=== PATIENT | female | born 1965 ===

== ENCOUNTER 2021-01-24 18:50 | Inpatient (IN) | payer MEDICAID, OTHER, SELFPAY ==
--- NOTE | ~2021-01-24 | CT_ITS ---
EXAMINATION: CT ABDOMEN AND PELVIS WITH CONTRAST CLINICAL INFORMATION: Diffuse abdominal pain. COMPARISON: CT abdomen 08/25/2017. TECHNIQUE: Multidetector volumetric images were obtained from the superior aspect of the liver through the pubic symphysis following administration 65 mL of Omnipaque 350 intravenous contrast. Sagittal and coronal reformatted images were obtained on the technologist's workstation. Oral Contrast: No. This CT examination was performed using dose optimization techniques as appropriate, variously including the following: *Automated exposure control. *Adjustment of mA and/or kV according to patient size (this includes techniques or standardized protocols for targeted exams where dose is matched to indication/reason for exam; i.e. extremities or head). *Use of iterative reconstruction technique. DLP: 1108 mGy-cm FINDINGS: Respiratory motion artifact limiting evaluation. LUNG BASES: Mild bibasilar atelectasis. LIVER, GALLBLADDER, AND BILIARY TREE: Mild diffuse low-attenuation liver suggesting hepatic steatosis. No focal lesions. No biliary duct dilatation. The gallbladder is unremarkable with no evidence of radiopaque gallstones, gallbladder wall thickening, or obvious pericholecystic inflammatory changes. PANCREAS: Unremarkable. No acute inflammatory changes seen. SPLEEN: Unremarkable. ADRENAL GLANDS: Unremarkable. KIDNEYS AND URETERS: Respiratory motion artifact limiting evaluation. No suspicious lesions. Foci of increased echogenicity in the region of the renal pelvis, could represent medullary nephrocalcinosis. No ureteral calculi. No hydronephrosis. BLADDER: There is a 1 cm calculus within the bladder. No bladder wall thickening. GASTROINTESTINAL TRACT: Stomach is nondistended limiting evaluation. No dilated small bowel loops. Large colon is nondistended. No definite colonic wall thickening or pericolonic inflammatory changes. Appendix appears unremarkable. No free fluid. No free air. ABDOMINAL WALL: No significant hernia is appreciated. Infraumbilical anterior wall mesh hernia repair material is again seen. LYMPH NODES: No lymphadenopathy is seen in the abdomen or pelvis. VASCULAR: Normal caliber aorta. PELVIC VISCERA: Within normal limits. OSSEOUS STRUCTURES: Multilevel degenerative changes in the spine. No suspicious osseous abnormality seen. CT/CT abdomen pelvis w con IMPRESSION: 1. There is a 1 cm calculus/calcification within the urinary bladder. This is new as compared to the prior study. No evidence of hydronephrosis. 2. Calcific densities in bilateral kidneys, perhaps medullary nephrocalcinosis. 3. No acute process is otherwise identified in the abdomen or pelvis. 4. Mild bibasilar atelectasis. 5. Hepatic steatosis.
[2021-01-24 19:04] VITALS: BP 148/88; PULSE 95; RESP 18; TEMP 36.2; O2SAT 100; BMI 40.3
--- NOTE | 2021-01-24 19:13 | ECG_ITS ---
Test Reason : OVERDOSE Blood Pressure : / mmHG Vent. Rate : 080 BPM Atrial Rate : 080 BPM P-R Int : 220 ms QRS Dur : 100 ms QT Int : 404 ms P-R-T Axes : 054 000 073 degrees QTc Int : 465 ms Sinus rhythm with 1st degree A-V block Nonspecific T wave abnormality Abnormal ECG When compared with ECG of 08-JUL-2019 13:38, CT interval has increased Borderline criteria for Anterior infarct are no longer Present Referred By: Samia Luo Electronically Signed By:Da Faulkner
[2021-01-24] MEDS: Haloperidol Lactate 5 MG/ML VIAL IM (19:22)
[2021-01-24 20:07] VITALS: BP 125/76; PULSE 74; RESP 20; TEMP 36.7; O2SAT 91
[2021-01-24 20:14] LABS: Basophils Percent Auto 0.4 % (0-2); Eosinophils Absolute Auto 0.1 X10*3/uL (0.0-0.4); Eosinophils Percent Auto 0.4 % (0-4); Hematocrit 37.8 % (37-47); Hemoglobin 12.3 g/dl (12.0-16.0); Imm Gran Abs Auto 0.04 X10*3/uL (0.00-0.03); Imm Gran Pct Auto 0.4 % (0.0-0.4); Lymphocytes Absolute Auto 0.5 X10*3/uL (1.2-4.9); Lymphocytes Percent Auto 4.3 % (20-40); MANUAL DIFF FLAG SCAN; Mean Corpuscular HGB Conc 32.5 g/dl (31.0-35.0); Mean Corpuscular Hemoglobin 24.6 pg (27.0-33.0); Mean Corpuscular Volume 75.8 fL (80-98); Mean Platelet Volume 9.5 fL (9.4-12.3); Monocytes Absolute Auto 0.6 X10*3/uL (0.1-1.2); Neutrophils Absolute Auto 10.1 X10*3/uL (2.0-8.3); Neutrophils Percent Auto 89.5 % (45-73); Platelet Count 271 X10*3/uL (160-400); Red Blood Count 4.99 X10*6/uL (4.20-5.50); SCAN SMEAR FLAG 1; White Blood Count 11.2 X10*3/uL (4.8-10.8)
[2021-01-24 20:23] LABS: Glucose Urine UA NEG (NEG); Leukocyte Esterase Urine NEG (NEG); Nitrite Urine NEG (NEG); PH 5.5 (5.0-8.0); Specific Gravity - Urine >= 1.030 (1.005-1.025); Urine Blood 1+ (NEG); Urine Ketones NEG (NEG); Urine Protein TRACE MG/DL (NEG-TRACE)
[2021-01-24 20:24] LABS: COVID-19 Test Negative (Negative)
[2021-01-24 20:27] LABS: Color Urine YELLOW
[2021-01-24 20:28] LABS: Appearance Urine CLEAR
[2021-01-24 20:29] LABS: Amphetamine Screen Urine Not Detected (Not Detect); Barbiturates, Urine POSITIVE (Not Detect); Benzodiazepines Screen Urine Not Detected (Not Detect); Cannabinoid Screen Urine Not Detected (Not Detect); Cocaine Screen Urine Not Detected (Not Detect); Opiate Screen Urine Not Detected (Not Detect); Phencyclidine Screen Urine Not Detected (Not Detect)
[2021-01-24 20:41] LABS: Alanine Aminotransferase 19 U/L (0-31); Albumin Level 4.3 g/dL (3.5-5.0); Alkaline Phosphatase 87 U/L (39-117); Anion Gap 18 (12-20); Aspartate Amino Transferase 22 U/L (5-31); Bilirubin Direct 0.2 mg/dL (0.0-0.5); Bilirubin Total 0.5 mg/dL (0.0-1.0); Blood Urea Nitrogen 12 mg/dL (9-16); Calcium 9.5 mg/dL (8.4-10.2); Carbon Dioxide 22 mmol/L (22-29); Chloride 106 mmol/L (96-108); Creatinine Clr Calc Pharmacy 93.3; Estimated Glomerular Filt Rate > 60; Glucose Random 178 mg/dL (60-115); Lipase 24 U/L (8-78); Potassium 3.8 mmol/L (3.3-5.1); Sodium 142 mmol/L (135-145); Total Protein 7.2 g/dL (6.5-8.0)
[2021-01-24 20:47] LABS: SLIDE REVIEW VERIFIED
[2021-01-24 21:00] LABS: Bacteria Urine TRACE /LPF; Squamous Epithelial Cell Urine 1+ /LPF
[2021-01-24 21:01] LABS: Calcium Oxalate Crystals Urine 1+ /LPF; Mucus Urine 1+ /LPF
--- NOTE | 2021-01-24 21:11 | PC.NURSE ---
Daughter Jessica took Patient valuables with patients consent and witnessed byt this RN and Mary Beth Gamez Jessica (daughter) phone number [phone]
[2021-01-24 21:41] VITALS: BP 116/67; PULSE 62; RESP 16; TEMP 37.1; O2SAT 94
[2021-01-24] MEDS: iohexoL 350 MG/ML 100 ML INFUS..BTL IV (21:44)
[2021-01-24 22:24] VITALS: BP 124/70; PULSE 54; RESP 13; TEMP 36.6; O2SAT 92
--- NOTE | 2021-01-24 23:09 | ED_ITS ---
HPI - Overdose General Chief Complaint: Overdose Stated Complaint: OVERDOSE Time Seen by Provider: 01/24/21 19:04 Source: EMS Mode of arrival: EMS Limitations: altered mental status History of Present Illness HPI Narrative: Patient is brought to the emergency room after having an overdose. Patient was found by family with agonal breathing. EMS gave 4 mg intranasal Narcan. Patient woke up, complaining of nausea vomiting. Patient complaining of relapsing from using heroin and states she has been using alcohol today. Patient states that she has been continuously vomiting for the last 3 days, states that she can not eat and therefore she bought heroin with the intention of overdosing and ending her life. MD complaint: intentional overdose Related Data Allergies Allergy/AdvReac Type Severity Reaction Status Date / Time lisinopril [LISINOPRIL] Allergy Unknown UNKNOWN Unverified 05/08/20 14:54 RYNE INHIBITORS Allergy Unknown Uncoded 08/10/12 00:00 Review of Systems Review of Systems: Constitutional : No Weight loss, No Fever, No Chills, No Night Sweats, No Fatigue, No Malaise ENT/Mouth : No Hearing loss, No Ear Pain, No Nasal Congestion, No Sinus Pain, No Hoarseness, No sore throat, No Rhinorrhea, No Swallowing Difficulty Eyes: No Eye Pain, No Swelling, No Redness, No Foreign Body, No Discharge, No Vision Changes Cardiovascular : No Chest Pain, No SOB, No Dyspnea on Exertion, No Orthopnea, No Edema, No Palpitations Respiratory : No Cough, No Sputum, No Wheezing, No Smoke Exposure, No Dyspnea Gastrointestinal : Complaining of nausea , no vomiting, No Diarrhea, No Constipation, No abdominal Pain, No Hematochezia, No Melena Genitourinary : no irregular bleeding, No Dysuria, No Urinary Frequency, No Hematuria, No Urinary Incontinence, No Urgency, No Flank Pain, No Urinary Flow Changes, No Hesitancy Musculoskeletal : No joint pain, No Myalgias, No Joint Swelling Skin : No Skin Lesions, No rash Neuro : No Weakness, No Numbness, No Paresthesias, No Loss of Consciousness, No Dizziness, No Headache Psych : Complaining of anxiety, depression, drug abuse, complaining of suicidal ideation, homicidal ideation Heme/Lymph: No Bruising, No Bleeding,No Lymphadenopathy Endocrine : No Polyuria, No Polydipsia, No Temperature Intolerance PMFSH Past Medical History Medical History Drug overdoses Social History Social History Use of substances other than those prescribed or required for medical reasons: Yes Substance Use Type: Heroin Substance Use Frequency: Chronic Longstanding Advance Directives: No Advance Directives Information Provided: No Patient : No Physical Exam Vital Signs: Vital Signs: Last Vital Signs Temp 97.8 F 01/24/21 22:24 Pulse 54 01/24/21 22:24 Resp 13 01/24/21 22:24 BP 124/70 01/24/21 22:24 Pulse Ox 92 01/24/21 22:24 Body Mass Index 40.3 Appearance: Alert. Oriented X3. Screaming, actively withdrawing from opiates due to Narcan Eyes: Pupils equal, round and reactive to light. ENT: Pharynx normal. Neck: Normal inspection. Neck supple. No lymph nodes noted. No crepitus CVS: Normal heart rate and rhythm. Pulses normal. Normal S1 and S2 Respiratory: No respiratory distress. Breath sounds normal. No Wheezing. No rales Abdomen: Soft and nontender. No rigidity. No distention. Skin: Skin warm and dry. Normal skin color. Normal skin turgor. Extremities: No lower extremity edema. Neuro: . New nerves 2-12 grossly intact, No sensory deficit. Moving all extermities. No slurred speech. Course Course Course Narrative: [facility] for consult pending for suicidal ideation/suicide attempt. Patient has a section 12 in her chart. Per patient's previous medical records, it is known that she uses fentanyl Physician observation started at this time, 23:15 [facility] for consult pending. Sign out given to Dr. Buckley MDM - Overdose Lab Data Result diagrams: 01/24/21 20:04 01/24/21 20:04 Labs: Lab Results 01/24/21 01/24/21 01/24/21 Range/Units 19:54 19:54 19:55 WBC (4.8-10.8) X10*3/uL RBC (4.20-5.50) X10*6/uL Hgb (12.0-16.0) g/dl Hct (37-47) % MCV (80-98) fL MCH (27.0-33.0) pg MCHC (31.0-35.0) g/dl RDW (11.0-16.0) % Plt Count (160-400) X10*3/uL MPV (9.4-12.3) fL Immature Gran % (Auto) (0.0-0.4) % Neut % (Auto) (45-73) % Lymph % (Auto) (20-40) % [place] % (Auto) (2-11) % Eos % (Auto) (0-4) % Baso % (Auto) (0-2) % Lymph # (Auto) (1.2-4.9) X10*3/uL [place] # (Auto) (0.1-1.2) X10*3/uL Eos # (Auto) (0.0-0.4) X10*3/uL Baso # (Auto) (0.0-0.2) X10*3/uL Abs Immat Gran (auto) (0.00-0.03) X10*3/uL Absolute Neuts (auto) (2.0-8.3) X10*3/uL Absolute Nucleated RBC (0.0-0.012) X10*3/uL Nucleated RBC % (auto) (0.0-0.2) /100WBC Smear Tech's Comments Sodium (135-145) mmol/L Potassium (3.3-5.1) mmol/L Chloride (96-108) mmol/L Carbon Dioxide (22-29) mmol/L Anion Gap (12-20) BUN (9-16) mg/dL Creatinine (0.5-1.4) mg/dL Estim Creat Clear Calc Estimated GFR Random Glucose (60-115) mg/dL Calcium (8.4-10.2) mg/dL Total Bilirubin (0.0-1.0) mg/dL Direct Bilirubin (0.0-0.5) mg/dL AST (5-31) U/L ALT (0-31) U/L Alkaline Phosphatase (39-117) U/L Total Protein (6.5-8.0) g/dL Albumin (3.5-5.0) g/dL Lipase (8-78) U/L Urine Color YELLOW Urine Appearance CLEAR Urine pH 5.5 (5.0-8.0) Ur Specific [place] >= 1.030 H (1.005-1.025) Urine Protein TRACE (NEG-TRACE) MG/DL Urine Glucose (UA) NEG (NEG) MG/DL Urine Ketones NEG (NEG) MG/DL Urine Blood 1+ H (NEG) Urine Nitrite NEG (NEG) Ur Leukocyte Esterase NEG (NEG) Urine RBC 10-14 H (0) /HPF Urine WBC 1-4 (0-4) /HPF Ur Squamous Epith Cells 1+ /LPF Calcium Oxalate Crystal 1+ /LPF Urine Bacteria TRACE /LPF Urine Mucus 1+ /LPF Urine Opiates Screen Not Detected (Not Detect) Ur Barbiturates Screen POSITIVE H (Not Detect) Ur Phencyclidine Scrn Not Detected (Not Detect) Ur Amphetamines Screen Not Detected (Not Detect) U Benzodiazepines Scrn Not Detected (Not Detect) Urine Cocaine Screen Not Detected (Not Detect) U Marijuana (THC) Screen Not Detected (Not Detect) Ethyl Alcohol mg/dL COVID-19 (LUIGI) Negative (Negative) COVID-19 Clin Com See Note 01/24/21 01/24/21 01/24/21 Range/Units 20:04 20:04 20:04 WBC 11.2 H (4.8-10.8) X10*3/uL RBC 4.99 (4.20-5.50) X10*6/uL Hgb 12.3 (12.0-16.0) g/dl Hct 37.8 (37-47) % MCV 75.8 L (80-98) fL MCH 24.6 L (27.0-33.0) pg MCHC 32.5 (31.0-35.0) g/dl RDW 16.0 (11.0-16.0) % Plt Count 271 (160-400) X10*3/uL MPV 9.5 (9.4-12.3) fL Immature Gran % (Auto) 0.4 (0.0-0.4) % Neut % (Auto) 89.5 H (45-73) % Lymph % (Auto) 4.3 L (20-40) % [place] % (Auto) 5.0 (2-11) % Eos % (Auto) 0.4 (0-4) % Baso % (Auto) 0.4 (0-2) % Lymph # (Auto) 0.5 L (1.2-4.9) X10*3/uL [place] # (Auto) 0.6 (0.1-1.2) X10*3/uL Eos # (Auto) 0.1 (0.0-0.4) X10*3/uL Baso # (Auto) 0.0 (0.0-0.2) X10*3/uL Abs Immat Gran (auto) 0.04 H (0.00-0.03) X10*3/uL Absolute Neuts (auto) 10.1 H (2.0-8.3) X10*3/uL Absolute Nucleated RBC 0.000 (0.0-0.012) X10*3/uL Nucleated RBC % (auto) 0.0 (0.0-0.2) /100WBC Smear Tech's Comments VERIFIED Sodium 142 (135-145) mmol/L Potassium 3.8 (3.3-5.1) mmol/L Chloride 106 (96-108) mmol/L Carbon Dioxide 22 (22-29) mmol/L Anion Gap 18 (12-20) BUN 12 (9-16) mg/dL Creatinine 0.87 (0.5-1.4) mg/dL Estim Creat Clear Calc 93.3 Estimated GFR > 60 Random Glucose 178 H (60-115) mg/dL Calcium 9.5 (8.4-10.2) mg/dL Total Bilirubin 0.5 (0.0-1.0) mg/dL Direct Bilirubin 0.2 (0.0-0.5) mg/dL AST 22 (5-31) U/L ALT 19 (0-31) U/L Alkaline Phosphatase 87 (39-117) U/L Total Protein 7.2 (6.5-8.0) g/dL Albumin 4.3 (3.5-5.0) g/dL Lipase 24 (8-78) U/L Urine Color Urine Appearance Urine pH (5.0-8.0) Ur Specific [place] (1.005-1.025) Urine Protein (NEG-TRACE) MG/DL Urine Glucose (UA) (NEG) MG/DL Urine Ketones (NEG) MG/DL Urine Blood (NEG) Urine Nitrite (NEG) Ur Leukocyte Esterase (NEG) Urine RBC (0) /HPF Urine WBC (0-4) /HPF Ur Squamous Epith Cells /LPF Calcium Oxalate Crystal /LPF Urine Bacteria /LPF Urine Mucus /LPF Urine Opiates Screen (Not Detect) Ur Barbiturates Screen (Not Detect) Ur Phencyclidine Scrn (Not Detect) Ur Amphetamines Screen (Not Detect) U Benzodiazepines Scrn (Not Detect) Urine Cocaine Screen (Not Detect) U Marijuana (THC) Screen (Not Detect) Ethyl Alcohol < 10 mg/dL COVID-19 (LUIGI) (Negative) COVID-19 Clin Com Imaging Data CT scan - abdomen: Radiologist's impression: FINDINGS: Respiratory motion artifact limiting evaluation. LUNG BASES: Mild bibasilar atelectasis. LIVER, GALLBLADDER, AND BILIARY TREE: Mild diffuse low-attenuation liver suggesting hepatic steatosis. No focal lesions. No biliary duct dilatation. The gallbladder is unremarkable with no evidence of radiopaque gallstones, gallbladder wall thickening, or obvious pericholecystic inflammatory changes. PANCREAS: Unremarkable. No acute inflammatory changes seen. SPLEEN: Unremarkable. ADRENAL GLANDS: Unremarkable. KIDNEYS AND URETERS: Respiratory motion artifact limiting evaluation. No suspicious lesions. Foci of increased echogenicity in the region of the renal pelvis, could represent medullary nephrocalcinosis. No ureteral calculi. No hydronephrosis. BLADDER: There is a 1 cm calculus within the bladder. No bladder wall thickening. GASTROINTESTINAL TRACT: Stomach is nondistended limiting evaluation. No dilated small bowel loops. Large colon is nondistended. No definite colonic wall thickening or pericolonic inflammatory changes. Appendix appears unremarkable. No free fluid. No free air. ABDOMINAL WALL: No significant hernia is appreciated. Infraumbilical anterior wall mesh hernia repair material is again seen. LYMPH NODES: No lymphadenopathy is seen in the abdomen or pelvis. VASCULAR: Normal caliber aorta. PELVIC VISCERA: Within normal limits. OSSEOUS STRUCTURES: Multilevel degenerative changes in the spine. No suspicious osseous abnormality seen. CT/CT abdomen pelvis w con IMPRESSION: 1. There is a 1 cm calculus/calcification within the urinary bladder. This is new as compared to the prior study. No evidence of hydronephrosis. 2. Calcific densities in bilateral kidneys, perhaps medullary nephrocalcinosis. 3. No acute process is otherwise identified in the abdomen or pelvis. 4. Mild bibasilar atelectasis. 5. Hepatic steatosis. ECG Data Attestation: I personally reviewed and interpreted this ECG as follows: (Senna rhythm, heart rate 80, first-degree AV block, no ST segment depression or el evation, no T-wave inversion, QTC 465) Discharge Plan Discharge Clinical Impression: Drug overdose Qualifiers: Encounter type: initial encounter Injury intent: intentional self-harm Qualified Code(s): T50.902A - Poisoning by unspecified drugs, medicaments and biological substances, intentional self-harm, initial encounter Suicide attempt by multiple drug overdose Qualifiers: Encounter type: initial encounter Qualified Code(s): T50.912A - Poisoning by multiple unspecified drugs, medicaments and biological substances, intentional self-harm, initial encounter
[2021-01-25] VITALS (7 sets, daily range): BP systolic 102–131; BP diastolic 59–83; PULSE 56–67; RESP 14–18; TEMP 36.3–36.6; O2SAT 93–95
[2021-01-25] LABS: Ethanol < 10 mg/dL
--- NOTE | 2021-01-25 08:12 | PC.NURSE ---
Pt evaluated by N. Family here for visit. Pt is cooperative with care. Awaiting N disposition at this time.
--- NOTE | 2021-01-25 08:27 | PC.NURSE ---
Pt c/o nausea this morning. 4mg po zofran given. Pt is resting in bed quietly.
[2021-01-25] MEDS: Docusate Sodium 100 MG CAPSULE 200 MG PO ×2 (10:13→23:01)
[2021-01-25] MEDS: Omeprazole 20 MG CAPSULE.DR PO (10:13)
[2021-01-25] MEDS: Gabapentin 600 MG TABLET PO ×3 (10:13→23:01)
[2021-01-25] MEDS: Loratadine 10 MG TABLET PO (10:13)
[2021-01-25] MEDS: metFORMIN HCl 1,000 MG TABLET 1000 MG PO ×2 (10:14→23:02)
[2021-01-25] MEDS: Losartan Potassium 50 MG TABLET 100 MG PO (10:14)
[2021-01-25] MEDS: amLODIPine Besylate 10 MG TABLET PO (10:14)
--- NOTE | 2021-01-25 11:39 | PC.NURSE ---
Pt calmy drinking coffee and watching TV in the common area. Affect and mood pleasant but slightly withdrawn at this time.
--- NOTE | 2021-01-25 13:29 | PC.NURSE ---
Pt eating lunch at table in room. She states that she does not need anything at this time.
--- NOTE | 2021-01-25 16:41 | PC.NURSE ---
Pt is calm and cooperative reading magazines in common area and in room. She is interacting appropriately with staff and others in the pod.
[2021-01-25 18:40] LABS: Glucose, Whole Blood 113 mg/dL (60-115)
--- NOTE | 2021-01-25 19:07 | PC.NURSE ---
Patient ambulating within [facility] with steady gait. Denies complaints at this time. Will continue to monitor.
--- NOTE | 2021-01-25 22:42 | PC.NURSE ---
Spoke with Gonzalo from Pharmacy, awaiting medications that are not available in the Pyxis. Will medicate once medications arrive to the unit. Pt aware and agrees with plan.
[2021-01-25] MEDS: Atorvastatin Calcium 40 MG TABLET PO (23:01)
[2021-01-25] MEDS: traZODone HCL 100 MG TABLET PO (23:01)
[2021-01-25] MEDS: SITagliptin Phosphate 100 MG TABLET PO (23:01)
[2021-01-25] MEDS: Aspirin Enteric Coated 81 MG TABLET.DR PO (23:01)
[2021-01-25] MEDS: Cholecalciferol (Vitamin D3) 25 MCG TABLET 50 MCG PO (23:01)
[2021-01-25] MEDS: Primidone 50 MG TABLET PO (23:02)
[2021-01-26 02:00] VITALS: BP 119/68; PULSE 65; RESP 18; TEMP 36.2; O2SAT 92
--- NOTE | 2021-01-26 07:28 | PC.NURSE ---
report taken from arjun rn resting in bed, rr even/unlabored, breakfast tray at bedside. wctm.
[2021-01-26 08:41] VITALS: BP 119/68
[2021-01-26] MEDS: Docusate Sodium 100 MG CAPSULE 200 MG PO ×2 (08:41→21:22)
[2021-01-26] MEDS: Losartan Potassium 50 MG TABLET 100 MG PO (08:41)
[2021-01-26] MEDS: amLODIPine Besylate 10 MG TABLET PO (08:41)
[2021-01-26] MEDS: metFORMIN HCl 1,000 MG TABLET 1000 MG PO ×2 (08:41→21:22)
[2021-01-26] MEDS: Gabapentin 600 MG TABLET PO ×3 (08:41→21:22)
[2021-01-26] MEDS: Loratadine 10 MG TABLET PO (08:42)
[2021-01-26] MEDS: Omeprazole 20 MG CAPSULE.DR PO (08:42)
[2021-01-26] MEDS: Fluticasone Propionate Nasal 16 GM SPRAY 2 SPRAY NOSTRIL-B (10:04)
[2021-01-26 10:49] VITALS: BP 111/70; PULSE 62; RESP 18; TEMP 36.8; O2SAT 95
[2021-01-26] MEDS: hydrOXYzine HCL 25 MG TABLET PO (15:19)
[2021-01-26] MEDS: Aspirin Enteric Coated 81 MG TABLET.DR PO (21:22)
[2021-01-26] MEDS: Primidone 50 MG TABLET PO (21:22)
[2021-01-26] MEDS: Cholecalciferol (Vitamin D3) 25 MCG TABLET 50 MCG PO (21:22)
[2021-01-26] MEDS: SITagliptin Phosphate 100 MG TABLET PO (21:22)
[2021-01-26] MEDS: Atorvastatin Calcium 40 MG TABLET PO (21:22)
[2021-01-26 21:24] LABS: Glucose, Whole Blood 135 mg/dL (60-115)
--- NOTE | 2021-01-26 22:00 | PC.NURSE ---
report given to m5
[2021-01-26 22:29] VITALS: RESP 16
[2021-01-26 23:49] VITALS: BP 118/85; PULSE 73; RESP 18; TEMP 35.6; O2SAT 96
[2021-01-26 23:50] VITALS: BP 114/82; PULSE 81; RESP 18; TEMP 36.2; O2SAT 94
[2021-01-27] MEDS: traZODone HCL 100 MG TABLET PO ×2 (02:03→20:54)
[2021-01-27] MEDS: NaPROXEN 500 MG TABLET PO (02:03)
[2021-01-27] MEDS: hydrOXYzine HCL 25 MG TABLET PO (02:03)
[2021-01-27 03:47] VITALS: BMI 46.0
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
[2021-01-27 06:00] VITALS: BP 113/67; PULSE 95; RESP 18; TEMP 36.1; O2SAT 93
[2021-01-27 07:27] LABS: Glucose, Whole Blood 126 mg/dL (60-115)
[2021-01-27] MEDS: Docusate Sodium 100 MG CAPSULE 200 MG PO ×2 (09:10→20:54)
[2021-01-27] MEDS: Omeprazole 20 MG CAPSULE.DR PO (09:10)
[2021-01-27] MEDS: Cyclobenzaprine HCl 10 MG TABLET PO (09:54)
[2021-01-27] MEDS: Acetaminophen 325 MG TABLET 650 MG PO (09:55)
[2021-01-27] MEDS: Fluticasone Propionate Nasal 16 GM SPRAY 2 SPRAY NOSTRIL-B (10:44)
[2021-01-27] MEDS: Lidocaine 4 % Patch ADH..PATCH 1 PATCH TRANSDERMA (12:36)
[2021-01-27] MEDS: Nicotine Polacrilex 2 MG GUM 4 MG BUCCAL (15:42)
--- NOTE | 2021-01-27 17:03 | HO.PSYADMNOT ---
HPI Chief Complaint: Psychiatric Illness Sources of Information: patient interviewed, chart reviewed and crisis/core team assessment reviewed HPI Subjective Notes: [place] Warning and Conditional Voluntary Narrative: Pt seen with coffee sampler Patient is a 55-year-old female with a history of emotional reactivity, opiate abuse with past overdoses who presents after suicide attempt by intentional overdose in the face of chronic medical issues. On admission patient signed CV. 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 This happened several times until short story writer asked why she kept interrupting this way at which point she became willing to engage in the conversation. Patient says that she did try to take her life because she could not handle the pain. She says the pain is a nausea in her stomach that comes and goes and causes muscle spasms. At 1 point she said the pain has been there for the past 6 months since she returned from [place], but later on she said it has been problem since childhood (patient says she is not able to eat fatty foods). Patient said she meant to go to the hospital to take care of it, but due to COVID she could not get in; she also missed an appointment with a qualified craft worker electrician due to a bus schedule. Patient says that mostly she's able to deal with the pain but that recently it got worse and so she wanted to kill herself. She denies current suicidal ideation and says she is fine now and will be until the pain again becomes too much to bear. She volunteers that she has tried to kill herself 3 times using heroin: Crisis note indicates that she has needed Narcan 5 times per daughter. Patient reports she also uses heroin intermittently to deal with the pain since doctors will not give her medications for pain, but she is adamant that she is ?not an addict.? Patient says she takes all of her medications regularly as they are given to her in pillbox form so that they are clear. Crisis note mentioned that there was a recent court case involving custody of her son, however patient said that this is a non issue and that she is giving custody of her son to 1 of her daughters as he stays there most days anyway; she says she feels good about this. Patient reports depression most of the time but only because she is feeling pain; it is difficult to identify specific depressive symptoms however. She said sometimes she has auditory hallucinations of someone calling her name. Patient denies any manic symptoms. She is open to medication to help with her symptoms but expresses ambivalence. She says it is her business whether she wants to take her life and that her children will be fine without her. She is not intent on suicide and would welcome relief from abdominal pain, but keeps suicide as an option given chronic abdominal discomfort. also noted in crisis note, pmhx Diabetes Hypertension COPD Arthritis Diabetes SOFIYA In ED: CT/CT abdomen pelvis w con see impression below: Past Psychiatric History: History of SI with overdose attempts Inpatient hospitalization on and 2017 Medical Evaluation Reviewed: Yes [facility] Medical History (Updated 01/28/21 @ 13:06 by Filippo Meneses) Drug overdoses MDD (major depressive disorder) Opioid abuse Family History: Deferred Social History: Patient has 5 daughters and lives with 1 of them. DCF case opened and patient is giving guardianship of her 12-year-old son to her daughter Patient born and raised in [place] Raised by her aunt Last grade completed 4th grade Reportedly was living with a man by the time she was 13 years old Gets SSI Substance History: History of cocaine use; otherwise see above Diagnostics Vital Signs (24Hr): Vital Signs - 24 hr 01/26/21 22:29 01/26/21 23:49 01/26/21 23:50 Temperature 96.1 F L 97.2 F Pulse Rate 73 81 Respiratory Rate 16 18 18 Blood Pressure 118/85 114/82 Pulse Oximetry 96 94 01/27/21 06:00 Temperature 96.9 F Pulse Rate 95 Respiratory Rate 18 Blood Pressure 113/67 Pulse Oximetry 93 Body Mass Index 46.0 Labs Results: 01/24/21 20:04 01/24/21 20:04 Labs: Laboratory Results - last 48 hr 01/25/21 01/26/21 01/27/21 18:34 21:20 07:23 POC Glucose 113 135 H 126 H Imaging Radiology Impressions: ITS Impressions Abdomen/Pelvis CT 01/24/21 19:16 IMPRESSION: 1. There is a 1 cm calculus/calcification within the urinary bladder. This is new as compared to the prior study. No evidence of hydronephrosis. 2. Calcific densities in bilateral kidneys, perhaps medullary nephrocalcinosis. 3. No acute process is otherwise identified in the abdomen or pelvis. 4. Mild bibasilar atelectasis. 5. Hepatic steatosis. Meds/Allergies Meds Home Medications Acetaminophen (Acetaminophen 325 Mg Tablet) 650 mg PO Q6H PRN PRN Reason: Headache/Pain Mild Scale (1-3) Last Admin: 01/27/21 09:55 Dose: 650 mg Documented by: Al Hydroxide/Mg Hydroxide (Magnesium Hydrox/Alum Hydrox 30 Ml Oral.Susp) 30 ml PO Q6H PRN PRN Reason: Heartburn/Nausea Albuterol Sulfate (Albuterol Sulfate (0.083%) 2.5 Mg/3 Ml Vial.Neb) 2.5 mg INHALE QID PRN PRN Reason: wheezing Albuterol Sulfate (Albuterol Sulfate 90 Mcg 8 Gm Inhaler) 2 puff INHALE Q4H PRN PRN Reason: Shortness Of Breath Aspirin (Aspirin Enteric Coated 81 Mg Tablet.) 81 mg PO BEDTIME [facility] Last Admin: 01/27/21 20:54 Dose: 81 mg Documented by: Atorvastatin Calcium (Atorvastatin Calcium 40 Mg Tablet) 40 mg PO BEDTIME [facility] Last Admin: 01/27/21 20:54 Dose: 40 mg Documented by: Cyclobenzaprine HCl (Cyclobenzaprine Hcl 10 Mg Tablet) 10 mg PO TID PRN PRN Reason: pain Last Admin: 01/27/21 09:54 Dose: 10 mg Documented by: Docusate Sodium (Docusate Sodium 100 Mg Capsule) 200 mg PO BID [facility] Last Admin: 01/28/21 08:23 Dose: 200 mg Documented by: Fluticasone Propionate (Fluticasone Propionate Nasal 16 Gm [place]) 2 spray NOSTRIL-B DAILY [facility] Last Admin: 01/28/21 08:28 Dose: Not Given Documented by: Gabapentin (Gabapentin 600 Mg Tablet) 600 mg PO TID [facility] Last Admin: 01/28/21 08:23 Dose: 600 mg Documented by: Hydroxyzine HCl (Hydroxyzine Hcl 25 Mg Tablet) 25 mg PO BID PRN PRN Reason: anxiety Last Admin: 01/27/21 02:03 Dose: 25 mg Documented by: Lidocaine (Lidocaine 4 % Patch Adh..Patch) 1 patch TRANSDERMA DAILY PRN PRN Reason: Pain, Moderate (Pain Scale 4-6 Last Admin: 01/27/21 12:36 Dose: 1 patch Documented by: Losartan Potassium (Losartan Potassium 50 Mg Tablet) 100 mg PO DAILY [facility]; Protocol Last Admin: 01/28/21 08:26 Dose: Not Given Documented by: Magnesium Hydroxide (Milk Of Magnesia 30 Ml Oral.Susp) 30 ml PO DAILY PRN PRN Reason: Constipation Metformin HCl (Metformin Hcl 1,000 Mg Tablet) 1,000 mg PO BIDWM [facility] Last Admin: 01/28/21 08:23 Dose: 1,000 mg Documented by: Naproxen (Naproxen 500 Mg Tablet) 500 mg PO BID PRN PRN Reason: pain Last Admin: 01/27/21 02:03 Dose: 500 mg Documented by: Nicotine Polacrilex (Nicotine Polacrilex 2 Mg Gum) 4 mg BUCCAL Q2H PRN PRN Reason: Nicotine Cravings Last Admin: 01/27/21 15:42 Dose: 4 mg Documented by: Omeprazole (Omeprazole 20 Mg Capsule.Dr) 20 mg PO DAILY [facility] Last Admin: 01/28/21 08:23 Dose: 20 mg Documented by: Primidone (Primidone 50 Mg Tablet) 50 mg PO BEDTIME [facility] Last Admin: 01/27/21 20:54 Dose: 50 mg Documented by: Sitagliptin Phosphate (Sitagliptin Phosphate 100 Mg Tablet) 100 mg PO BEDTIME [facility] Last Admin: 01/27/21 20:54 Dose: 100 mg Documented by: Trazodone HCl (Trazodone Hcl 100 Mg Tablet) 100 mg PO BEDTIME [facility] Last Admin: 01/27/21 20:54 Dose: 100 mg Documented by: Vitamin D (Cholecalciferol (Vitamin D3) 25 Mcg Tablet) 50 mcg PO BEDTIME [facility] Last Admin: 01/27/21 20:54 Dose: 50 mcg Documented by: Allergies Allergies Allergy/AdvReac Type Severity Reaction Status Date / Time lisinopril [LISINOPRIL] Allergy Unknown UNKNOWN Verified 01/25/21 23:01 Mental Status Exam Mental Status Exam Narrative: Pt is alert and oriented; behavior is cooperative, friendly; patient is not in distress; dressed in hospital gown with adequate hygiene; mood is described as ok and affect constricted; eye contact appropriate; Speech is normal rate, volume and prosody and not pressured; no psychomotor agitation/retardation present; thought process is able to be organized, logical and goal directed however she can be quite circumstantial or tangential at which times she is verbose. Thought content is ambivalent on getting treatment; it is sometimes difficult to get patient to answer specific question as she seems to prefer talking about other topics which are mostly relevant; patient is able however to be redirected and answer questions. no delusional content, paranoid ideations or grandiosity; currently denies any SI/HI. There is no evidence of perceptual disturbance though she says at home, she sometimes hears someone calling her name; Patients insight and judgment appear impaired. Assessment & Plan Assessment & Plan (1) MDD (major depressive disorder): Status: Acute Qualifiers: Major depression recurrence: recurrent Major depression episode severity: moderate Code(s): F32.9 - Major depressive disorder, single episode, unspecified Assessment and Plan: IMPRESSION: Pt seen with coffee sampler Patient is a 55-year-old female with a history of emotional reactivity, opiate abuse with past overdoses who presents after suicide attempt by intentional overdose in the face of chronic medical issues. On admission patient signed CV. Patient is a difficult historian as it takes some effort to get her to answer direct questions; though she is capable and has an organized thought process, she seems to prefer talking about other things. Patient reports chronic depression due to chronic pain with much associated emotional reactivity. When the pain gets excessive she becomes suicidal. There appears to be a characterological component as well. We will diagnose patient with depressive disorder. Patient denies history of manic type symptoms. At this point it is not clear how to pursue treatment. Some considerations are antidepressant his, medication for nausea and/or perhaps Suboxone or naltrexone. Will seek collateral from patient's daughter to get a more clear picture Plan: Patient currently on CV Q 15 minutes checks as patient reports all SI is resolved We will continue patient's home medications Will continue primidone Patient is on primidone and was positive for barbiturates in her urine, however short story writer is not sure if this is for seizure disorder or tremor as patient is not sure why she takes which medications (2) Opioid abuse: Status: Acute Code(s): F11.10 - Opioid abuse, uncomplicated Patient educated on: medication risk/benefits, substance abuse and medical condition Informed Consent: understands Reason for continued inpatient stay Substantial Risk for: harm to self
[2021-01-27] MEDS: metFORMIN HCl 1,000 MG TABLET 1000 MG PO (18:11)
[2021-01-27 20:52] LABS: Glucose, Whole Blood 158 mg/dL (60-115)
[2021-01-27] MEDS: Cholecalciferol (Vitamin D3) 25 MCG TABLET 50 MCG PO (20:54)
[2021-01-27] MEDS: SITagliptin Phosphate 100 MG TABLET PO (20:54)
[2021-01-27] MEDS: Atorvastatin Calcium 40 MG TABLET PO (20:54)
[2021-01-27] MEDS: Aspirin Enteric Coated 81 MG TABLET.DR PO (20:54)
[2021-01-27] MEDS: Gabapentin 600 MG TABLET PO (20:54)
[2021-01-27] MEDS: Primidone 50 MG TABLET PO (20:54)
[2021-01-27 22:24] VITALS: BP 116/73; PULSE 95; TEMP 36.2
[2021-01-28 07:07] LABS: Glucose, Whole Blood 118 mg/dL (60-115)
[2021-01-28] MEDS: Omeprazole 20 MG CAPSULE.DR PO (08:23)
[2021-01-28] MEDS: Gabapentin 600 MG TABLET PO (08:23)
[2021-01-28] MEDS: Docusate Sodium 100 MG CAPSULE 200 MG PO (08:23)
[2021-01-28] MEDS: metFORMIN HCl 1,000 MG TABLET 1000 MG PO (08:23)
[2021-01-28 08:26] VITALS: BP 93/54; PULSE 73
[2021-01-28 10:10] VITALS: RESP 16; TEMP 36.7; O2SAT 97
--- NOTE | 2021-01-28 10:15 | HO.PSYCHPN ---
Subjective Subjective Date of Service: 01/28/21 Reason For Visit: Psychiatric Illness Interim History: Patient seen with program director/morning show host Patient refused to talk to technical publications writer saying she did not want to talk right now. It that she got up and walked away Health Physicist spoke with patient's daughter Jasmin [phone] Daughter says that as long as she has known her mother her mother has been talking about suicide. Jasmin says that when she was 8 years old she came in and found her mother passed out in the bathroom, having overdosed on her medications. She says that whenever her mother is mad or upset she will say ?I do not want to be in this world? and becomes suicidal. Daughter says her mother is depressed most of the time. Regarding recent event, patient came over to see Jasmin but was acting drowsy. Jasmin suspected her mother had been using heroin. Her mother started crying but would not talk about it. When her daughter went to get her a glass of water she found that her mom had fallen on the floor and a neighbor called 911. Daughter says she has been complaining about abdominal pain for at least the past 7 months and wonders if it is because she is on so many medications. Medication Compliance: Yes Mental Status Exam Mental Status Exam Narrative: Pt is alert and oriented; behavior is cooperative, friendly; patient is not in distress; dressed in hospital gown with adequate hygiene; mood is described as depressed and affect constricted; eye contact avoidant; Speech is normal rate, volume and prosody and not pressured; no psychomotor agitation/retardation present; thought process goal oriented. Diagnostics Vital Signs (24Hr): Vital Signs - 24 hr 01/27/21 22:24 01/28/21 08:26 01/28/21 10:10 Temperature 97.2 F 98.0 F Pulse Rate 95 73 Respiratory Rate 16 Blood Pressure 116/73 93/54 L Pulse Oximetry 97 Body Mass Index 46.0 Labs Results: 01/24/21 20:04 01/24/21 20:04 Labs: Laboratory Results - last 48 hr 01/26/21 01/27/21 01/27/21 21:20 07:23 20:38 POC Glucose 135 H 126 H 158 H 01/28/21 06:27 POC Glucose 118 H Imaging Radiology Impressions: ITS Impressions Abdomen/Pelvis CT 01/24/21 19:16 IMPRESSION: 1. There is a 1 cm calculus/calcification within the urinary bladder. This is new as compared to the prior study. No evidence of hydronephrosis. 2. Calcific densities in bilateral kidneys, perhaps medullary nephrocalcinosis. 3. No acute process is otherwise identified in the abdomen or pelvis. 4. Mild bibasilar atelectasis. 5. Hepatic steatosis. Medications Medications Current Medications Generic Name Dose Route Start Last Admin Trade Name Freq PRN Reason Stop Dose Admin Acetaminophen 650 mg 01/27/21 00:00 01/27/21 09:55 Acetaminophen 325 Mg Tablet PO 650 mg Q6H PRN Administration Headache/Pain Mild Scale (1-3) Al Hydroxide/Mg Hydroxide 30 ml 01/27/21 00:00 Magnesium Hydrox/Alum Hydrox 30 Ml Oral.Susp PO Q6H PRN Heartburn/Nausea Albuterol Sulfate 2.5 mg 01/25/21 09:23 Albuterol Sulfate (0.083%) 2.5 Mg/3 Ml Vial.Neb INHALE QID PRN wheezing Albuterol Sulfate 2 puff 01/25/21 09:23 Albuterol Sulfate 90 Mcg 8 Gm Inhaler INHALE Q4H PRN Shortness Of Breath Aspirin 81 mg 01/25/21 21:00 01/27/21 20:54 Aspirin Enteric Coated 81 Mg Tablet. PO 81 mg BEDTIME [facility] Administration Atorvastatin Calcium 40 mg 01/25/21 21:00 01/27/21 20:54 Atorvastatin Calcium 40 Mg Tablet PO 40 mg BEDTIME [facility] Administration Cyclobenzaprine HCl 10 mg 01/25/21 09:23 01/27/21 09:54 Cyclobenzaprine Hcl 10 Mg Tablet PO 10 mg TID PRN Administration pain Docusate Sodium 200 mg 01/25/21 09:30 01/28/21 08:23 Docusate Sodium 100 Mg Capsule PO 200 mg BID [facility] Administration Fluticasone Propionate 2 spray 01/25/21 09:30 01/28/21 08:28 Fluticasone Propionate Nasal 16 Gm [place] NOSTRIL-B Not Given DAILY [facility] Gabapentin 600 mg 01/27/21 21:00 01/28/21 08:23 Gabapentin 600 Mg Tablet PO 600 mg TID [facility] Administration Hydroxyzine HCl 25 mg 01/26/21 15:09 01/27/21 02:03 Hydroxyzine Hcl 25 Mg Tablet PO 25 mg BID PRN Administration anxiety Lidocaine 1 patch 01/25/21 09:51 01/27/21 12:36 Lidocaine 4 % Patch Adh..Patch TRANSDERMA 1 patch DAILY PRN Administration Pain, Moderate (Pain Scale 4-6 Losartan Potassium 100 mg 01/28/21 09:00 01/28/21 08:26 Losartan Potassium 50 Mg Tablet PO Not Given DAILY [facility] Protocol Magnesium Hydroxide 30 ml 01/27/21 00:00 Milk Of Magnesia 30 Ml Oral.Susp PO DAILY PRN Constipation Metformin HCl 1,000 mg 01/27/21 17:00 01/28/21 08:23 Metformin Hcl 1,000 Mg Tablet PO 1,000 mg BIDWM [facility] Administration Naproxen 500 mg 01/25/21 09:23 01/27/21 02:03 Naproxen 500 Mg Tablet PO 500 mg BID PRN Administration pain Nicotine Polacrilex 4 mg 01/27/21 00:00 01/27/21 15:42 Nicotine Polacrilex 2 Mg Gum BUCCAL 4 mg Q2H PRN Administration Nicotine Cravings Omeprazole 20 mg 01/25/21 09:30 01/28/21 08:23 Omeprazole 20 Mg Capsule.Dr PO 20 mg DAILY [facility] Administration Primidone 50 mg 01/25/21 21:00 01/27/21 20:54 Primidone 50 Mg Tablet PO 50 mg BEDTIME [facility] Administration Sitagliptin Phosphate 100 mg 01/25/21 21:00 01/27/21 20:54 Sitagliptin Phosphate 100 Mg Tablet PO 100 mg BEDTIME [facility] Administration Trazodone HCl 100 mg 01/25/21 21:00 01/27/21 20:54 Trazodone Hcl 100 Mg Tablet PO 100 mg BEDTIME [facility] Administration Vitamin D 50 mcg 01/25/21 21:00 01/27/21 20:54 Cholecalciferol (Vitamin D3) 25 Mcg Tablet PO 50 mcg BEDTIME [facility] Administration Allergies Allergies Allergy/AdvReac Type Severity Reaction Status Date / Time lisinopril [LISINOPRIL] Allergy Unknown UNKNOWN Verified 01/25/21 23:01 Assessment & Plan Assessment & Plan (1) MDD (major depressive disorder): Qualifiers: Major depression recurrence: recurrent Major depression episode severity: moderate Status: Acute Code(s): F32.9 - Major depressive disorder, single episode, unspecified (2) Opioid abuse: Status: Acute Code(s): F11.10 - Opioid abuse, uncomplicated (3) Cocaine abuse: Status: Inactive Code(s): F14.10 - Cocaine abuse, uncomplicated IMPRESSION: Pt seen with program director/morning show host Patient is a 55-year-old female with a history of emotional reactivity, opiate abuse with past overdoses who presents after suicide attempt by intentional overdose in the face of chronic medical issues. On admission patient signed CV. Patient is a difficult historian as it takes some effort to get her to answer direct questions; though she is capable and has an organized thought process, she seems to prefer talking about other things. Patient reports chronic depression due to chronic pain with much associated emotional reactivity. When the pain gets excessive she becomes suicidal. There appears to be a characterological component as well. We will diagnose patient with depressive disorder. Patient denies history of manic type symptoms. Will consider antidepressant, medication for nausea and/or perhaps Suboxone or naltrexone. Daughter reports chronic suicidal thinking for decades. Plan: Patient currently on CV Q 15 minutes checks as patient reports all SI is resolved We will continue patient's home medications Will continue primidone Patient is on primidone and was positive for barbiturates in her urine, however technical publications writer is not sure if this is for seizure disorder or tremor as patient is not sure why she takes which Greater than 50% of the session was spent on counseling and/or coordination of care Reason for contiued inpatient stay Substantial Risk for: harm to self
[2021-01-28 18:00] VITALS: RESP 18
[2021-01-29] MEDS: Cyclobenzaprine HCl 10 MG TABLET PO ×2 (00:05→08:26)
[2021-01-29] MEDS: traZODone HCL 100 MG TABLET PO ×2 (00:06→21:13)
[2021-01-29 06:36] LABS: Glucose, Whole Blood 123 mg/dL (60-115)
[2021-01-29] MEDS: Omeprazole 20 MG CAPSULE.DR PO (08:25)
[2021-01-29] MEDS: Gabapentin 600 MG TABLET PO ×3 (08:25→21:13)
[2021-01-29 08:26] VITALS: BP 126/87; PULSE 71
[2021-01-29] MEDS: Losartan Potassium 50 MG TABLET 100 MG PO (08:26)
[2021-01-29] MEDS: metFORMIN HCl 1,000 MG TABLET 1000 MG PO ×2 (08:26→17:13)
[2021-01-29] MEDS: Docusate Sodium 100 MG CAPSULE 200 MG PO ×2 (08:26→21:13)
[2021-01-29 10:12] VITALS: RESP 18; TEMP 36.3; O2SAT 98; BMI 42.0
--- NOTE | 2021-01-29 10:45 | HO.PSYCHPN ---
Subjective Subjective Date of Service: 01/29/21 Reason For Visit: Psychiatric Illness Interim History: Patient seen with prepared foods supervisor Patient said that her mood is ?regular... So-so? she says that she did not want to speak to commercial insurance underwriter yesterday because she someone made her in a bad mood. This is also why she put in a 3 day notice, however she says she will retracted. Patient reports she is doing better today and denies any suicidal ideation. She does endorse depression and says she is depressed much of the time and often spends hours alone in her room crying. She says it has been this way since she was a child. Patient reports that right now she is a little nauseous but will try to eat. She says no one has given me any pills for pain and and reports chronic back pain due to arthritis in addition to chronic abdominal pain. She again says she has trouble eating greasy foods. Patient is open to trying an SSRI or similar type of medication for depression and anxiety. She is also open to Suboxone. She denies a history of seizure disorder or tremors and does not know why she is on primidone. Vending Machine Coin Collector asked why she refused medications last night at bedtime and patient said she did not realize all the medications that were scheduled, and otherwise would not have. Patient says that the daughter she lives with is an alcoholic and not a good contact. However patient gave commercial insurance underwriter verbal permission to discuss her case with her other daughter Jasmin who she says is a good 1 to talk to. Medication Compliance: Intermittent Attending Groups: No Mental Status Exam Mental Status Exam Narrative: Pt is alert and oriented; behavior is cooperative, calm; patient is not in distress; dressed in hospital gown with adequate hygiene; mood is described as so-so and affect constricted; eye contact appropriate; Speech is normal rate, volume and prosody and not pressured; no psychomotor agitation/retardation present; thought process is able to be organized, logical and goal directed and at times circumstantial; Thought content remains ambivalent on getting treatment; no delusional content, paranoid ideations or grandiosity; currently denies any SI/HI. There is no evidence of perceptual disturbance though she says at home, she sometimes hears someone calling her name; Patients insight and judgment appear impaired. on admission, it was sometimes difficult to get patient to answer specific question as she seemed to prefer talking about other topics, that were related to discussion, but not fully relevant; however, this is no longer the case and it now much easier to have a discourse. Diagnostics Vital Signs (24Hr): Vital Signs - 24 hr 01/28/21 18:00 01/29/21 08:26 01/29/21 10:12 Temperature 97.4 F Pulse Rate 71 Respiratory Rate 18 18 Blood Pressure 126/87 Pulse Oximetry 98 Body Mass Index 42.0 Labs Results: 01/24/21 20:04 01/24/21 20:04 Labs: Laboratory Results - last 48 hr 01/27/21 01/28/21 01/29/21 20:38 06:27 06:22 POC Glucose 158 H 118 H 123 H Imaging Radiology Impressions: ITS Impressions Abdomen/Pelvis CT 01/24/21 19:16 IMPRESSION: 1. There is a 1 cm calculus/calcification within the urinary bladder. This is new as compared to the prior study. No evidence of hydronephrosis. 2. Calcific densities in bilateral kidneys, perhaps medullary nephrocalcinosis. 3. No acute process is otherwise identified in the abdomen or pelvis. 4. Mild bibasilar atelectasis. 5. Hepatic steatosis. No biliary duct dilatation. The gallbladder is unremarkable with no evidence of radiopaque gallstones, gallbladder wall thickening, or obvious pericholecystic inflammatory changes. Medications Medications Current Medications Generic Name Dose Route Start Last Admin Trade Name Freq PRN Reason Stop Dose Admin Acetaminophen 650 mg 01/27/21 00:00 01/27/21 09:55 Acetaminophen 325 Mg Tablet PO 650 mg Q6H PRN Administration Headache/Pain Mild Scale (1-3) Al Hydroxide/Mg Hydroxide 30 ml 01/27/21 00:00 Magnesium Hydrox/Alum Hydrox 30 Ml Oral.Susp PO Q6H PRN Heartburn/Nausea Albuterol Sulfate 2.5 mg 01/25/21 09:23 Albuterol Sulfate (0.083%) 2.5 Mg/3 Ml Vial.Neb INHALE QID PRN wheezing Albuterol Sulfate 2 puff 01/25/21 09:23 Albuterol Sulfate 90 Mcg 8 Gm Inhaler INHALE Q4H PRN Shortness Of Breath Aspirin 81 mg 01/25/21 21:00 01/28/21 21:41 Aspirin Enteric Coated 81 Mg Tablet.Dr PO Not Given BEDTIME BIRGIT Atorvastatin Calcium 40 mg 01/25/21 21:00 01/28/21 21:42 Atorvastatin Calcium 40 Mg Tablet PO Not Given BEDTIME BIRGIT Cyclobenzaprine HCl 10 mg 01/25/21 09:23 01/29/21 08:26 Cyclobenzaprine Hcl 10 Mg Tablet PO 10 mg TID PRN Administration pain Docusate Sodium 200 mg 01/25/21 09:30 01/29/21 08:26 Docusate Sodium 100 Mg Capsule PO 200 mg BID BIRGIT Administration Fluticasone Propionate 2 spray 01/25/21 09:30 01/29/21 10:17 Fluticasone Propionate Nasal 16 Gm [place] NOSTRIL-B Not Given DAILY BIRGIT Gabapentin 600 mg 01/27/21 21:00 01/29/21 08:25 Gabapentin 600 Mg Tablet PO 600 mg TID BIRGIT Administration Hydroxyzine HCl 25 mg 01/26/21 15:09 01/27/21 02:03 Hydroxyzine Hcl 25 Mg Tablet PO 25 mg BID PRN Administration anxiety Lidocaine 1 patch 01/25/21 09:51 01/27/21 12:36 Lidocaine 4 % Patch Adh..Patch TRANSDERMA 1 patch DAILY PRN Administration Pain, Moderate (Pain Scale 4-6 Losartan Potassium 100 mg 01/28/21 09:00 01/29/21 08:26 Losartan Potassium 50 Mg Tablet PO 100 mg DAILY BIRGIT Administration Protocol Magnesium Hydroxide 30 ml 01/27/21 00:00 Milk Of Magnesia 30 Ml Oral.Susp PO DAILY PRN Constipation Metformin HCl 1,000 mg 01/27/21 17:00 01/29/21 08:26 Metformin Hcl 1,000 Mg Tablet PO 1,000 mg BIDWM BIRGIT Administration Naproxen 500 mg 01/25/21 09:23 01/27/21 02:03 Naproxen 500 Mg Tablet PO 500 mg BID PRN Administration pain Nicotine Polacrilex 4 mg 01/27/21 00:00 01/27/21 15:42 Nicotine Polacrilex 2 Mg Gum BUCCAL 4 mg Q2H PRN Administration Nicotine Cravings Omeprazole 20 mg 01/25/21 09:30 01/29/21 08:25 Omeprazole 20 Mg Capsule. PO 20 mg DAILY BIRGIT Administration Primidone 50 mg 01/25/21 21:00 01/28/21 21:43 Primidone 50 Mg Tablet PO Not Given BEDTIME BIRGIT Sitagliptin Phosphate 100 mg 01/25/21 21:00 01/28/21 21:43 Sitagliptin Phosphate 100 Mg Tablet PO Not Given BEDTIME BIRGIT Trazodone HCl 100 mg 01/25/21 21:00 01/29/21 00:06 Trazodone Hcl 100 Mg Tablet PO 100 mg BEDTIME BIRGIT Administration Vitamin D 50 mcg 01/25/21 21:00 01/28/21 21:42 Cholecalciferol (Vitamin D3) 25 Mcg Tablet PO Not Given BEDTIME BIRGIT Allergies Allergies Allergy/AdvReac Type Severity Reaction Status Date / Time lisinopril [LISINOPRIL] Allergy Unknown UNKNOWN Verified 01/25/21 23:01 Assessment & Plan Assessment & Plan (1) MDD (major depressive disorder): Qualifiers: Major depression episode severity: moderate Major depression recurrence: recurrent Status: Acute Code(s): F32.9 - Major depressive disorder, single episode, unspecified Assessment and Plan: IMPRESSION: Pt seen with prepared foods supervisor Patient is a 55-year-old female with a history of emotional reactivity, opiate abuse with past overdoses who presents after suicide attempt by intentional overdose in the face of chronic medical issues. On admission patient signed CV. Patient is a difficult historian as it takes some effort to get her to answer direct questions; though she is capable and has an organized thought process, she seems to prefer talking about other things. Patient reports chronic depression due to chronic pain with much associated emotional reactivity. When the pain gets excessive she becomes suicidal. There appears to be a characterological component as well. We will diagnose patient with depressive disorder. Patient denies history of manic type symptoms. Vending Machine Coin Collector spoke to patient's daughter Jasmin; commercial insurance underwriter did not give out any information and just listen to what Jasmin had to say. Vending Machine Coin Collector spoke with patient's daughter Jasmin [phone] Daughter says that as long as she has known her mother her mother has been talking about suicide. Jasmin says that when she was 8 years old she came in and found her mother passed out in the bathroom, having overdosed on her medications. She says that whenever her mother is mad or upset she will say ?I do not want to be in this world? and becomes suicidal. Daughter says her mother is depressed most of the time. Regarding recent event, patient came over to see Jasmin but was acting drowsy. Jasmin suspected her mother had been using heroin. Her mother started crying but would not talk about it. When her daughter went to get her a glass of water she found that her mom had fallen on the floor and a neighbor called 911. Daughter says she has been complaining about abdominal pain for at least the past 7 months and wonders if it is because she is on so many medications. PLAN/TREATMENT CONSIDERATIONS: At this point it is not clear how to pursue treatment. Patient's medical illness seems to be a significant factor in driving her depressed mood and emotional reactivity and perhaps it might be possible to get medical consult to help sort out what patient's organic issues might be and how best to proceed; it might also be possible to pare down her medication list. Patient denies a history of seizures or tremors and is not sure why she is on primidone and if patient does not need this medication it would be best to taper it off and discontinue as she has a history of overdosing. Patient complains of abdominal discomfort/pain when eating fatty foods however, Patient had abdominal CT on admission which was unremarkable for gallbladder pathology: No biliary duct dilatation. The gallbladder is unremarkable with no evidence of radiopaque gallstones, gallbladder wall thickening, or obvious pericholecystic inflammatory changes. Currently considering an antidepressant Also considering Suboxone as patient has chronic pain and Suboxone would be able to both treat this and protect her from overdose Also might consider medication for nausea. Patient currently on CV Q 15 minutes checks as patient reports all SI is resolved We will continue patient's home medications Will continue primidone Patient is on primidone and was positive for barbiturates in her urine, however patient denies history of seizure disorder or tremor; will seek PCP for clarification (last prescribed by Dr. Andrews) (2) Opioid abuse: Status: Acute Code(s): F11.10 - Opioid abuse, uncomplicated (3) Cocaine abuse: Status: Inactive Code(s): F14.10 - Cocaine abuse, uncomplicated Greater than 50% of the session was spent on counseling and/or coordination of care Reason for contiued inpatient stay Substantial Risk for: med/psych decompensation
[2021-01-29 16:13] VITALS: BP 129/80; PULSE 75; TEMP 36.4
[2021-01-29] MEDS: Cholecalciferol (Vitamin D3) 25 MCG TABLET 50 MCG PO (21:12)
[2021-01-29] MEDS: SITagliptin Phosphate 100 MG TABLET PO (21:13)
[2021-01-29] MEDS: Atorvastatin Calcium 40 MG TABLET PO (21:13)
[2021-01-29] MEDS: Aspirin Enteric Coated 81 MG TABLET.DR PO (21:13)
[2021-01-29] MEDS: Primidone 50 MG TABLET PO (21:13)
[2021-01-30 06:00] VITALS: BP 126/72; PULSE 99; RESP 18; TEMP 35.7; O2SAT 96
[2021-01-30 06:17] LABS: Glucose, Whole Blood 114 mg/dL (60-115)
[2021-01-30 08:30] VITALS: BP 129/92; PULSE 72
[2021-01-30] MEDS: Gabapentin 600 MG TABLET PO ×3 (08:30→20:13)
[2021-01-30] MEDS: Losartan Potassium 50 MG TABLET 100 MG PO (08:30)
[2021-01-30] MEDS: Omeprazole 20 MG CAPSULE.DR PO (08:30)
[2021-01-30] MEDS: Docusate Sodium 100 MG CAPSULE 200 MG PO ×2 (08:31→20:13)
[2021-01-30] MEDS: metFORMIN HCl 1,000 MG TABLET 1000 MG PO ×2 (08:31→18:14)
--- NOTE | 2021-01-30 09:11 | HO.PSYCHPN ---
Subjective Subjective Date of Service: 01/30/21 Reason For Visit: Psychiatric Illness Interim History: Patient seen with manager strategic Patient reports her mood is much better. She denies any SI. She said she would still like to leave on Tuesday because her son's, birthday is coming up, his 13, and she does not want to miss it. Biscuitware Brusher discussed medication options and patient agrees to Prozac 10 mg to help with the anxiety and sadness. She also agrees to Suboxone to see if that can help with pain as it can also help protect from overdose. Patient asked for medication that would help with nausea however she agreed to go to a clearing hand appointment after discharge and will discuss that further at that appointment. Biscuitware Brusher discussed patient's primidone; she was not aware that it was started for tremor and denies having a tremor unless she is in the middle of a panic attack; principal technical writer observed both patients and and no tremor noted; she agreed to lower the dose of Primidone to 25 mg. Of notes staff reports that patient as a much brighter affect and is appropriately interacting with peers and staff. Biscuitware Brusher reviewed risks/side effects of Prozac and Suboxone and instructed on how to take Suboxone sublingually. Medication Compliance: Yes Side effects from medications: No Mental Status Exam Mental Status Exam Narrative: Pt is alert and oriented; behavior is cooperative, calm; patient is not in distress; dressed in hospital gown with adequate hygiene; mood is described as good and affect constricted; eye contact appropriate; Speech is normal rate, volume and prosody and not pressured; no psychomotor agitation/retardation present; thought process is organized, logical and goal directed; Thought content on getting treatment and on seeing family; no delusional content, paranoid ideations or grandiosity; denies any SI/HI. There is no evidence of perceptual disturbance (though she says at home, she sometimes hears someone calling her name); Patients insight and judgment appear intact. on admission, it was sometimes difficult to get patient to answer specific question as she seemed to prefer talking about other topics, that were related to discussion, but not fully relevant; however, this is no longer the case and it now much easier to have a discourse. Diagnostics Vital Signs (24Hr): Vital Signs - 24 hr 01/29/21 10:12 01/29/21 16:13 01/30/21 06:00 Temperature 97.4 F 97.6 F 96.3 F L Pulse Rate 75 99 Respiratory Rate 18 18 Blood Pressure 129/80 126/72 Pulse Oximetry 98 96 01/30/21 08:30 Temperature Pulse Rate 72 Respiratory Rate Blood Pressure 129/92 H Pulse Oximetry Body Mass Index 42.0 Labs Results: 01/24/21 20:04 01/24/21 20:04 Labs: Laboratory Results - last 48 hr 01/29/21 01/30/21 06:22 06:13 POC Glucose 123 H 114 Imaging Radiology Impressions: ITS Impressions Abdomen/Pelvis CT 01/24/21 19:16 IMPRESSION: 1. There is a 1 cm calculus/calcification within the urinary bladder. This is new as compared to the prior study. No evidence of hydronephrosis. 2. Calcific densities in bilateral kidneys, perhaps medullary nephrocalcinosis. 3. No acute process is otherwise identified in the abdomen or pelvis. 4. Mild bibasilar atelectasis. 5. Hepatic steatosis. Medications Medications Current Medications Generic Name Dose Route Start Last Admin Trade Name Freq PRN Reason Stop Dose Admin Acetaminophen 650 mg 01/27/21 00:00 01/27/21 09:55 Acetaminophen 325 Mg Tablet PO 650 mg Q6H PRN Administration Headache/Pain Mild Scale (1-3) Al Hydroxide/Mg Hydroxide 30 ml 01/27/21 00:00 Magnesium Hydrox/Alum Hydrox 30 Ml Oral.Susp PO Q6H PRN Heartburn/Nausea Albuterol Sulfate 2.5 mg 01/25/21 09:23 Albuterol Sulfate (0.083%) 2.5 Mg/3 Ml Vial.Neb INHALE QID PRN wheezing Albuterol Sulfate 2 puff 01/25/21 09:23 Albuterol Sulfate 90 Mcg 8 Gm Inhaler INHALE Q4H PRN Shortness Of Breath Aspirin 81 mg 01/25/21 21:00 01/29/21 21:13 Aspirin Enteric Coated 81 Mg Tablet. PO 81 mg BEDTIME BIRGIT Administration Atorvastatin Calcium 40 mg 01/25/21 21:00 01/29/21 21:13 Atorvastatin Calcium 40 Mg Tablet PO 40 mg BEDTIME BIRGIT Administration Cyclobenzaprine HCl 10 mg 01/25/21 09:23 01/29/21 08:26 Cyclobenzaprine Hcl 10 Mg Tablet PO 10 mg TID PRN Administration pain Docusate Sodium 200 mg 01/25/21 09:30 01/30/21 08:31 Docusate Sodium 100 Mg Capsule PO 200 mg BID BIRGIT Administration Fluticasone Propionate 2 spray 01/25/21 09:30 01/30/21 08:32 Fluticasone Propionate Nasal 16 Gm [place] NOSTRIL-B Not Given DAILY BIRGIT Gabapentin 600 mg 01/27/21 21:00 01/30/21 08:30 Gabapentin 600 Mg Tablet PO 600 mg TID BIRGIT Administration Hydroxyzine HCl 25 mg 01/26/21 15:09 01/27/21 02:03 Hydroxyzine Hcl 25 Mg Tablet PO 25 mg BID PRN Administration anxiety Lidocaine 1 patch 01/25/21 09:51 01/27/21 12:36 Lidocaine 4 % Patch Adh..Patch TRANSDERMA 1 patch DAILY PRN Administration Pain, Moderate (Pain Scale 4-6 Losartan Potassium 100 mg 01/28/21 09:00 01/30/21 08:30 Losartan Potassium 50 Mg Tablet PO 100 mg DAILY BIRGIT Administration Protocol Magnesium Hydroxide 30 ml 01/27/21 00:00 Milk Of Magnesia 30 Ml Oral.Susp PO DAILY PRN Constipation Metformin HCl 1,000 mg 01/27/21 17:00 01/30/21 08:31 Metformin Hcl 1,000 Mg Tablet PO 1,000 mg BIDWM BIRGIT Administration Naproxen 500 mg 01/25/21 09:23 01/27/21 02:03 Naproxen 500 Mg Tablet PO 500 mg BID PRN Administration pain Nicotine Polacrilex 4 mg 01/27/21 00:00 01/27/21 15:42 Nicotine Polacrilex 2 Mg Gum BUCCAL 4 mg Q2H PRN Administration Nicotine Cravings Omeprazole 20 mg 01/25/21 09:30 01/30/21 08:30 Omeprazole 20 Mg Capsule.Dr PO 20 mg DAILY BIRGIT Administration Primidone 50 mg 01/25/21 21:00 01/29/21 21:13 Primidone 50 Mg Tablet PO 50 mg BEDTIME BIRGIT Administration Sitagliptin Phosphate 100 mg 01/25/21 21:00 01/29/21 21:13 Sitagliptin Phosphate 100 Mg Tablet PO 100 mg BEDTIME BIRGIT Administration Trazodone HCl 100 mg 01/25/21 21:00 01/29/21 21:13 Trazodone Hcl 100 Mg Tablet PO 100 mg BEDTIME BIRGIT Administration Vitamin D 50 mcg 01/25/21 21:00 01/29/21 21:12 Cholecalciferol (Vitamin D3) 25 Mcg Tablet PO 50 mcg BEDTIME BIRGIT Administration Allergies Allergies Allergy/AdvReac Type Severity Reaction Status Date / Time lisinopril [LISINOPRIL] Allergy Unknown UNKNOWN Verified 01/25/21 23:01 Assessment & Plan Assessment & Plan (1) MDD (major depressive disorder): Qualifiers: Major depression episode severity: moderate Major depression recurrence: recurrent Status: Acute Code(s): F32.9 - Major depressive disorder, single episode, unspecified (2) Opioid abuse: Status: Acute Code(s): F11.10 - Opioid abuse, uncomplicated (3) Cocaine abuse: Status: Inactive Code(s): F14.10 - Cocaine abuse, uncomplicated IMPRESSION: Pt seen with manager strategic Patient is a 55-year-old female with a history of emotional reactivity, opiate abuse with past overdoses who presents after suicide attempt by intentional overdose in the face of chronic medical issues. On admission patient signed CV. Patient is a difficult historian as it takes some effort to get her to answer direct questions; though she is capable and has an organized thought process, she seems to prefer talking about other things. Patient reports chronic depression due to chronic pain with much associated emotional reactivity. When the pain gets excessive she becomes suicidal. There appears to be a characterological component as well. We will diagnose patient with depressive disorder. Patient denies history of manic type symptoms. On subsequent issues, patient endorses chronic depression with multiple neurovegetative symptoms -Patient's medical illness seems to be a significant factor in driving her depressed mood and emotional reactivity COLLATERAL [employer] Brusher spoke to patient's daughter Jasmin; principal technical writer did not give out any information and just listen to what Jasmin had to say. Bisc[employer]ware Brusher spoke with patient's daughter Jasmin [phone] Daughter says that as long as she has known her mother her mother has been talking about suicide. Jasmin says that when she was 8 years old she came in and found her mother passed out in the bathroom, having overdosed on her medications. She says that whenever her mother is mad or upset she will say ?I do not want to be in this world? and becomes suicidal. Daughter says her mother is depressed most of the time. Regarding recent event, patient came over to see Jasmin but was acting drowsy. Jasmin suspected her mother had been using heroin. Her mother started crying but would not talk about it. When her daughter went to get her a glass of water she found that her mom had fallen on the floor and a neighbor called 911. Daughter says she has been complaining about abdominal pain for at least the past 7 months and wonders if it is because she is on so many medications. PLAN/TREATMENT CONSIDERATIONS: -patient agrees to trial of Prozac 10mg for depression and anxiety -Patient agrees to trial of low dose of Suboxone 4/1mg SL for pain: Will leave a p.r.n. for now. Will discuss whether to schedule it (since patient already intermittently abuses and has overdosed on heroin multiple times, Suboxone is a viable option as it both treats pain and can help protect her from overdose as it binds to receptors more strongly than heroin; while initiating patient on Suboxone will likely result in her becoming dependent on it, she is quickly headed towards heroin dependence, thus again making Suboxone a reasonable medication) - discussed case with medical consult who recommends outpatient GI appointment post discharge; Patient agrees with this plan and will ask them about medication for nausea Patient has 3 day notice due 02/02 Q 15 minutes checks as patient reports all SI is resolved We will continue patient's home medications Will continue primidone Patient is on primidone and was positive for barbiturates in her urine; 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 Patient is not aware of tremor. Given patient's recent history of overdose, would like to lower this medication and if possible discontinue it. Patient is leaving on Tuesday and it is probably not likely that it could be discontinued but will lower to 25 mg for now to help reduce risk Greater than 50% of the session was spent on counseling and/or coordination of care Reason for contiued inpatient stay Substantial Risk for: med/psych decompensation
[2021-01-30] MEDS: FLUoxetine HCl 10 MG CAPSULE PO (16:09)
[2021-01-30 18:00] VITALS: RESP 16
[2021-01-30] MEDS: Aspirin Enteric Coated 81 MG TABLET.DR PO (20:13)
[2021-01-30] MEDS: SITagliptin Phosphate 100 MG TABLET PO (20:13)
[2021-01-30] MEDS: traZODone HCL 100 MG TABLET PO (20:13)
[2021-01-30] MEDS: Atorvastatin Calcium 40 MG TABLET PO (20:13)
[2021-01-30] MEDS: Cholecalciferol (Vitamin D3) 25 MCG TABLET 50 MCG PO (20:13)
[2021-01-30] MEDS: Primidone 50 MG TABLET 25 MG PO (20:14)
[2021-01-31 06:00] VITALS: BP 118/59; PULSE 71; RESP 18; TEMP 36.4; O2SAT 94
[2021-01-31 07:17] LABS: Glucose, Whole Blood 119 mg/dL (60-115)
--- NOTE | 2021-01-31 09:03 | HO.PSYCHPN ---
Subjective Subjective Date of Service: 01/31/21 Reason For Visit: Psychiatric Illness Interim History: pt says i'm fine and denies depression or SI. She took suboxone film today and says it helped pain, but that the taste was so bad it made her nauseuous; she would however like to try the pill form. Pt had trouble sleeping last night since her roomate was screaming, but otherwise no complaints and she feels ready for dc on tuesday. Pt denies any side-effects from prozac. Medication Compliance: Yes Side effects from medications: Yes (taste of suboxone film) Mental Status Exam Mental Status Exam Narrative: no change from yesterday:Pt is alert and oriented; behavior is cooperative, calm; patient is not in distress; dressed in hospital gown with adequate hygiene; mood is described as i'm fine and affect constricted; eye contact appropriate; Speech is normal rate, volume and prosody and not pressured; no psychomotor agitation/retardation present; thought process is organized, logical and goal directed; Thought content on getting treatment and on seeing family; no delusional content, paranoid ideations or grandiosity; denies any SI/HI. There is no evidence of perceptual disturbance (though she says at home, she sometimes hears someone calling her name); Patients insight and judgment appear intact. Diagnostics Vital Signs (24Hr): Vital Signs - 24 hr 01/30/21 18:00 01/31/21 06:00 Temperature 97.5 F Pulse Rate 71 Respiratory Rate 16 18 Blood Pressure 118/59 L Pulse Oximetry 94 Body Mass Index 42.0 Labs Results: 01/24/21 20:04 01/24/21 20:04 Labs: Laboratory Results - last 48 hr 01/30/21 01/31/21 06:13 06:59 POC Glucose 114 119 H Imaging Radiology Impressions: ITS Impressions Abdomen/Pelvis CT 01/24/21 19:16 IMPRESSION: 1. There is a 1 cm calculus/calcification within the urinary bladder. This is new as compared to the prior study. No evidence of hydronephrosis. 2. Calcific densities in bilateral kidneys, perhaps medullary nephrocalcinosis. 3. No acute process is otherwise identified in the abdomen or pelvis. 4. Mild bibasilar atelectasis. 5. Hepatic steatosis. Medications Medications Current Medications Generic Name Dose Route Start Last Admin Trade Name Freq PRN Reason Stop Dose Admin Acetaminophen 650 mg 01/27/21 00:00 01/27/21 09:55 Acetaminophen 325 Mg Tablet PO 650 mg Q6H PRN Administration Headache/Pain Mild Scale (1-3) Al Hydroxide/Mg Hydroxide 30 ml 01/27/21 00:00 Magnesium Hydrox/Alum Hydrox 30 Ml Oral.Susp PO Q6H PRN Heartburn/Nausea Albuterol Sulfate 2.5 mg 01/25/21 09:23 Albuterol Sulfate (0.083%) 2.5 Mg/3 Ml Vial.Neb INHALE QID PRN wheezing Albuterol Sulfate 2 puff 01/25/21 09:23 Albuterol Sulfate 90 Mcg 8 Gm Inhaler INHALE Q4H PRN Shortness Of Breath Aspirin 81 mg 01/25/21 21:00 01/30/21 20:13 Aspirin Enteric Coated 81 Mg Tablet.Dr PO 81 mg BEDTIME BIRGIT Administration Atorvastatin Calcium 40 mg 01/25/21 21:00 01/30/21 20:13 Atorvastatin Calcium 40 Mg Tablet PO 40 mg BEDTIME BIRGIT Administration Buprenorphine/Naloxone 1 film 01/30/21 15:32 Buprenorphine/Naloxone 4/1 Mg Film SUBLINGUAL TID PRN moderate to severe pain Cyclobenzaprine HCl 10 mg 01/25/21 09:23 01/29/21 08:26 Cyclobenzaprine Hcl 10 Mg Tablet PO 10 mg TID PRN Administration pain Docusate Sodium 200 mg 01/25/21 09:30 01/30/21 20:13 Docusate Sodium 100 Mg Capsule PO 200 mg BID BIRGIT Administration Fluoxetine HCl 10 mg 01/30/21 16:30 01/30/21 16:09 Fluoxetine Hcl 10 Mg Capsule PO 10 mg DAILY BIRGIT Administration Fluticasone Propionate 2 spray 01/25/21 09:30 01/30/21 08:32 Fluticasone Propionate Nasal 16 Gm [place] NOSTRIL-B Not Given DAILY BIRGIT Gabapentin 600 mg 01/27/21 21:00 01/30/21 20:13 Gabapentin 600 Mg Tablet PO 600 mg TID BIRGIT Administration Lidocaine 1 patch 01/25/21 09:51 01/27/21 12:36 Lidocaine 4 % Patch Adh..Patch TRANSDERMA 1 patch DAILY PRN Administration Pain, Moderate (Pain Scale 4-6 Losartan Potassium 100 mg 01/28/21 09:00 01/30/21 08:30 Losartan Potassium 50 Mg Tablet PO 100 mg DAILY BIRGIT Administration Protocol Magnesium Hydroxide 30 ml 01/27/21 00:00 Milk Of Magnesia 30 Ml Oral.Susp PO DAILY PRN Constipation Metformin HCl 1,000 mg 01/27/21 17:00 01/30/21 18:14 Metformin Hcl 1,000 Mg Tablet PO 1,000 mg BIDWM BIRGIT Administration Naproxen 500 mg 01/25/21 09:23 01/27/21 02:03 Naproxen 500 Mg Tablet PO 500 mg BID PRN Administration pain Nicotine Polacrilex 4 mg 01/27/21 00:00 01/27/21 15:42 Nicotine Polacrilex 2 Mg Gum BUCCAL 4 mg Q2H PRN Administration Nicotine Cravings Omeprazole 20 mg 01/25/21 09:30 01/30/21 08:30 Omeprazole 20 Mg Capsule.Dr PO 20 mg DAILY BIRGIT Administration Primidone 25 mg 01/30/21 21:00 01/30/21 20:14 Primidone 50 Mg Tablet PO 25 mg BEDTIME BIRGIT Administration Sitagliptin Phosphate 100 mg 01/25/21 21:00 01/30/21 20:13 Sitagliptin Phosphate 100 Mg Tablet PO 100 mg BEDTIME BIRGIT Administration Trazodone HCl 100 mg 01/25/21 21:00 01/30/21 20:13 Trazodone Hcl 100 Mg Tablet PO 100 mg BEDTIME BIRGIT Administration Vitamin D 50 mcg 01/25/21 21:00 01/30/21 20:13 Cholecalciferol (Vitamin D3) 25 Mcg Tablet PO 50 mcg BEDTIME BIRGIT Administration Allergies Allergies Allergy/AdvReac Type Severity Reaction Status Date / Time lisinopril [LISINOPRIL] Allergy Unknown UNKNOWN Verified 01/25/21 23:01 Assessment & Plan Assessment & Plan (1) MDD (major depressive disorder): Qualifiers: Major depression episode severity: moderate Major depression recurrence: recurrent Status: Acute Code(s): F32.9 - Major depressive disorder, single episode, unspecified Assessment and Plan: IMPRESSION: Pt seen with electromechanical assembler Patient is a 55-year-old female with a history of emotional reactivity, opiate abuse with past overdoses who presents after suicide attempt by intentional overdose in the face of chronic medical issues. On admission patient signed CV. Patient is a difficult historian as it takes some effort to get her to answer direct questions; though she is capable and has an organized thought process, she seems to prefer talking about other things. Patient reports chronic depression due to chronic pain with much associated emotional reactivity. When the pain gets excessive she becomes suicidal. There appears to be a characterological component as well. We will diagnose patient with depressive disorder. Patient denies history of manic type symptoms. Geodetic Computator spoke to patient's daughter Jasmin; short story writer did not give out any information and just listen to what Jasmin had to say. Geodetic Computator spoke with patient's daughter Jasmin [phone] Daughter says that as long as she has known her mother her mother has been talking about suicide. Jasmin says that when she was 8 years old she came in and found her mother passed out in the bathroom, having overdosed on her medications. She says that whenever her mother is mad or upset she will say ?I do not want to be in this world? and becomes suicidal. Daughter says her mother is depressed most of the time. Regarding recent event, patient came over to see Jasmin but was acting drowsy. Jasmin suspected her mother had been using heroin. Her mother started crying but would not talk about it. When her daughter went to get her a glass of water she found that her mom had fallen on the floor and a neighbor called 911. Daughter says she has been complaining about abdominal pain for at least the past 7 months and wonders if it is because she is on so many medications. PLAN/TREATMENT CONSIDERATIONS: -patient agrees to trial of Prozac for depression and anxiety -Patient agrees to trial of low dose of Suboxone pill (does not like film) for pain: Will leave a p.r.n. for now. Will discuss whether to schedule it (since patient already intermittently abuses and has overdosed on heroin multiple times, Suboxone is a viable option as it both treats pain and can help protect her from overdose as it binds to receptors more strongly than heroin; while initiating patient on Suboxone will likely result in her becoming dependent on it, she is quickly headed towards heroin dependence, thus again making Suboxone a reasonable medication) -Patient's medical illness seems to be a significant factor in driving her depressed mood and emotional reactivity - discussed case with medical consult who recommends outpatient GI appointment post discharge; Patient agrees with this plan and will ask them about medication for nausea -remains in good mood; no si Patient has 3 day notice due 02/02 Q 15 minutes checks as patient reports all SI is resolved We will continue patient's home medications Will continue primidone Patient is on primidone and was positive for barbiturates in her urine; 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 Patient is not aware of tremor. Given patient's recent history of overdose, would like to lower this medication and if possible discontinue it. Patient is leaving on Tuesday and it is probably not likely that it could be discontinued but will lower to 25 mg for now to help reduce risk (2) Opioid abuse: Status: Acute Code(s): F11.10 - Opioid abuse, uncomplicated (3) Cocaine abuse: Status: Inactive Code(s): F14.10 - Cocaine abuse, uncomplicated Greater than 50% of the session was spent on counseling and/or coordination of care Reason for contiued inpatient stay Substantial Risk for: med/psych decompensation
[2021-01-31 09:30] VITALS: BP 121/63; PULSE 71
[2021-01-31] MEDS: Omeprazole 20 MG CAPSULE.DR PO (09:30)
[2021-01-31] MEDS: Losartan Potassium 50 MG TABLET 100 MG PO (09:30)
[2021-01-31] MEDS: metFORMIN HCl 1,000 MG TABLET 1000 MG PO ×2 (09:34→18:04)
[2021-01-31] MEDS: Docusate Sodium 100 MG CAPSULE 200 MG PO ×2 (09:34→20:01)
[2021-01-31] MEDS: Gabapentin 600 MG TABLET PO ×3 (09:34→20:02)
[2021-01-31] MEDS: FLUoxetine HCl 10 MG CAPSULE PO (09:34)
[2021-01-31] MEDS: Buprenorphine/Naloxone 4/1 mg FILM 1 FILM SUBLINGUAL (10:06)
[2021-01-31] MEDS: Loratadine 10 MG TABLET PO (11:00)
[2021-01-31 13:33] VITALS: BP 128/66; PULSE 83; O2SAT 95
[2021-01-31] MEDS: Perphenazine 2 MG TABLET PO (14:22)
[2021-01-31 16:26] VITALS: RESP 14
[2021-01-31] MEDS: Primidone 50 MG TABLET 25 MG PO (20:01)
[2021-01-31] MEDS: traZODone HCL 100 MG TABLET PO (20:01)
[2021-01-31] MEDS: Cholecalciferol (Vitamin D3) 25 MCG TABLET 50 MCG PO (20:01)
[2021-01-31] MEDS: Aspirin Enteric Coated 81 MG TABLET.DR PO (20:01)
[2021-01-31] MEDS: Atorvastatin Calcium 40 MG TABLET PO (20:01)
[2021-01-31] MEDS: SITagliptin Phosphate 100 MG TABLET PO (20:02)
[2021-02-01] MEDS: Cyclobenzaprine HCl 10 MG TABLET PO (00:23)
[2021-02-01] MEDS: NaPROXEN 500 MG TABLET PO (00:23)
[2021-02-01 06:40] VITALS: BP 109/58; PULSE 63; RESP 18; TEMP 36.2; O2SAT 92
[2021-02-01] MEDS: Docusate Sodium 100 MG CAPSULE 200 MG PO ×2 (08:46→20:05)
[2021-02-01] MEDS: FLUoxetine HCl 10 MG CAPSULE PO (08:46)
[2021-02-01] MEDS: Loratadine 10 MG TABLET PO (08:46)
[2021-02-01] MEDS: Omeprazole 20 MG CAPSULE.DR PO (08:46)
[2021-02-01] MEDS: metFORMIN HCl 1,000 MG TABLET 1000 MG PO ×2 (08:46→17:35)
[2021-02-01] MEDS: Gabapentin 600 MG TABLET PO ×3 (08:46→20:05)
[2021-02-01 08:47] VITALS: BP 112/61; PULSE 75
[2021-02-01] MEDS: Losartan Potassium 50 MG TABLET 100 MG PO (08:47)
[2021-02-01] MEDS: Naltrexone HCl 50 MG TABLET 25 MG PO (13:02)
[2021-02-01 16:05] VITALS: BP 128/64; PULSE 77; TEMP 36.4
[2021-02-01] MEDS: Acetaminophen 325 MG TABLET 650 MG PO (18:25)
--- NOTE | 2021-02-01 18:32 | HO.PSYCHPN ---
Subjective Subjective Date of Service: 02/01/21 Reason For Visit: Psychiatric Illness Interim History: seen with director of education and training pt denies depression and says she's fine. She denies any SI or HI and does not feel nauseas. Director Of Archives discussed medications with patient and she says she prefers to have the perphenazine scheduled for help with stopping nausea rather than take it as a PRN. She does not want Suboxone since she does not like the taste of the film and does not want to try the tabs. Regarding her struggles with heroin abuse technical document writer discussed option of Naltrexone and reviewed risks/side-effects. Patient decided to start Naltrexone since it can protect her from overdose. Pt would like to dc tuesday, feeling stable and wanting to see family. tremor not visible; seems that yesterday tremor present since patient was feeling anxious due to nausea. Mental Status Exam Mental Status Exam Narrative: no change from yesterday:Pt is alert and oriented; behavior is cooperative, calm; patient is not in distress; dressed in hospital gown with adequate hygiene; mood is described as fine and affect constricted; eye contact appropriate; Speech is normal rate, volume and prosody and not pressured; no psychomotor agitation/retardation present; thought process is organized, logical and goal directed; Thought content on treatment and on seeing family; no delusional content, paranoid ideations or grandiosity; denies any SI/HI. There is no evidence of perceptual disturbance (though she says at home, she sometimes hears someone calling her name); Patients insight and judgment appear intact. Diagnostics Vital Signs (24Hr): Vital Signs - 24 hr 02/01/21 06:40 02/01/21 08:47 02/01/21 16:05 Temperature 97.1 F 97.6 F Pulse Rate 63 75 77 Respiratory Rate 18 Blood Pressure 109/58 L 112/61 128/64 Pulse Oximetry 92 Body Mass Index 42.0 Labs Results: 01/24/21 20:04 01/24/21 20:04 Labs: Laboratory Results - last 48 hr 01/31/21 06:59 POC Glucose 119 H Imaging Radiology Impressions: ITS Impressions Abdomen/Pelvis CT 01/24/21 19:16 IMPRESSION: 1. There is a 1 cm calculus/calcification within the urinary bladder. This is new as compared to the prior study. No evidence of hydronephrosis. 2. Calcific densities in bilateral kidneys, perhaps medullary nephrocalcinosis. 3. No acute process is otherwise identified in the abdomen or pelvis. 4. Mild bibasilar atelectasis. 5. Hepatic steatosis. Medications Medications Current Medications Generic Name Dose Route Start Last Admin Trade Name Freq PRN Reason Stop Dose Admin Acetaminophen 650 mg 01/27/21 00:00 02/01/21 18:25 Acetaminophen 325 Mg Tablet PO 650 mg Q6H PRN Administration Headache/Pain Mild Scale (1-3) Al Hydroxide/Mg Hydroxide 30 ml 01/27/21 00:00 Magnesium Hydrox/Alum Hydrox 30 Ml Oral.Susp PO Q6H PRN Heartburn/Nausea Albuterol Sulfate 2 puff 01/25/21 09:23 Albuterol Sulfate 90 Mcg 8 Gm Inhaler INHALE Q4H PRN Shortness Of Breath Aspirin 81 mg 01/25/21 21:00 01/31/21 20:01 Aspirin Enteric Coated 81 Mg Tablet.Dr PO 81 mg BEDTIME BIRGIT Administration Atorvastatin Calcium 40 mg 01/25/21 21:00 01/31/21 20:01 Atorvastatin Calcium 40 Mg Tablet PO 40 mg BEDTIME BIRGIT Administration Cyclobenzaprine HCl 10 mg 01/25/21 09:23 02/01/21 00:23 Cyclobenzaprine Hcl 10 Mg Tablet PO 10 mg TID PRN Administration pain Docusate Sodium 200 mg 01/25/21 09:30 02/01/21 08:46 Docusate Sodium 100 Mg Capsule PO 200 mg BID BIRGIT Administration Fluoxetine HCl 10 mg 01/30/21 16:30 02/01/21 08:46 Fluoxetine Hcl 10 Mg Capsule PO 10 mg DAILY BIRGIT Administration Fluticasone Propionate 2 spray 01/25/21 09:30 02/01/21 08:47 Fluticasone Propionate Nasal 16 Gm [place] NOSTRIL-B Not Given DAILY BIRGIT Gabapentin 600 mg 01/27/21 21:00 02/01/21 15:03 Gabapentin 600 Mg Tablet PO 600 mg TID BIRGIT Administration Lidocaine 1 patch 01/25/21 09:51 01/27/21 12:36 Lidocaine 4 % Patch Adh..Patch TRANSDERMA 1 patch DAILY PRN Administration Pain, Moderate (Pain Scale 4-6 Loratadine 10 mg 01/31/21 10:40 02/01/21 08:46 Loratadine 10 Mg Tablet PO 10 mg DAILY BIRGIT Administration Losartan Potassium 100 mg 01/28/21 09:00 02/01/21 08:47 Losartan Potassium 50 Mg Tablet PO 100 mg DAILY BIRGIT Administration Protocol Magnesium Hydroxide 30 ml 01/27/21 00:00 Milk Of Magnesia 30 Ml Oral.Susp PO DAILY PRN Constipation Metformin HCl 1,000 mg 01/27/21 17:00 02/01/21 17:35 Metformin Hcl 1,000 Mg Tablet PO 1,000 mg BIDWM BIRGIT Administration Naloxone HCl 4 mg 02/02/21 07:00 Naloxone Hcl Nasal Take Home 4 Mg [place] NOSTRILALT 02/02/21 07:01 ONCE ONE Naltrexone HCl 25 mg 02/01/21 12:25 02/01/21 13:02 Naltrexone Hcl 50 Mg Tablet PO 25 mg DAILY BIRGIT Administration Naproxen 500 mg 01/25/21 09:23 02/01/21 00:23 Naproxen 500 Mg Tablet PO 500 mg BID PRN Administration pain Nicotine Polacrilex 4 mg 01/27/21 00:00 01/27/21 15:42 Nicotine Polacrilex 2 Mg Gum BUCCAL 4 mg Q2H PRN Administration Nicotine Cravings Omeprazole 20 mg 01/25/21 09:30 02/01/21 08:46 Omeprazole 20 Mg Capsule.Dr PO 20 mg DAILY BIRGIT Administration Perphenazine 4 mg 02/02/21 09:00 Perphenazine 2 Mg Tablet PO DAILY BIRGIT Primidone 25 mg 01/30/21 21:00 01/31/21 20:01 Primidone 50 Mg Tablet PO 25 mg BEDTIME BIRGIT Administration Sitagliptin Phosphate 100 mg 01/25/21 21:00 01/31/21 20:02 Sitagliptin Phosphate 100 Mg Tablet PO 100 mg BEDTIME BIRGIT Administration Trazodone HCl 100 mg 01/25/21 21:00 01/31/21 20:01 Trazodone Hcl 100 Mg Tablet PO 100 mg BEDTIME BIRGIT Administration Vitamin D 50 mcg 01/25/21 21:00 01/31/21 20:01 Cholecalciferol (Vitamin D3) 25 Mcg Tablet PO 50 mcg BEDTIME BIRGIT Administration Allergies Allergies Allergy/AdvReac Type Severity Reaction Status Date / Time lisinopril [LISINOPRIL] Allergy Unknown UNKNOWN Verified 01/25/21 23:01 Assessment & Plan Assessment & Plan (1) MDD (major depressive disorder): Qualifiers: Major depression recurrence: recurrent Major depression episode severity: moderate Status: Acute Code(s): F32.9 - Major depressive disorder, single episode, unspecified Assessment and Plan: IMPRESSION: Pt seen with director of cloud services Patient is a 55-year-old female with a history of emotional reactivity, opiate abuse with past overdoses who presents after suicide attempt by intentional overdose in the face of chronic medical issues. On admission patient signed CV. Patient is a difficult historian as it takes some effort to get her to answer direct questions; though she is capable and has an organized thought process, she seems to prefer talking about other things. Patient reports chronic depression due to chronic pain with much associated emotional reactivity. When the pain gets excessive she becomes suicidal. There appears to be a characterological component as well. We will diagnose patient with depressive disorder. Patient denies history of manic type symptoms. Director Of Archives spoke to patient's daughter Jasmin; technical document writer did not give out any information and just listen to what Jasmin had to say. Director Of Archives spoke with patient's daughter Jasmin [phone] Daughter says that as long as she has known her mother her mother has been talking about suicide. Jasmin says that when she was 8 years old she came in and found her mother passed out in the bathroom, having overdosed on her medications. She says that whenever her mother is mad or upset she will say ?I do not want to be in this world? and becomes suicidal. Daughter says her mother is depressed most of the time. Regarding recent event, patient came over to see Jasmin but was acting drowsy. Jasmin suspected her mother had been using heroin. Her mother started crying but would not talk about it. When her daughter went to get her a glass of water she found that her mom had fallen on the floor and a neighbor called 911. Daughter says she has been complaining about abdominal pain for at least the past 7 months and wonders if it is because she is on so many medications. Hospital course/TREATMENT CONSIDERATIONS: -patient agrees to trial of Prozac for depression and anxiety -Patient agrees to trial of low dose of Suboxone pill (does not like film) for pain: Will leave a p.r.n. for now. Will discuss whether to schedule it (since patient already intermittently abuses and has overdosed on heroin multiple times, Suboxone is a viable option as it both treats pain and can help protect her from overdose as it binds to receptors more strongly than heroin; while initiating patient on Suboxone will likely result in her becoming dependent on it, she is quickly headed towards heroin dependence, thus again making Suboxone a reasonable medication) -Patient's medical illness seems to be a significant factor in driving her depressed mood and emotional reactivity - discussed case with medical consult who recommends outpatient GI appointment post discharge; Patient agrees with this plan and will ask them about medication for nausea -remains in good mood; no si Patient has 3 day notice due 02/02 Q 15 minutes checks as patient reports all SI is resolved Will continue primidone Patient is on primidone and was positive for barbiturates in her urine; 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 Patient is not aware of tremor. Given patient's recent history of overdose, would like to lower this medication and if possible discontinue it. Patient is leaving on Tuesday and it is probably not likely that it could be discontinued but will lower to 25 mg for now to help reduce risk Medications PLAN: -Started Prozac 10mg for anxiety/depression -Started Perphenazine 4mg for chronic nausea; given that patient has gotten suicidal over frustration with nausea, she agreed to schedule this med -Started naltrexone 25mg daily to protect against heroin overdose as she's required narcan about 5x thus far; while normally maintenance dose is 50mg will start at 25 mg to see if tolerated. -lowered primidone to 25mg; pt denies tremor outside of panic; pt has hx of overdose making lower dose of this med preferable; pt not on unit long enough to have trial off this med so will leave at 25mg (2) Opioid abuse: Status: Acute Code(s): F11.10 - Opioid abuse, uncomplicated (3) Cocaine abuse: Status: Inactive Code(s): F14.10 - Cocaine abuse, uncomplicated Greater than 50% of the session was spent on counseling and/or coordination of care Reason for contiued inpatient stay Substantial Risk for: stable for discharge
[2021-02-01] MEDS: Atorvastatin Calcium 40 MG TABLET PO (20:04)
[2021-02-01] MEDS: Aspirin Enteric Coated 81 MG TABLET.DR PO (20:05)
[2021-02-01] MEDS: SITagliptin Phosphate 100 MG TABLET PO (20:05)
[2021-02-01] MEDS: Cholecalciferol (Vitamin D3) 25 MCG TABLET 50 MCG PO (20:05)
[2021-02-01] MEDS: Primidone 50 MG TABLET 25 MG PO (20:05)
[2021-02-01] MEDS: traZODone HCL 100 MG TABLET PO (20:05)
[2021-02-02 06:00] VITALS: BP 122/74; PULSE 83; TEMP 36.1; O2SAT 93
[2021-02-02 08:16] VITALS: BP 114/74; PULSE 80
[2021-02-02 08:31] VITALS: BP 114/74; PULSE 80
[2021-02-02] MEDS: Docusate Sodium 100 MG CAPSULE 200 MG PO (08:31)
[2021-02-02] MEDS: Losartan Potassium 50 MG TABLET 100 MG PO (08:31)
[2021-02-02] MEDS: Omeprazole 20 MG CAPSULE.DR PO (08:32)
[2021-02-02] MEDS: Loratadine 10 MG TABLET PO (08:32)
[2021-02-02] MEDS: Gabapentin 600 MG TABLET PO (08:32)
[2021-02-02] MEDS: Perphenazine 2 MG TABLET 4 MG PO (08:32)
[2021-02-02] MEDS: FLUoxetine HCl 10 MG CAPSULE PO (08:32)
[2021-02-02] MEDS: metFORMIN HCl 1,000 MG TABLET 1000 MG PO (08:32)
[2021-02-02] MEDS: Naltrexone HCl 50 MG TABLET 25 MG PO (08:32)
[2021-02-02 08:34] LABS: Alanine Aminotransferase 26 U/L (0-31); Albumin Level 4.4 g/dL (3.5-5.0); Alkaline Phosphatase 87 U/L (39-117); Aspartate Amino Transferase 21 U/L (5-31); Bilirubin Direct 0.2 mg/dL (0.0-0.5); Bilirubin Total 0.6 mg/dL (0.0-1.0); Total Protein 7.4 g/dL (6.5-8.0)
--- NOTE | 2021-02-02 10:40 | PM.PSYDC ---
DS: Providers Provider Date of Service: 02/02/21 Date of admission: 01/26/21 23:16 Date of discharge: 02/02/21 Primary care physician: [facility] Attending physician on admission: Filippo Meneses Attending physician on discharge: Filippo Meneses DS: Diagnosis Discharge Diagnosis (1) MDD (major depressive disorder): Status: Chronic (2) Opioid abuse: Status: Resolved (3) Cocaine abuse: Status: Resolved DS: Medications Discharge Medications Home Medications: Home Medications Medication Instructions Recorded Confirmed acetaminophen 1 tab PO QID PRN 01/25/21 01/25/21 albuterol sulfate 1 amp INHALATION QID 01/25/21 01/25/21 albuterol sulfate [ProAir HFA] 2 puff PO Q4-6H PRN 01/25/21 01/25/21 amlodipine HELD SINCE BP WNL 1 tab PO QAM 01/25/21 01/25/21 aspirin 1 tab PO BEDTIME 01/25/21 01/25/21 atorvastatin 1 tab PO BEDTIME 01/25/21 01/25/21 cholecalciferol (vitamin D3) 1 cap PO QPM 01/25/21 01/25/21 cyclobenzaprine 1 tab PO TID PRN 01/25/21 01/25/21 docusate sodium 2 cap PO BID 01/25/21 01/25/21 fluticasone propionate 2 spray INTRANASAL QAM 01/25/21 01/25/21 gabapentin 1 tab PO TID 01/25/21 01/25/21 lidocaine 1 patch TOPICAL BID 01/25/21 01/25/21 loratadine 1 tab PO DAILY 01/25/21 01/25/21 losartan 1 tab PO QAM 01/25/21 01/25/21 metformin 1 tab PO BID 01/25/21 01/25/21 naproxen 1 tab PO BID 01/25/21 01/25/21 omeprazole 1 cap PO QAM 01/25/21 01/25/21 primidone DOSE LOWERED TO 25MG 1 tab PO BEDTIME 01/25/21 01/25/21 sitagliptin [Januvia] 1 tab PO QPM 01/25/21 01/25/21 trazodone 1 tab PO BEDTIME 01/25/21 01/25/21 zolpidem DISCONTINUED 1 tab PO BEDTIME PRN 01/25/21 01/25/21 Discharge Plan Discharge Patient Disposition: Home, Self-Care Discharge Diagnosis: major depressive disorder, recurrent, severe in remission Referrals: Therapist: Rosanne Ferrari ([facility]) [Other] - 1 Week Psych Prescriber: Alis Arias ([facility]) [Other] - 1 Week Psych Prescriber: Alis Arias ([facility]) [Other] - 1 Week [facility] [Primary Care Provider] - 03/11/21 (Discontinued Amlodipine for now since BP with in normal limits Primidone lowered to 25mg (down from 50mg) to see if tolerates lower dose Discontinued Zolpidem (pt no longer taking and not recommended) Started pt on Naltrexone 25mg for opioid abuse Started pt on Perphenazine 8mg daily for chronic nausea Consult placed for GI appointm PATIENT STATES SHE HAS AN APPOINTMENT IN FEBRUARY WITH PCP) Discharge Medications: New fluoxetine 10 mg Capsule 10 mg PO DAILY 30 Days Qty: 30 RF: 0 primidone 50 mg Tablet 25 mg PO BEDTIME 30 Days Qty: 15 RF: 0 perphenazine 8 mg tablet 8 mg PO DAILY 30 Days Qty: 30 RF: 0 naltrexone 50 mg tablet 25 mg PO DAILY 30 Days Qty: 15 RF: 0 Narcan 4 mg/actuation spray,non-aerosol 4 mg intranasal Q2M PRN (Reason: opioid overdose) 1 Days Qty: 2 RF: 0 Continued cyclobenzaprine 10 mg tablet 1 tab PO TID PRN (Reason: pain) RF: 0 atorvastatin 40 mg tablet 1 tab PO BEDTIME RF: 0 gabapentin 600 mg tablet 1 tab PO TID RF: 0 albuterol sulfate 2.5 mg /3 mL (0.083 %) solution for nebulization 1 amp inhalation QID RF: 0 aspirin 81 mg tablet,delayed release (DR/EC) 1 tab PO BEDTIME RF: 0 trazodone 100 mg tablet 1 tab PO BEDTIME RF: 0 metformin 1,000 mg tablet 1 tab PO BID RF: 0 lidocaine 5 % adhesive patch,medicated 1 patch topical BID RF: 0 docusate sodium 100 mg capsule 2 cap PO BID RF: 0 omeprazole 20 mg capsule,delayed release(DR/EC) 1 cap PO QAM RF: 0 losartan 100 mg tablet 1 tab PO QAM RF: 0 fluticasone propionate 50 mcg/actuation spray,suspension 2 spray intranasal QAM RF: 0 loratadine 10 mg tablet 1 tab PO DAILY RF: 0 naproxen 500 mg tablet 1 tab PO BID RF: 0 Januvia 100 mg tablet 1 tab PO QPM RF: 0 cholecalciferol (vitamin D3) 50 mcg (2,000 unit) capsule 1 cap PO QPM RF: 0 albuterol sulfate [ProAir HFA] 90 mcg/actuation HFA aerosol inhaler 2 puff PO Q4-6H PRN (Reason: Shortness Of Breath) 30 Days Qty: 1 RF: 1 Discontinued primidone 50 mg tablet 1 tab PO BEDTIME RF: 0 acetaminophen 500 mg tablet 1 tab PO QID PRN (Reason: pain) RF: 0 amlodipine 10 mg tablet 1 tab PO QAM RF: 0 zolpidem 10 mg tablet 1 tab PO BEDTIME PRN (Reason: Insomnia) RF: 0 Discharge Orders: Discharge Order (Routine); Ordered 02/02/21 Ordered By: Filippo Meneses Diet: diabetic diet Activity on Discharge: As tolerated Stand Alone Forms: Patient Portal Discharge page, Community Support Print Language: Syrian Care Plan Goals: Maintain mood and safe behaviors Take medications as prescribed Continue to pursue sobriety Practice coping skills Continue with outpatient providers and reach out to them as needed Health Concerns: Health concerns discussed during this admission: Chronic nausea depression and thoughts of suicide anxiety Plan of Treatment: Follow up with your PCP and psychiatric provider regarding above concerns Statistician Mathematical consult placed. Their office will make appointment with you Take medications as prescribed New medications started: Prozac is for sadness and anxiety; take it every day Perphenazine is for nausea; it scheduled to take every day Naltexone is to protect from opioid abuse; take it every day Assessment: Risk assessment at time of discharge: Patient has been observed closely by nursing and unit staff throughout admission; patient has not engaged in any behaviors that suggest dangerousness to self or others and has demonstrated appropriate behaviors and impulse control. Patient was interviewed prior to discharge and found to be fully oriented and without any SI or HI. Patient has insight and demonstrates good judgment in terms of wanting to pursue treatment. Patient is not in imminent risk of harm to self or others and has a safety plan that includes presenting to the closest ER or calling 911 if feeling unsafe. Discharge Date/Time: 02/02/21 14:55 Mental Status Exam Mental Status Exam Narrative: Pt is alert and oriented; behavior is cooperative, friendly and calm; patient is not in distress; dressed in hospital gown with adequate hygiene; mood is described as good and affect congruent; eye contact appropriate; Speech is normal rate, volume and prosody and not pressured; no psychomotor agitation/retardation present; thought process is organized, linear, logical and goal directed. Thought content is on discharge and otherwise pertinent to relevant topics and without any delusional content, paranoid ideations or grandiosity; denies any SI/HI. There is no evidence of perceptual disturbance. Patients insight and judgment appear intact. Data Data Completed and Pending Completed studies during hospitalization [Text1]: 01/26/21 01/27/21 01/27/21 21:20 07:23 20:38 POC Glucose 135 H 126 H 158 H Total Bilirubin Direct Bilirubin AST ALT Alkaline Phosphatase Total Protein Albumin 01/28/21 01/29/21 01/30/21 06:27 06:22 06:13 POC Glucose 118 H 123 H 114 Total Bilirubin Direct Bilirubin AST ALT Alkaline Phosphatase Total Protein Albumin 01/31/21 02/02/21 06:59 07:31 POC Glucose 119 H Total Bilirubin 0.6 Direct Bilirubin 0.2 AST 21 ALT 26 Alkaline Phosphatase 87 Total Protein 7.4 Albumin 4.4 Imaging Diagnostic Imaging Impressions Abdomen/Pelvis CT 01/24/21 19:16 IMPRESSION: 1. There is a 1 cm calculus/calcification within the urinary bladder. This is new as compared to the prior study. No evidence of hydronephrosis. 2. Calcific densities in bilateral kidneys, perhaps medullary nephrocalcinosis. 3. No acute process is otherwise identified in the abdomen or pelvis. 4. Mild bibasilar atelectasis. 5. Hepatic steatosis. DS: Summary Hospital Course Hospital Course: Pt seen with mayonnaise mixer Patient is a 55-year-old female with a history of emotional reactivity, depression, opiate abuse with past overdoses who presents after suicide attempt by intentional overdose in the face of chronic medical issues (chronic nasuea). On admission patient signed CV. She endorsed depression and anxiety but denied any SI or HI and said that all SI had fully resolved. She says she has chronic intermittent SI that is gets triggered when she is feeling emotional or in pain. Patients daughter Jasmin provided collateral and said that since she was a child, her mother has been talking about suicide. Patient was a little avoidant of talking about her mental health issues but after a few days on unit, she become forthcoming and reports she's struggled with such emotions and mood since childhood; she denied history of manic type symptoms. Patient denies any history of psychiatric med trials. Pt agreed to start on Prozac which was well tolerated. Patients depression resolved and she remained without any SI. She asked for medication to address nausea; designer writer discussed options and considered deferring to Gastoenterology appointment; pt agreed with this however she also expressed that nausea is a strong trigger for her SI and preferred to start a medication now if possible. Straw Hat Brim Raiser Operator reviewed risks/side-effects with patient who agreed to start Perphenazine for nausea which was chosen since it can also help with mood stabilization. Regarding opioid abuse, pt has needed rescue Narcan 4-5 times; she thus agreed to start Naltrexone which was well tolerated and lft's remained WNL (there is literature that indicates 25mg is sufficient for mu-receptor blocking so left it at this dose to lower risk of side-effects); Suboxone was tried however patient did not like the taste so it was discontinued. Patient continued to deny any suicidal or homicidal ideation during admission and demonstrated appropriate behaviors and impulse control on the unit. Towards the end of her admission, patient reported good mood and continued resolution of SI; her affect was noticeably brighter and she was future oriented, looking for to seeing her grandson and being there for his birthday. She felt safe to return home and placed a 3 day notice for discharge. She also agreed to follow up with outpatient providers and to call crisis or 911 if she should feel unsafe. 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 She has remained stable on the unit, in a good mood, without SI and is not in imminent risk for harm to self or others. She does not meet criteria for involuntary commitment and her request for discharge was honored. 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 Patient is not aware of tremor and said her hands only shake when she's upset. Given patient's recent history of overdose, patient agreed with designer writer to lower dose of this medication (pt not on unit long enough to fully taper down and dc). Also, patient's Amlodpine was held on admission since BP was within normal limits; it was not restarted as pt remained w/out HTN on Losartan only (to which patient agreed). Also Zolpidem was discontinued as she slept well without. Patients pharmacy and PCP altered to these changes. Straw Hat Brim Raiser Operator discussed risks/side effects of medication regimen, including prozac, perhenazine and naltrexone; patient communicated understanding of benefits, risks and side-effects of medications and wants to continue with regimen. Patient agrees that current doses seem appropriate and denies medication side-effects. Patient agrees to reach out to outpatient provider with any medications concerns. Status at Discharge Functional status at discharge: independent ambulation Overall status at discharge: patient is back to baseline Time Spent with Patient Time attestation: Total time spent providing and/or coordinating discharge services: Time spent: Greater than 30 minutes
[2021-02-02] MEDS: Perphenazine 2 MG TABLET PO ×2 (12:18)
[2021-02-02] MEDS: Magnesium Hydrox/Alum Hydrox 30 ML ORAL.SUSP PO (12:18)
--- NOTE | 2021-02-02 13:53 | PC.NURSE ---
PT IS AWARE AND READY FOR DISCHARGE. PT MAINTAINS GOOD EYE CONTACT. SHE SAYS SHE IS GOOD . HER AFFECT IS CONGRUENT. SHE IS MEDICATION COMPLIANT. SHE IS OPEN TO EDUCATION REGARDING MEDICATIONS. PT DENIES ANY DEPRESSION OR ANXIETY AT THE TIME. SHE DENIES ANY URGES TO USE SUBSTANCES AT THE MOMENT. PT DENIES ANY URGES TO HARM HERSELF OR OTHERS. SHE DENIES ANY AUDITORY OR VISUAL HALLUCINATIONS. PT HAS BEEN ATTENDING TO HER ADLS. SHE IS ADVOCATING FOR HER NEEDS. PT IS COMPLAINING OF CHRONIC NAUSEA, HOWEVER, THERE IS A FOLLOW UP GI APPOINTMENT FOR HER. PT HAS BEEN ATTENDING GROUPS AND VISIBOLE ON THE UNIT. SHE IS SOCIAL WITH PEERS. PT HAS BEEN COMPLIANT WITH TREATMENT. SHE IS GOAL ORIENTED AND STATES THAT SHE IS READY TO LEAVE. PT STATES THAT SHE FEELS SAFE TO GO HOME. HER APPOINTMENTS HAVE BEEN SCHEDULED. PTS PAPERWORK WILL BE FAXED TO HER PROVIDERS PER PROTOCOL.
== END 2021-02-02 14:55 | disposition home or self-care (01) | DRG 754 ==
LOC: HO.ED 01-25 05:43 → HO.PM5 01-26 23:22
PROVIDERS: Admitting Provider Psychiatry & Neurology Psychiatry; Emergency Provider Emergency Medicine; Visit Provider Psychiatry & Neurology Psychiatry
DX: F32.9 Major depressive disorder, single episode, unspecified (principal); R45.851 Suicidal ideations; E11.9 Type 2 diabetes mellitus without complications; Z91.5 Personal history of self-harm; F14.10 Cocaine abuse, uncomplicated; F11.10 Opioid abuse, uncomplicated; J44.9 Chronic obstructive pulmonary disease, unspecified; G25.0 Essential tremor; I10 Essential (primary) hypertension; G47.33 Obstructive sleep apnea (adult) (pediatric); Z20.822 Contact with and (suspected) exposure to COVID-19; Z79.51 Long term (current) use of inhaled steroids; Z79.84 Long term (current) use of oral hypoglycemic drugs; Z79.899 Other long term (current) drug therapy
CPT/HCPCS: 36415; 74177; 80048; 80076; 80307; 81001; 82077; 82947; 83690; 85025; 87635; 93005; 99285; Q9967

== ENCOUNTER → 2021-06-09 11:10 | Outpatient (BNVA) | payer MEDICAID, SELFPAY | PROVIDERS: PCP Nurse Practitioner Primary Care; Referring Provider Nurse Practitioner Primary Care; Visit Provider Psychiatry & Neurology Neurology | DX: G47.10 Hypersomnia, unspecified (principal); R06.83 Snoring; R06.81 Apnea, not elsewhere classified | CPT/HCPCS: 99202 ==

== ENCOUNTER 2021-10-06 13:14 | Outpatient (REF) | payer MEDICAID, SELFPAY ==
--- NOTE | ~2021-10-06 | MM_ITS ---
EXAMINATION: MM SCREENING DIGITAL BREAST TOMOSYNTHESIS, BILATERAL CLINICAL INFORMATION: Screening. Asymptomatic. The lifetime risk of breast cancer based on the Tyrer-Cuzick Model is 6%. COMPARISON: Mammography: 07/19/2016, 04/01/2014 TECHNIQUE: Digital breast tomosynthesis is performed in both the craniocaudal and mediolateral oblique views along with computer-aided detection (CAD). Synthesized 2D images are generated from the tomosynthesis. Additional left CC and left MLO views are provided. FINDINGS: There are scattered areas of fibroglandular density (ACR BI-RADS breast composition Category b). There are no significant masses, abnormal calcifications, or other abnormalities. There is fine fibronodular parenchymal pattern anterior breasts similar to prior studies. No developing density. Small right axillary node has chronic benign coarse calcifications versus tattoo artifact similar to prior studies. The skin contours are smooth. MM/MM tomosynthesis screening BI IMPRESSION: No mammographic evidence of malignancy. ASSESSMENT: BI-RADS 2: Benign RECOMMENDATION: Routine annual mammography screening. This patient's information was entered into a reminder system with a target due date for their next mammogram.
== END 2021-10-06 13:15 | disposition home or self-care (01) ==
LOC: HO.MAMMO 13:14
PROVIDERS: PCP Nurse Practitioner Primary Care; Visit Provider Nurse Practitioner Primary Care
DX: Z12.31 Encounter for screening mammogram for malignant neoplasm of breast (principal)
CPT/HCPCS: 77063; 77067

== ENCOUNTER → 2021-12-01 20:28 | Outpatient (REF) | payer MEDICAID, SELFPAY | LOC: HO.SL 20:28 | PROVIDERS: Visit Provider Psychiatry & Neurology Neurology | DX: G47.10 Hypersomnia, unspecified (principal); R06.83 Snoring; I10 Essential (primary) hypertension; E66.9 Obesity, unspecified | CPT/HCPCS: 95810 ==

== ENCOUNTER → 2022-01-21 15:20 | Outpatient (BNVA) | payer MEDICAID, SELFPAY | PROVIDERS: PCP Nurse Practitioner Primary Care; Visit Provider Internal Medicine | DX: J44.9 Chronic obstructive pulmonary disease, unspecified (principal); E66.9 Obesity, unspecified; Z68.42 Body mass index [BMI] 45.0-49.9, adult; R06.83 Snoring; G47.34 Idiopathic sleep related nonobstructive alveolar hypoventilation; Z87.891 Personal history of nicotine dependence | CPT/HCPCS: 99202 ==

== ENCOUNTER 2022-02-17 14:00 | Outpatient (RCR) | payer MEDICAID, SELFPAY | END 2022-06-16 09:44 | disposition home or self-care (01) | LOC: HO.OT 14:00 | PROVIDERS: PCP Nurse Practitioner Primary Care; Visit Provider Nurse Practitioner Primary Care | DX: M79.641 Pain in right hand (principal) | CPT/HCPCS: 97110; 97166 ==

== ENCOUNTER 2022-02-24 14:10 | Outpatient (REF) | payer MEDICAID, SELFPAY ==
--- NOTE | 2022-02-24 09:27 | PFT_ITS ---
FLOWS: FEV1 82% of predicted at 2.14 L. FVC 83% of predicted at 2.73 L. FEV1 to FVC ratio of 0.78. No bronchodilator response except in small to medium airways. LUNG VOLUMES: Total lung capacity 94% of predicted at 5.07 L. Residual volume 97% of predicted at 2.16 L. Slow vital capacity 93% of predicted at 2.91 L. Expiratory reserve volume 28% of predicted at 0.18 L. Diffusion capacity is moderately decreased. IMPRESSION: No obstructive or restrictive ventilatory defect. No bronchodilator response except in small to medium airways. Decreased expiratory reserve volume suggests extrathoracic restriction likely secondary to abdominal obesity. Decreased diffusion capacity suggests emphysema. Chepe Craig MD AP/MODL / [id number]
== END 2022-02-24 14:11 | disposition home or self-care (01) ==
LOC: HO.RESP 14:10
PROVIDERS: Visit Provider Internal Medicine
DX: J44.9 Chronic obstructive pulmonary disease, unspecified (principal); J30.9 Allergic rhinitis, unspecified; G47.34 Idiopathic sleep related nonobstructive alveolar hypoventilation; E66.01 Morbid (severe) obesity due to excess calories; F17.210 Nicotine dependence, cigarettes, uncomplicated; Z99.81 Dependence on supplemental oxygen; Z79.899 Other long term (current) drug therapy
CPT/HCPCS: 94060; 94727; 94729; 99212

== ENCOUNTER → 2022-06-24 09:44 | Outpatient (BNVA) | payer MEDICAID, SELFPAY | PROVIDERS: PCP Nurse Practitioner Primary Care; Referring Provider Nurse Practitioner Primary Care; Visit Provider Internal Medicine Cardiovascular Disease | DX: J44.9 Chronic obstructive pulmonary disease, unspecified (principal); E66.01 Morbid (severe) obesity due to excess calories; G47.34 Idiopathic sleep related nonobstructive alveolar hypoventilation; R07.89 Other chest pain; R42 Dizziness and giddiness | CPT/HCPCS: 93005; 99202; 99212 ==

== ENCOUNTER 2022-07-19 13:15 | Outpatient (REF) | payer MEDICAID, SELFPAY ==
[2022-07-19 13:33] LABS: MANUAL DIFF FLAG NO
[2022-07-19 15:01] LABS: Hemoglobin 11.5 g/dl (12.0-16.0); SCAN SMEAR FLAG 1
[2022-07-19 15:03] LABS: Basophils Absolute Auto 0.1 X10*3/uL (0.0-0.2); Basophils Percent Auto 0.9 % (0-2); Eosinophils Absolute Auto 0.1 X10*3/uL (0.0-0.4); Eosinophils Percent Auto 2.5 % (0-4); Imm Gran Abs Auto 0.04 X10*3/uL (0.00-0.03); Imm Gran Pct Auto 0.7 % (0.0-0.4); Lymphocytes Absolute Auto 1.2 X10*3/uL (1.2-4.9); Lymphocytes Percent Auto 22.2 % (20-40); Mean Corpuscular HGB Conc 31.1 g/dl (31.0-35.0); Mean Corpuscular Hemoglobin 21.3 pg (27.0-33.0); Mean Corpuscular Volume 68.5 fL (80.0-98.0); Mean Platelet Volume 10.3 fL (9.4-12.3); Monocytes Absolute Auto 0.5 X10*3/uL (0.1-1.2); Monocytes Percent Auto 9.2 % (2-11); Neutrophils Absolute Auto 3.6 x10*3/uL (2.0-8.3); Neutrophils Percent Auto 64.5 % (45-73); Platelet Count 265 X10*3/uL (160-400); Red Cell Distribution Width 19.3 % (11.0-16.0); White Blood Count 5.5 X10*3/uL (4.8-10.8)
[2022-07-19 15:09] LABS: PLT ABN DIST 1
[2022-07-19 16:13] LABS: Alanine Aminotransferase 55 U/L (0-31); Albumin Level 4.2 g/dL (3.5-5.0); Alkaline Phosphatase 108 U/L (39-117); Anion Gap 14 (12-20); Aspartate Amino Transferase 46 U/L (5-31); Bilirubin Total 0.5 mg/dL (0.0-1.0); Blood Urea Nitrogen 8 mg/dL (9-16); Calcium 9.4 mg/dL (8.4-10.2); Carbon Dioxide 24 mmol/L (22-29); Chloride 99 mmol/L (96-108); Estimated Glomerular Filt Rate > 60; Glucose Random 320 mg/dL (60-115); Potassium 4.7 mmol/L (3.3-5.1); Sodium 132 mmol/L (135-145); Thyroid Stimulating Hormone 0.76 uIU/mL (0.32-4.0); Total Protein 7.5 g/dL (6.5-8.0)
== END 2022-07-19 13:16 | disposition home or self-care (01) ==
LOC: HO.LAB 13:15
PROVIDERS: Visit Provider Physician Assistant
DX: K58.1 Irritable bowel syndrome with constipation (principal); K59.09 Other constipation; K52.9 Noninfective gastroenteritis and colitis, unspecified; R10.9 Unspecified abdominal pain; Z78.9 Other specified health status; Z79.899 Other long term (current) drug therapy; Z98.890 Other specified postprocedural states
CPT/HCPCS: 36415; 80053; 84443; 85025; 99202

== ENCOUNTER → 2022-09-01 11:35 | Outpatient (BNVA) | payer MEDICAID, SELFPAY | PROVIDERS: PCP Nurse Practitioner Primary Care; Visit Provider Internal Medicine | DX: J44.9 Chronic obstructive pulmonary disease, unspecified (principal); G47.34 Idiopathic sleep related nonobstructive alveolar hypoventilation; E66.01 Morbid (severe) obesity due to excess calories; Z68.42 Body mass index [BMI] 45.0-49.9, adult | CPT/HCPCS: 99212 ==

== ENCOUNTER → 2022-09-08 12:54 | Outpatient (BNVA) | payer MEDICAID, SELFPAY | PROVIDERS: PCP Nurse Practitioner Primary Care; Visit Provider Student in an Organized Health Care Education/Training Program | DX: M06.9 Rheumatoid arthritis, unspecified (principal); M32.9 Systemic lupus erythematosus, unspecified; M25.542 Pain in joints of left hand; E66.01 Morbid (severe) obesity due to excess calories; Z68.42 Body mass index [BMI] 45.0-49.9, adult | CPT/HCPCS: 99202 ==

== ENCOUNTER → 2022-09-23 08:19 | Outpatient (REF) | payer MEDICAID, SELFPAY ==
--- NOTE | 2022-09-23 08:22 | HM_ITS ---
* Total monitoring time approximately 2 days. * Underlying rhythm is sinus. Average ventricular rate 78/Min. Range 61 to 126/Min. * Rare supraventricular and ventricular ectopy. Low burden. * No significant pauses or AV blocks. * Chest pain in diary associated with sinus rhythm. MTDD
== END ==
LOC: HO.CARD 08:19
PROVIDERS: Visit Provider Internal Medicine Cardiovascular Disease
DX: R07.89 Other chest pain (principal); R42 Dizziness and giddiness
CPT/HCPCS: 93225

== ENCOUNTER → 2022-10-05 08:32 | Outpatient (REF) | payer MEDICAID, SELFPAY ==
--- NOTE | ~2022-10-05 | NM_ITS ---
Myocardial perfusion study Indication: Chest pain to evaluate for myocardial ischemia Technique: The patient was brought in for a Lexiscan perfusion study on 10/05/2022. Patient performed low-level exercise and was injected 0.4 mg of Lexiscan intravenously. Within a minute of injection, 45 mCi of sestamibi was given intravenously. Images were obtained using the SPECT gamma camera interlaced with the gating device. Images were obtained in supine position. Resting perfusion study was performed on 10/06/2022. Patient was administered 45 mCi of sestamibi intravenously at rest. Images were then obtained in supine position. Images obtained with and without CT attenuation. Total DLP 161 mGy-cm. Images were processed with the software and compared side to side in short axis, horizontal long axis and vertical long axis views. Findings: The stress perfusion study showed non attenuated images show mildly to moderately reduced uptake in the inferoapical wall of the LV myocardium. Remainder of the LV myocardium normally perfused. Attenuation corrected images show mildly reduced uptake in the apex of the LV myocardium. The gated study shows normal LV systolic function with calculated LVEF of greater than 60%. LV cavity is normal in size. The gated study shows normal systolic wall thickening and contraction of segments. Resting study shows no change in perfusion pattern compared to stress perfusion study. Gating at rest reveals normal systolic wall motion with ejection fraction at 65%. The findings are consistent with likely normal myocardial perfusion. NM/NM melina perf SPECT rest & str Impression: 1. Myocardial perfusion imaging study shows likely normal myocardial perfusion 2. Gated LVEF is 65% 3. Transient ischemic dilatation not present EKG is nondiagnostic for ischemia
--- NOTE | 2022-10-05 08:36 | CA_ITS ---
Acquisition Time: 2022-10-05 09:07:03 Total Exercise Time: 00:02:00 Test Indications: CHEST PAIN, LIGHTHEADED Medications: Protocol: LEXISCAN Max HR: 096 BPM 58% of Pred: 163 BPM Max BP: 154/086 mmHG Max Work Load: 1.0 METS Pharmacological stress test with Lexiscan injection, while sitting and kicking her legs, with shortness of breath post injection, without chest discomfort, with isolated PVC, with normotensive response to injection, with nondiagnostic EKG for ischemia. In recovery she was treated with Aminophylline 75mg IVP to reverse Lexiscan. Nuclear images pending. Test reviewed with Dr Faulkner. Referred By: Pj Rodriguez Overread By: BENJAMIN PROCTOR
== END ==
LOC: HO.CARD 08:32
PROVIDERS: Visit Provider Internal Medicine Cardiovascular Disease
DX: R07.89 Other chest pain (principal)
CPT/HCPCS: 78452; 93017; A9500; J2785

== ENCOUNTER 2022-12-03 10:11 | Outpatient (REF) | payer MEDICAID, SELFPAY ==
--- NOTE | ~2022-12-03 | XR_ITS ---
EXAMINATION: XR BOTH KNEES AP STANDING XR KNEE, RIGHT XR KNEE, LEFT CLINICAL INFORMATION: Rheumatoid arthritis. COMPARISON: Right and left knee radiographs dated 01/26/2011. TECHNIQUE: Standing AP view of both knees and lateral and sunrise views of the right and left knees. FINDINGS: RIGHT KNEE: Mild medial compartment joint space narrowing. Small tricompartmental marginal osteophytes. No osseous erosion. No fracture or dislocation. No concerning lytic or blastic osseous lesion. No abnormal soft tissue calcification. LEFT KNEE: Moderate medial compartment joint space narrowing. Tricompartmental marginal osteophytes. No osseous erosion. No fracture or dislocation. No concerning lytic or blastic osseous lesion. No abnormal soft tissue calcification. XR/XR knee RT 3V IMPRESSION: RIGHT KNEE: [id number] medial as well as more mild patellofemoral and lateral compartment osteoarthritis, progressed when compared to the prior examination. LEFT KNEE: [id number] medial as well as more mild patellofemoral and lateral compartment osteoarthritis, progressed when compared to the prior examination.
--- NOTE | ~2022-12-03 | XR_ITS ---
EXAMINATION: XR SHOULDER, RIGHT XR SHOULDER, LEFT XR ELBOW, RIGHT XR ELBOW, LEFT CLINICAL INFORMATION: Rheumatoid arthritis. COMPARISON: Most recent right shoulder radiograph dated 07/23/2019. TECHNIQUE: AP, Grashey, scapular Y, and axillary views of the right and left shoulder. AP, oblique, and lateral views of the right and left elbow. FINDINGS: Right shoulder: No acute fracture or dislocation. Mild acromioclavicular and glenohumeral joint space narrowing with small marginal osteophytes, progressed when compared to the prior examination. Prominent subacromial spurring. No concerning lytic or blastic osseous lesion. Left shoulder: No acute fracture or dislocation. Small acromial clavicular and glenohumeral marginal osteophytes. Prominent subacromial spurring. No osseous erosion. Right elbow: No acute fracture or dislocation. No significant joint space narrowing or marginal osteophytes. No osseous erosion. No abnormal soft tissue calcification. No joint effusion. Left elbow: No acute fracture or dislocation. Mild to moderate ulnotrochlear joint space narrowing with marginal osteophytes. No osseous erosion. No abnormal soft tissue calcification. No significant joint effusion. XR/XR elbow LT min 3V IMPRESSION: Right shoulder: Moderate acromioclavicular and glenohumeral osteoarthritis, progressed when compared to the prior examination. Prominent subacromial spurring. Left shoulder: Mild acromioclavicular and glenohumeral osteoarthritis. Prominent subacromial spurring. Right elbow: Unremarkable examination. 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
--- NOTE | ~2022-12-03 | XR_ITS ---
EXAMINATION: XR HAND AND WRIST, RIGHT XR HAND AND WRIST, LEFT CLINICAL INFORMATION: Rheumatoid arthritis. COMPARISON: Bilateral hand and wrist radiographs dated 03/09/2021. TECHNIQUE: PA, oblique, and lateral views of the right and left hand and wrist. FINDINGS: RIGHT HAND AND WRIST: No acute fracture or dislocation. Normal carpal alignment. Mild joint space narrowing with tiny marginal osteophytes at the triscaphe and 1st carpometacarpal joints. Tiny marginal osteophyte scattered throughout the interphalangeal joints. No periarticular erosion. No periarticular osteopenia. No abnormal soft tissue calcification. LEFT HAND AND WRIST: No acute fracture or dislocation. Normal carpal alignment. Mild joint space narrowing with tiny marginal osteophytes at the triscaphe and 1st carpometacarpal joints. Tiny marginal osteophyte scattered throughout the interphalangeal joints. No periarticular erosion. No periarticular osteopenia. No abnormal soft tissue calcification. XR/XR hand wrist LT IMPRESSION: RIGHT HAND AND WRIST: Mild osteoarthritis at the triscaphe and 1st carpometacarpal joints as well as scattered throughout the interphalangeal joints. No osseous erosion. LEFT HAND AND WRIST: Mild osteoarthritis at the triscaphe and 1st carpometacarpal joints as well as scattered throughout the interphalangeal joints. No osseous erosion.
--- NOTE | ~2022-12-03 | XR_ITS ---
EXAMINATION: XR BOTH KNEES AP STANDING XR KNEE, RIGHT XR KNEE, LEFT CLINICAL INFORMATION: Rheumatoid arthritis. COMPARISON: Right and left knee radiographs dated 01/26/2011. TECHNIQUE: Standing AP view of both knees and lateral and sunrise views of the right and left knees. FINDINGS: RIGHT KNEE: Mild medial compartment joint space narrowing. Small tricompartmental marginal osteophytes. No osseous erosion. No fracture or dislocation. No concerning lytic or blastic osseous lesion. No abnormal soft tissue calcification. LEFT KNEE: Moderate medial compartment joint space narrowing. Tricompartmental marginal osteophytes. No osseous erosion. No fracture or dislocation. No concerning lytic or blastic osseous lesion. No abnormal soft tissue calcification. XR/XR knee LT 3V IMPRESSION: RIGHT KNEE: [id number] medial as well as more mild patellofemoral and lateral compartment osteoarthritis, progressed when compared to the prior examination. LEFT KNEE: [id number] medial as well as more mild patellofemoral and lateral compartment osteoarthritis, progressed when compared to the prior examination.
--- NOTE | ~2022-12-03 | XR_ITS ---
EXAMINATION: XR BOTH KNEES AP STANDING XR KNEE, RIGHT XR KNEE, LEFT CLINICAL INFORMATION: Rheumatoid arthritis. COMPARISON: Right and left knee radiographs dated 01/26/2011. TECHNIQUE: Standing AP view of both knees and lateral and sunrise views of the right and left knees. FINDINGS: RIGHT KNEE: Mild medial compartment joint space narrowing. Small tricompartmental marginal osteophytes. No osseous erosion. No fracture or dislocation. No concerning lytic or blastic osseous lesion. No abnormal soft tissue calcification. LEFT KNEE: Moderate medial compartment joint space narrowing. Tricompartmental marginal osteophytes. No osseous erosion. No fracture or dislocation. No concerning lytic or blastic osseous lesion. No abnormal soft tissue calcification. XR/XR knee standing BI IMPRESSION: RIGHT KNEE: [id number] medial as well as more mild patellofemoral and lateral compartment osteoarthritis, progressed when compared to the prior examination. LEFT KNEE: [id number] medial as well as more mild patellofemoral and lateral compartment osteoarthritis, progressed when compared to the prior examination.
--- NOTE | ~2022-12-03 | XR_ITS ---
EXAMINATION: XR SHOULDER, RIGHT XR SHOULDER, LEFT XR ELBOW, RIGHT XR ELBOW, LEFT CLINICAL INFORMATION: Rheumatoid arthritis. COMPARISON: Most recent right shoulder radiograph dated 07/23/2019. TECHNIQUE: AP, Grashey, scapular Y, and axillary views of the right and left shoulder. AP, oblique, and lateral views of the right and left elbow. FINDINGS: Right shoulder: No acute fracture or dislocation. Mild acromioclavicular and glenohumeral joint space narrowing with small marginal osteophytes, progressed when compared to the prior examination. Prominent subacromial spurring. No concerning lytic or blastic osseous lesion. Left shoulder: No acute fracture or dislocation. Small acromial clavicular and glenohumeral marginal osteophytes. Prominent subacromial spurring. No osseous erosion. Right elbow: No acute fracture or dislocation. No significant joint space narrowing or marginal osteophytes. No osseous erosion. No abnormal soft tissue calcification. No joint effusion. Left elbow: No acute fracture or dislocation. Mild to moderate ulnotrochlear joint space narrowing with marginal osteophytes. No osseous erosion. No abnormal soft tissue calcification. No significant joint effusion. XR/XR shoulder RT min 2V IMPRESSION: Right shoulder: Moderate acromioclavicular and glenohumeral osteoarthritis, progressed when compared to the prior examination. Prominent subacromial spurring. Left shoulder: Mild acromioclavicular and glenohumeral osteoarthritis. Prominent subacromial spurring. Right elbow: Unremarkable examination. 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
--- NOTE | ~2022-12-03 | XR_ITS ---
EXAMINATION: XR BILATERAL HIPS WITH AP PELVIS CLINICAL INFORMATION: Rheumatoid arthritis. COMPARISON: Most recent CT abdomen/pelvis dated 01/24/2021. TECHNIQUE: AP view of the pelvis as well as AP and frog-leg lateral views of the right and left hip. FINDINGS: No acute fracture or dislocation. Mild bilateral hip joint space narrowing with small marginal osteophytes, similar when compared to the prior CT. No concerning lytic or blastic osseous lesion. No evidence of avascular necrosis. Phleboliths within the pelvis. XR/XR hip BI w PEL1V IMPRESSION: Mild bilateral hip osteoarthritis, similar when compared to the prior CT.
--- NOTE | ~2022-12-03 | XR_ITS ---
EXAMINATION: XR SHOULDER, RIGHT XR SHOULDER, LEFT XR ELBOW, RIGHT XR ELBOW, LEFT CLINICAL INFORMATION: Rheumatoid arthritis. COMPARISON: Most recent right shoulder radiograph dated 07/23/2019. TECHNIQUE: AP, Grashey, scapular Y, and axillary views of the right and left shoulder. AP, oblique, and lateral views of the right and left elbow. FINDINGS: Right shoulder: No acute fracture or dislocation. Mild acromioclavicular and glenohumeral joint space narrowing with small marginal osteophytes, progressed when compared to the prior examination. Prominent subacromial spurring. No concerning lytic or blastic osseous lesion. Left shoulder: No acute fracture or dislocation. Small acromial clavicular and glenohumeral marginal osteophytes. Prominent subacromial spurring. No osseous erosion. Right elbow: No acute fracture or dislocation. No significant joint space narrowing or marginal osteophytes. No osseous erosion. No abnormal soft tissue calcification. No joint effusion. Left elbow: No acute fracture or dislocation. Mild to moderate ulnotrochlear joint space narrowing with marginal osteophytes. No osseous erosion. No abnormal soft tissue calcification. No significant joint effusion. XR/XR shoulder LT min 2V IMPRESSION: Right shoulder: Moderate acromioclavicular and glenohumeral osteoarthritis, progressed when compared to the prior examination. Prominent subacromial spurring. Left shoulder: Mild acromioclavicular and glenohumeral osteoarthritis. Prominent subacromial spurring. Right elbow: Unremarkable examination. 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
--- NOTE | ~2022-12-03 | XR_ITS ---
EXAMINATION: XR SHOULDER, RIGHT XR SHOULDER, LEFT XR ELBOW, RIGHT XR ELBOW, LEFT CLINICAL INFORMATION: Rheumatoid arthritis. COMPARISON: Most recent right shoulder radiograph dated 07/23/2019. TECHNIQUE: AP, Grashey, scapular Y, and axillary views of the right and left shoulder. AP, oblique, and lateral views of the right and left elbow. FINDINGS: Right shoulder: No acute fracture or dislocation. Mild acromioclavicular and glenohumeral joint space narrowing with small marginal osteophytes, progressed when compared to the prior examination. Prominent subacromial spurring. No concerning lytic or blastic osseous lesion. Left shoulder: No acute fracture or dislocation. Small acromial clavicular and glenohumeral marginal osteophytes. Prominent subacromial spurring. No osseous erosion. Right elbow: No acute fracture or dislocation. No significant joint space narrowing or marginal osteophytes. No osseous erosion. No abnormal soft tissue calcification. No joint effusion. Left elbow: No acute fracture or dislocation. Mild to moderate ulnotrochlear joint space narrowing with marginal osteophytes. No osseous erosion. No abnormal soft tissue calcification. No significant joint effusion. XR/XR elbow RT min 3V IMPRESSION: Right shoulder: Moderate acromioclavicular and glenohumeral osteoarthritis, progressed when compared to the prior examination. Prominent subacromial spurring. Left shoulder: Mild acromioclavicular and glenohumeral osteoarthritis. Prominent subacromial spurring. Right elbow: Unremarkable examination. 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
--- NOTE | ~2022-12-03 | XR_ITS ---
EXAMINATION: XR HAND AND WRIST, RIGHT XR HAND AND WRIST, LEFT CLINICAL INFORMATION: Rheumatoid arthritis. COMPARISON: Bilateral hand and wrist radiographs dated 03/09/2021. TECHNIQUE: PA, oblique, and lateral views of the right and left hand and wrist. FINDINGS: RIGHT HAND AND WRIST: No acute fracture or dislocation. Normal carpal alignment. Mild joint space narrowing with tiny marginal osteophytes at the triscaphe and 1st carpometacarpal joints. Tiny marginal osteophyte scattered throughout the interphalangeal joints. No periarticular erosion. No periarticular osteopenia. No abnormal soft tissue calcification. LEFT HAND AND WRIST: No acute fracture or dislocation. Normal carpal alignment. Mild joint space narrowing with tiny marginal osteophytes at the triscaphe and 1st carpometacarpal joints. Tiny marginal osteophyte scattered throughout the interphalangeal joints. No periarticular erosion. No periarticular osteopenia. No abnormal soft tissue calcification. XR/XR hand wrist RT IMPRESSION: RIGHT HAND AND WRIST: Mild osteoarthritis at the triscaphe and 1st carpometacarpal joints as well as scattered throughout the interphalangeal joints. No osseous erosion. LEFT HAND AND WRIST: Mild osteoarthritis at the triscaphe and 1st carpometacarpal joints as well as scattered throughout the interphalangeal joints. No osseous erosion.
[2022-12-03 11:58] LABS: Appearance Urine Clear; Color Urine Yellow; Glucose Urine UA Negative (Negative); Leukocyte Esterase Urine Negative (Negative); Nitrite Urine Negative (Negative); PH 5.5 (5.0-9.0); Urine Blood Negative (Negative); Urine Ketones Negative (Negative); Urine Protein Negative (Neg-Trace)
[2022-12-03 12:10] LABS: Bacteria Urine None Seen (None Seen); Hyaline Casts Urine 0-2 /LPF (0-2); RBC Urine 0-2 /HPF (0-2); Squamous Epithelial Cell Urine 0-2 /HPF (0-2); WBC Urine 0-5 /HPF (0-5)
[2022-12-03 12:39] LABS: Erythrocyte Sedimentation Rate 18 MM/HR (0-20)
[2022-12-03 12:39] LABS: Creatinine Urine 161.85 mg/dL; Protein/Creatinine Ratio, Ur 0.06 (<0.2); Total Protein Urine Random 10 mg/dL (<12)
[2022-12-03 13:53] LABS: Alanine Aminotransferase 26 U/L (0-31); Albumin Level 4.2 g/dL (3.5-5.0); Alkaline Phosphatase 86 U/L (39-117); Anion Gap 17 (12-20); Aspartate Amino Transferase 38 U/L (5-31); Bilirubin Total 0.4 mg/dL (0.0-1.0); Blood Urea Nitrogen 8 mg/dL (9-16); C Reactive Protein 0.16 mg/dL (< or = 0.50); Carbon Dioxide 25 mmol/L (22-29); Chloride 103 mmol/L (96-108); Estimated Glomerular Filt Rate > 60; Glucose Random 174 mg/dL (60-115); Potassium 4.5 mmol/L (3.3-5.1); Rheumatoid Factor 174.1 IU/mL (<15.0); Sodium 140 mmol/L (135-145); Total Protein 7.2 g/dL (6.5-8.0); Uric Acid 4.6 mg/dL (2.4-5.7)
[2022-12-04 02:54] LABS: MANUAL DIFF FLAG NO
[2022-12-04 02:56] LABS: Basophils Absolute Auto 0.1 X10*3/uL (0.0-0.2); Basophils Percent Auto 1.2 % (0-2); Eosinophils Absolute Auto 0.1 X10*3/uL (0.0-0.4); Eosinophils Percent Auto 1.8 % (0-4); Hematocrit 35.4 % (37.0-47.0); Hemoglobin 10.9 g/dl (12.0-16.0); Imm Gran Abs Auto 0.02 X10*3/uL (0.00-0.03); Imm Gran Pct Auto 0.4 % (0.0-0.4); Lymphocytes Absolute Auto 1.1 X10*3/uL (1.2-4.9); Mean Corpuscular HGB Conc 30.8 g/dl (31.0-35.0); Mean Corpuscular Volume 65.1 fL (80.0-98.0); Mean Platelet Volume 9.7 fL (9.4-12.3); Monocytes Absolute Auto 0.4 X10*3/uL (0.1-1.2); Monocytes Percent Auto 8.4 % (2-11); Neutrophils Absolute Auto 3.4 x10*3/uL (2.0-8.3); Neutrophils Percent Auto 66.2 % (45-73); Platelet Count 335 X10*3/uL (160-400); Red Blood Count 5.44 X10*6/uL (4.20-5.50); Red Cell Distribution Width 20.1 % (11.0-16.0); White Blood Count 5.1 X10*3/uL (4.8-10.8)
[2022-12-05 21:48] LABS: TS Negative Control Passed; TS Panel A 0; TS Panel B 2; TS Positive Control Passed; TSpotTB Negative (Negative)
[2022-12-06 08:33] LABS: HBc Num1 0.08 S/CO (0.00-0.79); HBsAGNum1 0.31 S/CO (0.00-0.99); Hepatitis A Antibody IgM 0.18 Index (0-0.79); Hepatitis B Core Antibody Nonreactive (Nonreactive); Hepatitis B Surface Antigen Negative (Negative); ~HepC Num1 0.13 S/CO (0.00-0.79); ~Hepatitis A Antibody IgM Nonreactive (Nonreactive); ~Hepatitis B Surface Antibody NONREACTIVE (Nonreactive); ~Hepatitis C Antibody Nonreactive (Nonreactive)
[2022-12-06 12:43] LABS: Complement C3 161 mg/dL (83-193)
[2022-12-06 19:39] LABS: Anti DNA DS Antibody <1 IU/mL; Antibody to SS-A Antigen <1.0 NEG AI (<1.0 NEG); Antibody to SS-B Antigen <1.0 NEG AI (<1.0 NEG); SM/Ribonucleoprotein Ab <1.0 NEG AI (<1.0 NEG); Smith Protein <1.0 NEG AI (<1.0 NEG)
[2022-12-07 11:44] LABS: Cyclic Citrullinated Peptide >250 UNITS
[2022-12-07 23:43] LABS: Prot Elec - Albumin 4.1 g/dL (3.8-4.8); Prot Elec - Alpha1 0.3 g/dL (0.2-0.3); Prot Elec - Beta 1 0.6 g/dL (0.4-0.6); Prot Elec - Beta 2 0.5 g/dL (0.2-0.5); Prot Elec - Gamma 1.1 g/dL (0.8-1.7); Prot Elec - Total Protein 7.5 g/dL (6.1-8.1)
[2022-12-08 08:38] LABS: IgA 349 mg/dL (47-310); IgG 1303 mg/dL (600-1640); IgM 99 mg/dL (50-300)
[2022-12-08 13:39] LABS: Anti Nuclear Antibody Screen NEGATIVE (NEGATIVE); DNAds, Crithidia Antibody Negative (Negative)
== END 2022-12-03 10:12 | disposition home or self-care (01) ==
LOC: HO.XRAY 10:11
PROVIDERS: PCP Nurse Practitioner Primary Care; Visit Provider Student in an Organized Health Care Education/Training Program
DX: Z11.7 Encounter for testing for latent tuberculosis infection (principal); Z11.59 Encounter for screening for other viral diseases; M25.542 Pain in joints of left hand; M32.9 Systemic lupus erythematosus, unspecified; M06.9 Rheumatoid arthritis, unspecified
CPT/HCPCS: 36415; 73030; 73080; 73110; 73130; 73521; 73562; 73564; 73565; 80053; 81001; 82784; 84156; 84165; 84550; 85025; 85652; 86038; 86039; 86140; 86160; 86200; 86225; 86235; 86255; 86334; 86431; 86481; 86704; 86706; 86709; 86803; 87340

== ENCOUNTER → 2023-01-04 11:03 | Outpatient (BNVA) | payer MEDICAID, SELFPAY | PROVIDERS: PCP Nurse Practitioner Primary Care; Visit Provider Internal Medicine | DX: J44.9 Chronic obstructive pulmonary disease, unspecified (principal); G47.34 Idiopathic sleep related nonobstructive alveolar hypoventilation; E66.01 Morbid (severe) obesity due to excess calories; Z68.42 Body mass index [BMI] 45.0-49.9, adult | CPT/HCPCS: 99212 ==

== ENCOUNTER → 2023-01-05 13:23 | Outpatient (BNVA) | payer MEDICAID, SELFPAY | PROVIDERS: PCP Nurse Practitioner Primary Care; Visit Provider Dietitian, Registered | DX: E66.01 Morbid (severe) obesity due to excess calories (principal); Z68.42 Body mass index [BMI] 45.0-49.9, adult; G47.34 Idiopathic sleep related nonobstructive alveolar hypoventilation; J44.9 Chronic obstructive pulmonary disease, unspecified; Z71.3 Dietary counseling and surveillance | CPT/HCPCS: 97802 ==

== ENCOUNTER 2023-03-07 13:10 | Outpatient (AMB) | payer MEDICAID, SELFPAY ==
[2023-03-07 13:51] VITALS: BMI 48.6
--- NOTE | 2023-03-07 13:51 | A.OFFVIS_ITS ---
Intake VS Expanded 03/07/23 13:51 Height 5 ft 6 in Weight 301 lb 5.95 oz BMI 48.6 Intake Visit Reasons: Obesity Allergies lisinopril [LISINOPRIL] Allergy (Unknown, Verified 01/04/23 11:39) UNKNOWN HPI Nutrition Presentation Details Pt presents for MNT for obesity Pt reports not making diet modifications and keeping sedentary Most Recent Diabetes Results: Creatinine 0.92 mg/dL (0.5-1.4) 12/03/22 Blood Urea Nitrogen 8 mg/dL (9-16) L 12/03/22 Sodium 140 mmol/L (135-145) 12/03/22 Potassium 4.5 mmol/L (3.3-5.1) 12/03/22 Chloride 103 mmol/L (96-108) 12/03/22 Carbon Dioxide 25 mmol/L (22-29) 12/03/22 Calcium 9.0 mg/dL (8.4-10.2) 12/03/22 AST 38 U/L (5-31) H 12/03/22 ALT 26 U/L (0-31) 12/03/22 Total Protein 7.2 g/dL (6.5-8.0) 12/03/22 Albumin 4.2 g/dL (3.5-5.0) 12/03/22 [facility] Medical History Allergic rhinitis Cocaine abuse COPD (chronic obstructive pulmonary disease) Drug overdoses MDD (major depressive disorder) Morbid obesity Morbid obesity Nocturnal hypoxemia Nocturnal hypoxemia Opioid abuse Surgical History History of hernia surgery Hx of tubal ligation Family History Father Dementia Mother Diabetes HTN (hypertension) Social History Household Members: Family Household Members Other:: daughter and two grandsons Housing: Apartment Do you presently have visiting nurse or other home services: No Patient Tobacco Use Status: Current everyday Tobacco user Tobacco use type: Cigarette Cigarettes Per Day: 5 Second Hand Smoke Exposure: Yes Substance Use Type: Heroin and Marijuana service: No Sexual orientation: Straight/Heterosexual Assessment & Plan Assessment & Plan (1) Morbid obesity: Code(s): E66.01 - Morbid (severe) obesity due to excess calories Plan: Est kcal needs as per MSJ: 1789 (40% carb, 30% protein/fat) Est fluid needs as per 25-30 ml/d: 3375- 4050 Est prot per day as per 1 g/kg bw: 135 Recommend fiber intake : 8-10 g per day and gradually increase to 25-28 g per day for women or as tolerated Recommend sodium intake per day : less than 2000 mg Educated patient on: ( R = reviewed V = verbalizes understanding N/R = needs review N/A = not applicable * Food sources of carbohydrate, adequate serving sizes and its role in various health conditions: R * Lean protein sources of foods and its relationship to muscle health: R * Differences between complex carbohydrates a simple carbohydrates, role of fiber in diet: R * Differences between types of fats and role in diet (mono on saturated fat fatty acids, saturated fatty acids, trans fats): R basic information * Food sources of sodium in salt and healthy modifications for heart health in kidney health: NR * Vitamins and minerals: R * Healthy plate method concept: R V * Physical activity: Benefits a precaution: NR (2) Nocturnal hypoxemia: Code(s): G47.34 - Idiopathic sleep related nonobstructive alveolar hypoventilation (3) COPD (chronic obstructive pulmonary disease): Code(s): J44.9 - Chronic obstructive pulmonary disease, unspecified Patient Instructions: Replace 1 cup of rice with 1 cup of green beans at dinner 3 times a week Have a fruit in place of pastry 7 days a week Coding Level of Care Code Nutr Indiv Subseq (15801) Diagnoses Morbid obesity E66.01 Nocturnal hypoxemia G47.34 COPD (chronic obstructive pulmonary disease) J44.9 Time Spent (min) 25
== END 2023-03-07 14:38 | disposition home or self-care (01) ==
PROVIDERS: PCP Nurse Practitioner Primary Care; Referring Provider Internal Medicine; Visit Provider Dietitian, Registered
DX: E66.01 Morbid (severe) obesity due to excess calories (principal); G47.34 Idiopathic sleep related nonobstructive alveolar hypoventilation; J44.9 Chronic obstructive pulmonary disease, unspecified

== ENCOUNTER → 2023-03-07 13:10 | Outpatient (BNVA) | payer MEDICAID, SELFPAY | PROVIDERS: Visit Provider Dietitian, Registered | DX: E66.01 Morbid (severe) obesity due to excess calories (principal); Z68.42 Body mass index [BMI] 45.0-49.9, adult; G47.34 Idiopathic sleep related nonobstructive alveolar hypoventilation; J44.9 Chronic obstructive pulmonary disease, unspecified; Z71.3 Dietary counseling and surveillance | CPT/HCPCS: 97803 ==

== ENCOUNTER 2023-04-21 13:23 | Outpatient (AMB) | payer MEDICAID, SELFPAY ==
--- NOTE | 2023-04-21 13:39 | A.OFFVIS_ITS ---
Intake VS Expanded 04/21/23 13:40 Height 5 ft 6 in Weight 283 lb 15.286 oz BMI 45.8 Intake Visit Reasons: T2DM Allergies lisinopril [LISINOPRIL] Allergy (Unknown, Verified 04/22/23 14:08) UNKNOWN HPI Nutrition Presentation Details Pt presents for MNT for morbid Obesity. Pt presents by self during this appointment. Pt reports working on reducing portions and reducing snacks. Reports having one large meal per day , if eating prior to 3pm she become nauseous. . She reports having coffee 2-3 times a day prior to 3 pm meal, coffee has milk or cream and 2 sugars Her 3 pm meals consist of soups (rice/potato and pork feet) Pt reports following up with PCP at [facility] and reports MD increased DM med and her appetite has decreased. Pt does not know the names of her dm meds. Noted 17 lbs weight loss since last visit a month ago. Pt denies vomiting, denies diarrhea . Pt reports feeling well, denies having concerns. Pt having rapid weight loss , may recommend prescribing nutritional supplements Most Recent Diabetes Results: Creatinine 0.92 mg/dL (0.5-1.4) 12/03/22 Blood Urea Nitrogen 8 mg/dL (9-16) L 12/03/22 Sodium 140 mmol/L (135-145) 12/03/22 Potassium 4.5 mmol/L (3.3-5.1) 12/03/22 Chloride 103 mmol/L (96-108) 12/03/22 Carbon Dioxide 25 mmol/L (22-29) 12/03/22 Calcium 9.0 mg/dL (8.4-10.2) 12/03/22 AST 38 U/L (5-31) H 12/03/22 ALT 26 U/L (0-31) 12/03/22 Total Protein 7.2 g/dL (6.5-8.0) 12/03/22 Albumin 4.2 g/dL (3.5-5.0) 12/03/22 [facility] Medical History Allergic rhinitis Cocaine abuse COPD (chronic obstructive pulmonary disease) Drug overdoses MDD (major depressive disorder) Morbid obesity Morbid obesity Nocturnal hypoxemia Nocturnal hypoxemia Opioid abuse Surgical History History of hernia surgery Hx of tubal ligation Family History Father Dementia Mother Diabetes HTN (hypertension) Social History Household Members: Family Household Members Other:: daughter and two grandsons Housing: Apartment Do you presently have visiting nurse or other home services: No Patient Tobacco Use Status: Current everyday Tobacco user Tobacco use type: Cigarette Cigarettes Per Day: 5 Second Hand Smoke Exposure: Yes Substance Use Type: Heroin and Marijuana service: No Sexual orientation: Straight/Heterosexual Assessment & Plan Assessment & Plan (1) Morbid obesity: Code(s): E66.01 - Morbid (severe) obesity due to excess calories Plan: Will monitor protein intake related to rapid weight loss of 17lbs since last visit 5 weeks ago. Pt denies vomiting, denies diarrhea. Pt contributes weight loss to addition of an injectable diabetic medications by her PCP which Pt reports has decreased her appetite. Pt is unable to tell the name of the medication. Pt was advised to bring list of medications to next appointment. wt 135 (02/2023) , wt (129 kg (03/2023) Est kcal needs as per MSJ: 1789 (40% carb, 30% protein/fat) Est fluid needs as per 25-30 ml/d: 3375- 4050 Est prot per day as per 1 g/kg bw: 135 Recommend fiber intake : 8-10 g per day and gradually increase to 25-28 g per day for women or as tolerated Recommend sodium intake per day : less than 2000 mg Educated patient on: ( R = reviewed V = verbalizes understanding N/R = needs review N/A = not applicable * Food sources of carbohydrate, adequate serving sizes and its role in various health conditions: R * Lean protein sources of foods and its relationship to muscle health: R * Differences between complex carbohydrates a simple carbohydrates, role of fiber in diet: R * Differences between types of fats and role in diet (mono on saturated fat fatty acids, saturated fatty acids, trans fats): R basic information * Food sources of sodium in salt and healthy modifications for heart health in kidney health: NR * Vitamins and minerals: R * Healthy plate method concept: R V * Physical activity: Benefits a precaution: NR Patient Instructions: * Include protein 5-6 oz in your 3 pm meal * Have a high protein supplement at noon time along with your coffee prior to 3 pm meal , coupons for protein supplements were provided * Have fruit and 2 oz of protein as snack twice a day * keep a food record and bring to next follow up * Drink water with meals, keep hydrated by having water * call for questions prior to next follow up * bring list of your medications to next follow up Coding Level of Care Code Nutr Indiv Subseq (53147) Diagnoses Morbid obesity E66.01 Time Spent (min) 30
[2023-04-21 13:40] VITALS: BMI 45.8
== END 2023-04-21 14:14 | disposition home or self-care (01) ==
PROVIDERS: PCP Nurse Practitioner Primary Care; Visit Provider Dietitian, Registered
DX: E66.01 Morbid (severe) obesity due to excess calories (principal)

== ENCOUNTER → 2023-04-21 13:23 | Outpatient (BNVA) | payer MEDICAID, SELFPAY | PROVIDERS: PCP Nurse Practitioner Primary Care; Visit Provider Dietitian, Registered | DX: E66.01 Morbid (severe) obesity due to excess calories (principal); Z68.42 Body mass index [BMI] 45.0-49.9, adult; Z71.3 Dietary counseling and surveillance | CPT/HCPCS: 97803 ==

== ENCOUNTER 2023-04-22 13:51 | Outpatient (AMB) | payer MEDICAID, SELFPAY ==
--- NOTE | 2023-04-22 13:54 | MHC.OFFVIS ---
Intake Vital Signs 04/22/23 13:55 Height 5 ft 6 in Weight 282 lb 13.649 oz BMI 45.6 BP 124/68 Blood Pressure Location Rt radial Position Sitting Pulse 85 Pulse Source Pulse Oximeter Temp 96.8 F Temp Source Skin Pulse Oximetry (%) 88 L Intake Visit Reasons: Arthritis Intake Note: Pt seen today for arthritis follow up. Professor/Nurse Anesthetist Required: Yes Professor/Nurse Anesthetist Name: [id number] Accompanied by: Self / Same As Patient Allergies lisinopril [LISINOPRIL] Allergy (Unknown, Verified 04/22/23 14:08) UNKNOWN Medication List - Last Reconciled 04/22/23 by Per Mancilla MD acetaminophen 500 mg PO QID PRN albuterol sulfate 1 amp inhalation QID albuterol sulfate 90 mcg/actuation (ProAir HFA) 2 puffs inhalation Q4-6H PRN amlodipine 10 mg PO QPM aspirin 81 mg PO BEDTIME atorvastatin 40 mg PO BEDTIME cholecalciferol (vitamin D3) 50 mcg PO QPM cyclobenzaprine 10 mg PO TID PRN docusate sodium (Colace) 200 mg (2 x 100 mg) PO BEDTIME dulaglutide (Trulicity) mg subcut QWEEK fluoxetine 40 mg PO QAM fluticasone propion-salmeterol 250-50 mcg/dose (Advair Diskus) 1 ea inhalation BID fluticasone propionate 50 mcg/actuation 2 sprays intranasal QAM gabapentin 600 mg PO TID insulin degludec (Tresiba FlexTouch U-100 insulin) 20 units subcut DAILY lidocaine 5% 1 patch topical BID loratadine 10 mg PO DAILY losartan 100 mg PO QAM metformin 1,000 mg PO BID naloxone 4 mg/actuation (Narcan) 4 mg intranasal Q2M PRN naltrexone 25 mg PO DAILY naproxen 500 mg PO BID omeprazole 20 mg PO QAM perphenazine 8 mg PO DAILY polyethylene glycol 3350 (Miralax) 17 grams PO DAILY primidone 25 mg (1/2 x 50 mg) PO BEDTIME 30 days sitagliptin phosphate (Januvia) 100 mg PO QPM trazodone 100 mg PO BEDTIME umeclidinium 62.5 mcg/actuation (Incruse Ellipta) 1 inh inhalation DAILY zolpidem 10 mg PO BEDTIME PRN HPI HPI Comments History of Present Illness Details Patient returns for follow-up after completion of her blood work and x-rays. Continues to have diffuse pain. She had a COPD exacerbation earlier this year. She was re-evaluated by her resource center teacher and was prescribed daily nocturnal oxygen. Initial history: This is a 56-year-old female with extensive past medical history who presents for evaluation of diffuse pain. Patient states she has had diffuse pain almost all her life. She states that she feels that her knees get out of with her socket sometimes. Has diffuse pain especially of her back. She also has pain in both hands, difficulty gripping stuff. Pain lasts almost all day. She takes multiple medicines for pain and does not know which medications help. She is unaware of any family history of autoimmune disease. [facility] Medical History Allergic rhinitis Cocaine abuse COPD (chronic obstructive pulmonary disease) Drug overdoses MDD (major depressive disorder) Morbid obesity Morbid obesity Nocturnal hypoxemia Nocturnal hypoxemia Opioid abuse Surgical History History of hernia surgery Hx of tubal ligation Family History Father Dementia Mother Diabetes HTN (hypertension) Social History Household Members: Family Household Members Other:: daughter and two grandsons Housing: Apartment Do you presently have visiting nurse or other home services: No Patient Tobacco Use Status: Current everyday Tobacco user Tobacco use type: Cigarette Cigarettes Per Day: 5 Second Hand Smoke Exposure: Yes Substance Use Type: Heroin and Marijuana service: No Sexual orientation: Straight/Heterosexual Review of Systems Const Reports fatigue and Reports weakness Card Reports dyspnea Resp Reports dyspnea and Reports wheezing GI Reports dyspepsia, Reports heartburn and Reports diarrhea Musc Reports back pain, Reports arthralgias, Reports joint swelling and Reports stiffness Skin/Breast Reports photosensitivity Neuro Reports weakness Psych Reports abnormal sleep pattern and Reports depression Endo Reports fatigue Aller/Immun Reports wheezing Physical Exam Vital Signs: Last Vital Signs Temp 96.8 F 04/22/23 13:55 Pulse 85 04/22/23 13:55 BP 124/68 04/22/23 13:55 Pulse Ox 88 L 04/22/23 13:55 BMI result Body Mass Index 45.6 Const General: cooperative and healthy appearing Nutritional Appearance: obese morbidly obese Orientation/consciousness: patient oriented x3 Limitations: no limitations HEENT Head: Yes normocephalic and Yes atraumatic Resp Effort & Inspection: normal respiratory effort and able to speak in complete sentences Cardio Other: Unable to auscultate due to patient's body habitus Neuro General: patient oriented x3 Extrem Other: Tenderness to palpation to both wrists, PIPs, MCPs, the majority of the pain is in the MCPs and wrists. Bilateral elbow pain with full extension Limited range of motion of right shoulder Bilateral ankle tenderness at the medial malleolus Diffuse fibromyalgia tender points Assessment & Plan Assessment & Plan (1) Rheumatoid arthritis: Comment: ++RF+++CCP dx 04/2023 Code(s): M06.9 - Rheumatoid arthritis, unspecified Plan: This is a 57-year-old female with complex past medical history presents for evaluation of diffuse joint pain. Upon evaluation patient has tender wrists, MCPs, PIP is, ankles. Labs showed high titer positive rheumatoid factor and anti CCP. Clinical picture consistent with new onset seropositive rheumatoid arthritis. Will need to start DMARDs. Methotrexate and leflunomide would be contraindicated due to transaminitis as well as risk of pneumonitis in a patient with COPD on home oxygen. Hydroxychloroquine would be contraindicated due to risk of QTC prolongation as patient takes trazodone daily, there is some risk of arrhythmias. Discussed risks and benefits of TNF inhibitors. Patient agreed to proceed. She had not had any infections over the last year. Did not require any antibiotics. Will start prior authorization for Enbrel. Labs before next visit in 3 months Can consider steroid injections for shoulder or knee. Advised patient to maintain her blood sugar under control Plan I spent 46 minutes reviewing patient's chart, evaluating patient, ordering diagnostic workup, counseling patient and documenting in the chart Orders: Orders Complete Blood Count Auto Diff 3 Months M06.9 - Rheumatoid arthritis, unspecified Comprehensive Met. Panel 3 Months M06.9 - Rheumatoid arthritis, unspecified C Reactive Protein 3 Months M06.9 - Rheumatoid arthritis, unspecified Erythrocyte Sedimentation Rate 3 Months M06.9 - Rheumatoid arthritis, unspecified Hemoglobin A1c 3 Months E11.9 - Type 2 diabetes mellitus without complications Immunofixation Pnl, Serum 3 Months M06.9 - Rheumatoid arthritis, unspecified Protein Electrophoresis, Serum 3 Months M06.9 - Rheumatoid arthritis, unspecified Coding Level of Care Code Est Pt Level 5 (20408) Diagnoses Rheumatoid arthritis M06.9
[2023-04-22 13:55] VITALS: BP 124/68; PULSE 85; TEMP 36; O2SAT 88; BMI 45.6
== END 2023-04-22 14:32 | disposition home or self-care (01) ==
PROVIDERS: PCP Nurse Practitioner Primary Care; Visit Provider Student in an Organized Health Care Education/Training Program
DX: M06.9 Rheumatoid arthritis, unspecified (principal)
CPT/HCPCS: 99215

== ENCOUNTER → 2023-04-22 13:51 | Outpatient (BNVA) | payer MEDICAID, SELFPAY | PROVIDERS: PCP Nurse Practitioner Primary Care; Visit Provider Student in an Organized Health Care Education/Training Program | DX: M06.9 Rheumatoid arthritis, unspecified (principal) | CPT/HCPCS: 99212 ==

== ENCOUNTER 2023-07-06 11:15 | Outpatient (AMB) | payer MEDICAID, SELFPAY ==
[2023-07-06 11:18] VITALS: BP 130/68; PULSE 78; O2SAT 95; BMI 44.7
--- NOTE | 2023-07-06 11:18 | MHC.OFFVIS ---
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 Required: Yes Band Reamer Machine Operator Name: genoveva Allergies lisinopril [LISINOPRIL] Allergy (Unknown, Verified 07/06/23 11:38) UNKNOWN Medication List - Last Reconciled 07/06/23 by Arpit Tripp MD acetaminophen 500 mg PO QID PRN albuterol sulfate 1 amp inhalation QID albuterol sulfate 90 mcg/actuation (ProAir HFA) 2 puffs inhalation Q4-6H PRN amlodipine 10 mg PO QPM aspirin 81 mg PO BEDTIME atorvastatin 40 mg PO BEDTIME cholecalciferol (vitamin D3) 50 mcg PO QPM cyclobenzaprine 10 mg PO TID PRN docusate sodium (Colace) 200 mg (2 x 100 mg) PO BEDTIME dulaglutide (Trulicity) mg subcut QWEEK etanercept (Enbrel SureClick) 50 mg subcut QWEEK fluoxetine 40 mg PO QAM fluticasone propion-salmeterol 250-50 mcg/dose (Advair Diskus) 1 ea inhalation BID fluticasone propionate 50 mcg/actuation 2 sprays intranasal QAM gabapentin 600 mg PO TID insulin degludec (Tresiba FlexTouch U-100 insulin) 20 units subcut DAILY lidocaine 5% 1 patch topical BID loratadine 10 mg PO DAILY losartan 100 mg PO QAM metformin 1,000 mg PO BID naloxone 4 mg/actuation (Narcan) 4 mg intranasal Q2M PRN naltrexone 25 mg PO DAILY naproxen 500 mg PO BID omeprazole 20 mg PO QAM perphenazine 8 mg PO DAILY polyethylene glycol 3350 (Miralax) 17 grams PO DAILY primidone 25 mg (1/2 x 50 mg) PO BEDTIME 30 days sitagliptin phosphate (Januvia) 100 mg PO QPM trazodone 100 mg PO BEDTIME umeclidinium 62.5 mcg/actuation (Incruse Ellipta) 1 inh inhalation DAILY zolpidem 10 mg PO BEDTIME PRN Do you need a note to return to daycare/school/sports/work: No HPI copd HPI Details 57 YEARS OLD FEMALE WITH MORBID OBESITY, OBSTRUCTIVE SLEEP APNEA, NOCTURNAL HYPOXEMIA , AND COPD. IS HERE AFTER 6 MONTHS FOR FOLLOW-UP. BREATHING HAS BEEN FAIRLY STABLE AND SHE USES HER INHALERS REGULARLY, SHE USES HER RESCUE INHALER ONLY ONCE IN A WHILE. SHE HAS SLEEP APNEA BUT COULD NOT USE THE CPAP. OVERNIGHT OXIMETRY RECORDING DID SHOW THAT SHE HAD DESATURATES BELOW 88% FOR 90 MINUTES. SO SHE IS SUPPOSED TO USE OXYGEN 2 L/MINUTE AT NIGHT. SHE DOES HAVE STATIONARY CONCENTRATOR AT HOME UNFORTUNATELY SHE HAS A VERY POOR UNDERSTANDING. AND THINKING THAT NASAL CANNULA IRRITATES HER KNOW SHE STOPPED USING. SHE ALSO HAS BEEN SMOKING, 10 CIGARETTES A DAY. WEIGHT REMAINS UNCHANGED. [facility] Medical History (Updated 07/06/23 @ 11:50 by Arpit Tripp MD) SOFIYA (obstructive sleep apnea) Nocturnal hypoxemia Hypertension Hyperlipidemia Diabetes Rheumatoid arthritis Nocturnal hypoxemia COPD (chronic obstructive pulmonary disease) Morbid obesity Nicotine dependence, cigarettes, uncomplicated Allergic rhinitis Depression Cocaine abuse Opioid abuse Drug overdoses Surgical History History of tubal ligation History of colonoscopy History of hernia surgery Family History Father Dementia Mother Diabetes HTN (hypertension) Social History Household Members: Family Household Members Other:: daughter and two grandsons Housing: Apartment Do you presently have visiting nurse or other home services: No Patient Tobacco Use Status: Current everyday Tobacco user Tobacco use type: Cigarette Cigarettes Per Day: 10 Second Hand Smoke Exposure: Yes Substance Use Type: Heroin and Marijuana service: No Sexual orientation: Straight/Heterosexual Review of Systems Const All systems reviewed & are unremarkable except as noted in HPI and below Eyes Reports no additional complaints ENT Reports nasal congestion (Mild at night) Card Denies chest pain, Denies leg edema, Denies lightheadedness and Denies orthopnea Resp Reports as per HPI GI Denies hematochezia, Denies change in stool character and Denies heartburn Reports no additional complaints Skin/Breast Reports system reviewed and no additional complaints, except as documented Neuro Reports no additional complaints Psych Reports no additional complaints Endo Reports no additional complaints Nawaf/Lymph Reports easy bruising and Reports other (anemia, mild ) Physical Exam Vital Signs: Last Vital Signs Pulse 78 07/06/23 11:18 BP 130/68 07/06/23 11:18 Pulse Ox 95 07/06/23 11:18 Oxygen Delivery Method Room Air 07/06/23 11:18 BMI result Body Mass Index 44.7 Const General: comfortable, no acute distress, alert and awake Orientation/consciousness: patient oriented x3 HEENT Head: Yes normal to inspection General nose exam: No nasal polyps present and No nasal discharge present Face and sinus: Yes sinuses nontender Mouth: oropharynx normal Throat: Yes posterior oropharynx normal Eyes General: appearance normal, both eyes and all related structures Neck Neck: Yes normal visual inspection, Yes no lymphadenopathy, Yes trachea midline and Yes no JVD Thyroid: Thyroid normal Chest Chest palpation & inspection: normal inspection of the chest, normal palpation of entire chest wall and no tenderness Resp Other: Percussion note resonant, breath sounds are slightly distant, She has a no wheezes or rhonchi . Cardio Palpation: normal PMI Rate: regular rate Rhythm: regular rhythm Heart sounds: no gallops and no murmurs GI Palpation (GI): Soft to palpation, nontender, No hepatosplenomegaly present, no masses and Other GI palpation findings present (Abdomen is obese and slightly protuberant ) Auscultation: normal bowel sounds Back/Spine/Pelvis Thoracic/Lumbar Spine: thoracic and lumbar spine normal to inspection and thoraco-lumbar ROM limited Skin General skin exam: no rashes or lesions noted Neuro Other: Resting tremors of the right upper extremity General: patient oriented x3 and no focal motor deficits Cranial nerves: Yes CN's II-XII intact bilaterally Extrem General: Yes normal to inspection, Yes no clubbing, cyanosis or edema and Yes no calf tenderness Psych Appearance: grossly normal and well kempt Speech and movement: Normal speech and movement present Assessment & Plan Assessment & Plan (1) Morbid obesity: Comment: THIS PATIENT IS MORBIDLY OBESE AND IS NOT ABLE TO LOSE ANY WEIGHT. Code(s): E66.01 - Morbid (severe) obesity due to excess calories (2) Allergic rhinitis: Comment: ALLERGIC RHINITIS, WELL CONTROLLED WITH THE USE OF FLONASE 2 SPRAY EACH NOSTRIL DAILY AND LORATADINE 10 MG ONCE A DAY P.R.N.. SHE COMPLAINS THAT OXYGEN MAKES HER NOSE CONGESTED, SO HAS STOPPED USING THE OXYGEN AT NIGHT. SHE WAS THOROUGHLY EDUCATED ABOUT THE USE OF NASAL CANNULA, AND ALSO EDUCATED THAT SHE SHOULD USE O2 2 L/MINUTE FOR THE WHOLE NIGHT. Code(s): J30.9 - Allergic rhinitis, unspecified (3) Nicotine dependence, cigarettes, uncomplicated: Comment: CONTINUES TO SMOKE HALF PACK OF CIGARETTES A DAY. EDUCATED HER MUCH POSSIBLE TO QUIT SMOKING OR AT LEAST CUT DOWN THE NUMBER OF CIGARETTES. Code(s): F17.210 - Nicotine dependence, cigarettes, uncomplicated (4) COPD (chronic obstructive pulmonary disease): Comment: PATIENT DOES HAVE RESTRICTIVE PULMONARY DISORDER WELL CHRONIC OBSTRUCTIVE PULMONARY DISORDER. THAT REMAINS WELL CONTROLLED WITH HER CURRENT MEDS. TX : ADVAIR 250-50 1 INHALATION B.I.D. INCRUSE ELLIPTA 1 INHALATION DAILY. PROAIR 2 PUFFS Q 4-6 HOURS P.R.N. Code(s): J44.9 - Chronic obstructive pulmonary disease, unspecified (5) Nocturnal hypoxemia: Comment: PATIENT IS DOCUMENTED CASE OF NOCTURNAL HYPOXEMIA. SHE SHOULD USE O2 2 L/MINUTE. SHE DOES HAVE STATIONARY CONCENTRATOR. BUT DUE TO NON USAGE SHE IS NOT GETTING PERIODIC SERVICE FOR THE CONCENTRATOR. TO REACTIVATE HER ACCOUNT FOR O2 SUPPLY, WE MAY NEED TO DO ANOTHER OVERNIGHT OXIMETRY RECORDING . Code(s): G47.34 - Idiopathic sleep related nonobstructive alveolar hypoventilation (6) SOFIYA (obstructive sleep apnea): Code(s): G47.33 - Obstructive sleep apnea (adult) (pediatric) Coding Level of Care Code Est Pt Level 4 (85942) Diagnoses Morbid obesity E66.01 Allergic rhinitis J30.9 Nicotine dependence, cigarettes, uncomplicated F17.210 COPD (chronic obstructive pulmonary disease) J44.9 Nocturnal hypoxemia G47.34 SOFIYA (obstructive sleep apnea) G47.33
== END 2023-07-06 11:39 | disposition home or self-care (01) ==
PROVIDERS: PCP Nurse Practitioner Primary Care; Visit Provider Internal Medicine
DX: E66.01 Morbid (severe) obesity due to excess calories (principal); J30.9 Allergic rhinitis, unspecified; F17.210 Nicotine dependence, cigarettes, uncomplicated; J44.9 Chronic obstructive pulmonary disease, unspecified; G47.34 Idiopathic sleep related nonobstructive alveolar hypoventilation; G47.33 Obstructive sleep apnea (adult) (pediatric)
CPT/HCPCS: 99214

== ENCOUNTER → 2023-07-06 11:15 | Outpatient (BNVA) | payer MEDICAID, SELFPAY | PROVIDERS: PCP Nurse Practitioner Primary Care; Visit Provider Internal Medicine | DX: J44.9 Chronic obstructive pulmonary disease, unspecified (principal); G47.33 Obstructive sleep apnea (adult) (pediatric); G47.34 Idiopathic sleep related nonobstructive alveolar hypoventilation; E66.01 Morbid (severe) obesity due to excess calories; Z68.41 Body mass index [BMI] 40.0-44.9, adult; F17.210 Nicotine dependence, cigarettes, uncomplicated; Z91.199 Patient's noncompliance with other medical treatment and regimen due to unspecified reason | CPT/HCPCS: 99212 ==

== ENCOUNTER 2023-08-01 12:46 | Outpatient (REF) | payer MEDICAID, SELFPAY ==
[2023-08-01 13:07] LABS: MANUAL DIFF FLAG NO
[2023-08-01 14:29] LABS: Basophils Absolute Auto 0.1 X10*3/uL (0.0-0.2); Basophils Percent Auto 0.8 % (0-2); Eosinophils Absolute Auto 0.1 X10*3/uL (0.0-0.4); Eosinophils Percent Auto 1.8 % (0-4); Hematocrit 32.7 % (37.0-47.0); Imm Gran Abs Auto 0.04 X10*3/uL (0.00-0.03); Imm Gran Pct Auto 0.5 % (0.0-0.4); Lymphocytes Absolute Auto 1.4 X10*3/uL (1.2-4.9); Lymphocytes Percent Auto 18.9 % (20-40); Mean Corpuscular HGB Conc 30.6 g/dl (31.0-35.0); Mean Corpuscular Hemoglobin 19.6 pg (27.0-33.0); Monocytes Absolute Auto 0.7 X10*3/uL (0.1-1.2); Monocytes Percent Auto 9.5 % (2-11); Neutrophils Percent Auto 68.5 % (45-73); Platelet Count 320 X10*3/uL (160-400); Red Blood Count 5.11 X10*6/uL (4.20-5.50); Red Cell Distribution Width 19.9 % (11.0-16.0); White Blood Count 7.3 X10*3/uL (4.8-10.8)
[2023-08-01 15:11] LABS: Erythrocyte Sedimentation Rate 25 MM/HR (0-20)
[2023-08-01 15:12] LABS: Alanine Aminotransferase 16 U/L (0-31); Albumin Level 4.2 g/dL (3.5-5.0); Alkaline Phosphatase 75 U/L (39-117); Anion Gap 13 (12-20); Aspartate Amino Transferase 30 U/L (5-31); Bilirubin Total 0.4 mg/dL (0.0-1.0); Blood Urea Nitrogen 7 mg/dL (9-16); C Reactive Protein 0.13 mg/dL (< or = 0.50); Calcium 9.3 mg/dL (8.4-10.2); Carbon Dioxide 25 mmol/L (22-29); Chloride 100 mmol/L (96-108); Estimated Glomerular Filt Rate > 60; Glucose Random 178 mg/dL (60-115); Sodium 134 mmol/L (135-145); Total Protein 7.8 g/dL (6.5-8.0)
[2023-08-01 15:18] LABS: Estimated Average Glucose 131 mg/dL; Hemoglobin A1c % 6.2 % (<6.0)
[2023-08-03 22:33] LABS: Prot Elec - Alpha1 0.3 g/dL (0.2-0.3); Prot Elec - Beta 1 0.6 g/dL (0.4-0.6); Prot Elec - Beta 2 0.5 g/dL (0.2-0.5); Prot Elec - Gamma 1.1 g/dL (0.8-1.7); Prot Elec - Total Protein 7.5 g/dL (6.1-8.1)
[2023-08-04 09:49] LABS: IgA 363 mg/dL (47-310); IgG 1304 mg/dL (600-1640); IgM 97 mg/dL (50-300)
== END 2023-08-01 12:47 | disposition home or self-care (01) ==
LOC: HO.LAB 12:46
PROVIDERS: Visit Provider Student in an Organized Health Care Education/Training Program
DX: M06.9 Rheumatoid arthritis, unspecified (principal); E11.9 Type 2 diabetes mellitus without complications
CPT/HCPCS: 36415; 80053; 82784; 83036; 84165; 85025; 85652; 86140; 86334

== ENCOUNTER 2023-08-04 14:34 | Outpatient (AMB) | payer MEDICAID, SELFPAY ==
--- NOTE | 2023-08-04 14:35 | MHC.OFFVIS ---
Intake Vital Signs 08/04/23 14:36 Height 5 ft 6 in Weight 281 lb 1.43 oz BMI 45.4 BP 110/82 Blood Pressure Location Rt brachial Position Sitting Pulse 83 Pulse Source Pulse Oximeter Temp 97 F Temp Source Skin Pulse Oximetry (%) 93 Oxygen Delivery Method Room Air Intake Visit Reasons: RA Intake Note: Grace [id number] Retail Event Assistant Required: Yes Retail Event Assistant Language: Ukrainian Information Interpreted: clinical only Accompanied by: Self / Same As Patient Allergies lisinopril [LISINOPRIL] Allergy (Unknown, Verified 08/04/23 14:42) UNKNOWN Medication List - Last Reconciled 08/04/23 by Per Mancilla MD acetaminophen 500 mg PO QID PRN albuterol sulfate 1 amp inhalation QID albuterol sulfate 90 mcg/actuation (ProAir HFA) 2 puffs inhalation Q4-6H PRN amlodipine 10 mg PO QPM aspirin 81 mg PO BEDTIME atorvastatin 40 mg PO BEDTIME cholecalciferol (vitamin D3) 50 mcg PO QPM cyclobenzaprine 10 mg PO TID PRN docusate sodium (Colace) 200 mg (2 x 100 mg) PO BEDTIME dulaglutide (Trulicity) mg subcut QWEEK Enbrel SureClick (etanercept) 50 mg subcut QWEEK NS fluoxetine 40 mg PO QAM fluticasone propion-salmeterol 250-50 mcg/dose (Advair Diskus) 1 ea inhalation BID fluticasone propionate 50 mcg/actuation 2 sprays intranasal QAM gabapentin 600 mg PO TID insulin degludec (Tresiba FlexTouch U-100 insulin) 20 units subcut DAILY lidocaine 5% 1 patch topical BID loratadine 10 mg PO DAILY losartan 100 mg PO QAM metformin 1,000 mg PO BID naloxone 4 mg/actuation (Narcan) 4 mg intranasal Q2M PRN naltrexone 25 mg PO DAILY naproxen 500 mg PO BID omeprazole 20 mg PO QAM perphenazine 8 mg PO DAILY polyethylene glycol 3350 (Miralax) 17 grams PO DAILY primidone 25 mg (1/2 x 50 mg) PO BEDTIME 30 days sitagliptin phosphate (Januvia) 100 mg PO QPM trazodone 100 mg PO BEDTIME umeclidinium 62.5 mcg/actuation (Incruse Ellipta) 1 inh inhalation DAILY zolpidem 10 mg PO BEDTIME PRN HPI HPI Comments History of Present Illness Details 57-year-old female with seropositive RA returns for follow-up. Has been on Enbrel for the last 3 months. She is doing much better overall in terms of her joint pain and stiffness. Denies any side effects related to Enbrel. There are no recent infections. Initial history: This is a 56-year-old female with extensive past medical history who presents for evaluation of diffuse pain. Patient states she has had diffuse pain almost all her life. She states that she feels that her knees get out of with her socket sometimes. Has diffuse pain especially of her back. She also has pain in both hands, difficulty gripping stuff. Pain lasts almost all day. She takes multiple medicines for pain and does not know which medications help. She is unaware of any family history of autoimmune disease. [facility] Medical History SOFIYA (obstructive sleep apnea) Nocturnal hypoxemia Hypertension Hyperlipidemia Diabetes Rheumatoid arthritis Nocturnal hypoxemia COPD (chronic obstructive pulmonary disease) Morbid obesity Nicotine dependence, cigarettes, uncomplicated Allergic rhinitis Depression Cocaine abuse Opioid abuse Drug overdoses Surgical History History of tubal ligation History of colonoscopy History of hernia surgery Family History Father Dementia Mother Diabetes HTN (hypertension) Social History Household Members: Family Household Members Other:: daughter and two grandsons Housing: Apartment Do you presently have visiting nurse or other home services: No Patient Tobacco Use Status: Current everyday Tobacco user Tobacco use type: Cigarette Cigarettes Per Day: 10 Second Hand Smoke Exposure: Yes Substance Use Type: Heroin and Marijuana service: No Sexual orientation: Straight/Heterosexual Review of Systems Musc Reports arthralgias and Denies joint swelling Physical Exam Vital Signs: Last Vital Signs Temp 97 F 08/04/23 14:36 Pulse 83 08/04/23 14:36 BP 110/82 08/04/23 14:36 Pulse Ox 93 08/04/23 14:36 Oxygen Delivery Method Room Air 08/04/23 14:36 BMI result Body Mass Index 45.4 Const General: cooperative and healthy appearing Nutritional Appearance: obese morbidly obese Orientation/consciousness: patient oriented x3 Limitations: no limitations HEENT Head: Yes normocephalic and Yes atraumatic Resp Effort & Inspection: normal respiratory effort and able to speak in complete sentences Cardio Other: Unable to auscultate due to patient's body habitus Neuro General: patient oriented x3 Extrem Other: No swollen or tender joints today. Bilateral limited shoulder abduction due to pain. Assessment & Plan Assessment & Plan (1) Rheumatoid arthritis: Comment: ++RF+++CCP dx 04/2023 Enbrel 04/2023 effective Code(s): M06.9 - Rheumatoid arthritis, unspecified Qualifiers: Rheumatoid arthritis location: multiple sites Rheumatoid factor presence: with rheumatoid factor Qualified Code(s): M05.79 - Rheumatoid arthritis with rheumatoid factor of multiple sites without organ or systems involvement Plan: This is a 57-year-old female with seropositive RA who presents for follow-up. Doing much better on Enbrel 50 mg weekly. Continue Enbrel 50 mg weekly Informed patient that steroid injections for shoulders or knees osteoarthritis can be done if needed, she can call the clinic p.r.n. but her blood sugar should be well controlled Labs before next visit in 3 months (2) High risk medication use: Code(s): Z79.899 - Other medical terminologist (current) drug therapy Plan: Advised patient to hold Enbrel for any signs of infection (3) Immunization counseling: Code(s): Z71.85 - Encounter for immunization safety counseling Plan: Patient received flu vaccine for this season. She received 2 COVID vaccine doses and does not want to get the new booster Plan I spent 26 minutes reviewing patient's chart, evaluating patient, ordering diagnostic workup, counseling patient and documenting in the chart Coding Level of Care Code Est Pt Level 4 (06649) Diagnoses Rheumatoid arthritis involving multiple sites with positive rheumatoid factor M05.79 Rheumatoid arthritis location: multiple sites Rheumatoid factor presence: with rheumatoid factor High risk medication use Z79.899 Immunization counseling Z71.85
[2023-08-04 14:36] VITALS: BP 110/82; PULSE 83; TEMP 36.1; O2SAT 93; BMI 45.4
== END 2023-08-04 15:02 | disposition home or self-care (01) ==
PROVIDERS: PCP Nurse Practitioner Primary Care; Visit Provider Student in an Organized Health Care Education/Training Program
DX: M05.79 Rheumatoid arthritis with rheumatoid factor of multiple sites without organ or systems involvement (principal); Z79.899 Other long term (current) drug therapy; Z71.85 Encounter for immunization safety counseling
CPT/HCPCS: 99214

== ENCOUNTER → 2023-08-04 14:34 | Outpatient (BNVA) | payer MEDICAID, SELFPAY | PROVIDERS: PCP Nurse Practitioner Primary Care; Visit Provider Student in an Organized Health Care Education/Training Program | DX: M05.79 Rheumatoid arthritis with rheumatoid factor of multiple sites without organ or systems involvement (principal); Z79.899 Other long term (current) drug therapy; Z71.85 Encounter for immunization safety counseling | CPT/HCPCS: 99212 ==

== ENCOUNTER 2023-08-25 11:36 | Inpatient (IN) | payer MEDICAID, SELFPAY ==
[2023-08-25 12:36] VITALS: BP 126/59; PULSE 72; RESP 24; TEMP 37.1; O2SAT 90; BMI 44.4
--- NOTE | 2023-08-25 12:41 | ED.GENADULT ---
HPI - General Adult General Chief complaint: Upper Respiratory Symptoms Stated complaint: Difficulty breathing, fever Time Seen by Provider: 08/25/23 15:57 Source: patient, old records reviewed and premium cancellation clerk Mode of arrival: ambulatory Limitations: no limitations History of Present Illness HPI narrative: 57 yo female with PMH of HTN, HLD, DM, SOFIYA, COPD only on O2 at night, anxiety, low back pain, depression, notes she has had fevers, chills, increased shortness of breath, sputum production since 08/16. Denies sick contacts or travel. She has not been on antibiotics or travel during the holidays. MD complaint: asthma, URI symptoms Onset (ago): day(s) (since 08/16) Location: chest Radiation: non-radiation Severity: mild Quality: aching Relieving factors: none Exacerbating factors: other (coughing, exertion) Associated symptoms: cough, fever/chills, loss of appetite and malaise Treatments prior to arrival: none Related Data Home Medications Medication Instructions Recorded Confirmed albuterol sulfate 2.5 mg/3 mL 1 amp inhalation Q4H PRN Shortness 01/25/21 08/25/23 (0.083 %) solution for nebulization Of Breath Or Wheezing fluticasone propionate 50 2 spray intranasal QAM PRN Allergy 01/25/21 08/25/23 mcg/actuation nasal Symptoms spray,suspension lidocaine 5 % topical patch 1 patch topical DAILY PRN Pain 01/25/21 08/25/23 albuterol sulfate 90 mcg/actuation 2 puff inhalation Q4-6H PRN 06/24/22 08/25/23 aerosol inhaler (ProAir HFA) Wheezing amlodipine 10 mg tablet 10 mg PO QPM 06/24/22 08/25/23 aspirin 81 mg tablet,delayed 81 mg PO BEDTIME 06/24/22 08/25/23 release atorvastatin 40 mg tablet 40 mg PO BEDTIME 06/24/22 08/25/23 cholecalciferol (vitamin D3) 50 50 mcg PO QPM 06/24/22 08/25/23 mcg (2,000 unit) capsule cyclobenzaprine 10 mg tablet 10 mg PO TID PRN pain 06/24/22 08/25/23 gabapentin 600 mg tablet 600 mg PO TID 06/24/22 08/25/23 insulin degludec 100 unit/mL (3 24 unit subcut BEDTIME 06/24/22 08/25/23 mL) subcutaneous pen (Tresiba FlexTouch U-100 insulin) loratadine 10 mg tablet 10 mg PO DAILY 06/24/22 08/25/23 losartan 100 mg tablet 100 mg PO QAM 06/24/22 08/25/23 metformin 1,000 mg tablet 1,000 mg PO BID 06/24/22 08/25/23 naltrexone 50 mg tablet 25 mg PO DAILY 06/24/22 08/25/23 naproxen 500 mg tablet 500 mg PO BID 06/24/22 08/25/23 omeprazole 20 mg capsule,delayed 20 mg PO QAM 06/24/22 08/25/23 release perphenazine 8 mg tablet 8 mg PO DAILY 06/24/22 08/25/23 trazodone 100 mg tablet 100 mg PO BEDTIME 06/24/22 08/25/23 umeclidinium 62.5 mcg/actuation 1 inh inhalation DAILY 06/24/22 08/25/23 blister powder for inhalation (Incruse Ellipta) zolpidem 10 mg tablet 10 mg PO BEDTIME PRN Insomnia 06/24/22 08/25/23 acetaminophen 500 mg tablet 500 mg PO QID PRN pain 09/08/22 08/25/23 fluoxetine 40 mg capsule 40 mg PO QAM 01/04/23 08/25/23 fluticasone 250 mcg-salmeterol 50 1 ea inhalation BID 01/04/23 08/25/23 mcg/dose blistr powdr for inhalation (Advair Diskus) dulaglutide 1.5 mg/0.5 mL 1.5 mg subcut SA 08/25/23 08/25/23 subcutaneous pen injector (Trulicity) etanercept 50 mg/mL (1 mL) 50 mg subcut SA 08/25/23 08/25/23 subcutaneous pen injector (Enbrel SureClick) Previous Rx's Medication Instructions Recorded primidone 50 mg tablet 25 mg (1/2 x 50 mg) PO BEDTIME 30 02/02/21 days #15 tabs polyethylene glycol 3350 17 17 g PO DAILY #510 grams 07/19/22 gram/dose oral powder (Miralax) docusate sodium 100 mg capsule 200 mg (2 x 100 mg) PO BEDTIME #60 11/15/22 (Colace) caps Allergies Allergy/AdvReac Type Severity Reaction Status Date / Time lisinopril [LISINOPRIL] Allergy Unknown UNKNOWN Verified 08/04/23 14:42 Review of Systems Review of Systems: Constitutional : pos Fever, pos Chills ENT/Mouth : No Hoarseness, No sore throat, No Rhinorrhea Eyes: No Redness, No Discharge, No Vision Changes Cardiovascular : No Chest Pain, positive SOB, positive Dyspnea on Exertion, No Edema Respiratory : positive Cough, pos Sputum, positive Wheezing, Gastrointestinal : No Nausea, No Vomiting, No Diarrhea, No abdominal Pain Genitourinary : No Dysuria, No Hematuria Musculoskeletal : No joint pain, No Myalgias Skin : No rash Neuro : No Weakness, No Numbness, No Headache Psych : No anxiety, depression All other systems reviewed and are negative PMFSH Past Medical History Attestation statement: The following information was validated with the patient. Source: old records reviewed Onset Date is defined in the Problem List Problems that require an onset date and time if occurred within 24 hrs of arrival to the ED Aortic Dissection and Rupture; Neurologic impairment; Cardiopulmonary Arrest; Endotracheal Intubation; Insertion or Replacement of Mechanical Circulatory Assist Device Medical History SOFIYA (obstructive sleep apnea) Nocturnal hypoxemia Hypertension Hyperlipidemia Diabetes Rheumatoid arthritis Nocturnal hypoxemia COPD (chronic obstructive pulmonary disease) Morbid obesity Nicotine dependence, cigarettes, uncomplicated Allergic rhinitis Depression Cocaine abuse Opioid abuse Drug overdoses Surgical History History of tubal ligation History of colonoscopy History of hernia surgery Family History Family History Father Dementia Mother Diabetes HTN (hypertension) Social History Social History Household Members: Family Household Members Other:: daughter and two grandsons Housing: Apartment Do you presently have visiting nurse or other home services: No Patient Tobacco Use Status: Current everyday Tobacco user Tobacco use type: Cigarette Cigarettes Per Day: 10 Smoked in Last 30 Days: Yes Second Hand Smoke Exposure: Yes Substance Use Type: Heroin and Marijuana Advance Directives: No Advance Directives Information Provided: No Nutrition Risks: No Nutritional Risk service: No Sexual orientation: Straight/Heterosexual Physical Exam ED Vital Signs: Vital Signs - 24 hr 08/25/23 12:36 08/25/23 15:09 08/25/23 17:59 Temperature 98.8 F Pulse Rate 72 65 Respiratory Rate 24 H 20 Blood Pressure 126/59 L Pulse Oximetry 90 L 86 L Oxygen Delivery Method Room Air Oxygen Flow Rate 08/25/23 19:17 08/25/23 19:19 Temperature 98.3 F Pulse Rate 71 Respiratory Rate 15 Blood Pressure 128/62 Pulse Oximetry 95 95 Oxygen Delivery Method Nasal Cannula Nasal Cannula Oxygen Flow Rate 2 BMI result Body Mass Index 44.4 Appearance: Alert. Oriented X3. No acute distress. Eyes: Pupils equal, round and reactive to light. ENT: Pharynx normal. Neck: Normal inspection. Neck supple. CVS: Normal heart rate and rhythm. Pulses normal. Respiratory: No respiratory distress. Breath sounds very mild exp wheezes noted - diminished R base Abdomen: Soft and nontender. Skin: Skin warm and dry. Normal skin color. Normal skin turgor. Extremities: No lower extremity edema. Neuro: Oriented X 3. No motor deficit. No sensory deficit. Course Course Course Narrative: RmE: 57-year-old female history of COPD and cocaine abuse in the past presents to ED for coughing with shortness of breath and chest pressure for couple of days. Patient is supposed to use oxygen only at night time. O2 saturation 89 90% on room air. Patient placed on 2 L oxygen. Labs ordered. Nurse Arpita informed of patient to be brought back to the ED. 2:30pm: Respiratory therapist informed that patient's O2 sat on room air 79% went up to 86%. Patient was given ED bronchodilator. Charge nurse Betsy made aware and patient brought to the ED immediately. Magnesium Solu-Medrol ordered. Medications Administered Generic Name Dose Route Start Last Admin Trade Name Freq PRN Reason Stop Dose Admin Albuterol/Ipratropium 3 ml 08/26/23 08:00 08/26/23 07:53 Albuterol/Iprat 2.5/0.5mg 3 Ml Ampul.Neb INHALE 3 ml RQ4H WHILE AWAKE BIRGIT Administration Dexamethasone 6 mg 08/26/23 09:00 08/26/23 09:36 Dexamethasone 6 Mg Tablet PO 6 mg DAILY BIRGIT Administration Enoxaparin Sodium 40 mg 08/25/23 20:00 08/25/23 20:38 Enoxaparin Sodium 40 Mg/0.4 Ml Syringe SUBCUT 40 mg Q24H BIRGIT Administration Fluoxetine HCl 40 mg 08/26/23 09:00 08/26/23 09:36 Fluoxetine Hcl 20 Mg Capsule PO 40 mg DAILY BIRGIT Administration Gabapentin 600 mg 08/26/23 09:00 08/26/23 09:36 Gabapentin 600 Mg Tablet PO 600 mg TID BIRGIT Administration Insulin Human Lispro 0 unit 08/25/23 21:00 08/26/23 09:45 Insulin Lispro 100 Unit/Ml 3 Ml Vial SUBCUT Not Given QIDACHS [facility] Protocol Loratadine 10 mg 08/26/23 09:00 08/26/23 09:36 Loratadine 10 Mg Tablet PO 10 mg DAILY BIRGIT Administration Losartan Potassium 100 mg 08/26/23 09:00 08/26/23 09:36 Losartan Potassium 50 Mg Tablet PO 100 mg DAILY BIRGIT Administration Protocol Nicotine 14 mg 08/25/23 20:10 08/26/23 09:39 Nicotine 14 Mg Patch.Td24 TRANSDERMA 14 mg DAILY BIRGIT Administration Omeprazole 20 mg 08/26/23 08:30 08/26/23 09:36 Omeprazole 20 Mg Capsule. PO 20 mg DAILY@0630 BIRGIT Administration Polyethylene Glycol 17 gm 08/26/23 09:00 08/26/23 09:40 Polyethylene Glycol 3350 17 Gm Powd.Pack PO 17 gm DAILY BIRGIT Administration Sodium Chloride 3 ml 08/26/23 00:00 08/26/23 09:45 0.9 % Sodium Chloride Flush 3 Ml Syringe IVFLUSH 3 ml QSHIFT BIRGIT Administration Discontinued Medications Generic Name Dose Route Start Last Admin Trade Name Freq PRN Reason Stop Dose Admin Albuterol Sulfate 12 puff 08/25/23 15:05 08/25/23 15:07 Albuterol Sulfate 90 Mcg 8 Gm Inhaler INHALE 08/25/23 15:06 12 puff ONCE ONE Administration Magnesium Sulfate 2 gm in 50 mls @ 25 mls/hr 08/25/23 15:11 08/25/23 18:06 Magnesium Sulfate/H2o IV 08/25/23 17:10 Infused ONCE ONE Infusion Ceftriaxone Sodium 1 gm/ 50 mls @ 100 mls/hr 08/25/23 15:58 08/25/23 19:24 Sodium Chloride IV 08/25/23 16:27 Infused ONCE ONE Infusion Azithromycin 500 mg/ Sodium 250 mls @ 125 mls/hr 08/25/23 15:58 08/25/23 21:48 Chloride IV 08/25/23 17:57 Infused ONCE ONE Infusion Sodium Chloride 1,000 mls @ 999 mls/hr 08/25/23 16:45 08/25/23 19:24 Ns IV 08/25/23 17:45 Infused .Q1H1M BIRGIT Infusion Methylprednisolone Sodium Succinate 125 mg 08/25/23 15:11 08/25/23 17:22 Methylprednisolone Sod Succ 125 Mg/2 Ml Vial IVPUSH 08/25/23 15:12 125 mg ONCE ONE Administration Medical Decision Making Medical Decision Making [facility] Narrative: 57 yo female with PMH of HTN, HLD, DM, SOFIYA, COPD only on O2 at night, anxiety, low back pain, depression here with c/o cough, sputum production, fevers at this presents hypoxic 90% on RA not normally wears home O2 - will give steroids, nebs, magnesium, obtain viral panel, CXR treat for COPD/pneumonia Differential Diagnosis Differential Diagnoses: The differential diagnosis associated with the presentation includes COPD, pneumonia, viral illness Admission/Observation Consideration of admission/observation: Escalation of care including admission/observation considered out of window for guy admit 86% on RA while walking does not use O2 during the day Consult Healthcare Provider Management of the patient was discussed with: Hospitalist (will admit) Lab Data [facility] Lab Attestation statement: I reviewed the patient's lab results. 08/26/23 06:57 08/26/23 06:57 Labs: Lab Results 08/25/23 08/25/23 08/25/23 Range/Units 16:02 16:03 16:09 WBC 8.8 (4.8-10.8) X10*3/uL RBC 4.70 (4.20-5.50) X10*6/uL Hgb 8.9 L (12.0-16.0) g/dl Hct 29.7 L (37.0-47.0) % MCV 63.2 L (80.0-98.0) fL MCH 18.9 L (27.0-33.0) pg MCHC 30.0 L (31.0-35.0) g/dl RDW 20.6 H (11.0-16.0) % Plt Count 303 (160-400) X10*3/uL MPV 9.5 (9.4-12.3) fL Immature Gran % (Auto) Cancelled Neut % (Auto) Cancelled Lymph % (Auto) Cancelled Bath % (Auto) Cancelled Eos % (Auto) Cancelled Baso % (Auto) Cancelled Lymph # (Auto) Cancelled Bath # (Auto) Cancelled Eos # (Auto) Cancelled Baso # (Auto) Cancelled Abs Immat Gran (auto) Cancelled Absolute Neuts (auto) Cancelled Absolute Nucleated RBC 0.000 (0.0-0.012) X10*3/uL Nucleated RBC % (auto) 0.0 (0.0-0.2) /100WBC Neutrophils % (Manual) 72 (45-73) % Band Neutrophils % 0 L (3-5) % Lymphocytes % (Manual) 19 L (20-40) % Monocytes % (Manual) 2 (2-11) % Eosinophils % (Manual) 5 H (0-4) % Basophils % (Manual) 2 (0-2) % Abs Neuts (Manual) 6.3 (2.0-8.3) X10*3/uL Lymphocytes # (Manual) 1.7 (1.2-4.9) X10*3/uL Monocytes # (Manual) 0.2 (0.1-1.2) X10*3/uL Eosinophils # (Manual) 0.4 (0.0-0.4) X10*3/uL Basophils # (Manual) 0.2 (0.0-0.2) X10*3/uL Platelet Estimate NORMAL (NORMAL) Giant Platelets PRESENT Plt Morphology Comment NOTED RBC Morphology NOTED Polychromasia 1+ (0-2) /OIF Microcytosis 2+ (15-30) /OIF Target Cells 1+ (5-14) /OIF Ovalocytes 1+ (5-14) /OIF Acanthocytes (Spur) 2+ (3-5) /OIF Schistocytes 1+ (0-2) /OIF PT 13.1 (11.1-13.3) SEC INR 1.1 (0.9-1.1) APTT 30.2 (26.0-36.4) SEC VBG pH 7.44 H (7.32-7.43) VBG pCO2 36 mmHg VBG pO2 84 mmHg VBG HCO3 24 (22-26) mmol/L VBG O2 Saturation 95.0 % VBG Base Excess 0.8 mmol/L Sodium 143 (135-145) mmol/L Potassium 3.7 (3.3-5.1) mmol/L Chloride 106 (96-108) mmol/L Carbon Dioxide 24 (22-29) mmol/L Anion Gap 17 (12-20) BUN 11 (9-16) mg/dL Creatinine 0.75 (0.5-1.4) mg/dL Estim Creat Clear Calc 111.6 Estimated GFR > 60 Random Glucose 101 (60-115) mg/dL Lactic Acid 2.5 H* (0.5-2.0) mmol/L Lactic Acid F/U @ 2Hr (0.5-2.0) mmol/L Calcium 9.5 (8.4-10.2) mg/dL Total Bilirubin 0.5 (0.0-1.0) mg/dL AST 40 H (5-31) U/L ALT 34 H (0-31) U/L Alkaline Phosphatase 89 (39-117) U/L Troponin I High Sens < 2.7 (<3.5-17.0) ng/L B-Natriuretic Peptide 50 (<100) pg/mL Total Protein 7.9 (6.5-8.0) g/dL Albumin 3.9 (3.5-5.0) g/dL Influenza Type A (PCR) NEGATIVE (Negative) Influenza Type B (PCR) NEGATIVE (Negative) RSV RNA Qual (PCR) NEGATIVE (Negative) SARS-CoV-2 RNA (RT-PCR) POSITIVE A (Negative) 08/25/23 Range/Units 18:23 WBC (4.8-10.8) X10*3/uL RBC (4.20-5.50) X10*6/uL Hgb (12.0-16.0) g/dl Hct (37.0-47.0) % MCV (80.0-98.0) fL MCH (27.0-33.0) pg MCHC (31.0-35.0) g/dl RDW (11.0-16.0) % Plt Count (160-400) X10*3/uL MPV (9.4-12.3) fL Immature Gran % (Auto) Neut % (Auto) Lymph % (Auto) Bath % (Auto) Eos % (Auto) Baso % (Auto) Lymph # (Auto) Bath # (Auto) Eos # (Auto) Baso # (Auto) Abs Immat Gran (auto) Absolute Neuts (auto) Absolute Nucleated RBC (0.0-0.012) X10*3/uL Nucleated RBC % (auto) (0.0-0.2) /100WBC Neutrophils % (Manual) (45-73) % Band Neutrophils % (3-5) % Lymphocytes % (Manual) (20-40) % Monocytes % (Manual) (2-11) % Eosinophils % (Manual) (0-4) % Basophils % (Manual) (0-2) % Abs Neuts (Manual) (2.0-8.3) X10*3/uL Lymphocytes # (Manual) (1.2-4.9) X10*3/uL Monocytes # (Manual) (0.1-1.2) X10*3/uL Eosinophils # (Manual) (0.0-0.4) X10*3/uL Basophils # (Manual) (0.0-0.2) X10*3/uL Platelet Estimate (NORMAL) Giant Platelets Plt Morphology Comment RBC Morphology Polychromasia /OIF Microcytosis /OIF Target Cells /OIF Ovalocytes /OIF Acanthocytes (Spur) /OIF Schistocytes /OIF PT (11.1-13.3) SEC INR (0.9-1.1) APTT (26.0-36.4) SEC VBG pH (7.32-7.43) VBG pCO2 mmHg VBG pO2 mmHg VBG HCO3 (22-26) mmol/L VBG O2 Saturation % VBG Base Excess mmol/L Sodium (135-145) mmol/L Potassium (3.3-5.1) mmol/L Chloride (96-108) mmol/L Carbon Dioxide (22-29) mmol/L Anion Gap (12-20) BUN (9-16) mg/dL Creatinine (0.5-1.4) mg/dL Estim Creat Clear Calc Estimated GFR Random Glucose (60-115) mg/dL Lactic Acid (0.5-2.0) mmol/L Lactic Acid F/U @ 2Hr 1.8 (0.5-2.0) mmol/L Calcium (8.4-10.2) mg/dL Total Bilirubin (0.0-1.0) mg/dL AST (5-31) U/L ALT (0-31) U/L Alkaline Phosphatase (39-117) U/L Troponin I High Sens (<3.5-17.0) ng/L B-Natriuretic Peptide (<100) pg/mL Total Protein (6.5-8.0) g/dL Albumin (3.5-5.0) g/dL Influenza Type A (PCR) (Negative) Influenza Type B (PCR) (Negative) RSV RNA Qual (PCR) (Negative) SARS-CoV-2 RNA (RT-PCR) (Negative) Independent Interpretation I performed an independent interpretation of an: EKG and Plain X-Ray (R sided patchy opacity) Interpretation: Rate: 73 Rhythm: NSR Ebony: normal Normal P waves. Normal ELIDIA. Normal QRS complex. ST T wave : no MARGARETTE, diffuse flat t waves qTC: 389 prior studies: no sig change from priors The study has been interpreted contemporaneously by me. . Radiology Impression Discussion of test interpretation with radiology: I have reviewed the radiologist's reading. External Record Review External record reviewed: Inpatient record Critical Care Time Critical Care Time Critical Care Time: Yes Total Critical Care Time: 40 Attestation: hypoxia correction, nebs hour long, IV magnesium, admission I attest to this time spent taking care of the patient Discharge Plan Discharge Clinical Impression: COVID-19, Hypoxia COPD (chronic obstructive pulmonary disease) Qualifiers: COPD type: COPD with acute exacerbation Qualified Code(s): J44.1 - Chronic obstructive pulmonary disease with (acute) exacerbation Patient Disposition: Admitted As Inpatient
[2023-08-25 15:09] VITALS: PULSE 65; RESP 20; O2SAT 79
[2023-08-25 17:59] VITALS: O2SAT 86
--- NOTE | 2023-08-25 19:06 | PC.NURSE ---
assumed care of pt
[2023-08-25 19:17] VITALS: BP 128/62; PULSE 71; RESP 15; TEMP 36.8; O2SAT 95
[2023-08-25 19:19] VITALS: O2SAT 95
--- NOTE | 2023-08-25 19:35 | PM.IMHP ---
History of Present Illness Date of Service: 08/25/23 Chief Complaint: Dyspnea This is a 57-year-old female with pertinent history of chronic hypoxemic respiratory failure due to COPD on baseline oxygen at night, insulin-dependent diabetes mellitus, essential hypertension, tobacco use disorder, mixed hyperlipidemia, mood disorder, gastroesophageal reflux disease, SOFIYA on CPAP who presents to the emergency department for evaluation of dyspnea. Patient states her symptoms started about 10 days prior to presentation. She has been having dyspnea which is worse with exertion. Also has associated generalized body ache, wheezing and dry cough. No improvement with home inhaler. No recent travels. Denies fever, chest discomfort, palpitations, abdominal pain, changes in urinary or bowel habits. In the emergency department, patient was found to be hypoxemic and tested positive for COVID-19. Review of Systems Constitutional: Constitutional: Reports chills, Reports fatigue, Reports lethargy, Reports malaise and Reports poor appetite Cardiovascular: Cardiovascular: Reports dyspnea on exertion Respiratory: Respiratory: Reports cough, Reports dyspnea on exertion and Reports wheezing Gastrointestinal: Gastrointestinal: Reports no additional gastrointestinal complaints Genitourinary: Genitourinary: Reports no additional female genitourinary complaints Endocrine: Endocrine: Reports fatigue Allergic/Immunologic: Allergic/Immunologic: Reports wheezing PMFSH Medical History SOFIYA (obstructive sleep apnea) Nocturnal hypoxemia Hypertension Hyperlipidemia Diabetes Rheumatoid arthritis Nocturnal hypoxemia COPD (chronic obstructive pulmonary disease) Morbid obesity Nicotine dependence, cigarettes, uncomplicated Allergic rhinitis Depression Cocaine abuse Opioid abuse Drug overdoses Family History Father Dementia Mother Diabetes HTN (hypertension) Surgical History History of tubal ligation History of colonoscopy History of hernia surgery Social History Household Members: Family Household Members Other:: daughter and two grandsons Housing: Apartment Do you presently have visiting nurse or other home services: No Patient Tobacco Use Status: Current everyday Tobacco user Tobacco use type: Cigarette Cigarettes Per Day: 10 Second Hand Smoke Exposure: Yes Substance Use Type: Heroin and Marijuana service: No Sexual orientation: Straight/Heterosexual Meds Allergies Allergy/AdvReac Type Severity Reaction Status Date / Time lisinopril [LISINOPRIL] Allergy Unknown UNKNOWN Verified 08/04/23 14:42 Home Medications Medication Instructions Recorded Confirmed Last Taken Type albuterol sulfate 2.5 mg/3 mL 1 amp inhalation QID 01/25/21 06/24/22 Unknown History (0.083 %) solution for nebulization fluticasone propionate 50 2 spray intranasal QAM 01/25/21 06/24/22 Unknown History mcg/actuation nasal spray,suspension lidocaine 5 % topical patch 1 patch topical BID 01/25/21 06/24/22 Unknown History albuterol sulfate 90 mcg/actuation 2 puff inhalation Q4-6H PRN 06/24/22 06/24/22 Unknown History aerosol inhaler (ProAir HFA) Wheezing amlodipine 10 mg tablet 10 mg PO QPM 06/24/22 06/24/22 Unknown History aspirin 81 mg tablet,delayed 81 mg PO BEDTIME 06/24/22 06/24/22 Unknown History release atorvastatin 40 mg tablet 40 mg PO BEDTIME 06/24/22 06/24/22 Unknown History cholecalciferol (vitamin D3) 50 50 mcg PO QPM 06/24/22 06/24/22 Unknown History mcg (2,000 unit) capsule cyclobenzaprine 10 mg tablet 10 mg PO TID PRN pain 06/24/22 06/24/22 Unknown History gabapentin 600 mg tablet 600 mg PO TID 06/24/22 06/24/22 Unknown History insulin degludec 100 unit/mL (3 20 unit subcut DAILY 06/24/22 06/24/22 Unknown History mL) subcutaneous pen (Tresiba FlexTouch U-100 insulin) loratadine 10 mg tablet 10 mg PO DAILY 06/24/22 06/24/22 Unknown History losartan 100 mg tablet 100 mg PO QAM 06/24/22 06/24/22 Unknown History metformin 1,000 mg tablet 1,000 mg PO BID 06/24/22 06/24/22 Unknown History naloxone 4 mg/actuation nasal 4 mg intranasal Q2M PRN opioid 06/24/22 06/24/22 Unknown History spray (Narcan) overdose naltrexone 50 mg tablet 25 mg PO DAILY 06/24/22 06/24/22 Unknown History naproxen 500 mg tablet 500 mg PO BID 06/24/22 06/24/22 Unknown History omeprazole 20 mg capsule,delayed 20 mg PO QAM 06/24/22 06/24/22 Unknown History release perphenazine 8 mg tablet 8 mg PO DAILY 06/24/22 06/24/22 Unknown History sitagliptin phosphate 100 mg 100 mg PO QPM 06/24/22 06/24/22 Unknown History tablet (Januvia) trazodone 100 mg tablet 100 mg PO BEDTIME 06/24/22 06/24/22 Unknown History umeclidinium 62.5 mcg/actuation 1 inh inhalation DAILY 06/24/22 06/24/22 Unknown History blister powder for inhalation (Incruse Ellipta) zolpidem 10 mg tablet 10 mg PO BEDTIME PRN Insomnia 06/24/22 06/24/22 Unknown History acetaminophen 500 mg tablet 500 mg PO QID PRN pain 09/08/22 Unknown History fluoxetine 40 mg capsule 40 mg PO QAM 01/04/23 Unknown History fluticasone 250 mcg-salmeterol 50 1 ea inhalation BID 01/04/23 Unknown History mcg/dose blistr powdr for inhalation (Advair Diskus) dulaglutide 1.5 mg/0.5 mL 1.5 mg subcut QWEEK 08/25/23 Unknown History [facility] Physical Exam Vital Signs and Narrative: Vital Signs: Last Vital Signs Temp 98.3 F 08/25/23 19:17 Pulse 71 08/25/23 19:17 Resp 15 08/25/23 19:17 BP 128/62 08/25/23 19:17 Pulse Ox 95 08/25/23 19:19 O2 Del Method Nasal Cannula 08/25/23 19:19 O2 Flow Rate 2 08/25/23 19:17 Oxygen Flow Rate 2 08/25/23 19:19 BMI result Body Mass Index 44.4 Middle-aged female lying in bed in mild distress on supplemental oxygen Neck supple, no JVD Regular rate and rhythm, S1-S2 heard Bilateral wheezing present Abdomen soft nontender, no guarding, no rigidity Patient is awake, alert and oriented to self, place, time and person ; no focal motor deficit Psych: Normal mood No pedal edema Results Labs 08/25/23 16:03 08/25/23 16:03 Labs: Laboratory Results - last 24 hr 08/25/23 08/25/2324 16:02 16:03 16:09 MCV 63.2 L MCH 18.9 L MCHC 30.0 L RDW 20.6 H Plt Count 303 MPV 9.5 Immature Gran % (Auto) Cancelled Neut % (Auto) Cancelled Lymph % (Auto) Cancelled [place] % (Auto) Cancelled Eos % (Auto) Cancelled Baso % (Auto) Cancelled Lymph # (Auto) Cancelled [place] # (Auto) Cancelled Eos # (Auto) Cancelled Baso # (Auto) Cancelled Abs Immat Gran (auto) Cancelled Absolute Neuts (auto) Cancelled Absolute Nucleated RBC 0.000 Nucleated RBC % (auto) 0.0 Neutrophils % (Manual) 72 Band Neutrophils % 0 L Lymphocytes % (Manual) 19 L Monocytes % (Manual) 2 Eosinophils % (Manual) 5 H Basophils % (Manual) 2 Abs Neuts (Manual) 6.3 Lymphocytes # (Manual) 1.7 Monocytes # (Manual) 0.2 Eosinophils # (Manual) 0.4 Basophils # (Manual) 0.2 Platelet Estimate NORMAL Giant Platelets PRESENT Plt Morphology Comment NOTED RBC Morphology NOTED Polychromasia 1+ (0-2) Microcytosis 2+ (15-30) Target Cells 1+ (5-14) Ovalocytes 1+ (5-14) Acanthocytes (Spur) 2+ (3-5) Schistocytes 1+ (0-2) PT 13.1 INR 1.1 APTT 30.2 VBG pH 7.44 H VBG pCO2 36 VBG pO2 84 VBG HCO3 24 VBG O2 Saturation 95.0 VBG Base Excess 0.8 Anion Gap 17 Estim Creat Clear Calc 111.6 Estimated GFR > 60 Random Glucose 101 Lactic Acid 2.5 H* Lactic Acid F/U @ 2Hr Calcium 9.5 Total Bilirubin 0.5 AST 40 H ALT 34 H Alkaline Phosphatase 89 B-Natriuretic Peptide 50 Total Protein 7.9 Albumin 3.9 Influenza Type A (PCR) NEGATIVE Influenza Type B (PCR) NEGATIVE RSV RNA Qual (PCR) NEGATIVE SARS-CoV-2 RNA (RT-PCR) POSITIVE A 08/25/23 18:23 MCV MCH MCHC RDW Plt Count MPV Immature Gran % (Auto) Neut % (Auto) Lymph % (Auto) [place] % (Auto) Eos % (Auto) Baso % (Auto) Lymph # (Auto) [place] # (Auto) Eos # (Auto) Baso # (Auto) Abs Immat Gran (auto) Absolute Neuts (auto) Absolute Nucleated RBC Nucleated RBC % (auto) Neutrophils % (Manual) Band Neutrophils % Lymphocytes % (Manual) Monocytes % (Manual) Eosinophils % (Manual) Basophils % (Manual) Abs Neuts (Manual) Lymphocytes # (Manual) Monocytes # (Manual) Eosinophils # (Manual) Basophils # (Manual) Platelet Estimate Giant Platelets Plt Morphology Comment RBC Morphology Polychromasia Microcytosis Target Cells Ovalocytes Acanthocytes (Spur) Schistocytes PT INR APTT VBG pH VBG pCO2 VBG pO2 VBG HCO3 VBG O2 Saturation VBG Base Excess Anion Gap Estim Creat Clear Calc Estimated GFR Random Glucose Lactic Acid Lactic Acid F/U @ 2Hr 1.8 Calcium Total Bilirubin AST ALT Alkaline Phosphatase B-Natriuretic Peptide Total Protein Albumin Influenza Type A (PCR) Influenza Type B (PCR) RSV RNA Qual (PCR) SARS-CoV-2 RNA (RT-PCR) Imaging Radiologist's Impressions: Impressions Chest X-Ray 08/25/23 13:15 IMPRESSION: Peribronchial thickening with right perihilar streaky densities. Findings could be secondary to bronchitis or possibly an atypical pneumonia. Assessment and Plan (1) COVID-19: Status: Acute (2) Hypoxia: Status: Acute Plan This is a 57-year-old female with pertinent history of chronic hypoxemic respiratory failure due to COPD on baseline oxygen at night, insulin-dependent diabetes mellitus, essential hypertension, tobacco use disorder, mixed hyperlipidemia, mood disorder, gastroesophageal reflux disease, SOFIYA on CPAP who presents to the emergency department for evaluation of dyspnea. #. Acute on chronic hypoxemic respiratory failure due to acute exacerbation of COPD in the setting of COVID-19 pneumonia: Will admit patient with supplemental oxygen. Initiating systemic steroids. Schedule and p.r.n. DuoNebs. Monitor oxygen saturation and wean as tolerated. #. SOFIYA: Continue CPAP at bedtime #. Microcytic anemia: Obtaining iron panel #. Insulin-dependent diabetes mellitus: Initiating basal plus insulin regimen #. Lactic acidosis due to hypoxia. Resolved. No sepsis #. Essential hypertension: Continue home antihypertensives #. Tobacco use disorder: Counseled regarding cessation. Nicotine patch while in the hospital #. Gastroesophageal reflux disease: PPI #. Mood disorder: Continue home mood stabilizers #. Mixed hyperlipidemia: On statin Med rec pending DVT prophylaxis: Lovenox Full code Admit as inpatient and will require two night minimum hospital stay for supplemental oxygen (as above), which is not possible in a lesser acute setting. Quality Stroke Does the patient have a stroke diagnosis?: No VTE Prior VTE?: No VTE Risk Level:: Medical - moderate - high VTE Device Contraindication: Treatment Not Indicated VTE Drug Contraindication: N/A - Med Ordered
--- NOTE | 2023-08-25 19:58 | MHC.EDTECH ---
PT stood up and out of bed to use commode. PT's O2 dropped to 86 and was extremely out of breathe. Nurse is aware. Plan to put mock in.
--- NOTE | 2023-08-25 20:34 | PHA.MEDREC ---
Pharmacy Consult ? Medication Reconciliation Pharmacy has completed the medication reconciliation. Patient report she has med box. Patient confirmed all medication outside of the box. Patient reprot she is still taking primidone and naltrexone. Miroslava Soto, PharmD
[2023-08-25 23:22] VITALS: BP 123/56; PULSE 70; RESP 17; TEMP 37.5; O2SAT 96
[2023-08-26] VITALS (12 sets, daily range): BP systolic 112–176; BP diastolic 58–92; PULSE 63–75; RESP 14–22; TEMP 36.6–37.2; O2SAT 93–97
--- NOTE | 2023-08-26 00:43 | PC.NURSE ---
Nurse to Nurse report given to SERAFIN Holt
--- NOTE | 2023-08-26 01:56 | MHC.EDTECH ---
Late Entry @ 2300 this tech took over care of patient,hourly rounds and vitals completed,patient has a pure-wick in place done by previous tech, patient is clean and dry. call garcia in reach
--- NOTE | 2023-08-26 01:58 | MHC.EDTECH ---
Hourly rounds completed,patient is sleeping and resp.rate WNl call garcia is within reach
--- NOTE | 2023-08-26 04:23 | MHC.EDTECH ---
Hourly rounds,completed patient placed on c-pap at this time resp.rate within normal limits. call garcia within reach
--- NOTE | 2023-08-26 06:13 | MHC.EDTECH ---
Hourly rounds completed,patient took tubing off of pure-wick,was incont of a large amount of urine, New pure-wick placed and educated patient not to remove tubing,patient cleaned and juon-care giving. 300MLS of urine emptied from canister. Call garcia wihtin reach
--- NOTE | 2023-08-26 09:37 | HO.PM.IMPN ---
Subjective Subjective Date of Service: 08/26/23 Interval History: This history was taken in Nepali from the patient. C/o cough + mild dyspnea since 08/15/23. No fever, no sputum. Review of Systems Review of Systems: Yes all other systems are reviewed and are negative Physical Exam Vital Signs: Vital Signs: Last Vital Signs Temp 98.7 F 08/26/23 05:13 Pulse 63 08/26/23 07:55 Resp 20 08/26/23 07:55 BP 176/92 H 08/26/23 05:13 Pulse Ox 94 08/26/23 05:13 O2 Del Method CPAP 08/26/23 05:13 O2 Flow Rate 2 08/25/23 23:22 Oxygen Flow Rate 2 08/25/23 19:19 BMI result Body Mass Index 44.4 Gen: in no acute distress, on 1L O2 HEENT: sclera anicteric, moist mucus membranes Neck: supple Lungs: diminished Heart: regular rate and rhythm, no murmurs Abd: soft, non-tender, non-distended, obese Ext: no edema Skin: warm/well-perfused Neuro: alert and oriented x3, no focal findings Psych: appropriate affect Objective Data Active Medications Acetaminophen (Acetaminophen 325 Mg Tablet) 650 mg PO Q6H PRN PRN Reason: Pain, Mild (Pain Scale 1-3) Albuterol Sulfate (Albuterol Sulfate 90 Mcg 8 Gm Inhaler) 2 puff INHALE Q4H PRN PRN Reason: Wheezing Albuterol/Ipratropium (Albuterol/Iprat 2.5/0.5mg 3 Ml Ampul.Neb) 3 ml INHALE RQ4H WHILE AWAKE [facility] Last Admin: 08/26/23 07:53 Dose: 3 ml Documented By: CORINA Albuterol/Ipratropium (Albuterol/Iprat 2.5/0.5mg 3 Ml Ampul.Neb) 3 ml INHALE Q4H PRN PRN Reason: Wheezing Amlodipine Besylate (Amlodipine Besylate 10 Mg Tablet) 10 mg PO BEDTIME [facility]; Protocol Aspirin (Aspirin Enteric Coated 81 Mg Tablet.) 81 mg PO BEDTIME [facility] Atorvastatin Calcium (Atorvastatin Calcium 40 Mg Tablet) 40 mg PO BEDTIME [facility] Dexamethasone (Dexamethasone 6 Mg Tablet) 6 mg PO DAILY [facility] Last Admin: 08/26/23 09:36 Dose: 6 mg Documented By: HO.BONAVI Dextrose (Dextrose 50 % 25 Gm/50 Ml Syringe) 25 gm IVPUSH Q15M PRN; Protocol PRN Reason: per Hypoglycemia Standing Ord. Docusate Sodium (Docusate Sodium 100 Mg Capsule) 200 mg PO BEDTIME [facility] Enoxaparin Sodium (Enoxaparin Sodium 40 Mg/0.4 Ml Syringe) 40 mg SUBCUT Q24H [facility] Last Admin: 08/25/23 20:38 Dose: 40 mg Documented By: AMAN Fluoxetine HCl (Fluoxetine Hcl 20 Mg Capsule) 40 mg PO DAILY [facility] Last Admin: 08/26/23 09:36 Dose: 40 mg Documented By: MAMADOU Fluticasone Propionate (Fluticasone Propionate Nasal 16 Gm Brickeys) 2 spray NOSTRIL-B DAILY PRN PRN Reason: Allergy Symptoms Fluticasone/Vilanterol (Fluticasone/Vilanterol 100/25 Blst.W.Dev) 1 puff INHALE RDAILY [facility] Gabapentin (Gabapentin 600 Mg Tablet) 600 mg PO TID [facility] Last Admin: 08/26/23 09:36 Dose: 600 mg Documented By: MAMADOU Glucose (Glucose Gel 15 Gm Gel..Gram.) 15 gm PO Q15M PRN; Protocol PRN Reason: per Hypoglycemia Standing Ord. Insulin Human Lispro (Insulin Lispro 100 Unit/Ml 3 Ml Vial) 0 unit SUBCUT QIDACHS [facility]; Protocol Last Admin: 08/25/23 20:38 Dose: 2 unit Documented By: AMAN Lidocaine (Lidocaine 4 % Patch Adh..Patch) 1 patch TRANSDERMA DAILY PRN PRN Reason: Pain Loratadine (Loratadine 10 Mg Tablet) 10 mg PO DAILY [facility] Last Admin: 08/26/23 09:36 Dose: 10 mg Documented By: MAMADOU Losartan Potassium (Losartan Potassium 50 Mg Tablet) 100 mg PO DAILY [facility]; Protocol Last Admin: 08/26/23 09:36 Dose: 100 mg Documented By: MAMADOU Melatonin (Melatonin 3 Mg Tablet) 6 mg PO BEDTIME PRN PRN Reason: Insomnia Naltrexone HCl (Naltrexone Hcl 50 Mg Tablet) 25 mg PO DAILY [facility] Nicotine (Nicotine 14 Mg Patch.Td24) 14 mg TRANSDERMA DAILY [facility] Last Admin: 08/25/23 20:38 Dose: 14 mg Documented By: AMAN Non-Formulary Medication (Insulin Degludec [Tresiba Flextouch U-100]) 17 unit SUBCUT BEDTIME [facility] Omeprazole (Omeprazole 20 Mg Capsule.Dr) 20 mg PO DAILY@0630 [facility] Last Admin: 08/26/23 09:36 Dose: 20 mg Documented By: MAMADOU Ondansetron HCl (Ondansetron Hcl 4 Mg/2 Ml Vial) 4 mg IVPUSH Q8H PRN PRN Reason: Nausea and Vomiting Perphenazine (Perphenazine 8 Mg Tablet) 8 mg PO DAILY [facility] Polyethylene Glycol (Polyethylene Glycol 3350 17 Gm Powd.Pack) 17 gm PO DAILY [facility] Primidone (Primidone 50 Mg Tablet) 25 mg PO BEDTIME [facility] Sodium Chloride (0.9 % Sodium Chloride Flush 3 Ml Syringe) 3 ml IVFLUSH QSHIFT [facility] Last Admin: 08/26/23 00:16 Dose: Not Given Documented By: AMAN Non-Admin Reason: Patient Asleep Tiotropium [place] (Tiotropium [place] 2.5 Mcg 1 Puff/2.5 Mcg Mist.Inhal) 2 puff INHALE RDAILY [facility] Trazodone HCl (Trazodone Hcl 100 Mg Tablet) 100 mg PO BEDTIME [facility] Vitamin D (Cholecalciferol (Vitamin D3) 25 Mcg Tablet) 50 mcg PO BEDTIME [facility] Zolpidem Tartrate (Zolpidem Tartrate 5 Mg Tablet) 10 mg PO BEDTIME PRN PRN Reason: Insomnia Labs 08/26/23 06:57 08/26/23 06:57 Labs: Laboratory Results - last 24 hr 08/25/23 08/25/23 08/25/23 16:02 16:03 16:09 MCV 63.2 L MCH 18.9 L MCHC 30.0 L RDW 20.6 H Plt Count 303 MPV 9.5 Immature Gran % (Auto) Cancelled Neut % (Auto) Cancelled Lymph % (Auto) Cancelled [place] % (Auto) Cancelled Eos % (Auto) Cancelled Baso % (Auto) Cancelled Lymph # (Auto) Cancelled [place] # (Auto) Cancelled Eos # (Auto) Cancelled Baso # (Auto) Cancelled Abs Immat Gran (auto) Cancelled Absolute Neuts (auto) Cancelled Absolute Nucleated RBC 0.000 Nucleated RBC % (auto) 0.0 Neutrophils % (Manual) 72 Band Neutrophils % 0 L Lymphocytes % (Manual) 19 L Monocytes % (Manual) 2 Eosinophils % (Manual) 5 H Basophils % (Manual) 2 Abs Neuts (Manual) 6.3 Lymphocytes # (Manual) 1.7 Monocytes # (Manual) 0.2 Eosinophils # (Manual) 0.4 Basophils # (Manual) 0.2 Platelet Estimate NORMAL Giant Platelets PRESENT Plt Morphology Comment NOTED RBC Morphology NOTED Polychromasia 1+ (0-2) Microcytosis 2+ (15-30) Target Cells 1+ (5-14) Ovalocytes 1+ (5-14) Acanthocytes (Spur) 2+ (3-5) Schistocytes 1+ (0-2) PT 13.1 INR 1.1 APTT 30.2 VBG pH 7.44 H VBG pCO2 36 VBG pO2 84 VBG HCO3 24 VBG O2 Saturation 95.0 VBG Base Excess 0.8 Anion Gap 17 Estim Creat Clear Calc 111.6 Estimated GFR > 60 POC Glucose Random Glucose 101 Lactic Acid 2.5 H* Lactic Acid F/U @ 2Hr Calcium 9.5 Iron TIBC % Saturation Unsat Iron Binding Ferritin Total Bilirubin 0.5 AST 40 H ALT 34 H Alkaline Phosphatase 89 C-Reactive Protein B-Natriuretic Peptide 50 Total Protein 7.9 Albumin 3.9 Procalcitonin Influenza Type A (PCR) NEGATIVE Influenza Type B (PCR) NEGATIVE RSV RNA Qual (PCR) NEGATIVE SARS-CoV-2 RNA (RT-PCR) POSITIVE A 08/25/23 08/25/23 08/26/23 18:23 20:27 06:57 MCV 62.6 L MCH 18.9 L MCHC 30.2 L RDW 20.4 H Plt Count 299 MPV 9.7 Immature Gran % (Auto) 0.7 H Neut % (Auto) 89.0 H Lymph % (Auto) 7.0 L [place] % (Auto) 3.1 Eos % (Auto) 0.0 Baso % (Auto) 0.2 Lymph # (Auto) 0.8 L [place] # (Auto) 0.4 Eos # (Auto) 0.0 Baso # (Auto) 0.0 Abs Immat Gran (auto) 0.08 H Absolute Neuts (auto) 10.2 H Absolute Nucleated RBC 0.000 Nucleated RBC % (auto) 0.0 Neutrophils % (Manual) Band Neutrophils % Lymphocytes % (Manual) Monocytes % (Manual) Eosinophils % (Manual) Basophils % (Manual) Abs Neuts (Manual) Lymphocytes # (Manual) Monocytes # (Manual) Eosinophils # (Manual) Basophils # (Manual) Platelet Estimate Giant Platelets Plt Morphology Comment RBC Morphology Polychromasia Microcytosis Target Cells Ovalocytes Acanthocytes (Spur) Schistocytes PT INR APTT VBG pH VBG pCO2 VBG pO2 VBG HCO3 VBG O2 Saturation VBG Base Excess Anion Gap 15 Estim Creat Clear Calc 123.2 Estimated GFR > 60 POC Glucose 181 H Random Glucose 147 H Lactic Acid Lactic Acid F/U @ 2Hr 1.8 Calcium 8.9 D Iron 22 L TIBC 329 % Saturation 7 L Unsat Iron Binding 307 Ferritin 66 Total Bilirubin AST ALT Alkaline Phosphatase C-Reactive Protein 2.44 H B-Natriuretic Peptide Total Protein Albumin Procalcitonin 0.02 Influenza Type A (PCR) Influenza Type B (PCR) RSV RNA Qual (PCR) SARS-CoV-2 RNA (RT-PCR) Assessment and Plan (1) Hypoxia: Status: Acute (2) COVID-19: Status: Acute Plan d2 57yo F with morbid obesity, chronic hypoxic resp failure from COPD on 2L O2 at night, DM2, HTN, RA on etanercept, HLD, SOFIYA on CPAP presenting with 11d of dyspnea/cough, found to have hypoxia [SaO2 86] due to Covid-19 acute/chronic hypoxic resp failure due to Covid-19/COPD exac - dexamethasone 08/26-09/04/22, out of window for remdesivir; no evidence of bacterial infection, PCT low - continue triple controller inhaler therapy; prn nebs - wean daytime O2 as tolerated lactic acidosis - resolved, not septic, probably from bronchodilators KAI - replete, check FOBT SOFIYA - CPAP at night HTN - amlodipine, losartan HLD - statin neuropathy - gabapentin mood disorder - fluoxetine, perphenazine, trazodone substance abuse disorder - naltrexone tob abuse - NRT GERD - PPI VTE ppx - LMWH dispo - PT consult requested In my clinical judgment, the patient requires continued inpatient hospitalization for the following reasons: hypoxia Total time managing care of this patient today: 35 minutes. Quality Stroke Does the patient have a stroke diagnosis?: No VTE Prior VTE?: No VTE Risk Level:: Medical - moderate - high VTE Device Contraindication: Treatment Not Indicated VTE Drug Contraindication: N/A - Med Ordered
--- NOTE | 2023-08-26 11:25 | PC.NURSE ---
rt called as their meds are due to be given. no distress.
--- NOTE | 2023-08-26 12:05 | PC.NURSE ---
pharmacy bringing missing meds.
--- NOTE | 2023-08-26 15:56 | MHC.CM.PN ---
PT ON [place] PRECAUTIONS ALEJANDRA ATTEMPTED TO REACH PTS PRIMARY CONTACT/DAUGHTER, AFTAB [phone] HOWEVER A MALE ANSWERED AND INDICATED THE CONTACT NOR THE PT WERE KNOWN TO HIM ALEJANDRA WILL CONTINUE TO TRY TO REACH PT AT THE NUMBER LISTED [phone] WITH CATERING STAFF MEMBER
--- NOTE | 2023-08-27 00:03 | PC.RT ---
Pt refusing CPAP at this time
--- NOTE | 2023-08-27 03:39 | PC.NURSE ---
Pt sleeping at the bedside. No apparent distress noted. Breaths are even regular and unlabored with equal chest rises. Monitoring is ongoing.
[2023-08-27 05:54] VITALS: BP 121/68; PULSE 62; RESP 16; TEMP 36.5; O2SAT 96
--- NOTE | 2023-08-27 08:21 | PC.NURSE ---
this RN resumed care of pt at this time. pt resting comfortably in bed eating breakfast in no apparent distress. no sob/wob noted at this time. pt able to speak in full/clear sentences w/o difficulty. respirations even and unlabored at this time. call garcia placed within reach.
--- NOTE | 2023-08-27 09:44 | PC.NURSE ---
medication administered per provider order.
--- NOTE | 2023-08-27 10:03 | PC.NURSE ---
pt receiving breathing treatment via inhaler by RT at this time.
[2023-08-27 10:08] VITALS: PULSE 64; RESP 18; O2SAT 93
--- NOTE | 2023-08-27 10:42 | PC.NURSE ---
labs obained/sent.
--- NOTE | 2023-08-27 12:20 | PC.NURSE ---
pt ate 100% of lunch. medication administered per provider order. denies pain at this time. respirations even and unlabored. resting comfortably in no apparent distress. call garcia placed within reach.
--- NOTE | 2023-08-27 12:54 | PM.DS ---
DS: Providers Provider Date of Service: 08/27/23 Date of admission: 08/25/23 19:34 Primary care physician: Shalonda Phillips NP DS: Diagnosis Discharge Diagnosis (1) Hypoxia: Status: Acute (2) COVID-19: Status: Acute DS: Summary Hospital Course Hospital Course: Chief Complaint: Dyspnea This is a 57-year-old female with pertinent history of chronic hypoxemic respiratory failure due to COPD on baseline oxygen at night, insulin-dependent diabetes mellitus, essential hypertension, tobacco use disorder, mixed hyperlipidemia, mood disorder, gastroesophageal reflux disease, SOFIYA on CPAP who presents to the emergency department for evaluation of dyspnea. Patient states her symptoms started about 10 days prior to presentation. She has been having dyspnea which is worse with exertion. Also has associated generalized body ache, wheezing and dry cough. No improvement with home inhaler. No recent travels. Denies fever, chest discomfort, palpitations, abdominal pain, changes in urinary or bowel habits. In the emergency department, patient was found to be hypoxemic and tested positive for COVID-19. Hospital course: Patient was admitted for acute/chronic hypoxic resp failure due to Covid-19 related COPD exacerbation with hypoxia, she has underlying chronic respiratory failure and SOFIYA and uses oxygen at home. She has covid and is being treated with dexamethasone and inhalers and overall is feeling better. Oxygen saturation is 96 on 2 liters and 89 to 91 on room and is breathing comfortably and desires to go home. She will complete 7 days of dexamethasone, she did not qualify for home O2 when check by respiratory Time Attestation Discharge coordination time: Greater than 30 minutes Quality: Safe Use of Opioids Does Pt have an Active Cancer Diagnosis on the Problem List?: No Quality: Stroke Does the patient have a stroke diagnosis?: No Physical Exam Vital Signs: Vital Signs: Last Vital Signs Temp 97.7 F 08/27/23 05:54 Pulse 64 08/27/23 10:08 Resp 18 08/27/23 10:08 BP 121/68 08/27/23 05:54 Pulse Ox 96 08/27/23 05:54 O2 Del Method Nasal Cannula 08/27/23 05:54 O2 Flow Rate 2 08/27/23 05:54 Oxygen Flow Rate 2 08/25/23 19:19 BMI result Body Mass Index 44.4 Const: Other: General: AO X 3, no acute distress Resp: CTA bilateral, normal breathing effort CVS: S1,S2,RRR GI: +BS, NT, no distention Skin: No rash Neuro: motor grossly intact Psych: appropriate affect Discharge Plan Discharge Anticipated Discharge Date/Time: 08/27/23 12:51 Patient Disposition: Home, Self-Care Discharge Diagnosis: Acute on chronic hypoxic respiratory failure due to copd, covid 19 Referrals: Shalonda Phillips, STRAPPER [Primary Care Provider] - 1 Week Discharge Medications: New dexamethasone 6 mg tablet 6 mg PO DAILY Qty: 5 0RF Continued docusate sodium [Colace] 100 mg capsule 200 mg PO BEDTIME Qty: 60 5RF albuterol sulfate 2.5 mg /3 mL (0.083 %) solution for nebulization 1 amp inhalation Q4H PRN (Reason: Shortness Of Breath Or Wheezing) lidocaine 5 % adhesive patch,medicated 1 patch topical DAILY PRN (Reason: Pain) fluticasone propionate 50 mcg/actuation spray,suspension 2 spray intranasal QAM PRN (Reason: Allergy Symptoms) primidone 50 mg Tablet 25 mg PO BEDTIME 30 Days Qty: 15 0RF atorvastatin 40 mg tablet 40 mg PO BEDTIME aspirin 81 mg tablet,delayed release (DR/EC) 81 mg PO BEDTIME cholecalciferol (vitamin D3) 50 mcg (2,000 unit) capsule 50 mcg PO QPM cyclobenzaprine 10 mg tablet 10 mg PO TID PRN (Reason: pain) gabapentin 600 mg tablet 600 mg PO TID loratadine 10 mg tablet 10 mg PO DAILY losartan 100 mg tablet 100 mg PO QAM metformin 1,000 mg tablet 1,000 mg PO BID naproxen 500 mg tablet 500 mg PO BID omeprazole 20 mg capsule,delayed release(DR/EC) 20 mg PO QAM trazodone 100 mg tablet 100 mg PO BEDTIME Trulicity 1.5 mg/0.5 mL pen injector 1.5 mg subcut SA Enbrel SureClick 50 mg/mL (1 mL) pen injector 50 mg subcut SA naltrexone 50 mg tablet 25 mg PO DAILY Rx Instructions: discontinuing 50mg dose and instead giving 25mg dose daily perphenazine 8 mg tablet 8 mg PO DAILY zolpidem 10 mg tablet 10 mg PO BEDTIME PRN (Reason: Insomnia) Incruse Ellipta 62.5 mcg/actuation blister with device 1 inh inhalation DAILY insulin degludec [Tresiba FlexTouch U-100] 100 unit/mL (3 mL) insulin pen 24 unit subcut BEDTIME amlodipine 10 mg tablet 10 mg PO QPM albuterol sulfate [ProAir HFA] 90 mcg/actuation HFA aerosol inhaler 2 puff inhalation Q4-6H PRN (Reason: Wheezing) acetaminophen 500 mg tablet 500 mg PO QID PRN (Reason: pain) polyethylene glycol 3350 [Miralax] 17 gram/dose powder 17 g PO DAILY Qty: 510 2RF fluticasone propion-salmeterol [Advair Diskus] 250-50 mcg/dose blister with device 1 ea inhalation BID fluoxetine 40 mg capsule 40 mg PO QAM Discharge Orders: Discharge Order (Routine); Ordered 08/27/23 Ordered By: Anshul Ovalle Diet: Diabetic diet Activity on Discharge: As tolerated Stand Alone Forms: Patient Portal Discharge page Care Plan Goals: full recovery from copd exacerbation and covid 19 Health Concerns: covid 19 copd exacerbation Plan of Treatment: continue using yor inhalers as usual continue using oxygen as before take dexamethasone as directed follow up with your Doctor in a week Assessment: see above
[2023-08-27 14:04] VITALS: BP 151/79; PULSE 66; RESP 18; TEMP 36.8; O2SAT 96
[2023-08-27 14:19] VITALS: O2SAT 91
--- NOTE | 2023-08-27 14:20 | PC.NURSE ---
pt performing ambulatory O2 test at this time w/ RT - range between 89%-91% on RA via pulse oximeter. pt ambulates w/slow and steady gait. no use of assistance/assistive devices needed. denies feeling sob. no wob shown. respirations even and unlabored.
[2023-08-27 14:23] VITALS: O2SAT 89
[2023-08-27 14:33] VITALS: PULSE 93; O2SAT 89; O2SAT 91
--- NOTE | 2023-08-27 15:13 | PC.NURSE ---
pt provided w/ discharge education/instructions. pt being discharged by tech via wheelchair at this time.
== END 2023-08-27 15:35 | disposition home or self-care (01) | DRG 137 ==
LOC: HO.ED 18:19 → HO.EDOVER 19:40
PROVIDERS: Admitting Provider Student in an Organized Health Care Education/Training Program; Emergency Provider Emergency Medicine; PCP Nurse Practitioner Primary Care; Visit Provider Internal Medicine
DX: U07.1 COVID-19 (principal); J96.21 Acute and chronic respiratory failure with hypoxia; E87.20 Acidosis, unspecified; J44.1 Chronic obstructive pulmonary disease with (acute) exacerbation; D50.9 Iron deficiency anemia, unspecified; F11.10 Opioid abuse, uncomplicated; F14.10 Cocaine abuse, uncomplicated; F17.210 Nicotine dependence, cigarettes, uncomplicated; E78.2 Mixed hyperlipidemia; G47.33 Obstructive sleep apnea (adult) (pediatric); M05.9 Rheumatoid arthritis with rheumatoid factor, unspecified; K21.9 Gastro-esophageal reflux disease without esophagitis; F39 Unspecified mood [affective] disorder; E66.9 Obesity, unspecified; Z68.41 Body mass index [BMI] 40.0-44.9, adult; I10 Essential (primary) hypertension; Z71.3 Dietary counseling and surveillance; Z71.6 Tobacco abuse counseling; Z79.82 Long term (current) use of aspirin; Z79.84 Long term (current) use of oral hypoglycemic drugs; Z79.51 Long term (current) use of inhaled steroids; Z79.4 Long term (current) use of insulin; Z79.85 Long-term (current) use of injectable non-insulin antidiabetic drugs; Z79.620 Long term (current) use of immunosuppressive biologic; Z79.899 Other long term (current) drug therapy
CPT/HCPCS: 0241U; 36415; 71046; 80048; 80053; 82728; 82803; 82947; 83540; 83605; 83880; 84145; 84484; 85007; 85025; 85027; 85610; 85730; 86140; 87040; 93005; 94640; 97161; 99285; J0456; J0696; J1650; J2930; J3475; J8540

== ENCOUNTER → 2023-08-25 19:30 | Outpatient (BNV) | payer MEDICAID, SELFPAY | PROVIDERS: Admitting Provider Student in an Organized Health Care Education/Training Program; Emergency Provider Emergency Medicine; PCP Nurse Practitioner Primary Care; Visit Provider Internal Medicine Cardiovascular Disease | DX: R94.31 Abnormal electrocardiogram [ECG] [EKG] (principal) | CPT/HCPCS: 93010 ==

== ENCOUNTER → 2023-08-25 19:34 | Outpatient (BNV) | payer MEDICAID, SELFPAY | PROVIDERS: Admitting Provider Student in an Organized Health Care Education/Training Program; Emergency Provider Emergency Medicine; Visit Provider Student in an Organized Health Care Education/Training Program | DX: J96.21 Acute and chronic respiratory failure with hypoxia (principal); U07.1 COVID-19 | CPT/HCPCS: 99222; 99232; 99239 ==

== ENCOUNTER 2023-11-02 12:32 | Outpatient (REF) | payer MEDICAID, SELFPAY ==
[2023-11-02 12:46] LABS: MANUAL DIFF FLAG NO
[2023-11-02 14:05] LABS: Basophils Absolute Auto 0.1 X10*3/uL (0.0-0.2); Basophils Percent Auto 0.8 % (0-2); Eosinophils Absolute Auto 0.1 X10*3/uL (0.0-0.4); Eosinophils Percent Auto 1.9 % (0-4); Hematocrit 32.4 % (37.0-47.0); Hemoglobin 9.7 g/dl (12.0-16.0); Imm Gran Abs Auto 0.01 X10*3/uL (0.00-0.03); Imm Gran Pct Auto 0.1 % (0.0-0.4); Lymphocytes Absolute Auto 2.1 X10*3/uL (1.2-4.9); Lymphocytes Percent Auto 28.4 % (20-40); Mean Corpuscular HGB Conc 29.9 g/dl (31.0-35.0); Mean Corpuscular Hemoglobin 18.8 pg (27.0-33.0); Mean Platelet Volume 9.4 fL (9.4-12.3); Monocytes Absolute Auto 0.7 X10*3/uL (0.1-1.2); Monocytes Percent Auto 9.8 % (2-11); Neutrophils Absolute Auto 4.4 x10*3/uL (2.0-8.3); Platelet Count 314 X10*3/uL (160-400); Red Blood Count 5.16 X10*6/uL (4.20-5.50); Red Cell Distribution Width 21.6 % (11.0-16.0); White Blood Count 7.4 X10*3/uL (4.8-10.8)
[2023-11-02 14:06] LABS: Mean Corpuscular Volume 62.8 fL (80.0-98.0)
[2023-11-02 14:38] LABS: Alanine Aminotransferase 19 U/L (0-31); Albumin Level 4.3 g/dL (3.5-5.0); Alkaline Phosphatase 101 U/L (39-117); Anion Gap 13 (12-20); Aspartate Amino Transferase 24 U/L (5-31); Bilirubin Total 0.3 mg/dL (0.0-1.0); Blood Urea Nitrogen 9 mg/dL (9-16); C Reactive Protein 0.16 mg/dL (< or = 0.50); Calcium 9.6 mg/dL (8.4-10.2); Carbon Dioxide 27 mmol/L (22-29); Chloride 103 mmol/L (96-108); Estimated Glomerular Filt Rate > 60; Glucose Random 131 mg/dL (60-115); Iron 24 mcg/dL (30-160); Percent Iron Saturation 6 % (15-50); Potassium 3.8 mmol/L (3.3-5.1); Sodium 139 mmol/L (135-145); Total Iron Binding Capacity 421 mcg/dL (228-428); Total Protein 7.9 g/dL (6.5-8.0); Unsaturated Iron Binding 397 ug/dL
[2023-11-02 14:51] LABS: Erythrocyte Sedimentation Rate 17 MM/HR (0-20)
[2023-11-02 14:52] LABS: Ferritin 16 ng/mL (10-250)
[2023-11-02 15:17] LABS: Folate 7.6 ng/mL (> or = 4.0); Vitamin B12 428 pg/mL (200-900)
[2023-11-03 17:39] LABS: Transferrin 392 mg/dL (188-341)
[2023-11-04 12:04] LABS: Hematocrit 33.6 % (35.0-45.0); Hemoglobin 9.8 g/dL (11.7-15.5); MCH 18.8 pg (27.0-33.0); MCV 64.4 fL (80.0-100.0); RBC 5.22 Million/uL (3.80-5.10); RDW 19.1 % (11.0-15.0)
== END 2023-11-02 12:33 | disposition home or self-care (01) ==
LOC: HO.LAB 12:32
PROVIDERS: PCP Nurse Practitioner Primary Care; Visit Provider Student in an Organized Health Care Education/Training Program
DX: D50.9 Iron deficiency anemia, unspecified (principal); M06.9 Rheumatoid arthritis, unspecified
CPT/HCPCS: 36415; 80053; 82607; 82728; 82746; 83020; 83540; 84466; 85014; 85018; 85025; 85041; 85652; 86140

== ENCOUNTER 2023-11-03 14:53 | Outpatient (AMB) | payer MEDICAID, SELFPAY ==
--- NOTE | 2023-11-03 14:56 | MHC.OFFVIS ---
Intake Vital Signs 11/03/23 14:57 Height 5 ft 6.14 in Weight 277 lb 1.937 oz BMI 44.5 BP 118/72 Blood Pressure Location Rt brachial Position Sitting Pulse 90 Pulse Source Pulse Oximeter Pulse Oximetry (%) 91 L Oxygen Delivery Method Room Air Intake Visit Reasons: RA Intake Note: Patient last seen 08/04/23 presents today for follow up and test results. Shipping Supervisor Required: Yes Shipping Supervisor Language: Hardware Developer Name: Marion #[id number] Accompanied by: Self / Same As Patient Allergies lisinopril [LISINOPRIL] Allergy (Unknown, Verified 11/03/23 14:59) UNKNOWN Medication List - Last Reconciled 11/03/23 by Per Mancilla MD acetaminophen 500 mg PO QID PRN albuterol sulfate 1 amp inhalation Q4H PRN albuterol sulfate 90 mcg/actuation (ProAir HFA) 2 puffs inhalation Q4-6H PRN amlodipine 10 mg PO QPM aspirin 81 mg PO BEDTIME atorvastatin 40 mg PO BEDTIME cholecalciferol (vitamin D3) 50 mcg PO QPM cyclobenzaprine 10 mg PO TID PRN dexamethasone 6 mg PO DAILY docusate sodium (Colace) 200 mg (2 x 100 mg) PO BEDTIME dulaglutide (Trulicity) 1.5 mg subcut SA etanercept (Enbrel SureClick) 50 mg subcut QWEEK fluoxetine 40 mg PO QAM fluticasone propion-salmeterol 250-50 mcg/dose (Advair Diskus) 1 ea inhalation BID fluticasone propionate 50 mcg/actuation 2 sprays intranasal QAM PRN gabapentin 800 mg PO TID insulin degludec (Tresiba FlexTouch U-100 insulin) 24 units subcut BEDTIME lidocaine 5% 1 patch topical DAILY PRN loratadine 10 mg PO DAILY losartan 100 mg PO QAM metformin 1,000 mg PO BID naltrexone 25 mg PO DAILY naproxen 500 mg PO BID omeprazole 20 mg PO QAM perphenazine 8 mg PO DAILY polyethylene glycol 3350 (Miralax) 17 grams PO DAILY primidone 25 mg (1/2 x 50 mg) PO BEDTIME 30 days trazodone 100 mg PO BEDTIME umeclidinium 62.5 mcg/actuation (Incruse Ellipta) 1 inh inhalation DAILY zolpidem 10 mg PO BEDTIME PRN HPI HPI Comments History of Present Illness Details 58-year-old female with seropositive RA returns for follow-up. On Enbrel 50 mg weekly. Denies any side effects related to Enbrel. There are no recent infections. Has no complaints today Initial history: This is a 56-year-old female with extensive past medical history who presents for evaluation of diffuse pain. Patient states she has had diffuse pain almost all her life. She states that she feels that her knees get out of with her socket sometimes. Has diffuse pain especially of her back. She also has pain in both hands, difficulty gripping stuff. Pain lasts almost all day. She takes multiple medicines for pain and does not know which medications help. She is unaware of any family history of autoimmune disease. [facility] Medical History SOFIYA (obstructive sleep apnea) Nocturnal hypoxemia Hypertension Hyperlipidemia Diabetes Rheumatoid arthritis Nocturnal hypoxemia COPD (chronic obstructive pulmonary disease) Morbid obesity Nicotine dependence, cigarettes, uncomplicated Allergic rhinitis Depression Cocaine abuse Opioid abuse Drug overdoses Surgical History History of tubal ligation History of colonoscopy History of hernia surgery Family History Father Dementia Mother Diabetes HTN (hypertension) Social History Household Members: Family Household Members Other:: daughter and two grandsons Housing: Apartment Do you presently have visiting nurse or other home services: No Patient Tobacco Use Status: Current everyday Tobacco user Tobacco use type: Cigarette Cigarettes Per Day: 10 Second Hand Smoke Exposure: Yes Substance Use Type: Heroin and Marijuana service: No Sexual orientation: Straight/Heterosexual Review of Systems Musc Denies arthralgias and Denies joint swelling Physical Exam Vital Signs: Last Vital Signs Pulse 90 11/03/23 14:57 BP 118/72 11/03/23 14:57 Pulse Ox 91 L 11/03/23 14:57 Oxygen Delivery Method Room Air 11/03/23 14:57 BMI result Body Mass Index 44.5 Const General: cooperative and healthy appearing Nutritional Appearance: obese morbidly obese Orientation/consciousness: patient oriented x3 Limitations: no limitations HEENT Head: Yes normocephalic and Yes atraumatic Resp Effort & Inspection: normal respiratory effort and able to speak in complete sentences Cardio Other: Unable to auscultate due to patient's body habitus Neuro General: patient oriented x3 Extrem Other: No swollen or tender joints today. Bilateral limited shoulder abduction due to pain. Assessment & Plan Assessment & Plan (1) Rheumatoid arthritis: Comment: ++RF+++CCP dx 04/2023 Enbrel 04/2023 effective Code(s): M06.9 - Rheumatoid arthritis, unspecified Qualifiers: Rheumatoid arthritis location: multiple sites Rheumatoid factor presence: with rheumatoid factor Qualified Code(s): M05.79 - Rheumatoid arthritis with rheumatoid factor of multiple sites without organ or systems involvement Plan: This is a 58-year-old female with seropositive RA who presents for follow-up. Doing much better on Enbrel 50 mg weekly. Continue Enbrel 50 mg weekly Labs before next visit in 4 months (2) High risk medication use: Code(s): Z79.899 - Other terminal operations supervisor (current) drug therapy Plan: Advised patient to hold Enbrel for any signs of infection Plan I spent 26 minutes reviewing patient's chart, evaluating patient, ordering diagnostic workup, counseling patient and documenting in the chart Orders: Orders Comprehensive Met. Panel 4 Months M06.9 - Rheumatoid arthritis, unspecified C Reactive Protein 4 Months M06.9 - Rheumatoid arthritis, unspecified Complete Blood Count Auto Diff 4 Months M06.9 - Rheumatoid arthritis, unspecified Erythrocyte Sedimentation Rate 4 Months M06.9 - Rheumatoid arthritis, unspecified Coding Level of Care Code Est Pt Level 4 (68300) Diagnoses Rheumatoid arthritis involving multiple sites with positive rheumatoid factor M05.79 Rheumatoid arthritis location: multiple sites Rheumatoid factor presence: with rheumatoid factor High risk medication use Z79.899
[2023-11-03 14:57] VITALS: BP 118/72; PULSE 90; O2SAT 91; BMI 44.5
== END 2023-11-03 15:26 | disposition home or self-care (01) ==
PROVIDERS: PCP Nurse Practitioner Primary Care; Visit Provider Student in an Organized Health Care Education/Training Program
DX: M05.79 Rheumatoid arthritis with rheumatoid factor of multiple sites without organ or systems involvement (principal); Z79.899 Other long term (current) drug therapy
CPT/HCPCS: 99214

== ENCOUNTER → 2023-11-03 14:53 | Outpatient (BNVA) | payer MEDICAID, SELFPAY | PROVIDERS: PCP Nurse Practitioner Primary Care; Visit Provider Student in an Organized Health Care Education/Training Program | DX: M05.79 Rheumatoid arthritis with rheumatoid factor of multiple sites without organ or systems involvement (principal); Z79.899 Other long term (current) drug therapy | CPT/HCPCS: 99212 ==

== ENCOUNTER 2023-11-14 18:39 | Outpatient (REF) | payer MEDICAID, SELFPAY ==
[2023-11-18 11:13] LABS: HPV 16 RNA NOT DETECTED (NOT DETECTED); HPV mRNA E6/E7 rflx Detected (Not Detected)
== END 2023-11-14 18:40 | disposition home or self-care (01) ==
LOC: HO.HHCLNP 18:39
PROVIDERS: Visit Provider Advanced Practice Midwife
DX: Z12.4 Encounter for screening for malignant neoplasm of cervix (principal); Z11.51 Encounter for screening for human papillomavirus (HPV)
CPT/HCPCS: 87624; 87625; 88142

== ENCOUNTER 2023-12-21 12:57 | Outpatient (REF) | payer MEDICAID, SELFPAY ==
--- NOTE | ~2023-12-21 | MM_ITS ---
EXAMINATION: MM SCREENING DIGITAL BREAST TOMOSYNTHESIS, BILATERAL CLINICAL INFORMATION: Screening. Asymptomatic. COMPARISON: Mammography: This study is compared with prior exams dating back to 2016. TECHNIQUE: Digital breast tomosynthesis is performed in both the craniocaudal and mediolateral oblique views along with computer-aided detection (CAD). Synthesized 2D images are generated from the tomosynthesis. FINDINGS: The breasts are almost entirely fatty (ACR BI-RADS breast composition Category a). There are no significant masses, abnormal calcifications, or other abnormalities. MM/MM tomosynthesis screening BI IMPRESSION: No mammographic evidence of malignancy. ASSESSMENT: BI-RADS BI-RADS 1 - Negative RECOMMENDATION: Routine annual mammography screening. 1 year F/U This examination should not preclude the clinical evaluation of a suspicious palpable abnormality. This patient's information was entered into a reminder system with a target due date for their next mammogram.
== END 2023-12-21 12:58 | disposition home or self-care (01) ==
LOC: HO.MAMMO 12:57
PROVIDERS: PCP Advanced Practice Midwife; Visit Provider Advanced Practice Midwife
DX: Z12.31 Encounter for screening mammogram for malignant neoplasm of breast (principal)
CPT/HCPCS: 77063; 77067

== ENCOUNTER → 2023-12-21 14:15 | Outpatient (BNV) | payer MEDICAID, SELFPAY | PROVIDERS: PCP Advanced Practice Midwife; Visit Provider Radiology Diagnostic Radiology | DX: Z12.31 Encounter for screening mammogram for malignant neoplasm of breast (principal) | CPT/HCPCS: 77063; 77067 ==

== ENCOUNTER 2024-01-04 13:23 | Outpatient (AMB) | payer MEDICAID, SELFPAY ==
[2024-01-04 14:09] VITALS: BP 92/50; PULSE 84; O2SAT 95; BMI 42.7
--- NOTE | 2024-01-04 14:09 | A.OFFVIS_ITS ---
Vital Signs 01/04/24 14:09 Height 5 ft 6 in Weight 264 lb 8.875 oz BMI 42.7 BP 92/50 L Blood Pressure Location Lt brachial Position Sitting Pulse 84 Pulse Source Pulse Oximeter Pulse Oximetry (%) 95 Oxygen Delivery Method Room Air Intake Visit Reasons: copd Intake Note: pt is her for follow up of copd Inspector And Tester Required: Yes Allergies lisinopril [LISINOPRIL] Allergy (Unknown, Verified 01/04/24 14:25) UNKNOWN Medication List - Last Reconciled 01/04/24 by Arpit Tripp MD acetaminophen 500 mg PO QID PRN albuterol sulfate 1 amp inhalation Q4H PRN albuterol sulfate 90 mcg/actuation (ProAir HFA) 2 puffs inhalation Q4-6H PRN amlodipine 10 mg PO QPM aspirin 81 mg PO BEDTIME atorvastatin 40 mg PO BEDTIME cholecalciferol (vitamin D3) 50 mcg PO QPM cyclobenzaprine 10 mg PO TID PRN dexamethasone 6 mg PO DAILY docusate sodium (Colace) 200 mg (2 x 100 mg) PO BEDTIME dulaglutide (Trulicity) 1.5 mg subcut SA Enbrel SureClick (etanercept) 50 mg subcut QWEEK NS fluoxetine 40 mg PO QAM fluticasone propion-salmeterol 250-50 mcg/dose (Advair Diskus) 1 ea inhalation BID fluticasone propionate 50 mcg/actuation 2 sprays intranasal QAM PRN gabapentin 800 mg PO TID insulin degludec (Tresiba FlexTouch U-100 insulin) 24 units subcut BEDTIME lidocaine 5% 1 patch topical DAILY PRN loratadine 10 mg PO DAILY losartan 100 mg PO QAM metformin 1,000 mg PO BID naltrexone 25 mg PO DAILY naproxen 500 mg PO BID omeprazole 20 mg PO QAM perphenazine 8 mg PO DAILY polyethylene glycol 3350 (Miralax) 17 grams PO DAILY primidone 25 mg (1/2 x 50 mg) PO BEDTIME 30 days trazodone 100 mg PO BEDTIME umeclidinium 62.5 mcg/actuation (Incruse Ellipta) 1 inh inhalation DAILY zolpidem 10 mg PO BEDTIME PRN Do you need a note to return to daycare/school/sports/work: No HPI HPI copd: Details: THIS 58 YEARS OLD FEMALE WITH MORBID OBESITY AND DIAGNOSIS OF OBSTRUCTIVE SLEEP APNEA/NOCTURNAL HYPOXEMIA. COULD NOT USE THE CPAP BUT SHE DOES USE O2 2 L/MINUTE AT NIGHT. LATELY SHE HAS NOT BEEN USING OXYGEN REGULARLY, SHE CLAIMS THAT SHE IS STILL SLEEPING OKAY. SHE IS A CASE OF CHRONIC OBSTRUCTIVE PULMONARY DISEASE WHICH IS BEING CONTROLLED WITH COMBINATION OF ADVAIR DISKUS AND INCRUSE ELLIPTA. SHE ALSO USES ALBUTEROL INHALER OR ALBUTEROL IN THE NEBULIZER 2 OR 3 TIMES A DAY. UNFORTUNATELY CONTINUES TO SMOKE HALF PACK OF CIGARETTES A DAY. SHE CLAIMS THAT OVERALL SHE IS DOING WELL. EXCEPT FOR INTERMITTENT COUGH. [facility] Medical History (Updated 01/04/24 @ 14:37 by Arpit Tripp MD) COPD (chronic obstructive pulmonary disease) SOFIYA (obstructive sleep apnea) Nocturnal hypoxemia Hypertension Hyperlipidemia Diabetes Rheumatoid arthritis Nocturnal hypoxemia Morbid obesity Nicotine dependence, cigarettes, uncomplicated Allergic rhinitis Depression Cocaine abuse Opioid abuse Drug overdoses Surgical History History of tubal ligation History of colonoscopy History of hernia surgery Family History Father Dementia Mother Diabetes HTN (hypertension) Social History Household Members: Family Household Members Other:: daughter and two grandsons Housing: Apartment Do you presently have visiting nurse or other home services: No Patient Tobacco Use Status: Current everyday Tobacco user Tobacco use type: Cigarette Cigarettes Per Day: 10 Second Hand Smoke Exposure: Yes Substance Use Type: Heroin and Marijuana service: No Sexual orientation: Straight/Heterosexual Review of Systems Const All systems reviewed & are unremarkable except as noted in HPI and below Eyes Reports no additional complaints ENT Reports nasal congestion (Mild at night) Card Denies chest pain, Denies leg edema, Denies lightheadedness and Denies orthopnea Resp Reports as per HPI GI Denies hematochezia, Denies change in stool character and Denies heartburn Reports no additional complaints Skin/Breast Reports system reviewed and no additional complaints, except as documented Neuro Reports no additional complaints Psych Reports no additional complaints Endo Reports no additional complaints Nawaf/Lymph Reports easy bruising and Reports other (anemia, mild ) Physical Exam Vital Signs: Last Vital Signs Pulse 84 01/04/24 14:09 BP 92/50 L 01/04/24 14:09 Pulse Ox 95 01/04/24 14:09 Oxygen Delivery Method Room Air 01/04/24 14:09 BMI result Body Mass Index 42.7 Const General: comfortable, no acute distress, alert and awake Orientation/consciousness: patient oriented x3 HEENT Head: Yes normal to inspection General nose exam: No nasal polyps present and No nasal discharge present Face and sinus: Yes sinuses nontender Mouth: oropharynx normal Throat: Yes posterior oropharynx normal Eyes General: appearance normal, both eyes and all related structures Neck Neck: Yes normal visual inspection, Yes no lymphadenopathy, Yes trachea midline and Yes no JVD Thyroid: Thyroid normal Chest Chest palpation & inspection: normal inspection of the chest, normal palpation of entire chest wall and no tenderness Resp Other: Percussion note resonant, breath sounds are slightly distant, She has a few scattered wheezes on both sides. Cardio Palpation: normal PMI Rate: regular rate Rhythm: regular rhythm Heart sounds: no gallops and no murmurs GI Palpation (GI): Soft to palpation, nontender, No hepatosplenomegaly present, no masses and Other GI palpation findings present (Abdomen is obese and slightly protuberant ) Auscultation: normal bowel sounds Back/Spine/Pelvis Thoracic/Lumbar Spine: thoracic and lumbar spine normal to inspection and thoraco-lumbar ROM limited Skin General skin exam: no rashes or lesions noted Neuro Other: Resting tremors of the right upper extremity General: patient oriented x3 and no focal motor deficits Cranial nerves: Yes CN's II-XII intact bilaterally Extrem General: Yes normal to inspection, Yes no clubbing, cyanosis or edema and Yes no calf tenderness Psych Appearance: grossly normal and well kempt Speech and movement: Normal speech and movement present Assessment & Plan Assessment & Plan (1) SOFIYA (obstructive sleep apnea): Comment: Known case of obstructive sleep apnea on due to morbid obesity. .Also has nocturnal hypoxemia She was not able to use CPAP. She has been on O2 2 L/minute during the nighttime Code(s): G47.33 - Obstructive sleep apnea (adult) (pediatric) Category: Medical Plan: Advised to continue using O2 2 L/minute every night at least for 6 hours per night (2) Nocturnal hypoxemia: Comment: PATIENT IS DOCUMENTED CASE OF NOCTURNAL HYPOXEMIA. SHE SHOULD USE O2 2 L/MINUTE. SHE DOES HAVE STATIONARY CONCENTRATOR. BUT DUE TO NON USAGE SHE IS NOT GETTING PERIODIC SERVICE FOR THE CONCENTRATOR. Code(s): G47.34 - Idiopathic sleep related nonobstructive alveolar hypoventilation Category: Medical Plan: I stressed and advised her to use O2 2 L/minute every night (3) Allergic rhinitis: Comment: ALLERGIC RHINITIS, WELL CONTROLLED WITH THE USE OF FLONASE 2 SPRAY EACH NOSTRIL DAILY AND LORATADINE 10 MG ONCE A DAY P.R.N.. Code(s): J30.9 - Allergic rhinitis, unspecified Category: Medical Plan: Advise that she she can use Flonase 2 spray each nostril once a day. Also use loratadine 10 mg once a day p.r.n.. (4) COPD (chronic obstructive pulmonary disease): Comment: PATIENT DOES HAVE RESTRICTIVE PULMONARY DISORDER WELL CHRONIC OBSTRUCTIVE PULMONARY DISORDER. THAT REMAINS WELL CONTROLLED WITH HER CURRENT MEDS. Code(s): J44.9 - Chronic obstructive pulmonary disease, unspecified Category: Medical Qualifiers: COPD type: COPD with acute exacerbation Qualified Code(s): J44.1 - Chronic obstructive pulmonary disease with (acute) exacerbation Plan: [place] : ADVAIR 250-50 1 INHALATION B.I.D. INCRUSE ELLIPTA 1 INHALATION DAILY. PROAIR 2 PUFFS Q 4-6 HOURS P.R.N. Coding Level of Care Code Est Pt Level 4 (02613) Diagnoses SOFIYA (obstructive sleep apnea) G47.33 Nocturnal hypoxemia G47.34 Allergic rhinitis J30.9 COPD (chronic obstructive pulmonary disease) J44.1 COPD type: COPD with acute exacerbation
== END 2024-01-04 14:25 | disposition home or self-care (01) ==
PROVIDERS: PCP Nurse Practitioner Primary Care; Visit Provider Internal Medicine
DX: G47.33 Obstructive sleep apnea (adult) (pediatric) (principal); G47.34 Idiopathic sleep related nonobstructive alveolar hypoventilation; J30.9 Allergic rhinitis, unspecified; J44.1 Chronic obstructive pulmonary disease with (acute) exacerbation
CPT/HCPCS: 99214

== ENCOUNTER → 2024-01-04 13:23 | Outpatient (BNVA) | payer MEDICAID, SELFPAY | PROVIDERS: PCP Nurse Practitioner Primary Care; Visit Provider Internal Medicine | DX: J44.1 Chronic obstructive pulmonary disease with (acute) exacerbation (principal); J30.9 Allergic rhinitis, unspecified; G47.33 Obstructive sleep apnea (adult) (pediatric); G47.34 Idiopathic sleep related nonobstructive alveolar hypoventilation | CPT/HCPCS: 99212 ==

== ENCOUNTER 2024-03-06 13:50 | Outpatient (AMB) | payer MEDICAID, SELFPAY ==
--- NOTE | 2024-03-06 13:53 | A.OFFVIS_ITS ---
Vital Signs 03/06/24 14:00 Height 5 ft 6 in Weight 269 lb 6.478 oz BMI 43.5 BP 100/62 Blood Pressure Location Lt brachial Position Sitting Pulse 73 Pulse Source Pulse Oximeter Pulse Oximetry (%) 96 Oxygen Delivery Method Room Air Intake Visit Reasons: RA/lm Intake Note: Patient presents for RA. Ground Source Heat Pump Technician Required: Yes Ground Source Heat Pump Technician Services: Ground Source Heat Pump Technician Present Ground Source Heat Pump Technician Name: Augie [id number] Allergies lisinopril [LISINOPRIL] Allergy (Unknown, Verified 03/06/24 13:58) UNKNOWN Medication List - Last Reconciled 03/06/24 by Per Mancilla MD acetaminophen 500 mg PO QID PRN albuterol sulfate 1 amp inhalation Q4H PRN albuterol sulfate 90 mcg/actuation (ProAir HFA) 2 puffs inhalation Q4-6H PRN amlodipine 10 mg PO QPM aspirin 81 mg PO BEDTIME atorvastatin 40 mg PO BEDTIME cholecalciferol (vitamin D3) 50 mcg PO QPM cyclobenzaprine 10 mg PO TID PRN dexamethasone 6 mg PO DAILY docusate sodium (Colace) 200 mg (2 x 100 mg) PO BEDTIME dulaglutide (Trulicity) 1.5 mg subcut SA Enbrel SureClick (etanercept) 50 mg subcut QWEEK NS ferrous sulfate 325 mg PO Q OTHER DAY fluoxetine 40 mg PO QAM fluticasone propion-salmeterol 250-50 mcg/dose (Advair Diskus) 1 ea inhalation BID fluticasone propionate 50 mcg/actuation 2 sprays intranasal QAM PRN gabapentin 800 mg PO TID insulin degludec (Tresiba FlexTouch U-100 insulin) 24 units subcut BEDTIME lidocaine 5% 1 patch topical DAILY PRN loratadine 10 mg PO DAILY losartan 100 mg PO QAM metformin 1,000 mg PO BID naltrexone 25 mg PO DAILY naproxen 500 mg PO BID omeprazole 20 mg PO QAM perphenazine 8 mg PO DAILY polyethylene glycol 3350 (Miralax) 17 grams PO DAILY primidone 25 mg (1/2 x 50 mg) PO BEDTIME 30 days trazodone 100 mg PO BEDTIME umeclidinium 62.5 mcg/actuation (Incruse Ellipta) 1 inh inhalation DAILY zolpidem 10 mg PO BEDTIME PRN HPI Comments Details: 58-year-old female with seropositive RA returns for follow-up. On Enbrel 50 mg weekly. Denies any side effects related to Enbrel. There are no recent infections. Has no complaints today Initial history: This is a 56-year-old female with extensive past medical history who presents for evaluation of diffuse pain. Patient states she has had diffuse pain almost all her life. She states that she feels that her knees get out of with her socket sometimes. Has diffuse pain especially of her back. She also has pain in both hands, difficulty gripping stuff. Pain lasts almost all day. She takes multiple medicines for pain and does not know which medications help. She is unaware of any family history of autoimmune disease. [facility] Medical History COPD (chronic obstructive pulmonary disease) SOFIYA (obstructive sleep apnea) Nocturnal hypoxemia Hypertension Hyperlipidemia Diabetes Rheumatoid arthritis Nocturnal hypoxemia Morbid obesity Nicotine dependence, cigarettes, uncomplicated Allergic rhinitis Depression Cocaine abuse Opioid abuse Drug overdoses Surgical History History of tubal ligation History of colonoscopy History of hernia surgery Family History Father Dementia Mother Diabetes HTN (hypertension) Social History Household Members: Family Household Members Other:: daughter and two grandsons Housing: Apartment Do you presently have visiting nurse or other home services: No Patient Tobacco Use Status: Current everyday Tobacco user Tobacco use type: Cigarette Cigarettes Per Day: 10 Second Hand Smoke Exposure: Yes Substance Use Type: Heroin and Marijuana service: No Sexual orientation: Straight/Heterosexual Review of Systems Resp Denies cough Musc Denies arthralgias and Denies joint swelling Physical Exam Vital Signs: Last Vital Signs Pulse 73 03/06/24 14:00 BP 100/62 03/06/24 14:00 Pulse Ox 96 03/06/24 14:00 Oxygen Delivery Method Room Air 03/06/24 14:00 BMI result Body Mass Index 43.5 Const General: cooperative and healthy appearing Nutritional Appearance: obese morbidly obese Orientation/consciousness: patient oriented x3 Limitations: no limitations HEENT Head: Yes normocephalic and Yes atraumatic Resp Effort & Inspection: normal respiratory effort and able to speak in complete sentences Auscultation: wheezes Neuro General: patient oriented x3 Extrem Other: No swollen or tender joints today. Mildly limited bilateral shoulder abduction due to pain Assessment & Plan Assessment & Plan (1) Rheumatoid arthritis: Comment: ++RF+++CCP dx 04/2023 Enbrel 04/2023 effective Code(s): M06.9 - Rheumatoid arthritis, unspecified Category: Medical Qualifiers: Rheumatoid arthritis location: multiple sites Rheumatoid factor presence: with rheumatoid factor Qualified Code(s): M05.79 - Rheumatoid arthritis with rheumatoid factor of multiple sites without organ or systems involvement Plan: This is a 58-year-old female with seropositive RA who presents for follow-up. Doing very well on Enbrel 50 mg weekly. There is no active synovitis on exam Continue Enbrel 50 mg weekly Labs before next visit in 4 months (2) High risk medication use: Code(s): Z79.899 - Other mcfp (current) drug therapy Category: Medical Plan: Advised patient to hold Enbrel for any signs of infection Plan I spent 26 minutes reviewing patient's chart, evaluating patient, ordering diagnostic workup, counseling patient and documenting in the chart Orders: Orders Comprehensive Met. Panel 4 Months M05.79 - Rheumatoid arthritis with rheumatoid factor of multiple sites without organ or systems involvement C Reactive Protein 4 Months M05.79 - Rheumatoid arthritis with rheumatoid factor of multiple sites without organ or systems involvement Complete Blood Count Auto Diff 4 Months M05.79 - Rheumatoid arthritis with rheumatoid factor of multiple sites without organ or systems involvement Erythrocyte Sedimentation Rate 4 Months M05.79 - Rheumatoid arthritis with rheumatoid factor of multiple sites without organ or systems involvement Coding Level of Care Code Est Pt Level 4 (87685) Diagnoses Rheumatoid arthritis involving multiple sites with positive rheumatoid factor M0. Rheumatoid arthritis location: multiple sites Rheumatoid factor presence: with rheumatoid factor High risk medication use Z79.899
[2024-03-06 14:00] VITALS: BP 100/62; PULSE 73; O2SAT 96; BMI 43.5
== END 2024-03-06 14:34 | disposition home or self-care (01) ==
LOC: HO.RHE 13:50
PROVIDERS: PCP Nurse Practitioner Primary Care; Visit Provider Student in an Organized Health Care Education/Training Program
DX: M05.79 Rheumatoid arthritis with rheumatoid factor of multiple sites without organ or systems involvement (principal); Z79.899 Other long term (current) drug therapy
CPT/HCPCS: 99214

== ENCOUNTER → 2024-03-06 13:50 | Outpatient (BNVA) | payer MEDICAID, SELFPAY | PROVIDERS: PCP Nurse Practitioner Primary Care; Visit Provider Student in an Organized Health Care Education/Training Program | DX: M05.79 Rheumatoid arthritis with rheumatoid factor of multiple sites without organ or systems involvement (principal); Z79.899 Other long term (current) drug therapy | CPT/HCPCS: 99212 ==

== ENCOUNTER 2024-04-02 15:20 | Outpatient (AMB) | payer MEDICAID, SELFPAY ==
--- OUTSIDE RECORDS SUMMARY | 2024-04-02 15:22 | XMS_ITS | Patient Health Record ---
Author Organization [facility] Address [address] [place], [place] [id number] Care Team Providers Care Fullerette Name Role Phone Gus Jasso Unavailable [phone] REASON FOR REFERRAL No Information SOCIAL HISTORY Sex Assigned At : Social History Observation Description Sex Assigned At Unknown PLAN OF TREATMENT No Information Insurance Providers Payer Name Payer Address Payer Phone Subscriber Number Group Number Insured Name Patient Relationship to Insured Coverage Start Date Coverage End Date [place] [address] [place] [address] [phone] Efrem Linder Self - patient is the insured
[2024-04-02 15:45] VITALS: BP 122/74; BMI 43.4
--- NOTE | 2024-04-02 15:45 | A.OFFVIS_ITS ---
Vital Signs 04/02/24 15:45 Height 5 ft 6 in Weight 268 lb 15.423 oz BMI 43.4 BP 122/74 Intake Visit Reasons: + HPV/Referral/DO NOT RS Amphibian Crewmember Required: Yes Amphibian Crewmember Language: Transit Coach Operator Services: Amphibian Crewmember Present (in person) Amphibian Crewmember Name: Jany DEL TORO Information Interpreted: non-clinical & clinical Assembler Corncob Pipes: Assembler Corncob Pipes Present (Jany DEL TORO) Accompanied by: Self / Same As Patient Allergies lisinopril [LISINOPRIL] Allergy (Unknown, Verified 04/02/24 15:51) UNKNOWN Post menopausal: Yes HPI Comments Details: Referred for abnormal Pap smear showing ASC-U/HPV E6 E7 positive, HPV 16/18/45 negative [facility] Medical History COPD (chronic obstructive pulmonary disease) SOFIYA (obstructive sleep apnea) Nocturnal hypoxemia Hypertension Hyperlipidemia Diabetes Rheumatoid arthritis Nocturnal hypoxemia Morbid obesity Nicotine dependence, cigarettes, uncomplicated Allergic rhinitis Depression Cocaine abuse Opioid abuse Drug overdoses Surgical History History of tubal ligation History of colonoscopy History of hernia surgery Family History Father Dementia Mother Diabetes HTN (hypertension) Social History Household Members: Family Household Members Other:: daughter and two grandsons Housing: Apartment Do you presently have visiting nurse or other home services: No Patient Tobacco Use Status: Current everyday Tobacco user Tobacco use type: Cigarette Cigarettes Per Day: 10 Second Hand Smoke Exposure: Yes Substance Use Type: Heroin and Marijuana service: No Sexual orientation: Straight/Heterosexual Female Reproductive History Menstrual control method: permanent sterilization Review of Systems Const All systems reviewed & are unremarkable except as noted in HPI and below Reports as per HPI and Reports no additional complaints GI Reports no additional complaints Reports no additional complaints Physical Exam Vital Signs: Last Vital Signs BP 122/74 04/02/24 15:45 BMI result Body Mass Index 43.4 Assessment & Plan Assessment & Plan (1) Pap smear of cervix with ASCUS, cannot exclude HGSIL: Comment: HPV E6 E7 positive Code(s): R87.611 - Atypical squamous cells cannot exclude high grade squamous intraepithelial lesion on cytologic smear of cervix (ASC-H) Category: Medical Plan: Discussed with the patient the result of her abnormal pap, its significance, risk of progression, persistence, and regression. the false positive/negative rate of a Pap smear as a screening test in detecting cervical cancer and the indication for a diagnostic test -colposcopy, biopsy, endocervical curettage. Offered the patient colposcopy biopsy ECC today, the patient would like to schedule colposcopy for later date. Instructions given the patient to schedule colposcopy/biopsy/ECC ashlee. The patient verbalized understanding and agreed with the plan, all questions answered. Coding Level of Care Code New Pt Level 3 (78455) Diagnoses Pap smear of cervix with ASCUS, cannot exclude HGSIL R87.611
== END 2024-04-02 16:16 | disposition home or self-care (01) ==
LOC: HO.HWS 15:20
PROVIDERS: PCP Nurse Practitioner Primary Care; Visit Provider Obstetrics & Gynecology
DX: R87.611 Atypical squamous cells cannot exclude high grade squamous intraepithelial lesion on cytologic smear of cervix (ASC-H) (principal)
CPT/HCPCS: 99203

== ENCOUNTER → 2024-04-02 15:20 | Outpatient (BNVA) | payer MEDICAID, SELFPAY | PROVIDERS: PCP Nurse Practitioner Primary Care; Visit Provider Obstetrics & Gynecology | DX: R87.611 Atypical squamous cells cannot exclude high grade squamous intraepithelial lesion on cytologic smear of cervix (ASC-H) (principal) | CPT/HCPCS: 99202 ==

== ENCOUNTER 2024-05-17 14:38 | Outpatient (REF) | payer MEDICAID, SELFPAY | END 2024-05-17 14:39 | disposition home or self-care (01) | LOC: HO.LNP 14:38 | PROVIDERS: PCP Nurse Practitioner Primary Care; Visit Provider Obstetrics & Gynecology | DX: R87.610 Atypical squamous cells of undetermined significance on cytologic smear of cervix (ASC-US) (principal); N84.1 Polyp of cervix uteri | CPT/HCPCS: 57454; 88305 ==

== ENCOUNTER 2024-05-17 14:38 | Outpatient (AMB) | payer MEDICAID, SELFPAY ==
[2024-05-17 14:41] VITALS: BMI 43.4
--- NOTE | 2024-05-17 14:41 | MHC.OFFVIS ---
Vital Signs 05/17/24 14:41 Height 5 ft 6 in Weight 268 lb 15.423 oz BMI 43.4 Intake Visit Reasons: Colposcopy Television Service Engineer Required: Yes Television Service Engineer Language: Medication Care Manager Services: Television Service Engineer Present (in person) Television Service Engineer Name: Jany DEL TORO Information Interpreted: non-clinical & clinical Junior Account Manager: Junior Account Manager Present (Jany DEL TORO) Accompanied by: Self / Same As Patient Allergies lisinopril [LISINOPRIL] Allergy (Unknown, Verified 05/17/24 14:55) UNKNOWN Post menopausal: Yes HPI Comments Details: Presenting referred from [facility] for abnormal Pap smear done in 11/12 showing ASC-H HPV E6 /E7 positive [facility] Medical History COPD (chronic obstructive pulmonary disease) SOFIYA (obstructive sleep apnea) Nocturnal hypoxemia Hypertension Hyperlipidemia Diabetes Rheumatoid arthritis Nocturnal hypoxemia Morbid obesity Nicotine dependence, cigarettes, uncomplicated Allergic rhinitis Depression Cocaine abuse Opioid abuse Drug overdoses Surgical History History of tubal ligation History of colonoscopy History of hernia surgery Family History Father Dementia Mother Diabetes HTN (hypertension) Social History Household Members: Family Household Members Other:: daughter and two grandsons Housing: Apartment Do you presently have visiting nurse or other home services: No Patient Tobacco Use Status: Current everyday Tobacco user Tobacco use type: Cigarette Cigarettes Per Day: 10 Second Hand Smoke Exposure: Yes Substance Use Type: Heroin and Marijuana service: No Sexual orientation: Straight/Heterosexual Review of Systems Const All systems reviewed & are unremarkable except as noted in HPI and below Physical Exam Vital Signs: BMI result Body Mass Index 43.4 General: Yes no CVA tenderness External Female Exam: normal external appearance and normal appearance of the urethra Speculum Exam - Vagina: normal appearance of the vagina, normal palpation, no lesions and no masses Speculum Exam - Cervix: normal appearance of the cervix, normal palpation, no lesions, no masses, nontender and Other cervical findings present (Endocervical polyp) Bimanual exam- vagina & uterus: normal bimanual exam, normal palpation, uterine size normal, normal palpation, uterine shape normal, No Cervical tenderness present and non-tender Bimanual Exam- Adnexa, other: normal adnexae Back/Spine/Pelvis Back: no CVA tenderness Office Procedures Colposcopy Colposcopy: Pre-Procedure Counseling: Before beginning the procedure, I conducted comprehensive counseling with the patient. We thoroughly discussed the procedure itself, including its details, alternatives, and all associated risks. This included but not limited to the following complications such as bleeding, infection, and injury to the vagina, bladder, and vessels, as well as the potential need for transfusion with all its associated risks. Subsequently, the patient sign the consent. Pap smear result: ASC-H/HPV E6 E7 positive. Procedure: During the procedure, the following steps were performed: A speculum was inserted, and acetic acid was applied. Colposcopy was conducted, allowing visualization of the transformation zone. Acetowhite lesions were identified at the 9+11+12+1o'clock position. Cervical biopsies were obtained from the 9+11+12+1 o'clock position, followed by an endocervical curettage (ECC). Vaginoscopy of the upper vagina revealed no evidence of aceto-white lesions. Hemostasis was achieved using Monsel solution, and the patient tolerated the procedure well. Post-Procedure Instructions: The patient was advised to promptly contact the office or the after hours answering service or go to the emergency room if experiencing a temperature exceeding 100.4?F, abdominal pain, nausea/vomiting, or bleeding. Additionally, the patient was instructed to abstain from vaginal intercourse and bathtub use. The patient confirmed understanding of these instructions. Discharge Instructions: The patient was instructed to schedule a follow-up appointment in 2 weeks for further evaluation and management. Please note that this note was generated using a voice recognition program, and errors may have occurred during director of direct marketing. [id number] of cervix including upper vagina with biopsy and ECC Procedure code (CPT) selection complete [facility] Biopsy Before the procedure was started, discussed with the patient the procedure technique, alternatives & all the risks associated with the procedure including but not limited to: bleeding , infection, uterine perforation, injury to bladder, vessels, bowels, possible need for transfusion with all its risks, and others. All questions were answered, the patient verbalized understanding and signed the consent. Urine test done in the office was negative Using a long Nunu Clamp the endocervical polyp was grasped and twisted around till it came off, hemostasis was secured using pressure. The patient tolerated the procedure well. Instructions were given to the patient to call if bleeding, temp>100.4 occur. The patient verbalized understanding and agreed with the plan. This note was generated with a voice recognition program. Some errors may have been overlooked during the review of this note. Sometimes these errors may affect the content or meaning of a given sentence. Procedure code (CPT) selection complete Assessment & Plan Assessment & Plan (1) Pap smear with atypical squamous cells, cannot exclude high grade squamous intraepithelial lesion (ASC-H): Comment: HPV E6/E7 positive Code(s): R87.610 - Atypical squamous cells of undetermined significance on cytologic smear of cervix (ASC-US) Category: Medical Plan: Discussed with the patient the result of her abnormal pap, its significance, risk of progression, persistence, and regression. the false positive/negative rate of a Pap smear as a screening test in detecting cervical cancer and the indication for a diagnostic test -colposcopy, biopsy, endocervical curettage. Colpo/biopsy/ECC done, see procedure note. The patient verbalized understanding and agreed with the plan, all questions answered. (2) Endocervical polyp: Code(s): N84.1 - Polyp of cervix uteri Category: Medical Plan: Discussed with the patient the finding on pelvic exam showing endocervical polyp, polypectomy done, see procedure note Orders: Orders AMB Colposcopy Today R87.610 - Atypical squamous cells of undetermined significance on cytologic smear of cervix (ASC-US) AMB [facility]CHANT Biopsy Today N84.1 - Polyp of cervix uteri Coding Level of Care Code Procedure Only Diagnoses Pap smear with atypical squamous cells, cannot exclude high grade squamous intraepithelial lesion (ASC-H) R87.610 Endocervical polyp N84.1 CPT Codes Colposcopy - CPT: 68676-[id number] of cervix including upper vagina with biopsy and ECC ([id number])
== END 2024-05-17 15:28 | disposition home or self-care (01) ==
LOC: HO.HWS 14:38
PROVIDERS: PCP Nurse Practitioner Primary Care; Visit Provider Obstetrics & Gynecology
DX: R87.610 Atypical squamous cells of undetermined significance on cytologic smear of cervix (ASC-US) (principal); N84.1 Polyp of cervix uteri
CPT/HCPCS: 57454

== ENCOUNTER 2024-05-17 15:37 | Outpatient (REF) | payer MEDICAID, SELFPAY ==
[2024-05-17 15:47] LABS: MANUAL DIFF FLAG NO
[2024-05-17 18:14] LABS: Basophils Absolute Auto 0.1 X10*3/uL (0.0-0.2); Basophils Percent Auto 0.7 % (0-2); Eosinophils Absolute Auto 0.2 X10*3/uL (0.0-0.4); Eosinophils Percent Auto 2.6 % (0-4); Hematocrit 36.6 % (37.0-47.0); Hemoglobin 11.4 g/dl (12.0-16.0); Imm Gran Abs Auto 0.03 X10*3/uL (0.00-0.03); Imm Gran Pct Auto 0.4 % (0.0-0.4); Lymphocytes Absolute Auto 2.3 X10*3/uL (1.2-4.9); Lymphocytes Percent Auto 30.9 % (20-40); Mean Corpuscular HGB Conc 31.1 g/dl (31.0-35.0); Mean Corpuscular Hemoglobin 21.9 pg (27.0-33.0); Mean Corpuscular Volume 70.4 fL (80.0-98.0); Mean Platelet Volume 9.9 fL (9.4-12.3); Monocytes Absolute Auto 0.7 X10*3/uL (0.1-1.2); Monocytes Percent Auto 9.6 % (2-11); Neutrophils Absolute Auto 4.1 x10*3/uL (2.0-8.3); Neutrophils Percent Auto 55.8 % (45-73); Platelet Count 324 X10*3/uL (160-400); Red Cell Distribution Width 20.1 % (11.0-16.0); White Blood Count 7.3 X10*3/uL (4.8-10.8)
[2024-05-17 18:34] LABS: Alanine Aminotransferase 23 U/L (0-31); Albumin Level 4.4 g/dL (3.5-5.0); Alkaline Phosphatase 67 U/L (39-117); Anion Gap 14 (12-20); Aspartate Amino Transferase 27 U/L (5-31); Bilirubin Total 0.4 mg/dL (0.0-1.0); Blood Urea Nitrogen 8 mg/dL (9-16); Calcium 9.9 mg/dL (8.4-10.2); Carbon Dioxide 27 mmol/L (22-29); Chloride 104 mmol/L (96-108); Estimated Glomerular Filt Rate > 60; Glucose Random 91 mg/dL (60-115); Potassium 3.7 mmol/L (3.3-5.1); Sodium 141 mmol/L (135-145); Total Protein 7.9 g/dL (6.5-8.0)
[2024-05-17 19:21] LABS: Erythrocyte Sedimentation Rate 14 MM/HR (0-20)
== END 2024-05-17 15:38 | disposition home or self-care (01) ==
LOC: HO.LAB 15:37
PROVIDERS: Visit Provider Student in an Organized Health Care Education/Training Program
DX: M06.9 Rheumatoid arthritis, unspecified (principal)
CPT/HCPCS: 36415; 80053; 85025; 85652; 86140

== ENCOUNTER 2024-06-20 14:01 | Outpatient (AMB) | payer MEDICAID, SELFPAY ==
--- NOTE | 2024-06-20 14:15 | MHC.OFFVIS ---
Vital Signs 06/20/24 14:16 Height 5 ft 6 in Weight 266 lb BMI 42.9 BP 114/62 Blood Pressure Location Lt brachial Position Sitting Pulse 88 Pulse Source Pulse Oximeter Pulse Oximetry (%) 92 Oxygen Delivery Method Room Air Intake Visit Reasons: COPD Intake Note: pt is here for follow up and states she is feeling is feeling good, not using oxygen at night. Roll Or Tape Edge Machine Operator Required: Yes Roll Or Tape Edge Machine Operator Services: Roll Or Tape Edge Machine Operator Present Roll Or Tape Edge Machine Operator Name: [id number] Allergies lisinopril [LISINOPRIL] Allergy (Unknown, Verified 06/20/24 14:27) UNKNOWN Medication List - Last Reconciled 06/20/24 by Arpit Tripp MD acetaminophen 500 mg PO QID PRN albuterol sulfate 1 amp inhalation Q4H PRN albuterol sulfate 90 mcg/actuation (ProAir HFA) 2 puffs inhalation Q4-6H PRN amlodipine 10 mg PO QPM aspirin 81 mg PO BEDTIME atorvastatin 40 mg PO BEDTIME cholecalciferol (vitamin D3) 50 mcg PO QPM cyclobenzaprine 10 mg PO TID PRN dexamethasone 6 mg PO DAILY docusate sodium (Colace) 200 mg (2 x 100 mg) PO BEDTIME dulaglutide (Trulicity) 1.5 mg subcut SA Enbrel SureClick (etanercept) 50 mg subcut QWEEK NS ferrous sulfate 325 mg PO Q OTHER DAY fluoxetine 40 mg PO QAM fluticasone propion-salmeterol 250-50 mcg/dose (Advair Diskus) 1 ea inhalation BID fluticasone propionate 50 mcg/actuation 2 sprays intranasal QAM PRN gabapentin 800 mg PO TID insulin degludec (Tresiba FlexTouch U-100 insulin) 24 units subcut BEDTIME lidocaine 5% 1 patch topical DAILY PRN loratadine 10 mg PO DAILY losartan 100 mg PO QAM metformin 1,000 mg PO BID naltrexone 25 mg PO DAILY naproxen 500 mg PO BID omeprazole 20 mg PO QAM perphenazine 8 mg PO DAILY polyethylene glycol 3350 (Miralax) 17 grams PO DAILY primidone 25 mg (1/2 x 50 mg) PO BEDTIME 30 days trazodone 100 mg PO BEDTIME umeclidinium 62.5 mcg/actuation (Incruse Ellipta) 1 inh inhalation DAILY zolpidem 10 mg PO BEDTIME PRN Do you need a note to return to daycare/school/sports/work: No HPI HPI COPD: Details: 58 YEARS OLD FEMALE MORBIDLY OBESE, KNOWN CASE OF OBSTRUCTIVE SLEEP APNEA WITH NOCTURNAL HYPOXEMIA, WHO COULD NOT USE THE CPAP AND SHE WAS ON OXYGEN 2 L/MINUTE AT NIGHT. SINCE HER LAST VISIT SHE HAS STOPPED USING THE OXYGEN AT NIGHT AND USES IT ONLY P.R.N. IF SHE HAS INCREASED SHORTNESS OF BREATH. SHE CLAIMS THAT SHE IS SLEEPING OKAY WITHOUT ANY PROBLEM. SHE DENIES DAYTIME SLEEPINESS. SHE HAS SOME SHORTNESS OF BREATH ON EXERTION BUT MOSTLY WELL CONTROLLED WITH HER CURRENT MEDS. SHE USES ADVAIR 250-50 1 INHALATION B.I.D. AND INCRUSE ELLIPTA ONCE A DAY. SHE DOES HAVE NEBULIZER AND ALBUTEROL SOLUTION TO USE P.R.N. BUT SHE USES ALBUTEROL HFA ONCE OR TWICE A DAY, STILL SMOKING ABOUT 5 CIGARETTES A DAY. [facility] Medical History COPD (chronic obstructive pulmonary disease) SOFIYA (obstructive sleep apnea) Nocturnal hypoxemia Hypertension Hyperlipidemia Diabetes Rheumatoid arthritis Nocturnal hypoxemia Morbid obesity Nicotine dependence, cigarettes, uncomplicated Allergic rhinitis Depression Cocaine abuse Opioid abuse Drug overdoses Surgical History History of tubal ligation History of colonoscopy History of hernia surgery Family History Father Dementia Mother Diabetes HTN (hypertension) Social History Household Members: Family Household Members Other:: daughter and two grandsons Housing: Apartment Do you presently have visiting nurse or other home services: No Patient Tobacco Use Status: Current everyday Tobacco user Tobacco use type: Cigarette Cigarettes Per Day: 10 Second Hand Smoke Exposure: Yes Substance Use Type: Heroin and Marijuana service: No Sexual orientation: Straight/Heterosexual Review of Systems Const All systems reviewed & are unremarkable except as noted in HPI and below Eyes Reports no additional complaints ENT Reports nasal congestion (Mild at night) Card Denies chest pain, Denies leg edema, Denies lightheadedness and Denies orthopnea Resp Reports as per HPI GI Denies hematochezia, Denies change in stool character and Denies heartburn Reports no additional complaints Skin/Breast Reports system reviewed and no additional complaints, except as documented Neuro Reports no additional complaints Psych Reports no additional complaints Endo Reports no additional complaints Nawaf/Lymph Reports easy bruising and Reports other (anemia, mild ) Physical Exam Vital Signs: Last Vital Signs Pulse 88 06/20/24 14:16 BP 114/62 06/20/24 14:16 Pulse Ox 92 06/20/24 14:16 Oxygen Delivery Method Room Air 06/20/24 14:16 BMI result Body Mass Index 42.9 Const General: comfortable, no acute distress, alert and awake Orientation/consciousness: patient oriented x3 HEENT Head: Yes normal to inspection General nose exam: No nasal polyps present and No nasal discharge present Face and sinus: Yes sinuses nontender Mouth: oropharynx normal Throat: Yes posterior oropharynx normal Eyes General: appearance normal, both eyes and all related structures Neck Neck: Yes normal visual inspection, Yes no lymphadenopathy, Yes trachea midline and Yes no JVD Thyroid: Thyroid normal Chest Chest palpation & inspection: normal inspection of the chest, normal palpation of entire chest wall and no tenderness Resp Other: Percussion note resonant, breath sounds are slightly distant, She has a few scattered wheezes on both sides. Cardio Palpation: normal PMI Rate: regular rate Rhythm: regular rhythm Heart sounds: no gallops and no murmurs GI Palpation (GI): Soft to palpation, nontender, No hepatosplenomegaly present, no masses and Other GI palpation findings present (Abdomen is obese and slightly protuberant ) Auscultation: normal bowel sounds Back/Spine/Pelvis Thoracic/Lumbar Spine: thoracic and lumbar spine normal to inspection and thoraco-lumbar ROM limited Skin General skin exam: no rashes or lesions noted Neuro Other: Resting tremors of the right upper extremity General: patient oriented x3 and no focal motor deficits Cranial nerves: Yes CN's II-XII intact bilaterally Extrem General: Yes normal to inspection, Yes no clubbing, cyanosis or edema and Yes no calf tenderness Psych Appearance: grossly normal and well kempt Speech and movement: Normal speech and movement present Assessment & Plan Assessment & Plan (1) COPD (chronic obstructive pulmonary disease): Comment: PATIENT DOES HAVE RESTRICTIVE PULMONARY DISORDER WELL CHRONIC OBSTRUCTIVE PULMONARY DISORDER. THAT REMAINS WELL CONTROLLED WITH HER CURRENT MEDS. Code(s): J44.9 - Chronic obstructive pulmonary disease, unspecified Category: Medical Qualifiers: COPD type: COPD with acute exacerbation Qualified Code(s): J44.1 - Chronic obstructive pulmonary disease with (acute) exacerbation Plan: ADVAIR 250-50 1 INHALATION B.I.D. INCRUSE ELLIPTA 1 INHALATION DAILY. ALBUTEROL 2 PUFFS Q.4 HOURS P.R.N./ ALTERNATIVELY MAY USE ALBUTEROL SOLUTION IN THE NEBULIZER Q 4-6 HOURS P.R.N.. (2) Morbid obesity: Comment: THIS PATIENT IS MORBIDLY OBESE AND IS NOT ABLE TO LOSE ANY WEIGHT. Code(s): E66.01 - Morbid (severe) obesity due to excess calories Category: Medical Plan: DISCUSSED ABOUT THE WEIGHT ISSUE BUT SHE DOES NOT UNDERSTAND SHE IS HAPPY WITH HER CURRENT WEIGHT AND IS NOT GOING MAKE ANY CHANGES IN HER DIET. (3) Nicotine dependence, cigarettes, uncomplicated: Comment: CONTINUES TO SMOKE 5-6 CIGARETTES A DAY. Code(s): F17.210 - Nicotine dependence, cigarettes, uncomplicated Category: Medical Plan: EDUCATED HER MUCH POSSIBLE TO QUIT SMOKING OR AT LEAST CUT DOWN THE NUMBER OF CIGARETTES. (4) Allergic rhinitis: Comment: ALLERGIC RHINITIS, WELL CONTROLLED WITH THE USE OF FLONASE 2 SPRAY EACH NOSTRIL DAILY AND LORATADINE 10 MG ONCE A DAY P.R.N.. Code(s): J30.9 - Allergic rhinitis, unspecified Category: Medical Plan: OK TO CONTINUE USING FLONASE 2 SPRAY IN EACH NOSTRIL DAILY. AN USE LORATADINE 10 MG ONCE A DAY ONLY P.R.N. FOR RUNNY NOSE OR SNEEZING. (5) Nocturnal hypoxemia: Comment: PATIENT IS DOCUMENTED CASE OF NOCTURNAL HYPOXEMIA. SHE SHOULD USE O2 2 L/MINUTE. SHE DOES HAVE STATIONARY CONCENTRATOR. Code(s): G47.34 - Idiopathic sleep related nonobstructive alveolar hypoventilation Category: Medical Plan: She is not using O2. I told her that she should go back to oxygen if he has any distress at night . (6) SOFIYA (obstructive sleep apnea): Comment: Known case of obstructive sleep apnea on due to morbid obesity. .Also has nocturnal hypoxemia She was not able to use CPAP. She has been on O2 2 L/minute during the nighttime. And now she has stopped using the oxygen also. Code(s): G47.33 - Obstructive sleep apnea (adult) (pediatric) Category: Medical Plan: Advise that she should go back to using O2 2 L/minute if there is any distress or difficulty in sleeping at night . Coding Level of Care Code Est Pt Level 4 (57457) Diagnoses COPD (chronic obstructive pulmonary disease) J44.1 COPD type: COPD with acute exacerbation Morbid obesity E66.01 Nicotine dependence, cigarettes, uncomplicated F17.210 Allergic rhinitis J30.9 Nocturnal hypoxemia G47.34 SOFIYA (obstructive sleep apnea) G47.33
[2024-06-20 14:16] VITALS: BP 114/62; PULSE 88; O2SAT 92; BMI 42.9
== END 2024-06-20 14:27 | disposition home or self-care (01) ==
LOC: HO.HPS 14:02
PROVIDERS: PCP Nurse Practitioner Primary Care; Visit Provider Internal Medicine
DX: J44.1 Chronic obstructive pulmonary disease with (acute) exacerbation (principal); E66.01 Morbid (severe) obesity due to excess calories; F17.210 Nicotine dependence, cigarettes, uncomplicated; J30.9 Allergic rhinitis, unspecified; G47.34 Idiopathic sleep related nonobstructive alveolar hypoventilation; G47.33 Obstructive sleep apnea (adult) (pediatric)
CPT/HCPCS: 99214

== ENCOUNTER → 2024-06-20 14:01 | Outpatient (BNVA) | payer MEDICAID, SELFPAY | PROVIDERS: PCP Nurse Practitioner Primary Care; Visit Provider Internal Medicine | DX: J44.1 Chronic obstructive pulmonary disease with (acute) exacerbation (principal); J30.9 Allergic rhinitis, unspecified; G47.33 Obstructive sleep apnea (adult) (pediatric); G47.34 Idiopathic sleep related nonobstructive alveolar hypoventilation; E66.01 Morbid (severe) obesity due to excess calories; F17.210 Nicotine dependence, cigarettes, uncomplicated; Z68.41 Body mass index [BMI] 40.0-44.9, adult | CPT/HCPCS: 99212 ==

== ENCOUNTER 2024-06-27 15:03 | Outpatient (AMB) | payer MEDICAID, SELFPAY ==
[2024-06-27 15:04] VITALS: BP 120/72; BMI 42.9
--- NOTE | 2024-06-27 15:04 | A.OFFVIS_ITS ---
Vital Signs 06/27/24 15:04 Height 5 ft 6 in Weight 266 lb BMI 42.9 BP 120/72 Blood Pressure Location Lt brachial Position Sitting Intake Visit Reasons: colpo results Software Integration Developer Required: Yes Software Integration Developer Language: Industrial Photographer Services: Software Integration Developer Present Software Integration Developer Name: Isabelle([id number]) Allergies lisinopril [LISINOPRIL] Allergy (Unknown, Verified 06/27/24 15:04) UNKNOWN HPI Comments Details: A. Cervical polyp, resection: Benign squamous epithelium and benign cystic endocervical glandular mucosa consistent with polyp; negative for dysplasia. B. Endocervix, curettage: Squamous and scant endocervical glandular epithelium; negative for dysplasia. C. Cervix, 1:00, biopsy: Squamous epithelium; negative for dysplasia; no endocervical glandular component present. D. Cervix, 9:00, biopsy: Squamous mucosa with focal inflammation and reactive changes; negative for dysplasia; no endocervical glandular component present. E. Cervix, 11:00, biopsy: Predominantly blood with rare endocervical glandular cells; insufficient for diagnosis. F. Cervix, 12:00, biopsy: Squamous mucosa; negative for dysplasia; no endocervical glandular component present. Comment: The atypical cells seen in the patient's previous Pap test ([id number]) are not seen in the current biopsy [facility] Medical History COPD (chronic obstructive pulmonary disease) SOFIYA (obstructive sleep apnea) Nocturnal hypoxemia Hypertension Hyperlipidemia Diabetes Rheumatoid arthritis Nocturnal hypoxemia Morbid obesity Nicotine dependence, cigarettes, uncomplicated Allergic rhinitis Depression Cocaine abuse Opioid abuse Drug overdoses Surgical History History of tubal ligation History of colonoscopy History of hernia surgery Family History Father Dementia Mother Diabetes HTN (hypertension) Social History Household Members: Family Household Members Other:: daughter and two grandsons Housing: Apartment Do you presently have visiting nurse or other home services: No Patient Tobacco Use Status: Current everyday Tobacco user Tobacco use type: Cigarette Cigarettes Per Day: 10 Second Hand Smoke Exposure: Yes Substance Use Type: Heroin and Marijuana service: No Sexual orientation: Straight/Heterosexual Physical Exam Vital Signs: BMI result Body Mass Index 42.9 Office Procedures Colposcopy Colposcopy: Pre-Procedure Counseling: Before beginning the procedure, I conducted comprehensive counseling with the patient. We thoroughly discussed the procedure itself, including its details, alternatives, and all associated risks. This included but not limited to the following complications such as bleeding, infection, and injury to the vagina, bladder, and vessels, as well as the potential need for transfusion with all its associated risks. Subsequently, the patient sign the consent. Pap smear result: Ascus-H HPV positive , 11:00 o'clock biopsy insufficient the diagnosis Procedure: During the procedure, the following steps were performed: A speculum was inserted, and acetic acid was applied. Colposcopy was conducted, allowing visualization of the transformation zone. Acetowhite lesions were identified at the 11 o'clock position. Cervical biopsies were obtained from the 11 o'clock position, followed by an endocervical curettage (ECC). Vaginoscopy of the upper vagina revealed no evidence of aceto-white lesions. Hemostasis was achieved using Monsel solution, and the patient tolerated the procedure well. Post-Procedure Instructions: The patient was advised to promptly contact the office or the after hours answering service or go to the emergency room if experiencing a temperature exceeding 100.4?F, abdominal pain, nausea/vomiting, or bleeding. Additionally, the patient was instructed to abstain from vaginal intercourse and bathtub use. The patient confirmed understanding of these instructions. Discharge Instructions: The patient was instructed to schedule a follow-up appointment in 2 weeks for further evaluation and management. Please note that this note was generated using a voice recognition program, and errors may have occurred during audit clerk. [id number] of Cervix including upper vagina Procedure code (CPT) selection complete Assessment & Plan Assessment & Plan (1) Endocervical polyp: Code(s): N84.1 - Polyp of cervix uteri Category: Medical Plan: Discussed with the patient the results the pathology, the patient was reassured (2) Pap smear with atypical squamous cells, cannot exclude high grade squamous intraepithelial lesion (ASC-H): Comment: HPV E6/E7 positive Code(s): R87.610 - Atypical squamous cells of undetermined significance on cytologic smear of cervix (ASC-US) Category: Medical Plan: Discussed with the patient the pathology results of the colposcopy biopsies & endocervical curettage ( negative except 11:00 o'clock =insufficient tissue for diagnosis). Discussed with the patient the sensitivity specificity, positive and negative predictive value in detecting cervical cancer in addition discussed the regression, persistence and progression rates. Recommended repeat colpo/biopsy at 11:00 o'clock and co-testing in 12 months from previous co testing, if cytology and or HPV are abnormal will proceed was colposcopy biopsy and endocervical curettage, if lesions gets worse or stays persistent for 2 years will proceed with loop electric excision procedure. Instructions given to the patient to schedule a co test appointment in 11/13 (assuming colpo biopsy at 11:00 o'clock is negative) All questions answered the patient verbalized understanding. Colpo/biopsy at 11:00 o'clock done, see procedure note, instructions sent to schedule a 2 week post colpo telehealth appointment to discuss the results Orders: Orders AMB Colposcopy Today R87.610 - Atypical squamous cells of undetermined significance on cytologic smear of cervix (ASC-US) Coding Level of Care Code Procedure Only Diagnoses Endocervical polyp N84.1 Pap smear with atypical squamous cells, cannot exclude high grade squamous intraepithelial lesion (ASC-H) R87.610 CPT Codes Colposcopy - CPT: 26080-Daouasdiuc of Cervix including upper vagina ([id number])
== END 2024-06-27 15:34 | disposition home or self-care (01) ==
LOC: HO.HWS 15:03
PROVIDERS: PCP Nurse Practitioner Primary Care; Visit Provider Obstetrics & Gynecology
DX: R87.610 Atypical squamous cells of undetermined significance on cytologic smear of cervix (ASC-US) (principal); N84.1 Polyp of cervix uteri
CPT/HCPCS: 57452

== ENCOUNTER 2024-06-27 15:03 | Outpatient (REF) | payer MEDICAID, SELFPAY | END 2024-06-27 15:04 | disposition home or self-care (01) | LOC: HO.LNP 15:03 | PROVIDERS: PCP Nurse Practitioner Primary Care; Visit Provider Obstetrics & Gynecology | DX: R87.611 Atypical squamous cells cannot exclude high grade squamous intraepithelial lesion on cytologic smear of cervix (ASC-H) (principal); R87.810 Cervical high risk human papillomavirus (HPV) DNA test positive | CPT/HCPCS: 57452; 88305 ==

== ENCOUNTER 2024-07-11 09:56 | Outpatient (AMB) | payer MEDICAID, SELFPAY ==
--- NOTE | 2024-07-11 09:57 | A.OFFVIS_ITS ---
Intake Visit Reasons: TV colpo results Fbi Sharpshooter Required: Yes Fbi Sharpshooter Language: Music Historian Services: Fbi Sharpshooter Present (in person) Information Interpreted: non-clinical & clinical Allergies lisinopril [LISINOPRIL] Allergy (Unknown, Verified 06/27/24 15:04) UNKNOWN HPI Comments Details: Presenting post colpo for follow-up. The patient is doing well with no complaints. The pathology showed the followin/24 pathology showed the following: Cervix, 11 o'clock, biopsy: Partially denuded squamous mucosa with mild chronic inflammation and reactive changes; no endocervical epithelium identified; no atypia present; multiple additional levels examined 05/15 pathology showed the following: A. Cervical polyp, resection: Benign squamous epithelium and benign cystic endocervical glandular mucosa consistent with polyp; negative for dysplasia. B. Endocervix, curettage: Squamous and scant endocervical glandular epithelium; negative for dysplasia. C. Cervix, 1:00, biopsy: Squamous epithelium; negative for dysplasia; no endocervical glandular component present. D. Cervix, 9:00, biopsy: Squamous mucosa with focal inflammation and reactive changes; negative for dysplasia; no endocervical glandular component present. E. Cervix, 11:00, biopsy: Predominantly blood with rare endocervical glandular cells; insufficient for diagnosis. F. Cervix, 12:00, biopsy: Squamous mucosa; negative for dysplasia; no endocervical glandular component present. Comment: The atypical cells seen in the patient's previous Pap test ([id number]) are not seen in the current biopsy [facility] Medical History COPD (chronic obstructive pulmonary disease) SOFIYA (obstructive sleep apnea) Nocturnal hypoxemia Hypertension Hyperlipidemia Diabetes Rheumatoid arthritis Nocturnal hypoxemia Morbid obesity Nicotine dependence, cigarettes, uncomplicated Allergic rhinitis Depression Cocaine abuse Opioid abuse Drug overdoses Surgical History History of tubal ligation History of colonoscopy History of hernia surgery Family History Father Dementia Mother Diabetes HTN (hypertension) Social History Household Members: Family Household Members Other:: daughter and two grandsons Housing: Apartment Do you presently have visiting nurse or other home services: No Patient Tobacco Use Status: Current everyday Tobacco user Tobacco use type: Cigarette Cigarettes Per Day: 10 Second Hand Smoke Exposure: Yes Substance Use Type: Heroin and Marijuana service: No Sexual orientation: Straight/Heterosexual Review of Systems Const All systems reviewed & are unremarkable except as noted in HPI and below Reports as per HPI and Reports no additional complaints GI Reports no additional complaints Reports no additional complaints Telehealth Telehealth Telehealth Platform: Telephone Location of provider rendering services: practice address Location of patient: address on file Patient Identification confirmed using: Name, : Yes Telehealth method: voice only Patient verbally consented to treatment: Yes Patient verbally consented to billing insurance company: Yes Patient informed of any privacy concerns related to visit: Yes Assessment & Plan Assessment & Plan (1) Pap smear with atypical squamous cells, cannot exclude high grade squamous intraepithelial lesion (ASC-H): Comment: HPV E6/E7 positive Code(s): R87.610 - Atypical squamous cells of undetermined significance on cytologic smear of cervix (ASC-US) Category: Medical Plan: Discussed with the patient the pathology results of the colposcopy biopsies & endocervical curettage (neg). Discussed with the patient the sensitivity specificity, positive and negative predictive value in detecting cervical cancer in addition discussed the regression, persistence and progression rates. Recommended co-testing in 12 months, if cytology and or HPV are abnormal will proceed was colposcopy biopsy and endocervical curettage, if lesions gets worse or stays persistent for 2 years will proceed with loop electric excision procedure. Instructions given to the patient to schedule a co test appointment in 1 year. All questions answered the patient verbalized understanding. I spent a total of 20 minutes reviewing the chart, talking to the patient via phone and documenting in the medical record. Coding Level of Care Code Tele Est Pt Level 1 (71244) Diagnoses Pap smear with atypical squamous cells, cannot exclude high grade squamous intraepithelial lesion (ASC-H) R87.610
== END 2024-07-11 10:30 | disposition home or self-care (01) ==
LOC: HO.HWS 09:56
PROVIDERS: PCP Nurse Practitioner Primary Care; Visit Provider Obstetrics & Gynecology
DX: R87.610 Atypical squamous cells of undetermined significance on cytologic smear of cervix (ASC-US) (principal)
CPT/HCPCS: 99211

== ENCOUNTER → 2024-07-11 09:56 | Outpatient (BNVA) | payer MEDICAID, SELFPAY | PROVIDERS: PCP Nurse Practitioner Primary Care; Visit Provider Obstetrics & Gynecology ==

== ENCOUNTER 2024-08-01 07:40 | Outpatient (AMB) | payer MEDICAID, SELFPAY ==
--- NOTE | 2024-08-01 07:43 | MHC.OFFVIS ---
Vital Signs 08/01/24 07:48 Height 5 ft 6 in Weight 259 lb 0.69 oz BMI 41.8 BP 124/72 Blood Pressure Location Lt brachial Position Sitting Pulse 93 Pulse Source Pulse Oximeter Pulse Oximetry (%) 94 Oxygen Delivery Method Room Air Intake Visit Reasons: RA/cm Intake Note: Patient presents for RA. Manufacturing Applications Engineer Required: Yes Manufacturing Applications Engineer Language: Satellite Communications Operator Services: Manufacturing Applications Engineer Present Manufacturing Applications Engineer Name: Mimi [id number] Information Interpreted: non-clinical & clinical Allergies lisinopril [LISINOPRIL] Allergy (Unknown, Verified 08/01/24 07:47) UNKNOWN Medication List - Last Reconciled 08/01/24 by Per Mancilla MD acetaminophen 500 mg PO QID PRN albuterol sulfate 1 amp inhalation Q4H PRN albuterol sulfate 90 mcg/actuation (ProAir HFA) 2 puffs inhalation Q4-6H PRN amlodipine 10 mg PO QPM aspirin 81 mg PO BEDTIME atorvastatin 40 mg PO BEDTIME cholecalciferol (vitamin D3) 50 mcg PO QPM cyclobenzaprine 10 mg PO TID PRN docusate sodium (Colace) 200 mg (2 x 100 mg) PO BEDTIME dulaglutide (Trulicity) 1.5 mg subcut SA Enbrel SureClick (etanercept) 50 mg subcut QWEEK NS ferrous sulfate 325 mg PO Q OTHER DAY fluoxetine 40 mg PO QAM fluticasone propion-salmeterol 250-50 mcg/dose (Advair Diskus) 1 ea inhalation BID fluticasone propionate 50 mcg/actuation 2 sprays intranasal QAM PRN gabapentin 800 mg PO TID insulin degludec (Tresiba FlexTouch U-100 insulin) 24 units subcut BEDTIME lidocaine 5% 1 patch topical DAILY PRN loratadine 10 mg PO DAILY losartan 100 mg PO QAM metformin 1,000 mg PO BID naltrexone 25 mg PO DAILY naproxen 500 mg PO BID omeprazole 20 mg PO QAM perphenazine 8 mg PO DAILY polyethylene glycol 3350 (Miralax) 17 grams PO DAILY primidone 25 mg (1/2 x 50 mg) PO BEDTIME 30 days trazodone 100 mg PO BEDTIME umeclidinium 62.5 mcg/actuation (Incruse Ellipta) 1 inh inhalation DAILY zolpidem 10 mg PO BEDTIME PRN HPI Comments Details: 58-year-old female with seropositive RA returns for follow-up. On Enbrel 50 mg weekly. Denies any side effects related to Enbrel. She denies any recent infections. She states that recently she has been having left knee pain especially with standing up and going up and down the stairs. She takes 4 500 mg Tylenol a day with little relief. She states that she has had a knee cortisone injection years ago. Did not help much. Initial history: This is a 56-year-old female with extensive past medical history who presents for evaluation of diffuse pain. Patient states she has had diffuse pain almost all her life. She states that she feels that her knees get out of with her socket sometimes. Has diffuse pain especially of her back. She also has pain in both hands, difficulty gripping stuff. Pain lasts almost all day. She takes multiple medicines for pain and does not know which medications help. She is unaware of any family history of autoimmune disease. FORMERLY [facility], [facility] Medical History COPD (chronic obstructive pulmonary disease) SOFIYA (obstructive sleep apnea) Nocturnal hypoxemia Hypertension Hyperlipidemia Diabetes Rheumatoid arthritis Nocturnal hypoxemia Morbid obesity Nicotine dependence, cigarettes, uncomplicated Allergic rhinitis Depression Cocaine abuse Opioid abuse Drug overdoses Surgical History History of tubal ligation History of colonoscopy History of hernia surgery Family History Father Dementia Mother Diabetes HTN (hypertension) Social History Household Members: Family Household Members Other:: daughter and two grandsons Housing: Apartment Do you presently have visiting nurse or other home services: No Patient Tobacco Use Status: Current everyday Tobacco user Tobacco use type: Cigarette Cigarettes Per Day: 10 Second Hand Smoke Exposure: Yes Substance Use Type: Heroin and Marijuana service: No Sexual orientation: Straight/Heterosexual Review of Systems Musc Reports arthralgias, Denies joint swelling and Reports stiffness Physical Exam Vital Signs: Last Vital Signs Pulse 93 08/01/24 07:48 BP 124/72 08/01/24 07:48 Pulse Ox 94 08/01/24 07:48 Oxygen Delivery Method Room Air 08/01/24 07:48 BMI result Body Mass Index 41.8 Const General: cooperative and healthy appearing Nutritional Appearance: obese morbidly obese Orientation/consciousness: patient oriented x3 Limitations: no limitations HEENT Head: Yes normocephalic and Yes atraumatic Resp Effort & Inspection: normal respiratory effort and able to speak in complete sentences Neuro General: patient oriented x3 Extrem Other: No swollen or tender joints today. Right knee pain with full flexion, but no swelling or warmth Bilateral limited shoulder abduction due to pain. Assessment & Plan Assessment & Plan (1) Rheumatoid arthritis: Comment: ++RF+++CCP dx 04/2023 Enbrel 04/2023 effective Code(s): M06.9 - Rheumatoid arthritis, unspecified Category: Medical Qualifiers: Rheumatoid arthritis location: multiple sites Rheumatoid factor presence: with rheumatoid factor Qualified Code(s): M05.79 - Rheumatoid arthritis with rheumatoid factor of multiple sites without organ or systems involvement Plan: This is a 58-year-old female with seropositive RA who presents for follow-up. Doing very well on Enbrel 50 mg weekly. There is no active synovitis on exam. Her left knee pain is due to osteoarthritis Continue Enbrel 50 mg weekly Labs before next visit in 6 months (2) High risk medication use: Code(s): Z79.899 - Other senior living (current) drug therapy Category: Medical Plan: Side effects of Enbrel were discussed with the patient in detail including increased risk of infection, demyelinating disease, reactivation of latent TB, possible increased risk of solid and skin tumors. Patient fully aware. Advised patient to seek medical care ANABELA if patient has an infection and advised patient to stop the medication until the infection is resolved. (3) Osteoarthritis of left knee: Code(s): M17.12 - Unilateral primary osteoarthritis, left knee Category: Medical Plan: Patient takes Tylenol about 2000 mg daily. Advised patient that she can take up to 3000 mg, use Voltaren gel 4 times a day. Referred to PT. Plan I spent 26 minutes reviewing patient's chart, evaluating patient, ordering diagnostic workup, counseling patient and documenting in the chart Orders: Orders Comprehensive Met. Panel Today M05.79 - Rheumatoid arthritis with rheumatoid factor of multiple sites without organ or systems involvement C Reactive Protein Today M05.79 - Rheumatoid arthritis with rheumatoid factor of multiple sites without organ or systems involvement T Spot TB Today Z11.7 - Encounter for testing for latent tuberculosis infection PT Evaluation and Treatment Today M17.12 - Unilateral primary osteoarthritis, left knee Complete Blood Count Auto Diff Today M05.79 - Rheumatoid arthritis with rheumatoid factor of multiple sites without organ or systems involvement Erythrocyte Sedimentation Rate Today M05.79 - Rheumatoid arthritis with rheumatoid factor of multiple sites without organ or systems involvement Hepatitis A,B,C Profile Today J44.1 - Chronic obstructive pulmonary disease with (acute) exacerbation, Z11.59 - Encounter for screening for other viral diseases Coding Level of Care Code Est Pt Level 4 (43975) Complex EM visit Add On G2211 Diagnoses Rheumatoid arthritis involving multiple sites with positive rheumatoid factor M05.79 Rheumatoid arthritis location: multiple sites Rheumatoid factor presence: with rheumatoid factor High risk medication use Z79.899 Osteoarthritis of left knee M17.12
[2024-08-01 07:48] VITALS: BP 124/72; PULSE 93; O2SAT 94; BMI 41.8
== END 2024-08-01 08:04 | disposition home or self-care (01) ==
PROVIDERS: PCP Nurse Practitioner Primary Care; Visit Provider Student in an Organized Health Care Education/Training Program
DX: M05.79 Rheumatoid arthritis with rheumatoid factor of multiple sites without organ or systems involvement (principal); Z79.899 Other long term (current) drug therapy; M17.12 Unilateral primary osteoarthritis, left knee
CPT/HCPCS: 99214

== ENCOUNTER → 2024-08-01 07:40 | Outpatient (BNVA) | payer MEDICAID, SELFPAY | PROVIDERS: PCP Nurse Practitioner Primary Care; Visit Provider Student in an Organized Health Care Education/Training Program | DX: M05.79 Rheumatoid arthritis with rheumatoid factor of multiple sites without organ or systems involvement (principal); M17.12 Unilateral primary osteoarthritis, left knee; Z79.899 Other long term (current) drug therapy | CPT/HCPCS: 99212 ==

== ENCOUNTER 2024-11-02 10:23 | Outpatient (REF) | payer MEDICAID, SELFPAY ==
[2024-11-02 10:38] LABS: MANUAL DIFF FLAG NO
[2024-11-02 10:46] LABS: Basophils Absolute Auto 0.1 X10*3/uL (0.0-0.2); Basophils Percent Auto 0.7 % (0-2); Eosinophils Absolute Auto 0.1 X10*3/uL (0.0-0.4); Eosinophils Percent Auto 1.7 % (0-4); Hematocrit 41.6 % (37.0-47.0); Hemoglobin 13.6 g/dl (12.0-16.0); Imm Gran Abs Auto 0.03 X10*3/uL (0.00-0.03); Imm Gran Pct Auto 0.4 % (0.0-0.4); Lymphocytes Absolute Auto 1.9 X10*3/uL (1.2-4.9); Lymphocytes Percent Auto 26.6 % (20-40); Mean Corpuscular HGB Conc 32.7 g/dl (31.0-35.0); Mean Corpuscular Hemoglobin 23.2 pg (27.0-33.0); Mean Platelet Volume 9.2 fL (9.4-12.3); Monocytes Absolute Auto 0.6 X10*3/uL (0.1-1.2); Monocytes Percent Auto 7.7 % (2-11); Neutrophils Absolute Auto 4.6 x10*3/uL (2.0-8.3); Neutrophils Percent Auto 62.9 % (45-73); Platelet Count 285 X10*3/uL (160-400); Red Blood Count 5.86 X10*6/uL (4.20-5.50); Red Cell Distribution Width 21.4 % (11.0-16.0); White Blood Count 7.2 X10*3/uL (4.8-10.8)
[2024-11-02 11:27] LABS: Erythrocyte Sedimentation Rate 11 MM/HR (0-20)
[2024-11-02 11:37] LABS: Alanine Aminotransferase 17 U/L (0-31); Albumin Level 4.3 g/dL (3.5-5.0); Alkaline Phosphatase 68 U/L (39-117); Anion Gap 16 (12-20); Aspartate Amino Transferase 22 U/L (5-31); Bilirubin Total 0.4 mg/dL (0.0-1.0); Blood Urea Nitrogen 9 mg/dL (9-16); C Reactive Protein < 0.04 mg/dL (< or = 0.50); Calcium 9.8 mg/dL (8.4-10.2); Carbon Dioxide 24 mmol/L (22-29); Chloride 102 mmol/L (96-108); Estimated Glomerular Filt Rate > 60; Glucose Random 72 mg/dL (60-115); Potassium 4.2 mmol/L (3.3-5.1); Sodium 138 mmol/L (135-145); Total Protein 8.4 g/dL (6.5-8.0)
--- OUTSIDE RECORDS SUMMARY | 2024-11-02 11:44 | XMS_ITS | Encounter Summary ---
Author Organization [employer] Address [address] [place] [address] Care Team Providers Care Tapper Supervisor Name Role Phone Shalonda Phillips Primary Care Provider [phone] Sujit Cerrato Unavailable Unavailable Reason for Visit * Reason Comments Med Refill Encounter Details Date Type Department Care Team ([facility] Contact Info) Description 11/02/2024 Refill [facility] MED & PEDS [address] [place], [place] [phone] Shalonda Phillips ANP [address] [place] [address] Tremor Social History Tobacco Use Types Packs/Day Years Used Date Smoking Tobacco: Every Day Cigarettes 1 27 Passive Smoke Exposure: Current Smokeless Tobacco: Never Alcohol Use Standard Drinks/Week Comments Not Currently 0 (1 standard drink = 0.6 oz pur e alcohol) Depression Answer Date Recorded Patient Health Questionnaire-9 Score 9 10/11/2023 Patient Health Questionnaire-9 Score 9 10/11/2023 Last PHQ-9: Questionnaire Data Not on file 0 10/11/2023 Housing Stability Answer Date Recorded What is your housing situation today? I have housing today, but I am worried about losing housing in the future 09/11/[address] you li ve. Do you have problems with any of the following? Not on file 09/11/2024 Food Insecurity Answer Date Recorded Within the past 12 months, y ou worried that your food would run out before you got money to buy more: Sometimes True 2024 Within the past 12 months,th e food you bought just didn't last and you didn't have enough money to get more: Not on file 09/11/2024 Transportation Answer Date Recorded In the past 12 months, has l ack of transportation kept you from medical appts, meetings, work or from getting things needed for daily living? No 06/06/2023 Utilities Answer Date Recorded In the past 12 months, has t he electric, gas, oil or water company threatened to shut off services in your home? No 06/06/2023 Depression Answer Date Recorded Patient Health Questionnaire-2 Score 2 10/11/2023 Comments No Sex and Gender Information Value Date Recorded Sex Assigned at Female 06/21/2022 10:15 AM EDT Legal Sex Female 10:15 AM EDT Gender Identity Female 06/21/2022 10:15 AM EDT Sexual Orientation Straight 06/21/2022 10 :15 AM EDT documented as of this encounter Plan of Treatment Upcoming Encounters Date Type Department Care Team (Late st Contact Info) Description 11/13/2024 3:15 PM EDT Office Visit [address] [address] Jasmin Greenfield CNM [address] [place] [address] 12/25/2024 1:30 PM EDT Office Visit [address] [address] Shalonda Phillips ANP [address] [place] [address] documented as of this encounter Visit Diagnoses Diagnosis Tremor Abnormal involuntary movements documented in this encounter Additional Health Concerns Assessment Noted Time PHQ-9 Depression Total Score: 9 10/11/19 24 11:06 AM EST documented as of this encounter Care Teams Tapper Supervisor Relationship Specialty Start Date End Date Shalonda Phillips ANP [address] [place] [address] PCP - General Family Medicine 10/07/20 Sujit Cerrato FNP [address] [place] [address] Nurse Practitioner Family Medicine 07/05/23 Naya Mirza Supervisor Vine Fruit FarmingTissue Specialist 09/05/24 documented as of this encounter
--- OUTSIDE RECORDS SUMMARY | 2024-11-02 11:44 | XMS_ITS | Encounter Summary ---
Author Organization [email or web address] Address [address] 7[address] [place] [address] Care Team Providers Care Facility Maintenance Technician Name Role Phone Shalonda Phillips Primary Care Provider [phone] Sujit Cerrato Unavailable Unavailable Reason for Visit * Reason Comments Med Refill Encounter Details Date Type Department Care Team ([facility] Contact Info) Description 10/05/2024 Refill [facility] CH[facility] MED & PEDS [address] [place], [place] [phone] Shalonda Phillips ANP [address] [place] [address] Fibromyalgia Social History Tobacco Use Types Packs/Day Years [...] Description 11/13/2024 3:15 PM EDT Office Visit [facility] [address] [place] [address] Jasmin Greenfield CNM [address] [place] [address] 12/25/2024 1:30 PM EDT Office Visit [address] [address] Shalonda Phillips ANP [address] [place] [address] documented as of this encounter Visit Diagnoses Diagnosis Fibromyalgia Unspecified myalgia and myositis documented in this encounter Additional Health Concerns Assessment Noted Time PHQ-9 Depression Total Score: 9 10/11/19 24 11:06 AM EST documented as of this encounter Care Teams Facility Maintenance Technician Relationship Specialty Start Date End Date Shalonda Phillips ANP [address] [place] [address] PCP - General Family Medicine 10/07/20 Sujit Cerrato FNP [address] [place] [address] Nurse Practitioner Family Medicine 07/05/23 Naya Mirza Atomic Fuel AssemblerSpeech Writer 09/05/24 documented as of this encounter
--- OUTSIDE RECORDS SUMMARY | 2024-11-02 11:44 | XMS_ITS | Encounter Summary ---
Author Organization [employer] [facility] Address [address] 7t [place] [address] Care Team Providers Care Bank Note Designer Name Role Phone Shalonda Phillips Primary Care Provider [phone] Sujit Cerrato Unavailable Unavailable Encounter Details Date Type Department Care Team (Late Contact Info) Description 08/04/2022 Orders Only [facility] CHC MED & PEDS [address] [place] [address] Rosa Vela LPN Social History Tobacco Use Types Packs/Day Years Used Date Smoking Tobacco: Never Assessed Comments Unknown Sex and Gender Information Value Date Recorded Sex Assigned at Female 06/21/2022 10:15 AM EDT Legal Sex Female 10:15 AM EDT Gender Identity Female 06/21/2022 10:15 AM EDT Sexual Orientation Straight 06/21/2022 10 :15 AM EDT documented as of this encounter Plan of Treatment Upcoming Encounters Date Type Department Care Team ([facility] Contact Info) Description 11/13/2024 3:15 PM EDT Office Visit [facility] MED[facility]INE [address] [place] [address] Jasmin Greenfield CNM [address] [place] [address] 12/25/2024 1:30 PM EDT Office Visit [facility] [address] [place] [address] Shalonda Phillips ANP [address] [place] [address] documented as of this encounter Visit Diagnoses Not on filedocumented in this encounter Care Teams Bank Note Designer Relationship Specialty Start Date End Date Shalonda Phillips ANP [address] [place] [address] PCP - General Family Medicine 10/07/20 Sujit Cerrato FNP [address] [place] [address] Nurse Practitioner Family Medicine 07/05/23 Naya Mirza Group Leader Wafer PolishingVegetable Handler 09/05/24 documented as of this encounter
--- OUTSIDE RECORDS SUMMARY | 2024-11-02 11:44 | XMS_ITS | Encounter Summary ---
Author Organization [employer] [facility] Address [address] [facility] 7t [place] [address] Care Team Providers Care Water Truck Driver Name Role Phone Shalonda Phillips Primary Care Provider [phone] Suijt Cerrato Unavailable Unavailable Encounter Details Date Type Department Care Team (Late Contact Info) Description 08/06/2022 Orders Only [facility] [address] [place] [address] Sapphire Almaguer LPN Social History Tobacco Use Types Packs/Day [...] Encounters Date Type Department Care Team (Late Contact Info) Description 11/13/2024 3:15 PM EDT Office Visit [facility] [address] [place] [address] Jasmin Greenfield CNM [address] [place] [address] 12/25/2024 1:30 PM EDT Office Visit [facility] [address] [place] [address] Shalonda Phillips ANP [address] [place] [address] documented as of this encounter Visit Diagnoses Not on filedocumented in this encounter Care Teams Water Truck Driver Relationship Specialty Start Date End Date Shalonda Phillips ANP [address] [place] [address] PCP - General Family Medicine 10/07/20 Sujit Cerrato FNP [address] [place] [address] Nurse Practitioner Family Medicine 07/05/23 Naya Mirza Car DealerVideogame Designer 09/05/24 documented as of this encounter
--- OUTSIDE RECORDS SUMMARY | 2024-11-02 11:44 | XMS_ITS | Encounter Summary ---
Author Organization [employer] Address [address] [facility] 7t [place] [address] Care Team Providers Care Front End Engineer Name Role Phone Shalonda Phillips ANP Primary Care Provider [phone] Sujit Cerrato Unavailable Unavailable Reason for Visit * Reason Onset Date Comments Med Refill 10/03/2024 Encounter Details Date Type Department Care Team ([facility] st Contact Info) Description 10/03/2024 Refill [facility] MED & PEDS [address] [place], [place] [phone] Shalonda Phillips ANP [address] [place] [address] Microcytic hypochromic anemia; Insomnia, unspecified type Social History Tobacco Use Types Packs/Day Years [...] Description 11/13/2024 3:15 PM EDT Office Visit [facility] MED[facility]INE [address] [place] [address] Jasmin Greenfield CNM [address] [place] [address] 12/25/2024 1:30 PM EDT Office Visit [address] [address] Shalonda Phillips ANP [address] [place] [address] documented as of this encounter Visit Diagnoses Diagnosis Microcytic hypochromic anemia Unspecified iron deficiency anemia Insomnia, unspecified type documented in this encounter Additional Health Concerns Assessment Noted Time PHQ-9 Depression Total Score: 9 10/11/19 24 11:06 AM EST documented as of this encounter Care Teams Front End Engineer Relationship Specialty Start Date End Date Shalonda Phillips ANP [address] [place] [address] PCP - General Family Medicine 10/07/20 Sujit Cerrato FNP [address] [place] [address] Nurse Practitioner Family Medicine 07/05/23 Naya Mirza Uke OperatorFish Agent 09/05/24 documented as of this encounter
--- OUTSIDE RECORDS SUMMARY | 2024-11-02 11:44 | XMS_ITS | Encounter Summary ---
Author Organization [employer] [facility] Address [address] [facility] 7t [place] [address] Care Team Providers Care Cloth Stock Sorter Name Role Phone Shalonda Phillips Primary Care Provider [phone] Sujit Cerrato Unavailable Unavailable Encounter Details Date Type Department Care Team (Late Contact Info) Description 08/24/2022 Orders Only [facility] CHC MED & PEDS [address] [place] [address] Rosa Vela LPN Social History Tobacco Use [...] Description 11/13/2024 3:15 PM EDT Office Visit [facility] [address] [place] [address] Jasmin Greenfield CNM [address] [place] [address] 12/25/2024 1:30 PM EDT Office Visit [facility] [address] [place] [address] Shalonda Phillips ANP [address] [place] [address] documented as of this encounter Visit Diagnoses Not on filedocumented in this encounter Care Teams Cloth Stock Sorter Relationship Specialty Start Date End Date Shalonda Phillips ANP [address] [place] [address] PCP - General Family Medicine 10/07/20 Sujit Cerrato FNP [address] [place] [address] Nurse Practitioner Family Medicine 07/05/23 Naya Mirza Shoder FillerHand Singer 09/05/24 documented as of this encounter
--- OUTSIDE RECORDS SUMMARY | 2024-11-02 11:44 | XMS_ITS | Encounter Summary ---
Author Organization [employer] Address [address] [place] [address] Care Team Providers Care Roller Inspector And Mender Name Role Phone Jacqueline Shalonda JIMENEZ Primary Care Provider Sujit Cerrato Unavailable Unavailable Encounter Details Date Type Department Care Team ([facility] Contact Info) Description 08/02/2023 Orders Only [facility] CH[facility] MED & PEDS [address] [place], [place] [phone] Sapphire Almaguer LPN Social History Tobacco Use Types Packs/Day Years Used Date Smoking Tobacco: Every Day Cigarettes 1 27 Smokeless Tobacco: Never Alcohol Use Standard Drinks/Week Comments Not Currently 0 (1 standard drink = 0.6 oz pur e alcohol) Depression Answer Date Recorded Patient Health Questionnaire-9 Score 3 07/25/2023 Patient Health Questionnaire-9 Score 3 07/25/2023 Last PHQ-9: Questionnaire Data Not on file 1 09/25/2022 Housing Stability Answer Date Recorded What is your housing situation today? I have gildardo parker 06/06/[address] you li ve. Do you have problems with any of the following? None of the above 06/06/2023 Food Insecurity Answer Date Recorded Within the past 12 months, y ou worried that your food would run out before you got money to buy more: Never True 06/06/2023 Within the past 12 months,th e food you bought just didn't last and you didn't have enough money to get more: Never True Transportation Answer Date Recorded In the past [...] Answer Date Recorded Patient Health Questionnaire-2 Score 1 07/25/2023 Comments Unknown Sex and Gender Information Value [...] Description 11/13/2024 3:15 PM EDT Office Visit [facility] [address] [place] [address] Jasmin Greenfield CNM [address] [place] [address] 12/25/2024 1:30 PM EDT Office Visit [facility] [address] [place] [address] Shalonda Phillips ANP [address] [place] [address] documented as of this encounter Visit Diagnoses Not on filedocumented in this encounter Additional Health Concerns Assessment Noted Time PHQ-9 Depression Total Score: 3 07/25/20 23 2:05 PM EST documented as of this encounter Care Teams Roller Inspector And Mender Relationship Specialty Start Date End Date Shalonda Phillips ANP [address] [place] [address] PCP - General Family Medicine 10/07/20 Sujit Cerrato FNP [address] [place] [address] Nurse Practitioner Family Medicine 07/05/23 Naya Mirza Bridge WelderKennel Helper 09/05/24 documented as of this encounter
--- OUTSIDE RECORDS SUMMARY | 2024-11-02 11:44 | XMS_ITS | Encounter Summary ---
Author Organization [employer] Address [address] [place] [address] Care Team Providers Care Crowning Inspector Name Role Phone Shalonda Phillips Primary Care Provider [phone] Sujit Cerrato Unavailable Unavailable Encounter Details Date Type Department Care Team ([facility] Contact Info) Description 10/15/2024 Refill [facility] [address] [place], [place] [phone] Shalonda Phillips ANP [address] [place] [address] Insomnia, unspecified type; Non-seasonal allergic rhinitis due to other allergic trigger; Hyperlipidemia due to type 2 diabetes mellitus ([facility] ([facility]) Social History Tobacco Use Types Packs/Day Years [...] Description 11/13/2024 3:15 PM EDT Office Visit [facility] [address] [place] [address] Jasmin Greenfield CNM [address] [place] [address] 12/25/2024 1:30 PM EDT Office Visit [facility] [address] [place] [address] Shalonda Phillips ANP [address] [place] [address] documented as of this encounter Visit Diagnoses Diagnosis Insomnia, unspecified type Non-seasonal allergic rhinitis due to other allergic trigger Hyperlipidemia due to type 2 diabetes mellitus (CMS/HCC) ([facility]) documented in this encounter Additional Health Concerns Assessment Noted Time PHQ-9 Depression Total Score: 9 10/11/19 24 11:06 AM EST documented as of this encounter Care Teams Crowning Inspector Relationship Specialty Start Date End Date Shalonda Phillips ANP [address] [place] [address] PCP - General Family Medicine 10/07/20 Sujit Cerrato FNP [address] [place] [address] Nurse Practitioner Family Medicine 07/05/23 Naya Mirza Measurement OperatorReverse Engineer 09/05/24 documented as of this encounter
--- OUTSIDE RECORDS SUMMARY | 2024-11-02 11:45 | XMS_ITS | Encounter Summary ---
Author Organization [employer] Address 75 [facility] 7t [place] [address] Care Team Providers Care Lens Blocker Name Role Phone Shalonda Phillips Primary Care Provider [phone] Sujit Cerrato Unavailable Unavailable Encounter Details Date Type Department Care Team ([facility] Contact Info) Description 02/24/2023 Orders Only [facility] CHC MED & PEDS [address] [place], [place] [phone] Rosa Vela LPN Social History Tobacco Use Types Packs/Day Years Used Date Smoking Tobacco: Every Day Cigarettes 1 27 Smokeless Tobacco: Never Alcohol Use Standard Drinks/Week Comments Not Currently 0 (1 standard drink = 0.6 oz pur e alcohol) Comments Unknown Sex and Gender Information Value Date Recorded Sex Assigned at Female 06/21/2022 10:15 AM EDT Legal Sex Female 10:15 AM EDT Gender Identity Female 06/21/2022 10:15 AM EDT Sexual Orientation Straight 06/21/2022 10 :15 AM EDT documented as of this encounter Plan of Treatment Upcoming Encounters Date Type Department Care Team ([facility] Contact Info) Description 11/13/2024 3:15 PM EDT Office Visit [facility] MEDICINE [address] [place], [place] [phone] Jasmin Greenfield CNM [address] [place], [place] [phone] 12/25/2024 1:30 PM EDT Office Visit [facility] MEDICINE [address] [place], [place] [phone] Shalonda Phillips ANP [address] [place] [address] documented as of this encounter Visit Diagnoses Not on filedocumented in this encounter Care Teams Lens Blocker Relationship Specialty Start Date End Date Shalonda Phillips ANP [address] [place] [address] PCP - General Family Medicine 10/07/20 Sujit Cerrato FNP [address] [place] [address] Nurse Practitioner Family Medicine 07/05/23 Naya Mirza Pipe ThreaderInstant Print Operator 09/05/24 documented as of this encounter
--- OUTSIDE RECORDS SUMMARY | 2024-11-02 11:45 | XMS_ITS | Encounter Summary ---
Author Organization [employer] Address 75 [facility] 7t [place] [address] Care Team Providers Care Core Carrier Name Role Phone Shalonda Phillips BARBARA Primary Care Provider [phone] Sujit Cerrato Unavailable Unavailable Encounter Details Date Type Department Care Team ([facility] Contact Info) Description 09/14/2022 Orders Only [facility] MEDICINE [address] [place] [address] [phone] Sapphire Almaguer LPN Social History Tobacco Use Types Packs/Day Years Used Date Smoking Tobacco: Every Day Cigarettes 1 27 Comments Unknown Sex and Gender Information Value Date Recorded Sex Assigned at Female 06/21/2022 10:15 AM EDT Legal Sex Female 10:15 AM EDT Gender Identity Female 06/21/2022 10:15 AM EDT Sexual Orientation Straight 06/21/2022 10 :15 AM EDT COVID-19 Exposure Response Date Recorded In the last 10 days, have yo u been in contact with someone who was confirmed or suspected to have Coronavirus/COVID-19? No / Unsure 08/30/2022 2:59 PM EST documented as of this encounter Plan of Treatment Upcoming Encounters Date Type Department Care Team ([facility] Contact Info) Description 11/13/2024 3:15 PM EDT Office Visit [facility] MEDICINE [address] [place] [address] [phone] Jasmin Greenfield CNM 230 [place] [address] 12/25/2024 1:30 PM EDT Office Visit [facility] MEDICINE [address] [place] [address] Shalonda Phillips ANP 230 [place] [address] documented as of this encounter Visit Diagnoses Not on filedocumented in this encounter Care Teams Core Carrier Relationship Specialty Start Date End Date Shalonda Phillips ANP [address] [place] [address] PCP - General Family Medicine 10/07/20 Sujit Cerrato FNP [address] [place] [address] Nurse Practitioner Family Medicine 07/05/23 Naya Mirza Inspector ElectromechanicalLeather Colorer 09/05/24 documented as of this encounter
--- OUTSIDE RECORDS SUMMARY | 2024-11-02 11:45 | XMS_ITS | Encounter Summary ---
Author Organization [employer] Address 75 [facility] 7t [place] [address] Care Team Providers Care Industrial Engineering Manager Name Role Phone Shalonda Phillips Primary Care Provider [phone] Sujit Cerrato Unavailable Unavailable Reason for Visit * Reason Onset Date Comments May recall 10/03/2024 Encounter Details Date Type Department Care Team ([facility] Contact Info) Description 10/03/2024 Telephone [facility] MEDICINE [address] [place], [place] [phone] Shalonda Phillips ANP 230 [place], [place] [phone] May recall Social History Tobacco Use Types Packs/Day Years [...] AM EDT documented as of this encounter Miscellaneous Notes * Telephone Encounter - Ramiro Anne [place] - 10/03/2024 11:14 AM EST Telephone call to patient to schedule the following recall: Visit type: Office visit extended Appointment notes: healthcare main (c-scope,LDCT) Patient agree to appointment on 12/25/24 at 1:30 PM with Jacqueline. documented in this encounter Plan of Treatment Upcoming Encounters Date Type Department Care Team (Late st Contact Info) Description 11/13/2024 3:15 PM EDT Office Visit [facility] MEDICINE [address] [place] [address] Jasmin Greenfield CNM 230 [place] [address] 12/25/2024 1:30 PM EDT Office Visit [facility] MEDICINE [address] [place] [phone] Shalonda Phillips, BARBARA 230 [place] [address] documented as of this encounter Visit Diagnoses Not on filedocumented in this encounter Additional Health Concerns Assessment Noted Time PHQ-9 Depression Total Score: 9 10/11/19 24 11:06 AM EST documented as of this encounter Care Teams Industrial Engineering Manager Relationship Specialty Start Date End Date Shalonda Phillips ANP 230 [place] [address] PCP - General Family Medicine 10/07/20 Sujit Cerrato FNP 230 [place] [address] Nurse Practitioner Family Medicine 07/05/23 Naya Mirza Sr. Manager Corporate CommunicationsIrish Moss Operator 09/05/24 documented as of this encounter
--- OUTSIDE RECORDS SUMMARY | 2024-11-02 11:45 | XMS_ITS | Encounter Summary ---
Author Organization [employer] Address [address] [facility] [address] 7t [place] [address] Care Team Providers Care Travel Specialist Name Role Phone Shalonda Phillips Primary Care Provider [phone] Sujit Cerrato Unavailable Unavailable Reason for Visit * Reason Comments Med Refill Encounter Details Date Type Department Care Team ([facility] Contact Info) Description 08/29/2023 Refill [facility] CHC MED & PEDS [address] [place], [place] [phone] Shalonda Phillips ANP 230 [place] [address] Insomnia, unspecified type Social History Tobacco Use Types Packs/Day Years Used Date Smoking Tobacco: Every Day Cigarettes 1 27 Smokeless Tobacco: Never Alcohol Use Standard Drinks/Week Comments Not Currently 0 (1 standard drink = 0.6 oz pur e alcohol) Depression Answer Date Recorded Patient Health Questionnaire-9 Score 7 08/29/2023 Patient Health Questionnaire-9 Score 7 08/29/2023 Last PHQ-9: Questionnaire Data Not on file 0 08/29/2023 Housing Stability Answer Date Recorded What is your housing situation today? I have gildardo parker 08/29/[address] you li ve. Do you have problems with any of the following? Pests such as bugs, ants, or mice 08/29/2023 Food Insecurity Answer Date Recorded Within the [...] Date Recorded Patient Health Questionnaire-2 Score 2 08/29/2023 Comments Unknown Sex and Gender Information Value [...] Description 11/13/2024 3:15 PM EDT Office Visit [facility] MEDICINE [address] [place] [address] Jasmin Greenfield CNM [address] [place] [address] 12/25/2024 1:30 PM EDT Office Visit [address] [address] Shalonda Phillips ANP [address] [place] [address] documented as of this encounter Visit Diagnoses Diagnosis Insomnia, unspecified type documented in this encounter Additional Health Concerns Assessment Noted Time PHQ-9 Depression Total Score: 7 08/29/19 24 10:44 AM EST documented as of this encounter Care Teams Travel Specialist Relationship Specialty Start Date End Date Shalonda Phillips ANP [address] [place] [address] PCP - General Family Medicine 10/07/20 Sujit Cerrato FNP [address] [place] [address] Nurse Practitioner Family Medicine 07/05/23 Naya Mirza Felled Seam OperatorItalian Tutor 1/15/25 documented as of this encounter
--- OUTSIDE RECORDS SUMMARY | 2024-11-02 11:45 | XMS_ITS | Encounter Summary ---
Author Organization [employer] Address [address] [facility] [address] 7t [place] [address] Care Team Providers Care Electrical Automation Engineer Name Role Phone Jacqueline Shalonda JIMENEZ Primary Care Provider [phone] Sujit Cerrato Unavailable Unavailable Encounter Details Date Type Department Care Team ([facility] Contact Info) Description 07/28/2023 Orders Only [facility] CHC MED & PEDS [address] [place], [place] [phone] Rosa Vela LPN Social History Tobacco Use [...] Description 11/13/2024 3:15 PM EDT Office Visit [facility] MEDICINE [address] [place] [address] Jasmin Greenfield CNM 230 [place] [address] 12/25/2024 1:30 PM EDT Office Visit [facility] MEDICINE [address] [place] [address] Shalonda Phillips ANP [address] [place] [address] documented as of this encounter Visit Diagnoses Not on filedocumented in this encounter Additional Health Concerns Assessment Noted Time PHQ-9 Depression Total Score: 3 07/25/20 23 2:05 PM EST documented as of this encounter Care Teams Electrical Automation Engineer Relationship Specialty Start Date End Date Shalonda Phillips ANP [address] [place] [address] PCP - General Family Medicine 10/07/20 Sujit Cerrato FNP [address] [place] [address] Nurse Practitioner Family Medicine 07/05/23 Naya Mirza Substation Electrician SupervisorRanch Manager 09/05/24 documented as of this encounter
--- OUTSIDE RECORDS SUMMARY | 2024-11-02 11:45 | XMS_ITS | Encounter Summary ---
Author Organization [email or web address] Address [address] [facility] [address] 7t [place] [address] Care Team Providers Care Grounds Worker Name Role Phone Shalonda Phillips Primary Care Provider [phone] Sujit Cerrato Unavailable Unavailable Reason for Visit * Reason Comments Med Refill Encounter Details Date Type Department Care Team ([facility] Contact Info) Description 08/25/[address] [facility] CHC MED & PEDS [address] [place], [place] [phone] Shalonda Phillips ANP 230 [place] [address] Insomnia, unspecified type Social History Tobacco Use [...] Description 11/13/2024 3:15 PM EDT Office Visit [facility] MEDICINE [address] [place] [address] Jasmin Greenfield CNM [address] [place] [address] 12/25/2024 1:30 PM EDT Office Visit [address] [address] Shalonda Phillips ANP [address] [place] [address] documented as of this encounter Visit Diagnoses Diagnosis Insomnia, unspecified type documented in this encounter Additional Health Concerns Assessment Noted Time PHQ-9 Depression Total Score: 3 07/25/20 23 2:05 PM EST documented as of this encounter Care Teams Grounds Worker Relationship Specialty Start Date End Date Shalonda Phillips ANP [address] [place] [address] PCP - General Family Medicine 10/07/20 Sujit Cerrato FNP [address] [place] [address] Nurse Practitioner Family Medicine 07/05/23 Naya Mirza Tube PusherFourdrinier Tender 1/15/25 documented as of this encounter
--- OUTSIDE RECORDS SUMMARY | 2024-11-02 11:45 | XMS_ITS | Encounter Summary ---
Author Organization [employer] Address 75 [facility] 7t [place] [address] Care Team Providers Care Boom Boss Name Role Phone Jacqueline Shalonda JIMENEZ Primary Care Provider [phone] Sujit Cerrato Unavailable Unavailable Encounter Details Date Type Department Care Team ([facility] Contact Info) Description 11/02/2024 Population Health Risk Score [facility] ([facility] Department 75 [facility] [address] [place] [phone] Provider, Population Health Generic Social History Tobacco Use Types Packs/Day Years [...] Description 11/13/2024 3:15 PM EDT Office Visit [facility] MEDICINE [address] [place] [address] Jasmin Greenfield CNM [address] [place] [address] 12/25/2024 1:30 PM EDT Office Visit [facility] MEDICINE [address] [place] [address] Shalonda Phillips ANP [address] [place] [address] documented as of this encounter Visit Diagnoses Not on filedocumented in this encounter Additional Health Concerns Assessment Noted Time PHQ-9 Depression Total Score: 9 10/11/19 24 11:06 AM EST documented as of this encounter Care Teams Boom Boss Relationship Specialty Start Date End Date Shalonda Phillips ANP [address] [place] [address] PCP - General Family Medicine 10/07/20 Sujit Cerrato FNP [address] [place] [address] Nurse Practitioner Family Medicine 07/05/23 Naya Mirza Engagement EngineerJunior Business Analyst 09/05/24 documented as of this encounter
--- OUTSIDE RECORDS SUMMARY | 2024-11-02 11:45 | XMS_ITS | Encounter Summary ---
Author Organization [employer] Address [address] [facility] [address] 7t [place] [address] Care Team Providers Care Claim Investigator Name Role Phone Phillips Shalonda JIMENEZ Primary Care Provider [phone] Sujit Cerrato Unavailable Unavailable Encounter Details Date Type Department Care Team ([facility] Contact Info) Description 11/02/2024 Orders Only [facility] EXTERNAL DATA DEPARTMENT Provider, Generic External Data Social History Tobacco Use Types Packs/Day Years [...] 3:15 PM EDT Office Visit [facility] [address] [place] [address] Jasmin Greenfield, CNM [address] [place] [address] 12/25/2024 1:30 PM EDT Office Visit [facility] [address] [place] [address] Shalonda Phillips, ANP [address] [place] [address] documented as of this encounter Procedures Procedure Name Priority Date/Time Associated Diagnosis Comments CBC WITH AUTO DIFFERENTIAL Routine 11/02/2024 10:36 AM EDT SED RATE BY MODIFIED WESTERGREN Routine 11/02/2024 10:36 AM EDT C-REACTIVE PROTEIN Routine 11/02/2024 10 :36 AM EDT COMPREHENSIVE METABOLIC PANEL Routine 11/02/2024 10:36 AM EDT documented in this encounter Results * C-reactive Protein (11/02/2024 10:36 AM EDT) C Reactive Protein <0.04 < or = 0.50 mg/dL [facility] 11/02/2024 10:3 6 AM EDT 11/02/2024 10:36 AM EDT us Generic External Data Provider LAB BLOOD ORDERAB LES Final Result Performing Organization Address City/[facility]/ZIP Co de Phone Number [facility] [address] [place] [address] [phone] * (ABNORMAL) Comprehensive Metabolic Panel (11/02/2024 10:36 AM EDT) Sodium 138 135 - 145 mmol/L [facility] Potassium 4.2 3.3 - 5.1 mmol/L [facility] Chloride 102 96 - 108 mmol/L [facility] Carbon Dioxide 24 22 - 29 mmol/L [facility] Anion Gap 16 12 - 20 [facility] Urea Nitrogen (BUN) 9 9 - 16 mg/dL [facility] Creatinine, Serum 0.70 0.5 - 1.4 mg/dL [facility] Estimated Glomerular Filt Rate >60 [facility] Comment:Chronic Kidney Disea se: Estimated GFR < 60 mL/min/[id number] Kidney Disease: Estimated GFR < 15 mL/min/1.73m2 Glucose 72 60 - 115 mg/dL [facility] Calcium 9.8 8.4 - 10.2 mg/dL [facility] Bilirubin, Total 0.4 0.0 - 1.0 mg/dL [facility] Aspartate Amino Transferase 22 5 - 31 U/L [facility] Alanine Aminotransferase 17 0 - 31 U/L [facility] Total Protein 8.4(H) 6.5 - 8.0 g/dL [facility] Albumin Level 4.3 3.5 - 5.0 g/dL [facility] Alkaline Phosphatase 68 39 - 117 U/L [facility] 11/02/2024 10:3 6 AM EDT 11/02/2024 10:36 AM EDT us Generic External Data Provider LAB BLOOD ORDERAB LES Final Result [facility] [address] [place] [address] [phone] * Sed Rate by Modified Nainergren (11/02/2024 10:36 AM EDT) [facility] Erythrocyte Sedimentation Rate 11 0 - 20 MM/HR [facility] Comment:Patients with polycy themia and many hemoglobin abnormalitiesmay have depressed sed rates whereas patients with anemiamay have elevated sed rates. 11/02/2024 10:3 6 AM EDT 11/02/2024 10:36 AM EDT us Generic External Data Provider LAB BLOOD ORDERAB LES Final Result [facility] [address] [place] [address] [phone] * (ABNORMAL) CBC auto differential (11/02/2024 10:36 AM EDT) [facility] White Blood Count 7.2 4.8 - 10.8 X10*3/uL [facility] Red Blood Count 5.86(H) 4.20 - 5.50 X10*6/uL [facility] Hemoglobin 13.6 12.0 - 16.0 g/dl [facility] Hematocrit 41.6 37.0 - 47.0 % [facility] Mean Corpuscular Volume 71.0(L) 80.0 - 98.0 fL [facility] Mean Corpuscular Hemoglobin 23.2(L) 27.0 - 33.0 pg [facility] Mean Corpuscular HGB Conc 32.7 31.0 - 35.0 g/dl [facility] Red Cell Distribution Width 21.4(H) 11.0 - 16.0 % [facility] Platelet Count 285 160 - 400 X10*3/uL [facility] Mean Platelet Volume 9.2(L) 9.4 - 12.3 fL [facility] Neutrophils Percent Auto 62.9 45 - 73 % [facility] Imm Gran Pct Auto 0.4 0.0 - 0.4 % [facility] Lymphocytes Percent Auto 26.6 20 - 40 % [facility] Monocytes Percent Auto 7.7 2 - 11 % [facility] Eosinophils Percent Auto 1.7 0 - 4 % [facility] Basophils Percent Auto 0.7 0 - 2 % [facility] NRBC Pct Auto 0.0 0.0 - 0.2 /100WBC [facility] Neutrophils Absolute Auto 4.6 2.0 - 8.3 x10*3/uL [facility] Imm Gran Abs Auto 0.03 0.00 - 0.03 X10*3/uL [facility] Lymphocytes Absolute Auto 1.9 1.2 - 4.9 X10*3/uL [facility] Monocytes Absolute Auto 0.6 0.1 - 1.2 X10*3/uL [facility] Eosinophils Absolute Auto 0.1 0.0 - 0.4 X10*3/uL [facility] Basophils Absolute Auto 0.1 0.0 - 0.2 X10*3/uL [facility] NRBC Abs Auto 0.000 0.0 - 0.012 X10*3/uL [facility] 11/02/2024 10:3 6 AM EDT 11/02/2024 10:36 AM EDT us Generic External Data Provider LAB BLOOD ORDERAB LES Final Result Performing Organization Address City/State/[facility] Co de Phone Number [facility] [address] [place] [address] [phone] documented in this encounter Visit Diagnoses Not on filedocumented in this encounter Additional Health Concerns Assessment Noted Time PHQ-9 Depression Total Score: 9 10/11/19 24 11:06 AM EST documented as of this encounter Care Teams Claim Investigator Relationship Specialty Start Date End Date Shalonda Phillips ANP [address] [place] [address] PCP - General Family Medicine 10/07/20 Sujit Cerrato FNP [address] [place] [address] Nurse Practitioner Family Medicine 07/05/23 Naya Mirza Electrician ChiefPrepress Stripper 09/05/24 documented as of this encounter
--- OUTSIDE RECORDS SUMMARY | 2024-11-02 11:45 | XMS_ITS | Encounter Summary ---
Author Organization [employer] Address 75 [facility] 7t [place] [address] Care Team Providers Care Youth Care Professional Name Role Phone Shalonda Phillips Primary Care Provider [phone] Sujit Cerrato Unavailable Unavailable Encounter Details Date Type Department Care Team (Late st Contact Info) Description 10/14/2022 Orders Only [facility] CHC MED & PEDS [address] [place] [address] Rosa Vela LPN Social History Tobacco Use [...] 11/13/2024 3:15 PM EDT Office Visit [facility] MEDICINE [address] [place] [address] Jasmin Greenfield CNM [address] [place] [address] 12/25/2024 1:30 PM EDT Office Visit [facility] MEDICINE [address] [place] [address] Shalonda Phillips ANP [address] [place], [place] [phone] documented as of this encounter Visit Diagnoses Not on filedocumented in this encounter Care Teams Youth Care Professional Relationship Specialty Start Date End Date Shalonda Phillips ANP [address] [place] [address] PCP - General Family Medicine 10/07/20 Sujit Cerrato FNP [address] [place] [address] Nurse Practitioner Family Medicine 07/05/23 Naya Mirza Jukebox OperatorCell Coverer 09/05/24 documented as of this encounter
--- OUTSIDE RECORDS SUMMARY | 2024-11-02 11:45 | XMS_ITS | Encounter Summary ---
Author Organization [employer] Address 75 [facility] 7t [place] [address] Care Team Providers Care Pickler Helper Name Role Phone Shalonda Phillips Primary Care Provider [phone] Sujit Cerrato Unavailable Unavailable Reason for Visit * Reason Comments Med Refill Encounter Details Date Type Department Care Team (Late st Contact Info) Description 10/11/2022 Refill [facility] CHC MED & PEDS [address] [place], [place] [phone] Shalonda Phillips ANP [address] [place] [address] Fibromyalgia Social History Tobacco Use Types Packs/Day [...] Description 11/13/2024 3:15 PM EDT Office Visit [facility] MEDICINE [address] [place] [address] Jasmin Greenfield CNM [address] [place] [address] 12/25/2024 1:30 PM EDT Office Visit [facility] MEDICINE [address] [place] [address] Shalonda Phillips ANP [address] [place] [address] documented as of this encounter Visit Diagnoses Diagnosis Fibromyalgia Unspecified myalgia and myositis documented in this encounter Care Teams Pickler Helper Relationship Specialty Start Date End Date Shalonda Phillips ANP [address] [place] [address] PCP - General Family Medicine 10/07/20 Sujit Cerrato FNP [address] [place] [address] Nurse Practitioner Family Medicine 07/05/23 Naya Mirza Director Of Research And DevelopmentMotion Designer 09/05/24 documented as of this encounter
--- OUTSIDE RECORDS SUMMARY | 2024-11-02 11:45 | XMS_ITS | Encounter Summary ---
Author Organization [employer] Address 75 [facility] 7t [place] [address] Care Team Providers Care Piece Cutter Name Role Phone Shalonda Phillips BARBARA Primary Care Provider [phone] Sujit Cerrato Unavailable Unavailable Encounter Details Date Type Department Care Team ([facility] Contact Info) Description 11/15/2022 Orders Only [facility] MEDICINE [address] [place], [place] [phone] Sapphire Almaguer LPN Social History Tobacco Use [...] suspected to have Coronavirus/COVID-19? No / Unsure 11/18/2022 1:50 PM EDT documented as of this encounter Plan of Treatment Upcoming Encounters Date Type Department Care Team (Late Contact Info) Description 11/13/2024 3:15 PM EDT Office Visit [facility] MEDICINE [address] [place], [place] [phone] Jasmin Greenfield CNM [address] [place], [place] [phone] 12/25/2024 1:30 PM EDT Office Visit [facility] MEDICINE [address] [place] [address] Shalonda Phillips ANP 230 [place] [address] documented as of this encounter Visit Diagnoses Not on filedocumented in this encounter Care Teams Piece Cutter Relationship Specialty Start Date End Date Shalonda Phillips ANP [address] [place] [address] PCP - General Family Medicine 10/07/20 Sujit Cerrato FNP [address] [place] [address] Nurse Practitioner Family Medicine 07/05/23 Naya Mirza Rubbish Collection SupervisorFructose Loader 09/05/24 documented as of this encounter
--- OUTSIDE RECORDS SUMMARY | 2024-11-02 11:45 | XMS_ITS | Encounter Summary ---
Author Organization [employer] Address [address] [facility] 7t [place] [address] Care Team Providers Care Chief Mate Name Role Phone Shalonda Phillips BARBARA Primary Care Provider [phone] Sujit Cerrato Unavailable Unavailable Reason for Visit * Reason Comments Med Refill Encounter Details Date Type Department Care Team (Late Contact Info) Description 02/23/2023 Refill [facility] [address] [place], [place] [phone] Marco Kilgore MD [address] [place], [place] [phone] Insomnia, unspecified type Social History Tobacco Use [...] Upcoming Encounters Date Type Department Care Team ([facility] Contact Info) Description 11/13/2024 3:15 PM EDT Office Visit [facility] [address] [place], [place] [phone] Jasmin Greenfield CNM [address] [place], [place] [phone] 12/25/2024 1:30 PM EDT Office Visit [facility] [address] [place] [address] Shalonda Phillips ANP [address] [place] [address] documented as of this encounter Visit Diagnoses Diagnosis Insomnia, unspecified type documented in this encounter Care Teams Chief Mate Relationship Specialty Start Date End Date Shalonda Phillips ANP [address] [place] [phone] PCP - General Family Medicine 10/07/20 Sujit Cerrato FNP [address] [place] [phone] Nurse Practitioner Family Medicine 07/05/23 Naya Mirza Aquatics InstructorBox Cutter 09/05/24 documented as of this encounter
--- OUTSIDE RECORDS SUMMARY | 2024-11-02 11:45 | XMS_ITS | Encounter Summary ---
Author Organization [employer] Address [address] [facility] 7t [place] [address] Care Team Providers Care Call Center Agent Name Role Phone Jacqueline Shalonda JIMENEZ Primary Care Provider [phone] Sujit Cerrato Unavailable Unavailable Reason for Visit * Reason Comments Med Refill Encounter Details Date Type Department Care Team ([facility] Contact Info) Description 06/07/2023 Refill [facility] [address] [place] [address] Monique Man FNP [address] [place] [address] Dept [place] [address] Fibromyalgia Social History Tobacco Use Types Packs/Day Years Used Date Smoking Tobacco: Every Day Cigarettes 1 27 Smokeless Tobacco: Never Alcohol Use Standard Drinks/Week Comments Not Currently 0 (1 standard drink = 0.6 oz pur e alcohol) PHQ-2 Answer Date Recorded Patient Health Questionnaire-2 Score 0 03/04/2023 Housing Stability Answer Date Recorded What is [...] Answer Date Recorded Patient Health Questionnaire-2 Score 0 03/04/2023 Comments Unknown Sex and Gender Information Value [...] 11/13/2024 3:15 PM EDT Office Visit [facility] [address] [place] [phone] Jasmin Greenfield CNM [address] [place] [phone] 12/25/2024 1:30 PM EDT Office Visit [facility] [address] [place] [phone] Shalonda Phillips ANP [address] [place] [phone] documented as of this encounter Visit Diagnoses Diagnosis Fibromyalgia Unspecified myalgia and myositis documented in this encounter Care Teams Call Center Agent Relationship Specialty Start Date End Date Shalonda Phillips ANP [address] [place] [phone] PCP - General Family Medicine 10/07/20 Sujit Cerrato FNP [address] [place] [phone] Nurse Practitioner Family Medicine 07/05/23 Naya Mirza Ticket MarkerHandkerchief Sample Clerk 09/05/24 documented as of this encounter
--- OUTSIDE RECORDS SUMMARY | 2024-11-02 11:45 | XMS_ITS | Encounter Summary ---
Author Organization [employer] Address [address] [facility] 7t [place] [address] Care Team Providers Care Chemical Detection Expert Name Role Phone Shalonda Phillips BARBARA Primary Care Provider [phone] Sujit Cerrato Unavailable Unavailable Encounter Details Date Type Department Care Team ([facility] Contact Info) Description 09/29/2022 Orders Only [facility] [address] [place] [address] [phone] Sapphire Almaguer LPN Social History Tobacco Use [...] Upcoming Encounters Date Type Department Care Team ([facility] Contact Info) Description 11/13/2024 3:15 PM EDT Office Visit [facility] [address] [place] [address] [phone] Jasmin Greenfield CNM [address] [place] [address] 12/25/2024 1:30 PM EDT Office Visit [facility] [address] [place] [phone] Shalonda Phillips ANP [address] [place] [address] documented as of this encounter Visit Diagnoses Not on filedocumented in this encounter Care Teams Chemical Detection Expert Relationship Specialty Start Date End Date Shalonda Phillips ANP [address] [place] [address] PCP - General Family Medicine 10/07/20 Sujit Cerrato FNP [address] [place] [phone] Nurse Practitioner Family Medicine 07/05/23 Naya Mirza Political Theory ProfessorHealth Center Assistant 09/05/24 documented as of this encounter
--- OUTSIDE RECORDS SUMMARY | 2024-11-02 11:45 | XMS_ITS | Clinical Summary ---
Author Organization [employer] Address [address] [facility] [address] [place] [address] Care Team Providers Care Log Brander Name Role Phone Jacqueline Shalonda JIMENEZ Primary Care Provider [phone] Sujit Cerrato Unavailable Unavailable Allergies Active Allergy Reactions Criticality Noted Date Comments Lisinopril Cough 08/12/2010 Medications * This document contains information received from the source organization and may not represent a complete record from that organization. nicotine polacrilex (Nicorette) 4 MG lozengeIndicatio ns:Smoker Dissolve 1 lozenge (4 mg) in the mouth every 2 (two) hours if needed for smoking cessation. 100 lozenge 023 Active docusate sodium (Colace) 100 MG capsule TAKE 2 CAPSULES BY MOUTH EVERY DAY AT BEDTIME 023 Active UltiCare Mini Pen [place] 31G X 6 MM misc USE DAILY WITH TRESIBA 100 each 3 023 Active albuterol (2.5 MG/3ML) 0.083% nebulizer solutionIndicati ons:Moderate persistent asthma without complication INHALE 1 AMPULE USING A NEBULIZER EVERY 4 TO 6 HOURS NEEDED FOR WHEEZING OR SHORTNESS OF BREATH 270 mL 023 Active Continuous Blood Gluc Die Technician (FreeStyle Mike 2 [place]) deviceIndication s:Type 2 diabetes mellitus with hyperlipidemia (CMS/HCC) (CMS/[facility]) 1 each 5 (five) times a day. 1 each 023 Active Continuous Blood Gluc Sensor (FreeStyle Mike 2 Sensor) miscIndications: Type 2 diabetes mellitus with hyperlipidemia (CMS/HCC) (CMS/HCC) 1 each every 14 (fourteen) days. 6 each 3 023 Active Enbrel SureClick 50 MG/ML injection 023 Active FREESTYLE LITE test strip TEST BLOOD SUGAR TWICE DAILY 50 strip 11 023 Active Alcohol Swabs (Alcohol Prep) 70 % pads USE THREE TIMES DAILY 100 each 11 023 Active TRUEplus Lancets 33G misc TEST BLOOD SUGAR TWICE DAILY 100 each 11 024 Active Advair Diskus 250-50 MCG/ACT aerosol powderIndication s:COPD with asthma ([facility]) INHALE 1 PUFF TWICE DAILY. RINSE MOUTH AFTER USING. 60 each 3 024 Active naproxen (Naprosyn) 500 MG tablet TAKE 1 TABLET BY MOUTH TWICE DAILY IN THE MORNING AND IN THE EVENING WITH FOOD 60 tablet 1 024 Active amLODIPine (Norvasc) 10 MG tablet TAKE 1 TABLET BY MOUTH EVERY EVENING 90 tablet 3 024 Active Acetaminophen Extra Strength 500 MG tabletIndication s:Pain TAKE 1 TABLET BY MOUTH FOUR TIMES DAILY WITH tramadol NEEDED FOR PAIN 100 tablet 5 024 Active ferrous sulfate (Fe Tabs) 325 (65 Fe) MG EC tabletIndication s:Microcytic hypochromic anemia 1 tab every other day with vitamin C; Do not crush, chew, or split. 45 tablet 3 024 Active losartan (Cozaar) 100 MG tablet TAKE 1 TABLET BY MOUTH EVERY MORNING 90 tablet 3 024 Active FLUoxetine (PROzac) 40 MG capsuleIndicatio ns:Major depressive disorder, recurrent severe without psychotic features ([facility]) TAKE 1 CAPSULE BY MOUTH EVERY MORNING 90 capsule 2 024 Active D3 Super Strength 50 MCG (2000 UT) capsule TAKE 1 CAPSULE BY MOUTH EVERY EVENING WITH FOOD 90 capsule 1 024 Active gabapentin (Neurontin) 800 MG tablet TAKE 1 TABLET BY MOUTH THREE TIMES DAILY IN THE MORNING, AT NOON, AND AT BEDTIME 90 tablet 5 024 Active omeprazole (PriLOSEC) [address] capsuleIndicatio ns:Heartburn TAKE 1 CAPSULE BY MOUTH EVERY MORNING BEFORE BREAKFAST 90 capsule 1 024 Active metFORMIN (Glucophage) 1000 MG tablet TAKE 1 TABLET BY MOUTH TWICE DAILY IN THE MORNING AND IN THE EVENING WITH FOOD 180 tablet 1 024 Active atorvastatin (Lipitor) 40 MG tablet TAKE 1 TABLET BY MOUTH AT BEDTIME 90 tablet 1 024 Active naltrexone (Depade) 50 MG tabletIndication s:Opioid dependence in remission (CMS/HCC) TAKE 1/2 TABLET BY MOUTH EVERY MORNING 30 tablet 1 024 Active albuterol (Ventolin HFA) 108 (90 Base) MCG/ACT inhalerIndicatio ns:Moderate persistent asthma without complication INHALE 2 PUFFS BY MOUTH EVERY 4 TO 6 HOURS NEEDED 18 g 1 024 Active primidone (Mysoline) 50 MG tabletIndication s:Tremor TAKE 1/2 TABLET BY MOUTH AT BEDTIME 15 tablet 3 024 Active Tresiba FlexTouch 100 UNIT/ML injectionIndicat ions:Type 2 diabetes mellitus with hyperlipidemia (CMS/HCC) ([facility]) INJECT 24 UNITS SUBCUTANEOUSLY EVERY DAY DIRECTED 15 mL 3 024 Active Incruse Ellipta 62.5 MCG/ACT aerosol powderIndication s:Chronic obstructive pulmonary disease, unspecified COPD type ([facility]) INHALE 1 PUFF BY MOUTH EVERY DAY AT THE SAME TIME RINSE MOUTH AFTER USING 30 each 5 024 Active Pentips Generic Pen [place] 32G X 4 MM miscIndications: Type 2 diabetes mellitus with hyperlipidemia (CMS/HCC) ([facility]) USE DIRECTED 100 each 3 024 Active Dulaglutide 3 MG/0.5ML solution auto-injectorInd ications:Type 2 diabetes mellitus with other specified complication, unspecified whether snf insulin use ([facility]),Hyperl ipidemia due to type 2 diabetes mellitus (CMS/HCC) ([facility]) Inject 3 mg under the skin 1 (one) time per week. 2 mL 5 025 Active perphenazine 8 MG tabletIndication s:Major depressive disorder, recurrent severe without psychotic features ([facility]/HCC) TAKE 1 TABLET BY MOUTH TWICE DAILY IN THE MORNING AND IN THE EVENING 180 tablet 1 025 Active Ascorbic Acid (vitamin C) 250 MG tabletIndication s:Microcytic hypochromic anemia Take 1 tab every other day, with ferrous sulfate tablets. 45 tablet 3 025 Active zolpidem (Ambien) 10 MG tabletIndication s:Insomnia, unspecified type TAKE 1 TABLET BY MOUTH EVERY DAY AT BEDTIME NEEDED 30 tablet 025 Active cyclobenzaprine (Flexeril) 10 MG tabletIndication s:Fibromyalgia TAKE 1 TABLET BY MOUTH THREE TIMES DAILY NEEDED FOR MUSCLE SPASMS 90 tablet 3 025 Active traZODone (Desyrel) 100 MG tabletIndication s:Insomnia, unspecified type TAKE 1 TO 2 TABLETS BY MOUTH AT BEDTIME 180 tablet 1 025 Active loratadine (Claritin) 10 MG tabletIndication s:Non-seasonal allergic rhinitis due to other allergic trigger Take 1 tablet (10 mg) by mouth Once per day. 90 tablet 1 025 Active aspirin (Aspirin Low Dose) 81 MG EC tabletIndication s:Hyperlipidemia due to type 2 diabetes mellitus (CMS/HCC) ([facility]) Take 1 tablet (81 mg) by mouth at bedtime. 90 tablet 1 025 Active cyclobenzaprine (Flexeril) 10 MG tabletIndication s:Fibromyalgia TAKE 1 TABLET BY MOUTH THREE TIMES DAILY NEEDED FOR MUSCLE SPASMS 90 tablet 3 024 2024 Discontinued Aspirin Low Dose 81 MG EC tabletIndication s:Hyperlipidemia due to type 2 diabetes mellitus (CMS/HCC) ([facility]) TAKE 1 TABLET BY MOUTH AT BEDTIME 90 tablet 1 024 2024 Discontinued(R eorder (will not trigger notification to Pharmacy)) loratadine (Claritin) 10 MG tabletIndication s:Non-seasonal allergic rhinitis due to other allergic trigger TAKE 1 TABLET BY MOUTH ONCE DAILY NEEDED 90 tablet 1 024 2024 Discontinued(R eorder (will not trigger notification to Pharmacy)) traZODone (Desyrel) 100 MG tabletIndication s:Insomnia, unspecified type TAKE 1 TO 2 TABLETS BY MOUTH AT BEDTIME 180 tablet 1 024 2024 Discontinued(R eorder (will not trigger notification to Pharmacy)) clotrimazole (Lotrimin) 1 % creamIndications :Tinea pedis of both feet Apply topically 2 times daily for 28 days. To feet. 42 g 025 2024 Active Problems Problem Noted Date Diagnosed Date ASCUS with positive high risk HPV cervical 01/19 Overview (01/20/2024): 11/14/23 pap here, referred to [facility] for colpo, scheduled 02/27/2024 Major depressive disorder, r ecurrent, severe with psychotic features 07/05/2023 Overview (01/20/2024): Prozac 40mg daily Perphenazine 8mg evenings Trazodone 100mg at bedtime Ambien 10mg at bedtime prn Assessment & Plan (10/11/2023 12:16 PM EST): Note from first appt 07/05/2023: Severe anxiety. Trouble concentrating, forgets things. Auditory hallucinations (name calling, doors knocking, voices); and visual hallucinations (white shadows, people walking past door or window). Now sleeps well with medications, but previously suffered from nightmares. Long history of mental health problems, hospitalized several times, suicide attempts most recently 4 years ago. No SI currently. Hx opiate abuse, but reports no use x several years without treatment. Tobacco abuse, no cannabis, alcohol or other substances. Suspect trauma history. No red flags for bipolar disorder. She is doing better emotionally, with hallucinations controlled and decreased anxiety. However, she reports inability to sit still, need to move legs in bed. This has been a longstanding problem but seems to be getting worse. Suspicious for drug-induced akathisia. Will increase to Gabapentin 800 mg TID. Continue Perphenazine 8 mg BID, Fluoxetine 40 mg daily, Trazodone 100 mg at bedtime, and Ambien 10 mg at bedtime. Has been referred for counseling. On 07/05/2023 pt was informed that provider would be retiring, but we would work on getting her stabilized and then transition for continuing care. F/U with me in 1 month Pt agrees with this plan. Assessment & Plan (08/29/2023 11:38 AM EST): Note from first appt 07/05/2023: Severe anxiety. Trouble concentrating, forgets things. Auditory hallucinations (name calling, doors knocking, voices); and visual hallucinations (white shadows, people walking past door or window). Now sleeps well with medications, but previously suffered from nightmares. Long history of mental health problems, hospitalized several times, suicide attempts most recently 4 years ago. No SI currently. Hx opiate abuse, but reports no use x several years without treatment. Tobacco abuse, no cannabis, alcohol or other substances. Suspect trauma history. No red flags for bipolar disorder. She is doing better, with hallucinations controlled and decreased anxiety. Continue Perphenazine 8 mg BID, Fluoxetine 40 mg daily, Trazodone 100 mg at bedtime, and Ambien 10 mg at bedtime. Also takes Gabapentin 600 mg TID. Has been referred for counseling. On 07/05/2023 pt was informed that provider would be retiring, but we would work on getting her stabilized and then transition for continuing care. F/U with me in 6 weeks. Pt agrees with this plan. Assessment & Plan (07/25/2023 2:38 PM EST): Note from first appt 07/05/2023: Severe anxiety. Trouble concentrating, forgets things. Auditory hallucinations (name calling, doors knocking, voices); and visual hallucinations (white shadows, people walking past door or window). Now sleeps well with medications, but previously suffered from nightmares. Long history of mental health problems, hospitalized several times, suicide attempts most recently 4 years ago. No SI currently. Hx opiate abuse, but reports no use x several years without treatment. Tobacco abuse, no cannabis, alcohol or other substances. Suspect trauma history. No red flags for bipolar disorder. Currently taking meds per PCP. First step will be to add am dose of Perphenazine 8 mg. Continue Perphenazine 8 mg at bedtime, Fluoxetine 40 mg daily, Trazodone 100 mg at bedtime, and Ambien 10 mg at bedtime. Also takes Gabapentin 600 mg TID. Will refer for counseling. Today 07/05/2023 pt was informed that provider would be retiring within the year, but we would work on getting her stabilized and then transition for continuing care. F/U with me in 2-3 weeks. Pt agrees with this plan. Unfortunately she has not yet started the new Perphenazine dosing. No change in plan today. F/U 1 month. She agrees with the plan. Assessment & Plan (07/05/2023 10:59 AM EST): Severe anxiety. Trouble concentrating, forgets things. Auditory hallucinations (name calling, doors knocking, voices); and visual hallucinations (white shadows, people walking past door or window). Now sleeps well with medications, but previously suffered from nightmares. Long history of mental health problems, hospitalized several times, suicide attempts most recently 4 years ago. No SI currently. Hx opiate abuse, but reports no use x several years without treatment. Tobacco abuse, no cannabis, alcohol or other substances. Suspect trauma history. No red flags for bipolar disorder. Currently taking meds per PCP. First step will be to add am dose of Perphenazine 8 mg. Continue Perphenazine 8 mg at bedtime, Fluoxetine 40 mg daily, Trazodone 100 mg at bedtime, and Ambien 10 mg at bedtime. Also takes Gabapentin 600 mg TID. Will refer for counseling. Today 07/05/2023 pt was informed that provider would be retiring within the year, but we would work on getting her stabilized and then transition for continuing care. F/U with me in 2-3 weeks. Pt agrees with this plan. Nocturnal hypoxemia 03/04/2023 Overview (01/20/2024): 2L O2 overnight per pulm Hyperlipidemia due to type 2 diabetes mellitus ( [facility]) 07/01/2022 Overview (01/20/2024): Lab Results Component Value Date HGBA1C 6.5 (A) 01/20/2024 HGBA1C 6.2 (A) 05/26/2023 HGBA1C 9.8 (A) 10/21/2022 HGBA1C 6.7 (H) 03/31/2021 Tresiba 24 units daily Trulicity 1.5mg/wk (will offer to switch pt to ozempic d/t med not available) Metformin 1 G BID Has CGM though I don't think she uses On statin, ASA, ARB Eye exam +nonprolif retinopathy PCV20 UTD Foot exam update at f/u 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 Tripp. Does not uses CPAP and has significant nocturnal hypoxia for which she is to wear 2L O2 at night. Moderate persistent asthma without complication 12/27/2017 Tremor 10/04/2017 Opioid dependence 07/05/2016 Chronic low back pain 12/18/2015 Essential hypertension 12/18/2015 Hyperlipidemia 12/18/2015 Rheumatoid arthritis 12/18/2015 Smoker 12/18/2015 Assessment & Plan (07/05/2023 10:58 AM EST): Consider Bupropion and/or Chantix, plus nicotine replacement. Deferred today. Vitamin D deficiency 12/18/2015 Obesity 12/18/2015 Type 2 diabetes mellitus 12/18/2015 Resolved Problems Problem Noted Date Diagnosed Date Resolved Date Severe recurrent major depre ssion without psychotic features 04/14/2018 07/05/2023 Encounters Date Type Department Care Team Description 11/02/2024 Orders Only GENERIC EXTERNAL DATA DEPARTMENT Provider, Generic External Data 11/02/2024 Population Health Risk Score [facility] () Department [address] [place] [id number] Provider, Population Health Generic 11/02/2024 Refill [facility] [address] [place] [address] Shalonda Phillips ANP Tremor 10/15/2024 Refill [facility] [address] [place] [address] Shalonda Phillips ANP Insomnia, unspecified type; Non-seasonal allergic rhinitis due to other allergic trigger; Hyperlipidemia due to type 2 diabetes mellitus ([facility]) ([facility]) 10/05/2024 Refill [facility] [address] [place] [address] Shalonda Phillips ANP Fibromyalgia 10/03/2024 Telephone [facility] [address] [place], [place] [phone] Shalonda Phillips ANP May recall 10/03/2024 Refill [facility] [address] [place] [address] Shalonda Phillips ANP Microcytic hypochromic anemia; Insomnia, unspecified type 09/19/2024 Refill [facility] [address] [place] [address] Shalonda Phillips ANP Major depressive disorder, recurrent severe without psychotic features (CMS/HCC) 09/11/2024 1:15 PM EST Office Visit [facility] [address] [place] [id number] Shalonda Phillips ANP Encounter for immunization (Primary Dx); Type 2 diabetes mellitus with other specified complication, unspecified whether snf insulin use (CMS/HCC); Hyperlipidemia due to type 2 diabetes mellitus (CMS/HCC) ([facility]/HCC); Smoker; Major depressive disorder, recurrent, severe with psychotic features ([facility]/HCC); Anxiety; Tinea pedis of both feet 09/11/2024 Travel 09/07/2024 Travel 09/05/2024 Telephone [facility] [address] [place] [phone] Shalonda Phillips ANP Care Coordination (ICP care plan ) 08/18/2024 Refill [facility] [address] [place] [address] Shalonda Phillips ANP Chronic obstructive pulmonary disease, unspecified COPD type ([facility]/HCC); Type 2 diabetes mellitus with hyperlipidemia (CMS/HCC) ([facility]/HCC) 08/13/2024 Refill [facility] [address] [place] [address] Shalonda Phillips ANP Insomnia, unspecified type from Last 3 Months Immunizations Name Administration Dates Next Due Hep B, adult 12/18/2015,11/22/2013,07/17/2013 Influenza injectable quadriv alent preservative free 05/26/2023,05/03/2022,06/16/2021,07/11,10/17/2018 Influenza, IIV3, injectable 06/02/2010 Influenza, seasonal, injecta ble, preservative free 09/11/2024 Pfizer Covid-19 Vaccine 12+ 09/11/2024,,03/11/2021 Pneumococcal Conjugate PCV 20 05/26/2023 Pneumococcal Polysaccharide PPSV23 11/29/2014, TD (adult), 2 Lf tetanus tox oid, preservative free, adsorbed 06/16/2022,05/10/2001 Tdap 05/11/2012 Family History Medical History Relation Name Comments Cataracts Mother Relation Name Status Comments Mother Social History Tobacco Use Types Packs/Day Years Used Date Smoking Tobacco: Every Day Cigarettes 1 27 Passive Smoke Exposure: Current Smokeless Tobacco: Never Tobacco Cessation:Ready to Q uit: Not Asked; Counseling Given: Not Answered Alcohol Use Standard Drinks/Week Comments Not Currently [...] t he electric, gas, oil or water [employer] threatened to shut off services in your home? No 06/06/2023 Depression Answer Date Recorded Patient Health Questionnaire-2 Score 2 10/11/2023 Comments No Sex and Gender Information Value Date Recorded Sex Assigned at Female 06/21/2022 10:15 AM EDT Legal Sex Female 10:15 AM EDT Gender Identity Female 06/21/2022 10:15 AM EDT Sexual Orientation Straight 06/21/2022 10 :15 AM EDT Last Filed Vital Signs Vital Sign Reading Time Taken Comments Blood Pressure 120/75 09/11/2024 1:31 PM EST Pulse 96 09/11/2024 1:31 PM EST Temperature 36.3 ??C (97.4 ??F) 09/11/2024 1:31 PM ES T Respiratory Rate 18 09/11/2024 1:31 PM EST Oxygen Saturation 97% 01/20/2024 2:10 PM EDT Inhaled Oxygen Concentration - - Weight 117 kg (257 lb 12.8 oz) 09/11/2024 1:31 P M EST Height 160 cm (5' 3 ) 01/20/2024 2:10 PM EDT Body Mass Index 45.67 01/20/2024 2:10 PM EDT Plan of Treatment Upcoming Encounters Date Type Department Care Team (Late st Contact Info) Description 11/13/2024 3:15 PM EDT Office Visit [facility] [address] [place] [phone] Aftab Scott, CNM [address] [place] [address] 12/25/2024 1:30 PM EDT Office Visit [facility] [address] [place] [address] Shalonda Phillips, BARBARA [address] [place] [address] Health Maintenance Due Date Last Done Comments CT Colonography 1965 FIT DNA/Cologuard 1965 FIT 1965 FOBT 1965 HIV Screening 1965 Sigmoidoscopy 1965 Alcohol/Substance Use Screening 1977 Lung Cancer Screening 2015 Zoster Vaccines (1 of 2) 2015 Lipid Panel 03/31/2022 03/31/2021 Colonoscopy 11/15/2023 Colorectal Cancer Screening 11/15/2023 Diabetes: Urine Protein Screening 12/04/2023 12/03/2022, 03/31/2021 Depression Monitoring (PHQ-9) 04/10/2024 10/11/2023, 10/11/2023 SDOH Screening 08/29/2024 08/29/2023 Depression Screening 10/11/2024 10/11/2023, 10/11/19 Eye Exam 10/13/2024 10/13/2023, 09/23, 10/13/2023, Additional history exists Mammogram 12/20/2024 12/21/2023, 09/22, 10/02/2021 Diabetes: Hemoglobin A1C 03/11/2025 025, 01/20/2024, 05/26/2023, Additional history exists Cervical Cancer Screening 06/28/2025 HPV/Cotest 06/28/2025 11/14/2023, 05/05/2016 Pap Smear 06/28/2025 11/14/2023 Diabetes: Foot Exam 09/11/2025 09/11/2024, 09/11/2024, 09/11/2024, Additional history exists Tobacco Screening 09/11/2025 09/11/2024 DTaP/Tdap/Td Vaccines (3 - Td or Tdap) 06/16/2032 06/16/2022, 05/11/2012, 05/10/2001 RSV Patients and Patients Aged 60 years or older (1 - 1-dose 75+ series) 2040 Hepatitis B Vaccines Completed 12/18/2015, 11/22/2013, 07/17/2013 Hepatitis C Screening Completed 12/03/2022 Pneumococcal Vaccine: 50+ Years Completed 05/26/2023, 11/29/2014, 05/03/1997 COVID-19 Vaccine Completed 09/11/2024, 05/2021, 03/11/2021 Influenza Vaccine Completed 09/11/2024, , 05/03/2022, Additional history exists HIB Vaccines Aged Out No longer eligi ble based on patient's age to complete this topic HPV Vaccines Aged Out No longer eligi ble based on patient's age to complete this topic Hepatitis A Vaccines Aged Out No long er eligible based on patient's age to complete this topic IPV Vaccines Aged Out No longer eligi ble based on patient's age to complete this topic Meningococcal Vaccine Aged Out No swapnil zac eligible based on patient's age to complete this topic RSV under 20 months Aged Out No longe r eligible based on patient's age to complete this topic Rotavirus Vaccines Aged Out No longer eligible based on patient's age to complete this topic Procedures Procedure Name Priority Date/Time Associated Diagnosis Comments C-REACTIVE PROTEIN Routine 11/02/2024 10 :36 AM EDT COMPREHENSIVE METABOLIC PANEL Routine 11/02/2024 10:36 AM EDT SED RATE BY MODIFIED WESTERGREN Routine 11/02/2024 10:36 AM EDT CBC WITH AUTO DIFFERENTIAL Routine 11/02/2024 10:36 AM EDT POCT GLYCATED HEMOGLOBIN, TOTAL Routine 09/11/2024 1:40 PM EST Type 2 diabetes mellitus with other specified complication, 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 whether 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 (CMS/HCC) POCT GLUCOSE Routine 09/11/2024 1:33 PM EST Type 2 diabetes mellitus with other specified complication, unspecified whether snf insulin use (CMS/HCC) BI MAMMOGRAM SCREENING TOMOSYNTHESIS BILATERAL Routine 12/21/2023 1:23 PM EDT Breast cancer screening by mammogram HPV MRNA E6/E7 REFLEX TO HPV 16, 18/45 Routine 11/14/2023 1:36 PM EDT PAP SMEAR Routine 11/14/2023 1:36 PM EDT Cervical cancer screening HEPATITIS PANEL, GENERAL Routine 12/03/2022 10:30 AM EDT PROTEIN CREATININE RATIO, URINE Routine 12/03/2022 10:28 AM EDT LIPID PANEL, STANDARD Routine 03/31/2021 11:03 AM EDT from Last 3 Months or Most Recently Relevant to Health Maintenance Results * (ABNORMAL) CBC auto differential (11/02/2024 10:36 AM EDT) White Blood Count 7.2 4.8 - 10.8 X10*3/uL [facility] Red Blood Count 5.86(H) 4.20 - 5.50 X10*6/uL [facility] Hemoglobin 13.6 12.0 - 16.0 g/dl [facility] Hematocrit 41.6 37.0 - 47.0 % [facility] Mean Corpuscular Volume 71.0(L) 80.0 - 98.0 fL [facility] Mean Corpuscular Hemoglobin 23.2(L) 27.0 - 33.0 pg [facility] Mean Corpuscular HGB Conc 32.7 31.0 - 35.0 g/dl [facility] Red Cell Distribution Width 21.4(H) 11.0 - 16.0 % [facility] Platelet Count 285 160 - 400 X10*3/uL [facility] Mean Platelet Volume 9.2(L) 9.4 - 12.3 fL [facility] Neutrophils Percent Auto 62.9 45 - 73 % [facility] Imm Gran Pct Auto 0.4 0.0 - 0.4 % [facility] Lymphocytes Percent Auto 26.6 20 - 40 % [facility] Monocytes Percent Auto 7.7 2 - 11 % [facility] Eosinophils Percent Auto 1.7 0 - 4 % [facility] Basophils Percent Auto 0.7 0 - 2 % [facility] NRBC Pct Auto 0.0 0.0 - 0.2 /100WBC [facility] Neutrophils Absolute Auto 4.6 2.0 - 8.3 x10*3/uL [facility] Imm Gran Abs Auto 0.03 0.00 - 0.03 X10*3/uL [facility] Lymphocytes Absolute Auto 1.9 1.2 - 4.9 X10*3/uL [facility] Monocytes Absolute Auto 0.6 0.1 - 1.2 X10*3/uL [facility] Eosinophils Absolute Auto 0.1 0.0 - 0.4 X10*3/uL [facility] Basophils Absolute Auto 0.1 0.0 - 0.2 X10*3/uL [facility] NRBC Abs Auto 0.000 0.0 - 0.012 X10*3/uL [facility] 11/02/2024 10:3 6 AM EDT 11/02/2024 10:36 AM EDT us Generic External Data Provider LAB BLOOD ORDERAB LES Final Result Performing Organization Address [facility]/ZIP Co de Phone Number [facility] [address] [place] [phone] * Sed Rate by Modified Westergren (11/02/2024 10:36 AM EDT) Erythrocyte Sedimentation Rate 11 0 - 20 MM/HR [facility] Comment:Patients with polycy themia and many hemoglobin abnormalitiesmay have depressed sed rates whereas patients with anemiamay have elevated sed rates. 11/02/2024 10:3 6 AM EDT 11/02/2024 10:36 AM EDT us Generic External Data Provider LAB BLOOD ORDERAB LES Final Result Performing Organization Address [facility] Co de Phone Number [facility] [address] [place] [phone] * C-reactive Protein (11/02/2024 10:36 AM EDT) C Reactive Protein <0.04 < or = 0.50 mg/dL [facility] 11/02/2024 10:3 6 AM EDT 11/02/2024 10:36 AM EDT us Generic External Data Provider LAB BLOOD ORDERAB LES Final Result Performing Organization Address [facility] Co de Phone Number [facility] [address] [place] [phone] * (ABNORMAL) Comprehensive Metabolic Panel (11/02/2024 10:36 AM EDT) Sodium 138 135 - 145 mmol/L [facility] Potassium 4.2 3.3 - 5.1 mmol/L [facility] Chloride 102 96 - 108 mmol/L [facility] Carbon Dioxide 24 22 - 29 mmol/L [facility] Anion Gap 16 12 - 20 [facility] Urea Nitrogen (BUN) 9 9 - 16 mg/dL [facility] Creatinine, Serum 0.70 0.5 - 1.4 mg/dL [facility] Estimated Glomerular Filt Rate >60 [facility] Comment:Chronic Kidney Disea se: Estimated GFR < 60 mL/min/1.67i6Rpxfgi Kidney Disease: Estimated GFR < 15 mL/min/1.73m2 Glucose 72 60 - 115 mg/dL [facility] Calcium 9.8 8.4 - 10.2 mg/dL [facility] Bilirubin, Total 0.4 0.0 - 1.0 mg/dL [facility] Aspartate Amino Transferase 22 5 - 31 U/L [facility] Alanine Aminotransferase 17 0 - 31 U/L [facility] Total Protein 8.4(H) 6.5 - 8.0 g/dL [facility] Albumin Level 4.3 3.5 - 5.0 g/dL [facility] Alkaline Phosphatase 68 39 - 117 U/L [facility] 11/02/2024 10:3 6 AM EDT 11/02/2024 10:36 AM EDT us Generic External Data Provider LAB BLOOD ORDERAB LES Final Result [facility] [address] [place] [phone] * (ABNORMAL) POCT HGB A1C (09/11/2024 1:40 PM EST) Hemoglobin A1C 6.2(A) 4.0 - 6.0 % QC Media Lot # [id number] Lot# Expiration Date Blood 09/11/2024 1:40 PM EST us Shalonda Phillips ANP POINT OF CARE TEST ENTER/EDIT OR DERABLES Final Result * POCT Glucose (09/11/2024 1:33 PM EST) Glucose Blood, POC 160 60 - 200 mg/dL QC Media Lot # [id number] Lot# Expiration Date 172,025 Blood Capillary blood specimen / Unknown 09/11/2024 1:33 PM EST us Sahlonda Phillips ANP POINT OF CARE TEST ENTER/EDIT OR DERABLES Final Result * BI Mammogram Screening Tomosynthesis Bilateral (12/21/2023 1:23 PM EDT) Anatomical Region Laterality Modality Breast Bilateral Mammography 12/21/2023 1:23 PM EDT Narrative 01/16/2024 12:00 PM EDT ? [facility] ? [address] ?[place] [address] ? Mammography Report ? Signed ? Patient: Linder,Estebania ?MR#: [id number] ?? [id number] ? : 1965 ?Acct:[id number] ? Age/Sex: 58 / F ?ADM Date: 05//24 ? Loc: HO.MAMMO ? Attending Dr: Aftab Scott CNM ? Ordering Physician: AFTAB SCOTT CNM ?Results: 1 ?? Negative ? Date of Service: 12/20/24 ?Follow Up: 1 Year From Orig ?? inal Mammogram ? Procedure(s): MM tomosynthesis screening BI ?? Accession Number(s): [id number] ? cc: AFTAB SCOTT CNM ? EXAMINATION: ?? MM SCREENING DIGITAL BREAST TOMOSYNTHESIS, BILATERAL ? CLINICAL INFORMATION: ? Screening. Asymptomatic. ? COMPARISON: ?? Mammography: This study is compared with prior exams dating back to ?? 2015. ? TECHNIQUE: ?? Digital breast tomosynthesis is performed in both the craniocaudal and ?? mediolateral oblique views along with computer-aided detection (CAD). ?? Synthesized 2D images are generated from the tomosynthesis. ? FINDINGS: ?? The breasts are almost entirely fatty (ACR BI-RADS breast composition ?? Category a). ? There are no significant masses, abnormal calcifications, or other ?? abnormalities. ? MM/MM tomosynthesis screening BI ?? IMPRESSION: ?? No mammographic evidence of malignancy. ? ASSESSMENT: ? BI-RADS BI-RADS 1 - Negative ? RECOMMENDATION: ?? Routine annual mammography screening. ? 1 year F/U ? This examination should not preclude the clinical evaluation of a ?? suspicious palpable abnormality. ? This patient's information was entered into a reminder system with a ?? target due date for their next mammogram. ? Dictated By: ?Dilcia Pablo MD ? Signed By: ?<Electronically signed by Dilcia Pablo MD in OV> ? 01/16/24 1156 ? DD/ 1323 ? TD/TT: ? Sawsmith: ? Procedure Note Leeanne, Pedro - 01/16/2024 [facility] [address] [place] [address] Dr. Brown, AVINASH [address] Mammography Report Signed Patient: Efrem Linder#: [id number] : 1965Acct:[id number] Age/Sex: 58 / FADM Date: 12/21/23 Loc: HO.MAMMO Attending Dr: Aftab Scott CNM Ordering Physician: AFTAB SCOTTesults: 1 Negative Date of Service: 12/21/23Follow Up: 1 Year From Orig ina Mammogram Procedure(s): MM tomosynthesis screening BI Accession Number(s): [id number] cc: AFTAB SCOTT CNM EXAMINATION: MM SCREENING DIGITAL BREAST TOMOSYNTHESIS, BILATERAL CLINICAL INFORMATION: Screening. Asymptomatic. COMPARISON: Mammography: This study is compared with prior exams dating back to 2016. TECHNIQUE: Digital breast tomosynthesis is performed in both the craniocaudal and mediolateral oblique views along with computer-aided detection (CAD). Synthesized 2D images are generated from the tomosynthesis. FINDINGS: The breasts are almost entirely fatty (ACR BI-RADS breast composition Category a). There are no significant masses, abnormal calcifications, or other abnormalities. MM/MM tomosynthesis screening BI IMPRESSION: No mammographic evidence of malignancy. ASSESSMENT: BI-RADS BI-RADS 1 - Negative RECOMMENDATION: Routine annual mammography screening. 1 year F/U This examination should not preclude the clinical evaluation of a suspicious palpable abnormality. This patient's information was entered into a reminder system with a target due date for their next mammogram. Dictated By: Dilcia Pablo MD Signed By: <Electronically signed by Dilcia Pablo MD in OV> 01/16/24 1156 DD/ 1323 TD/TT: Sawsmith: Aftab Scott CNM IM BI PROCEDURES Final R esult * (ABNORMAL) HPV mRNA E6/E7 w/Reflex to HPV Genotypes 16, 18/45 (11/14/2023 1:36 PM EDT) HPV nRNA E6/E7 Detected(A ) Not Detected [facility] Comment:Methodology: Transcr iption-Mediated AmplificationThis assay detects E6/E7 viral messenger RNA (mRNA) from 14high-risk HPV types (16,18,31,33,35,39,45,51,52,56,58,59,66,68).Cervical sources are required for HPV testing.If a vaginal source from a patient who has had atotal hysterectomy with removal of cervix wassubmitted, please contact the testing laboratoryfor alternative testing options.For additional information, please refer tohttp://education.10Six/faq/MXI593s4(This link if provided for information/educational purposes only.)THIS TEST WAS PERFORMED AT:[facility] [address] [phone] ROY MD HPV 16 RNA NOT DETECTED NOT DETECTED [facility] HPV 18/45 RNA NOT DETECTED NOT DETECTED [facility] Comment:Methodology: Transcr iption Mediated AmplificationCervical sources are required for HPV testing.If a vaginal source from a patient who has had atotal hysterectomy with removal of cervix wassubmitted, please contact the testing laboratoryfor alternative testing options.THIS TEST WAS PERFORMED AT:[facility] [address] [id number] ROY MD 11/14/2023 1:36 PM EDT 11/15/2023 11:50 AM EDT Aftab Scott [facility] CYTOLOGY ORDERABLES F inal Result [facility] [address] [place] [phone] * Pap Smear (11/14/2023 1:36 PM EDT) Swab Cervix uteri structure / Unknown 11/14/2023 1:36 PM EDT 11/15/2023 11:50 AM EDT Narrative [facility] - 11/28/2023 10:03 AM EDT ----- ------- Name: Efrem Linder ? Age/Sex: 58/F ? : 1965 Unit#: [id number] ?? Attend Dr: AFTAB SCOTT CNM ?Re11/14/23 ?Status: DEP REF ? Location: HO.HHCLNP ? Disch: ? ----- ------- SPEC : [id number] ? RECD: 11/15/23-1150 ? STATUS: ??SOUT ? REQ NUM: [id number] ? ROSIE: 11/14/23-9936 ? SUBM DR: AFTAB SCOTT CNM ? ENTERED: ??11/15/23-2224 ?SP TYPE: Pap Smr ?OTHR DR: ? ORDERED: ??Pap Smear, PAP path review ? Interpretation ?? General Category: ?? Epithelial cell abnormality. ?? Adequacy: ?Endocervical component present. ?? Interpretation: ?Atypical squamous cells of undetermined significance, ?cannot exclude a high grade lesion (ASC-H). ? HPV mRNA E6/E7: ?DETECTED ? This assay detects E6/E7 viral messenger RNA (mRNA) from 14 high-risk HPV types (16, 18, ?? 31, 33, 35, 39, 45, 51, 52, 56, 58, 59, 66, 68) ? HPV Type 16 RNA: ?Not Detected ?? HPV Type 18/45 RNA: ? Not Detected ? HPV testing performed by [facility], [place], [place]. ??See reference laboratory ?? portion of the EMR for entire report. ?Clinical Information LMP: Unknown date Previous PAP test: Unknown date/findings ? Material Received ?? ThinPrep-Vaginal/Cervical ----- ------- Signed (signature on file) Savana Baltimore 11/28/23 1003 ? ----- ------- ? END OF REPORT ? Aftab Scott CNM LAB CYTOLOGY ORDERABLES F inal Result Performing Organization Address [facility] de Phone Number [facility] [address] [place] [phone] * Hepatitis Panel, General (12/03/2022 10:30 AM EDT) Hepatitis A IgM Nonreactive Nonreactive [facility] Comment:IgM antibodies to DUNCAN V not detected; does not exclude earlyacute or recovered HAV infection. ~Hepatitis B Surface Antibody NONREACTIVE Nonreactive [facility] Comment:Nonreactive: < 8.00 mIU/mL Hepatitis B Core Antibody Nonreactive Nonreactive [facility] Hepatitis C Antibody Nonreactive Nonreactive [facility] Comment:Antibodies to HCV no t detected; does not exclude early acuteHCV infection. Hepatitis B Surface Ag Negative Negative [facility] 12/03/2022 10:3 0 AM EDT 12/03/2022 10:30 AM EDT [facility] External Provider LAB BLO OD ORDERABLES Final Result Performing Organization Address [facility] de Phone Number [facility] [address] [place] [phone] * Protein Creatinine Ratio, Urine (12/03/2022 10:28 AM EDT) Creatinine, Urine 161.85 mg/dL [facility] Protein, Total, Random Urine 10 <12 mg/dL [facility] Protein/Creati nine Ratio, Ur 0.06 <0.2 [facility] Comment:The spot urine prote in:creatinine ratio may increase to 0.3during normal . 12/03/2022 10:2 8 AM EDT 12/03/2022 11:28 AM EDT us [facility] External Provider LAB URI NE ORDERABLES Final Result Performing Organization Address City/[facility]/ZIP Co de Phone Number [facility] [address] [place] [phone] * LIPID PANEL, STANDARD (03/31/2021 11:03 AM EDT) Chol/HDLC Ratio 1.9 <5.0 (calc) [facility] Cholesterol, Total 155 <200 mg/dL [facility] HDL Cholesterol 80 > OR = 50 mg/dL [facility] LDL Cholesterol 61 mg/dL (calc) [facility] Comment: Reference range: <100 ?? Desirable range <100 mg/dL for primary prevention; ?? <70 mg/dL for patients with CHD or diabetic patients ?? with > or = 2 CHD risk factors. ?? LDL-C is now calculated using the Flower ?? calculation, which is a validated novel method providing ?? better accuracy than the Friedewald equation in the ?? estimation of LDL-C. ?? David GARCIA et al. AVIVA. 2013;310(19): 0812-9702 ?? (http://education.Scentbird.com/faq/YLQ947) Non-HDL Cholesterol 75 <130 mg/dL (calc) [facility] Comment: For patients with diabetes plus 1 major ASCVD risk ?? factor, treating to a non-HDL-C goal of <100 mg/dL ?? (LDL-C of <70 mg/dL) is considered a therapeutic ?? option. Triglycerides 62 <150 mg/dL [facility]OUND AT[facility]PLACED BY [facility] 03/31/2021 11:0 3 AM EDT Zulma Urbano NP LAB BLOOD ORDERABLES Final Resul t Performing Organization Address City/[facility]/ZIP Co de Phone Number [facility] [address] from Last 3 Months or Most Recently Relevant to Health Maintenance Insurance [facility] C3 Care Teams Log Brander Relationship Specialty Start Date End Date Shalonda Phillips ANP [address] [place] [address] PCP - General Family Medicine 10/07/20 Sujit Cerrato FNP [address] [place] [address] Nurse Practitioner Family Medicine 07/05/23 Naya Mirza Chisel GrinderAuger Mill Operator 09/05/24
--- OUTSIDE RECORDS SUMMARY | 2024-11-02 11:46 | XMS_ITS | Encounter Summary ---
Author Organization [employer] Address [address] [facility] [address] [place] [address] Care Team Providers Care District Branch Manager Name Role Phone Shalonda Phillips BARBARA Primary Care Provider [phone] Sujit Cerrato Unavailable Unavailable Encounter Details Date Type Department Care Team ([facility] Contact Info) Description 10/18/2022 Orders Only [facility] [address] [place] [address] [phone] Sapphire Almaguer LPN Social History Tobacco Use Types Packs/Day Years Used Date Smoking Tobacco: Every Day Cigarettes 1 Comments Unknown Sex and Gender Information Value [...] suspected to have Coronavirus/COVID-19? No / Unsure 10/21/2022 12:33 PM EST documented as of this encounter Plan of Treatment Upcoming Encounters Date Type Department Care Team ([facility] Contact Info) Description 11/13/2024 3:15 PM EDT Office Visit [facility] [address] [place] [phone] Jasmin Greenfield CNM [address] [place] [address] 12/25/2024 1:30 PM EDT Office Visit [facility] [address] [place] [phone] Shalonda Phillips ANP [address] [place] [address] documented as of this encounter Visit Diagnoses Not on filedocumented in this encounter Care Teams District Branch Manager Relationship Specialty Start Date End Date Shalonda Phillips ANP [address] [place] [address] PCP - General Family Medicine 10/07/20 Sujit Cerrato FNP [address] [place] [phone] Nurse Practitioner Family Medicine 07/05/23 Naya Mirza Woods SuperintendentCertified Solid Waste Facility Operator 09/05/24 documented as of this encounter
[2024-11-02 11:50] LABS: HBS Num1 1.65 mIU/mL (0-7.99); HBc Num1 0.06 S/CO (0.00-0.79); HBsAGNum1 0.21 S/CO (0.00-0.99); Hepatitis A Antibody IgM 0.13 Index (0-0.79); Hepatitis B Core Antibody Nonreactive (Nonreactive); Hepatitis B Surface Antigen Negative (Negative); ~HepC Num1 0.11 S/CO (0.00-0.79); ~Hepatitis A Antibody IgM Nonreactive (Nonreactive); ~Hepatitis B Surface Antibody NONREACTIVE (Nonreactive); ~Hepatitis C Antibody Nonreactive (Nonreactive)
[2024-11-06 00:44] LABS: TS Negative Control Passed; TS Panel A 1; TS Panel B 0; TS Positive Control Passed; TSpotTB Negative (Negative)
== END 2024-11-02 10:24 | disposition home or self-care (01) ==
LOC: HO.LAB 10:23
PROVIDERS: PCP Nurse Practitioner Primary Care; Visit Provider Student in an Organized Health Care Education/Training Program
DX: M05.79 Rheumatoid arthritis with rheumatoid factor of multiple sites without organ or systems involvement (principal); J44.1 Chronic obstructive pulmonary disease with (acute) exacerbation; Z11.59 Encounter for screening for other viral diseases; Z11.7 Encounter for testing for latent tuberculosis infection
CPT/HCPCS: 36415; 80053; 85025; 85652; 86140; 86481; 86704; 86706; 86709; 86803; 87340

== ENCOUNTER 2024-12-19 13:47 | Outpatient (AMB) | payer MEDICAID, SELFPAY ==
[2024-12-19 14:11] VITALS: BP 102/60; PULSE 92; O2SAT 5; BMI 39.4
--- NOTE | 2024-12-19 14:11 | A.OFFVIS_ITS ---
Vital Signs 12/19/24 14:11 Height 5 ft 6 in Weight 244 lb BMI 39.4 BP 102/60 Blood Pressure Location Lt brachial Position Sitting Pulse 92 Pulse Source Pulse Oximeter Pulse Oximetry (%) 5 L Oxygen Delivery Method Room Air Intake Visit Reasons: COPD Intake Note: pt is here for follow up and feels good. Analog Ic Design Architect Required: Yes Analog Ic Design Architect Services: Analog Ic Design Architect Present Analog Ic Design Architect Name: niels Willett Allergies lisinopril [LISINOPRIL] Allergy (Unknown, Verified 12/19/24 14:19) UNKNOWN Medication List - Last Reconciled 12/19/24 by Arpit Tripp MD acetaminophen 500 mg PO QID PRN albuterol sulfate 1 amp inhalation Q4H PRN albuterol sulfate 90 mcg/actuation (ProAir HFA) 2 puffs inhalation Q4-6H PRN amlodipine 10 mg PO QPM aspirin 81 mg PO BEDTIME atorvastatin 40 mg PO BEDTIME cholecalciferol (vitamin D3) 50 mcg PO QPM cyclobenzaprine 10 mg PO TID PRN docusate sodium (Colace) 200 mg (2 x 100 mg) PO BEDTIME dulaglutide (Trulicity) 1.5 mg subcut SA Enbrel SureClick (etanercept) 50 mg subcut QWEEK NS ferrous sulfate 325 mg PO Q OTHER DAY fluoxetine 40 mg PO QAM fluticasone propion-salmeterol 250-50 mcg/dose (Advair Diskus) 1 ea inhalation BID fluticasone propionate 50 mcg/actuation 2 sprays intranasal QAM PRN gabapentin 800 mg PO TID insulin degludec (Tresiba FlexTouch U-100 insulin) 24 units subcut BEDTIME lidocaine 5% 1 patch topical DAILY PRN loratadine 10 mg PO DAILY losartan 100 mg PO QAM metformin 1,000 mg PO BID naltrexone 25 mg PO DAILY naproxen 500 mg PO BID omeprazole 20 mg PO QAM perphenazine 8 mg PO DAILY polyethylene glycol 3350 (Miralax) 17 grams PO DAILY primidone 25 mg (1/2 x 50 mg) PO BEDTIME 30 days trazodone 100 mg PO BEDTIME umeclidinium 62.5 mcg/actuation (Incruse Ellipta) 1 inh inhalation DAILY zolpidem 10 mg PO BEDTIME PRN HPI HPI COPD: Details: FREIDA IS A MONGOLIAN SPEAKING 59-YEAR-OLD MONGOLIAN HERE TODAY FOR A SIX-MONTH FOLLOW-UP FOR HER COPD. VIA BEEF LUGGER SHE REPORTS SHE HAS BEEN FEELING WELL AND HAS HAD NO RECENT RESPIRATORY ILLNESSES OR INFECTIONS. CONTINUES TO USE ADVAIR 250-50 1 INHALATION B.I.D. ALONG WITH INCRUSE ELLIPTA 62.5 MCG DAILY. SHE HAS RECENTLY LOST ABOUT 15 LB BY USING TRULICITY INJECTIONS AND IS VERY DUNCAN PPY ABOUT THIS. SHE SLEEPS OKAY AND DENIES ANY DAYTIME SLEEPINESS. [facility] Medical History COPD (chronic obstructive pulmonary disease) SOFIYA (obstructive sleep apnea) Nocturnal hypoxemia Hypertension Hyperlipidemia Diabetes Rheumatoid arthritis Nocturnal hypoxemia Morbid obesity Nicotine dependence, cigarettes, uncomplicated Allergic rhinitis Depression Cocaine abuse Opioid abuse Drug overdoses Surgical History History of tubal ligation History of colonoscopy History of hernia surgery Family History Father Dementia Mother Diabetes HTN (hypertension) Social History Household Members: Family Household Members Other:: daughter and two grandsons Housing: Apartment Do you presently have visiting nurse or other home services: No Patient Tobacco Use Status: Current everyday Tobacco user Tobacco use type: Cigarette Cigarettes Per Day: 10 Second Hand Smoke Exposure: Yes Substance Use Type: Heroin and Marijuana service: No Sexual orientation: Straight/Heterosexual Review of Systems Const All systems reviewed & are unremarkable except as noted in HPI and below Eyes Reports no additional complaints ENT Reports nasal congestion (Mild at night) Card Denies chest pain, Denies leg edema, Denies lightheadedness and Denies orthopnea Resp Reports as per HPI GI Denies hematochezia, Denies change in stool character and Denies heartburn Reports no additional complaints Skin/Breast Reports system reviewed and no additional complaints, except as documented Neuro Reports no additional complaints Psych Reports no additional complaints Endo Reports no additional complaints Nawaf/Lymph Reports easy bruising and Reports other (anemia, mild ) Physical Exam Vital Signs: Last Vital Signs Pulse 92 12/19/24 14:11 BP 102/60 12/19/24 14:11 Pulse Ox 5 L 12/19/24 14:11 Oxygen Delivery Method Room Air 12/19/24 14:11 BMI result Body Mass Index 39.4 Const General: comfortable, no acute distress, alert and awake Orientation/consciousness: patient oriented x3 HEENT Head: Yes normal to inspection General nose exam: No nasal polyps present and No nasal discharge present Face and sinus: Yes sinuses nontender Mouth: oropharynx normal Throat: Yes posterior oropharynx normal Eyes General: appearance normal, both eyes and all related structures Neck Neck: Yes normal visual inspection, Yes no lymphadenopathy, Yes trachea midline and Yes no JVD Thyroid: Thyroid normal Chest Chest palpation & inspection: normal inspection of the chest, normal palpation of entire chest wall and no tenderness Resp Other: Percussion note resonant, breath sounds are slightly distant, She has a few scattered wheezes on both sides. Cardio Palpation: normal PMI Rate: regular rate Rhythm: regular rhythm Heart sounds: no gallops and no murmurs GI Palpation (GI): Soft to palpation, nontender, No hepatosplenomegaly present, no masses and Other GI palpation findings present (Abdomen is obese and slightly protuberant ) Auscultation: normal bowel sounds Back/Spine/Pelvis Thoracic/Lumbar Spine: thoracic and lumbar spine normal to inspection and thoraco-lumbar ROM limited Skin General skin exam: no rashes or lesions noted Neuro Other: Resting tremors of the right upper extremity General: patient oriented x3 and no focal motor deficits Cranial nerves: Yes CN's II-XII intact bilaterally Extrem General: Yes normal to inspection, Yes no clubbing, cyanosis or edema and Yes no calf tenderness Psych Appearance: grossly normal and well kempt Speech and movement: Normal speech and movement present Assessment & Plan Assessment & Plan (1) COPD (chronic obstructive pulmonary disease): Comment: PATIENT DOES HAVE RESTRICTIVE PULMONARY DISORDER WELL CHRONIC OBSTRUCTIVE PULMONARY DISORDER. THAT REMAINS WELL CONTROLLED WITH HER CURRENT MEDS. Code(s): J44.9 - Chronic obstructive pulmonary disease, unspecified Category: Medical Qualifiers: COPD type: COPD with acute exacerbation Qualified Code(s): J44.1 - Chronic obstructive pulmonary disease with (acute) exacerbation Plan: CONTINUE USING INCRUSE ELLIPTA 62.5 MCG 1 INHALATION DAILY. CONTINUE ADVAIR 250-50 MCG 1 INHALATION B.I.D. ALBUTEROL SULFATE 90 MCG 2 PUFFS EVERY 4-6 HOURS NEEDED FOR WHEEZING OR SHORTNESS OF BREATH. (2) Nocturnal hypoxemia: Comment: PATIENT IS DOCUMENTED CASE OF NOCTURNAL HYPOXEMIA, ALONG WITH HER DIAGNOSIS OF OBSTRUCTIVE SLEEP APNEA. SHE HAS NOT BEEN ABLE TO USE THE CPAP SO SHE WAS ADVISED TO USE O2 2 L/MINUTE AT NIGHT. SINCE HER LAST VISIT SHE STOPPED USING THE OXYGEN REGULARLY AND SAY IS THAT SHE USES IT ONLY P.R.N.. SHE CLAIMS THAT SHE SLEEPS GOOD AT NIGHT SHE DOES HAVE STATIONARY CONCENTRATOR AT HOME. Code(s): G47.34 - Idiopathic sleep related nonobstructive alveolar hypoventilation Category: Medical Plan: ADVISED TO USE O2 2 L/MINUTE P.R.N. IF SHE FEELS THAT SHE IS HAVING ANY RESPIRATORY DISTRESS AT NIGHT. I THINK BECAUSE OF HER RECENT WEIGHT LOSS HER SEVERITY OF SLEEP APNEA MUST HAVE DECREASED AND SHE PROBABLY DOES NOT NEED TO USE OXYGEN ON A REGULAR BASIS. Coding Level of Care Code Est Pt Level 3 (09274) Diagnoses COPD (chronic obstructive pulmonary disease) J44.1 COPD type: COPD with acute exacerbation Nocturnal hypoxemia G47.34
--- OUTSIDE RECORDS SUMMARY | 2024-12-19 15:02 | XMS_ITS | Encounter Summary ---
Author Organization [employer] Address [address] [facility] [address] [place] [address] Care Team Providers Care Furnace Attendant Name Role Phone Shalonda Phillips Primary Care Provider [phone] Sujit Cerrato Unavailable Unavailable Encounter Details Date Type Department Care Team (Late Contact Info) Description 08/04/2022 Orders Only [facility] [address] [place] [address] Rosa Vela LPN Social History Tobacco Use [...] Department Care Team (Late Contact Info) Description 12/25/2024 1:30 PM EDT Office Visit [facility] [address] [place] [address] Shalonda Phillips ANP [address] [place] [address] documented as of this encounter Visit Diagnoses Not on filedocumented in this encounter Care Teams Furnace Attendant Relationship Specialty Start Date End Date Shalonda Phillips ANP [address] [place] [address] PCP - General Family Medicine 10/07/20 Sujit Cerrato FNP [address] [place] [address] Nurse Practitioner Family Medicine 07/05/23 Naya Mirza Electrical LoggerChief Ii Dispatcher 09/05/24 documented as of this encounter
--- OUTSIDE RECORDS SUMMARY | 2024-12-19 15:02 | XMS_ITS | Encounter Summary ---
Author Organization [facility] Address [address] [place] [address] Care Team Providers Care Facility Manager Name Role Phone Shalonda Phillips Primary Care Provider [phone] Sujit Cerrato Unavailable Unavailable Encounter Details Date Type Department Care Team ([facility] Contact Info) Description 09/14/2022 Orders Only [facility] [address] [place], [place] [phone] Sapphire Almaguer LPN Social History Tobacco Use [...] Upcoming Encounters Date Type Department Care Team ([facility] Contact Info) Description 12/25/2024 1:30 PM EDT Office Visit [facility] [address] [place], [place] [phone] Shalonda Phillips ANP [address] [place] [address] documented as of this encounter Visit Diagnoses Not on filedocumented in this encounter Care Teams Facility Manager Relationship Specialty Start Date End Date Shalonda Phillips ANP [address] [place] [address] PCP - General Family Medicine 10/07/20 Sujit Cerrato FNP [address] [place] [address] Nurse Practitioner Family Medicine 07/05/23 Naya Mirza [employer] Turning Lathe TenderPipeline Superintendent Division 09/05/24 documented as of this encounter
--- OUTSIDE RECORDS SUMMARY | 2024-12-19 15:02 | XMS_ITS | Encounter Summary ---
Author Organization [facility] [facility] Address [address] [place] [address] Care Team Providers Care Cosmetic Dentist Name Role Phone Shalonda Phillips Primary Care Provider [phone] Sujit Cerrato Unavailable Unavailable Encounter Details Date Type Department Care Team (Late Contact Info) Description 08/06/2022 Orders Only [facility] [address] [place] [address] Sapphire Almaguer LPN Social History Tobacco Use [...] Care Team (Late st Contact Info) Description 12/25/2024 1:30 PM EDT Office Visit [facility] [address] [place] [address] Shalonda Phillips ANP [address] [place] [address] documented as of this encounter Visit Diagnoses Not on filedocumented in this encounter Care Teams Cosmetic Dentist Relationship Specialty Start Date End Date Shalonda Phillips ANP [address] [place] [address] PCP - General Family Medicine 10/07/20 Sujit Cerrato FNP [address] [place] [address] Nurse Practitioner Family Medicine 07/05/23 Naya Mirza Business Services TechMerchandise Worker 09/05/24 documented as of this encounter
--- OUTSIDE RECORDS SUMMARY | 2024-12-19 15:02 | XMS_ITS | Clinical Summary ---
Author Organization [employer] Address [address] [facility] [address] [place] [address] Care Team Providers Care Street Sweeper Name Role Phone Jacqueline Shalonda JIMENEZ Primary Care Provider [phone] Sujit Cerrato Unavailable Unavailable Allergies Active Allergy Reactions Criticality Noted Date Comments Lisinopril Cough 08/12/2010 Medications * This document contains information received from the source organization and may not represent a complete record from that organization. nicotine polacrilex (Nicorette) 4 MG lozengeIndication s:Smoker Dissolve 1 lozenge (4 mg) in the mouth every 2 (two) hours if needed for smoking cessation. 100 lozenge 023 Active docusate sodium (Colace) 100 MG capsule TAKE 2 CAPSULES BY MOUTH EVERY DAY AT BEDTIME 023 Active UltiCare Mini Pen [place] 31G X 6 MM misc USE DAILY WITH TRESIBA 100 each 3 023 Active albuterol (2.5 MG/3ML) 0.083% nebulizer solutionIndicatio ns:Moderate persistent asthma without complication INHALE 1 AMPULE USING A NEBULIZER EVERY 4 TO 6 HOURS NEEDED FOR WHEEZING OR SHORTNESS OF BREATH 270 mL 023 Active Continuous Blood Gluc Automation/Controls Manager (FreeStyle Mike 2 [place]) deviceIndications :Type 2 diabetes mellitus with hyperlipidemia (CMS/HCC) (CMS/[facility]) 1 each 5 (five) times a day. 1 each 023 Active Continuous Blood Gluc Sensor (FreeStyle Mike 2 Sensor) miscIndications:T ype 2 diabetes mellitus with hyperlipidemia (CMS/HCC) (CMS/HCC) 1 each every 14 (fourteen) days. 6 each 3 023 Active Enbrel SureClick 50 MG/ML injection 023 Active Advair Diskus 250-50 MCG/ACT aerosol powderIndications :COPD with asthma ([facility]) INHALE 1 PUFF TWICE DAILY. RINSE MOUTH AFTER USING. 60 each 3 024 Active naproxen (Naprosyn) 500 MG tablet TAKE 1 TABLET BY MOUTH TWICE DAILY IN THE MORNING AND IN THE EVENING WITH FOOD 60 tablet 1 024 Active ferrous sulfate (Fe Tabs) 325 (65 Fe) MG EC tabletIndications :Microcytic hypochromic anemia 1 tab every other day with vitamin C; Do not crush, chew, or split. 45 tablet 3 024 Active losartan (Cozaar) 100 MG tablet TAKE 1 TABLET BY MOUTH EVERY MORNING 90 tablet 3 024 Active FLUoxetine (PROzac) 40 MG capsuleIndication s:Major depressive disorder, recurrent severe without psychotic features ([facility]) TAKE 1 CAPSULE BY MOUTH EVERY MORNING 90 capsule 2 024 Active albuterol (Ventolin HFA) 108 (90 Base) MCG/ACT inhalerIndication s:Moderate persistent asthma without complication INHALE 2 PUFFS BY MOUTH EVERY 4 TO 6 HOURS NEEDED 18 g 1 024 Active Tresiba FlexTouch 100 UNIT/ML injectionIndicati ons:Type 2 diabetes mellitus with hyperlipidemia ([facility]) ([facility]) INJECT 24 UNITS SUBCUTANEOUSLY EVERY DAY DIRECTED 15 mL 3 024 Active Incruse Ellipta 62.5 MCG/ACT aerosol powderIndications :Chronic obstructive pulmonary disease, unspecified COPD type ([facility]) INHALE 1 PUFF BY MOUTH EVERY DAY AT THE SAME TIME RINSE MOUTH AFTER USING 30 each 5 024 Active Pentips Generic Pen [place] 32G X 4 MM miscIndications:T ype 2 diabetes mellitus with hyperlipidemia ([facility]) ([facility]) USE DIRECTED 100 each 3 024 Active Dulaglutide 3 MG/0.5ML solution auto-injectorIndi cations:Type 2 diabetes mellitus with other specified complication, unspecified whether manager long term care insulin use ([facility]),Hyperli pidemia due to type 2 diabetes mellitus ([facility]) ([facility]) Inject 3 mg under the skin 1 (one) time per week. 2 mL 5 025 Active perphenazine 8 MG tabletIndications :Major depressive disorder, recurrent severe without psychotic features ([facility]/HCC) TAKE 1 TABLET BY MOUTH TWICE DAILY IN THE MORNING AND IN THE EVENING 180 tablet 025 Active Ascorbic Acid (vitamin C) 250 MG tabletIndications :Microcytic hypochromic anemia Take 1 tab every other day, with ferrous sulfate tablets. 45 tablet 3 025 Active cyclobenzaprine (Flexeril) 10 MG tabletIndications :Fibromyalgia TAKE 1 TABLET BY MOUTH THREE TIMES DAILY NEEDED FOR MUSCLE SPASMS 90 tablet 3 025 Active traZODone (Desyrel) 100 MG tabletIndications :Insomnia, unspecified type TAKE 1 TO 2 TABLETS BY MOUTH AT BEDTIME 180 tablet 025 Active loratadine (Claritin) 10 MG tabletIndications :Non-seasonal allergic rhinitis due to other allergic trigger Take 1 tablet (10 mg) by mouth Once per day. 90 tablet 025 Active aspirin (Aspirin Low Dose) 81 MG EC tabletIndications :Hyperlipidemia due to type 2 diabetes mellitus (CMS/HCC) ([facility]) Take 1 tablet (81 mg) by mouth at bedtime. 90 tablet 025 Active gabapentin (Neurontin) 800 MG tablet TAKE 1 TABLET BY MOUTH THREE TIMES DAILY IN THE MORNING, AT NOON, AND AT BEDTIME 90 tablet 5 025 Active primidone (Mysoline) 50 MG tabletIndications :Tremor TAKE 1/2 TABLET BY MOUTH AT BEDTIME 15 tablet 3 025 Active zolpidem (Ambien) 10 MG tabletIndications :Insomnia, unspecified type TAKE 1 TABLET BY MOUTH AT BEDTIME NEEDED 30 tablet 025 Active Acetaminophen Extra Strength 500 MG tabletIndications :Pain TAKE 1 TABLET BY MOUTH FOUR TIMES DAILY WITH tramadol NEEDED FOR PAIN 100 tablet 5 025 Active amLODIPine (Norvasc) 10 MG tablet TAKE 1 TABLET BY MOUTH EVERY EVENING 90 tablet 3 025 Active atorvastatin (Lipitor) 40 MG tablet TAKE 1 TABLET BY MOUTH AT BEDTIME 90 tablet 1 025 Active metFORMIN (Glucophage) 1000 MG tablet TAKE 1 TABLET BY MOUTH TWICE DAILY IN THE MORNING AND IN THE EVENING WITH FOOD 180 tablet 1 025 Active omeprazole (PriLOSEC) [address] capsuleIndication s:Heartburn TAKE 1 CAPSULE BY MOUTH EVERY MORNING BEFORE BREAKFAST 90 capsule 1 025 Active D3 Super Strength 50 MCG (2000 UT) capsule TAKE 1 CAPSULE BY MOUTH EVERY EVENING WITH FOOD 90 capsule 1 025 Active FREESTYLE LITE test strip TEST BLOOD SUGAR TWICE DAILY 50 strip 11 025 Active Alcohol Swabs (Alcohol Prep) 70 % pads USE THREE TIMES DAILY 100 each 11 025 Active TRUEplus Lancets 33G misc TEST BLOOD SUGAR TWICE DAILY 100 each 11 025 Active naltrexone (Depade) 50 MG tabletIndications :Opioid dependence in remission (CMS/HCC) TAKE 1/2 TABLET BY MOUTH EVERY MORNING 15 tablet 11 025 Active FREESTYLE LITE test strip TEST BLOOD SUGAR TWICE DAILY 50 strip 11 023 2024 Discontinued Alcohol Swabs (Alcohol Prep) 70 % pads USE THREE TIMES DAILY 100 each 11 023 2024 Discontinued TRUEplus Lancets 33G misc TEST BLOOD SUGAR TWICE DAILY 100 each 11 024 2024 Discontinued amLODIPine (Norvasc) 10 MG tablet TAKE 1 TABLET BY MOUTH EVERY EVENING 90 tablet 3 024 2024 Discontinued D3 Super Strength 50 MCG (2000 UT) capsule TAKE 1 CAPSULE BY MOUTH EVERY EVENING WITH FOOD 90 capsule 1 024 2024 Discontinued omeprazole (PriLOSEC) [address] capsuleIndication s:Heartburn TAKE 1 CAPSULE BY MOUTH EVERY MORNING BEFORE BREAKFAST 90 capsule 1 024 2024 Discontinued metFORMIN (Glucophage) 1000 MG tablet TAKE 1 TABLET BY MOUTH TWICE DAILY IN THE MORNING AND IN THE EVENING WITH FOOD 180 tablet 1 024 2024 Discontinued atorvastatin (Lipitor) 40 MG tablet TAKE 1 TABLET BY MOUTH AT BEDTIME 90 tablet 1 024 2024 Discontinued naltrexone (Depade) 50 MG tabletIndications :Opioid dependence in remission (CMS/HCC) TAKE 1/2 TABLET BY MOUTH EVERY MORNING 15 tablet 025 2024 Discontinued Active Problems Problem Noted Date Diagnosed Date ASCUS with positive high risk HPV cervical 01/19 Overview (01/20/2024): 11/14/23 pap here, referred to [facility] for colpo, scheduled 02/27/2024 Major depressive disorder, [...] due to type 2 diabetes mellitus ( [facility]) 07/01/2022 Overview (01/20/2024): Lab Results Component Value [...] Encounters Date Type Department Care Team Description 12/04/2024 Refill [facility] [address] [place] [address] Shalonda Phillips ANP Heartburn; Opioid dependence in remission ([facility]/HCC) 11/13/2024 3:15 PM EDT Office Visit [facility] [address] [place] [address] Aftab Scott, KELVIN Atypical squamous cells cannot exclude high grade squamous intraepithelial lesion (ASC-H) on Papanicolaou smear (Primary Dx); Menopausal and postmenopausal disorder 11/13/2024 Travel 11/12/2024 Refill [facility] [address] [place], [place] [phone] Shalonda Phillips ANP Pain 11/06/2024 Refill [facility] [address] [place], [place] [phone] Shalonda Phillips ANP Opioid dependence in remission (CMS/HCC); Insomnia, unspecified type 11/02/2024 Orders Only GENERIC EXTERNAL DATA DEPARTMENT Provider, Generic External Data 11/02/2024 Population Health Risk Score [facility] ([facility]) Department [address] [place] [phone] Provider, Population Health Generic 11/02/2024 Refill [facility] [address] [place] [address] Shalonda Phillips ANP Tremor 10/15/2024 Refill [facility] [address] [place], [place] [phone] Shalonda Phillips ANP Insomnia, unspecified type; Non-seasonal allergic rhinitis due to other allergic trigger; Hyperlipidemia due to type 2 diabetes mellitus ([facility]) ([facility]) 10/05/2024 Refill [facility] [address] [place] [address] Shalonda Phillips ANP Fibromyalgia 10/03/2024 Telephone [facility] [address], [place] [phone] Shalonda Phillips ANP May recall 10/03/2024 Refill [facility] [address] [place], [place] [phone] Shalonda Phillips ANP Microcytic hypochromic anemia; Insomnia, unspecified type from Last 3 Months [...] Sign Reading Time Taken Comments Blood Pressure 127/71 11/13/2024 3:08 PM EDT Pulse 100 11/13/2024 3:08 PM EDT Temperature 36.4 ??C (97.6 ??F) 11/13/2024 3:08 PM ED T Respiratory Rate 20 11/13/2024 3:08 PM EDT Oxygen Saturation 94% 11/13/2024 3:08 PM EDT Inhaled Oxygen Concentration - - Weight 112 kg (247 lb 3.2 oz) 11/13/2024 3:08 PM EDT Height 167.6 cm (5' 6 ) 11/13/2024 3:08 PM EDT Body Mass Index 39.9 11/13/2024 3:08 PM EDT Plan of Treatment Upcoming Encounters Date Type Department Care Team (Late st Contact Info) Description 12/25/2024 1:30 PM EDT Office Visit [facility] [address], [place] [phone] Shalonda Phillips, ANP [address] [place] [address] Health Maintenance Due Date Last Done Comments CT Colonography 1965 FIT DNA/Cologuard 1965 FIT 1965 FOBT 1965 HIV Screening 1965 Sigmoidoscopy 1965 Alcohol/Substance Use Screening 1977 Lung Cancer Screening 2015 Zoster Vaccines (1 of 2) 2015 Lipid Panel 03/31/2022 03/31/2021 Colonoscopy 11/15/2023 Colorectal Cancer Screening 11/15/2023 Diabetes: Urine Protein Screening 12/04/2023 12/03/2022, 03/31/2021 SDOH Screening 08/29/2024 08/29/2023 Depression Screening 10/11/2024 10/11/2023, 10/11/19 24 Eye Exam 10/13/2024 10/13/2023, 09/23, 10/13/2023, Additional history exists Mammogram 12/20/2024 12/21/2023, 09/22, 10/02/2021 Diabetes: Hemoglobin A1C 03/11/2025 025, 01/20/2024, 05/26/2023, Additional history exists Cervical Cancer Screening 06/28/2025 HPV/Cotest 06/28/2025 11/14/2023, 05/05/2016 Pap Smear 06/28/2025 11/14/2023 Diabetes: Foot Exam 09/11/2025 09/11/2024, 09/11/2024, 09/11/2024, Additional history exists Tobacco Screening 11/13/2025 11/13/2024 DTaP/Tdap/Td Vaccines (3 - Td or Tdap) 06/16/2032 06/16/2022, 05/11/2012, 05/10/2001 RSV Patients and Patients Aged 60 years or older (1 - 1-dose 75+ series) 2040 Hepatitis B Vaccines Completed 12/18/2015, 11/22/2013, 07/17/2013 Pneumococcal Vaccine: 50+ Years Completed 05/26/2023, 11/29/2014, 05/03/1997 COVID-19 Vaccine Completed 09/11/2024, 05/2021, 03/11/2021 Influenza Vaccine Completed 09/11/2024, , 05/03/2022, Additional history exists Hepatitis C Screening Completed 11/02/2024, 023 HIB Vaccines Aged Out No longer eligi [...] Procedure Name Priority Date/Time Associated Diagnosis Comments T-SPOT(R).TB Routine 11/02/2024 10:36 AM EDT HEPATITIS PANEL, GENERAL Routine 11/02/2024 10:36 AM EDT C-REACTIVE PROTEIN Routine 11/02/2024 10 :36 AM EDT COMPREHENSIVE METABOLIC PANEL Routine 11/02/2024 10:36 AM EDT SED RATE BY MODIFIED WESTERGREN Routine 11/02/2024 10:36 AM EDT CBC WITH AUTO DIFFERENTIAL Routine 11/02/2024 10:36 AM EDT POCT GLYCATED HEMOGLOBIN, TOTAL Routine 09/11/2024 1:40 PM EST Type 2 diabetes mellitus with other specified complication, unspecified whether longterm insulin use ([facility]) BI MAMMOGRAM SCREENING TOMOSYNTHESIS BILATERAL Routine 12/21/2023 1:23 PM EDT Breast cancer screening by mammogram HPV MRNA E6/E7 REFLEX TO HPV 16, 18/45 Routine 11/14/2023 1:36 PM EDT PAP SMEAR Routine 11/14/2023 1:36 PM EDT Cervical cancer screening PROTEIN CREATININE RATIO, URINE Routine 12/03/2022 10:28 AM EDT LIPID PANEL, STANDARD Routine 03/31/2021 11:03 AM EDT from Last 3 Months or Most Recently Relevant to Health Maintenance Results * T-SPOT??.TB (11/02/2024 10:36 AM EDT) T Spot TB Negative Negative [facility] Comment:A negative test resu lt does not exclude the possibilityof exposure to or infection with Mycobacteriumtuberculosis (M. tuberculosis). Patients with recentexposure to TB infected individuals exhibiting anegative T-SPOT.TB result should be considered forretesting within 6 weeks or if other relevant clinicalsymptoms indicate. Results from T-SPOT.TB testing mustbe used in conjunction with each individual'sepidemiological history, current medical status,and results of other diagnostic evaluations.The T-SPOT.TB test is qualitative and results arereported as positive, borderline, or negative, giventhat the test controls perform as expected. In linewith the Centers for Disease Control and Prevention's2010 recommendation to report quantitative measurementsalongside the qualitative result, the laboratoryprovides spot counts for informational purposes only.The T-SPOT.TB test should not be interpreted as aquantitative test. TS PANEL A 1 [facility] TS PANEL B 0 [facility] Negative Control Passed [facility] Positive Control Passed [facility] Comment:For additional infor theresa, please refer tohttp://education.[employer]/faq/HOB576(This link is being provided for informational/educational purposes only.)THIS TEST WAS PERFORMED AT:[employer] [id number] [place] [id number] LEDESMA MD,PHD 11/02/2024 10:3 6 AM EDT 11/02/2024 10:36 AM EDT us Generic External Data Provider LAB BLOOD ORDERAB LES Final Result Performing Organization Address [facility] Co de Phone Number [facility] [address] [place] [phone] * Hepatitis Panel, General (11/02/2024 10:36 AM EDT) Pathologist [facility] [place] Hepatitis A IgM Nonreactive Nonreactive [facility] Comment:IgM antibodies to DUNCAN V not detected; does not exclude earlyacute or recovered HAV infection. ~Hepatitis B Surface Antibody NONREACTIVE Nonreactive [facility] Comment:Nonreactive: < 8.00 mIU/mL Hepatitis B Core Antibody Nonreactive Nonreactive [facility] Hepatitis C Antibody Nonreactive Nonreactive [facility] Comment:Antibodies to HCV no t detected; does not exclude early acuteHCV infection. Hepatitis B Surface Ag Negative Negative [facility] 11/02/2024 10:3 6 AM EDT 11/02/2024 10:36 AM EDT us Generic External Data Provider LAB BLOOD ORDERAB LES Final Result Performing Organization Address [facility] Co de Phone Number [facility] [address] [place] [phone] * (ABNORMAL) CBC auto differential (11/02/2024 10:36 AM EDT) Pathologist [facility] [place] White Blood Count 7.2 4.8 - 10.8 X10*3/uL [facility] Red Blood Count 5.86(H) 4.20 - 5.50 X10*6/uL [facility] Hemoglobin 13.6 12.0 - 16.0 g/dl [facility] Hematocrit 41.6 37.0 - 47.0 % [facility] Mean Corpuscular Volume 71.0(L) 80.0 - 98.0 fL [facility] Mean Corpuscular Hemoglobin 23.2(L) 27.0 - 33.0 pg [facility] Mean Corpuscular HGB Conc 32.7 31.0 - 35.0 g/dl [facility] Red Cell Distribution Width 21.4(H) 11.0 - 16.0 % [facility] Platelet Count 285 160 - 400 X10*3/uL [facility] Mean Platelet Volume 9.2(L) 9.4 - 12.3 fL [facility] Neutrophils Percent Auto 62.9 45 - 73 % [facility] Imm Gran Pct Auto 0.4 0.0 - 0.4 % [facility] Lymphocytes Percent Auto 26.6 20 - 40 % [facility] Monocytes Percent Auto 7.7 2 - 11 % [facility] Eosinophils Percent Auto 1.7 0 - 4 % [facility] Basophils Percent Auto 0.7 0 - 2 % [facility] NRBC Pct Auto 0.0 0.0 - 0.2 /100WBC [facility] Neutrophils Absolute Auto 4.6 2.0 - 8.3 x10*3/uL [facility] Imm Gran Abs Auto 0.03 0.00 - 0.03 X10*3/uL [facility] Lymphocytes Absolute Auto 1.9 1.2 - 4.9 X10*3/uL [facility] Monocytes Absolute Auto 0.6 0.1 - 1.2 X10*3/uL [facility] Eosinophils Absolute Auto 0.1 0.0 - 0.4 X10*3/uL [facility] Basophils Absolute Auto 0.1 0.0 - 0.2 X10*3/uL [facility] NRBC Abs Auto 0.000 0.0 - 0.012 X10*3/uL [facility] 11/02/2024 10:3 6 AM EDT 11/02/2024 10:36 AM EDT us Generic External Data Provider LAB BLOOD ORDERAB LES Final Result Performing Organization Address City/[facility]/ZIP Co de Phone Number [facility] [address] [place] [phone] * Sed Rate by Modified Westergren (11/02/2024 10:36 AM EDT) Erythrocyte Sedimentation Rate 11 0 - 20 MM/HR [facility] Comment:Patients with polycy themia and many hemoglobin abnormalitiesmay have depressed sed rates whereas patients with anemiamay have elevated sed rates. 11/02/2024 10:3 6 AM EDT 11/02/2024 10:36 AM EDT us Generic External Data Provider LAB BLOOD ORDERAB LES Final Result Performing Organization Address [facility] Co de Phone Number [facility] [address] [place] [phone] * C-reactive Protein (11/02/2024 10:36 AM EDT) C Reactive Protein <0.04 < or = 0.50 mg/dL [facility] 11/02/2024 10:3 6 AM EDT 11/02/2024 10:36 AM EDT us Generic External Data Provider LAB BLOOD ORDERAB LES Final Result Performing Organization Address [facility] Co de Phone Number [facility] [address] [place] [phone] * (ABNORMAL) Comprehensive Metabolic Panel (11/02/2024 10:36 AM EDT) Sodium 138 135 - 145 mmol/L [facility] Potassium 4.2 3.3 - 5.1 mmol/L [facility] Chloride 102 96 - 108 mmol/L [facility] Carbon Dioxide 24 22 - 29 mmol/L [facility] Anion Gap 16 12 - 20 [facility] Urea Nitrogen (BUN) 9 9 - 16 mg/dL [facility] Creatinine, Serum 0.70 0.5 - 1.4 mg/dL [facility] Estimated Glomerular Filt Rate >60 [facility] Comment:Chronic Kidney Disea se: Estimated GFR < 60 mL/min/1.98d2Trczqa Kidney Disease: Estimated GFR < 15 mL/min/1.73m2 Glucose 72 60 - 115 mg/dL [facility] Calcium 9.8 8.4 - 10.2 mg/dL [facility] Bilirubin, Total 0.4 0.0 - 1.0 mg/dL [facility] Aspartate Amino Transferase 22 5 - 31 U/L [facility] Alanine Aminotransferase 17 0 - 31 U/L [facility] Total Protein 8.4(H) 6.5 - 8.0 g/dL [facility] Albumin Level 4.3 3.5 - 5.0 g/dL [facility] Alkaline Phosphatase 68 39 - 117 U/L [facility] 11/02/2024 10:3 6 AM EDT 11/02/2024 10:36 AM EDT us Generic External Data Provider LAB BLOOD ORDERAB LES Final Result [facility] [address] [place] [phone] * (ABNORMAL) POCT HGB A1C (09/11/2024 1:40 PM EST) Hemoglobin A1C 6.2(A) 4.0 - 6.0 % QC Media Lot # [id number] Lot# Expiration Date [id number] Blood 09/11/2024 1:40 PM EST us Shalonda Phillips ANP POINT OF CARE TEST ENTER/EDIT OR DERABLES Final Result * BI Mammogram Screening Tomosynthesis Bilateral (12/21/2023 1:23 PM EDT) Anatomical Region Laterality Modality Breast Bilateral Mammography 12/21/2023 1:23 PM EDT Narrative 01/16/2024 12:00 PM EDT ? [facility] ? [address] ?[place] [id number] ? Mammography Report ? Signed ? Patient: Linder,Estebania ?MR#: [id number] ?? [id number] ? : 1965 ?Acct:[id number] ? Age/Sex: 58 / F ?ADM Date: 12/21/23 ? Loc: HO.MAMMO ? Attending Dr: Aftab Scott CNM ? Ordering Physician: AFTAB SCOTT CNM ?Results: 1 ?? Negative ? Date of Service: 12/21/23 ?Follow Up: 1 Year From Orig ?? inal Mammogram ? Procedure(s): MM tomosynthesis screening BI ?? Accession Number(s): [id number] ? cc: AFTAB SCOTT CNMaris ? EXAMINATION: ?? MM SCREENING DIGITAL BREAST [...] 1156 ? DD/ 1323 ? TD/TT: ? [employer] Administrator: ? Procedure Note Pedro Fallon - 01/16/2024 [facility] [address] [place], [place] [address] Mammography Report Signed Patient: Efrem Linder#: [id number] : 1965Acct:[id number] Age/Sex: 58 / FADM Date: 12/21/23 Loc: HO.MAMMO Attending Dr: Aftab Scott CNM Ordering Physician: AFTAB SCOTTesults: 1 Negative Date of Service: 12/21/23Follow Up: 1 Year From Orig inal Mammogram Procedure(s): MM tomosynthesis screening BI Accession Number(s): [id number] cc: AFTAB SCOTT CNM EXAMINATION: MM SCREENING [...] in OV> 01/16/24 1156 DD/ 1323 TD/TT: [employer] Administrator: Aftab Scott [facility] IM BI PROCEDURES Final R esult * (ABNORMAL) HPV mRNA E6/E7 w/Reflex to HPV Genotypes 16, 18/45 (11/14/2023 1:36 PM EDT) HPV nRNA E6/E7 Detected(A ) Not Detected [facility] Comment:Methodology: Transcr iption-Mediated AmplificationThis assay detects E6/E7 viral messenger RNA (mRNA) from 14high-risk HPV types (16,18,31,33,35,39,45,51,52,56,58,59,66,68).Cervical sources are required for HPV testing.If a vaginal source from a patient who has had atotal hysterectomy with removal of cervix wassubmitted, please contact the testing laboratoryfor alternative testing options.For additional information, please refer tohttp://education.[employer]/faq/YDO648c7(This link if provided for information/educational purposes only.)THIS TEST WAS PERFORMED AT:[facility] [facility] [place] [phone] ROY MD HPV 16 RNA NOT DETECTED NOT DETECTED [facility] HPV 18/45 RNA NOT DETECTED NOT DETECTED [facility] Comment:Methodology: Transcr iption Mediated AmplificationCervical sources are required for HPV testing.If a vaginal source from a patient who has had atotal hysterectomy with removal of cervix wassubmitted, please contact the testing laboratoryfor alternative testing options.THIS TEST WAS PERFORMED AT:[facility] [place] [phone] ROY MD 11/14/2023 1:36 PM EDT 11/15/2023 11:50 AM EDT us Aftab Scott CNM LAB CYTOLOGY ORDERABLES F inal Result [facility] [address] [place] [phone] * Pap Smear (11/14/2023 1:36 PM EDT) Swab Cervix uteri structure / Unknown 11/14/2023 1:36 PM EDT 11/15/2023 11:50 AM EDT Narrative [facility] - 11/28/2023 10:03 AM EDT ----- ------- Name: Efrem Linder ? Age/Sex: 58/F ? : 1965 Unit#: [id number] ?? Attend Dr: AFTAB SCOTT CNM ?Re11/14/23 ?Status: DEP REF ? Location: HO.CLNP ? Disch: ? ----- ------- SPEC : [id number] ? RECD: 11/15/230 ? STATUS: ??SOUT ? REQ NUM: [id number] ? ROSIE: 11/14/23-0933 ? SUBM DR: AFTAB SCOTT CNM ? ENTERED: ??11/15/23-6983 ?SP TYPE: Pap Smr ?OTHR DR: ? [...] Not Detected ? HPV testing performed by [email or web address], [place], [place]. ??See reference laboratory ?? portion of the EMR for entire report. ?Clinical Information LMP: Unknown date Previous PAP test: Unknown date/findings ? Material Received ?? ThinPrep-Vaginal/Cervical ----- ------- Signed (signature on file) [place] 11/28/23 1003 ? ----- ------- ? END OF REPORT ? us Aftab Scott [facility] CYTOLOGY ORDERABLES F inal Result [facility] [address] [place] [address] [phone] * Protein Creatinine Ratio, Urine (12/03/2022 10:28 AM EDT) Creatinine, Urine 161.85 mg/dL [facility] Protein, Total, Random Urine 10 <12 mg/dL [facility] Protein/Creati nine Ratio, Ur 0.06 <0.2 [facility] Comment:The spot urine prote in:creatinine ratio may increase to 0.3during normal . 12/03/2022 10:2 8 AM EDT 12/03/2022 11:28 AM EDT us [facility] External Provider LAB URI NE ORDERABLES Final Result [facility] [address] [place] [phone] * LIPID PANEL, STANDARD (03/31/2021 11:03 AM EDT) Chol/HDLC Ratio 1.9 <5.0 (calc) [facility] Cholesterol, Total 155 <200 mg/dL [facility] HDL Cholesterol 80 > OR = 50 mg/dL [facility] LDL Cholesterol 61 mg/dL (calc) [facility] Comment: Reference range: <100 ?? [...] ?? David GARCIA et al. AVIVA. 2013;310(19): 7397-5513 ?? (http://[email or web address]/faq/[email or web address]) Non-HDL Cholesterol 75 <130 mg/dL (calc) [facility] Comment: For patients with diabetes plus 1 major ASCVD risk ?? factor, treating to a non-HDL-C goal of <100 mg/dL ?? (LDL-C of <70 mg/dL) is considered a therapeutic ?? option. Triglycerides 62 <150 mg/dL [facility] 03/31/2021 11:0 3 AM EDT us Zulma Urbano NP LAB BLOOD ORDERABLES Final Resul t [facility] [address] [place] [address], from Last 3 Months or Most Recently Relevant to Health Maintenance Insurance [employer] C3 Care Teams Street Sweeper Relationship Specialty Start Date End Date Shalonda Phillips ANP [address] [place] [address] PCP - General Family Medicine 10/07/20 Sujit Cerrato FNP [address] [place] [address] Nurse Practitioner Family Medicine 07/05/23 Naya iMrza Migration AgentAquatics Manager 09/05/24
--- OUTSIDE RECORDS SUMMARY | 2024-12-19 15:02 | XMS_ITS | Encounter Summary ---
Author Organization [employer] Address [address] [facility] 7t [place] [address] Care Team Providers Care Ticket Sales Agent Name Role Phone Jacqueline Shalonda JIMENEZ Primary Care Provider [phone] Sujit Cerrato Unavailable Unavailable Encounter Details Date Type Department Care Team ([facility] Contact Info) Description 07/28/2023 Orders Only [facility] CHC MED & PEDS [address] [place], [place] [phone] Rosa Vela LPN Social History Tobacco Use [...] Description 12/25/2024 1:30 PM EDT Office Visit [facility] MEDICINE [address] [place] [address] Shalonda Phillips ANP [address] [place] [address] documented as of this encounter Visit Diagnoses Not on filedocumented in this encounter Additional Health Concerns Assessment Noted Time PHQ-9 Depression Total Score: 3 07/25/20 23 2:05 PM EST documented as of this encounter Care Teams Ticket Sales Agent Relationship Specialty Start Date End Date Shalonda Phillips ANP [address] [place] [address] PCP - General Family Medicine 10/07/20 Sujit Cerrato FNP [address] [place] [address] Nurse Practitioner Family Medicine 07/05/23 Naya Mirza Director Of Research And DevelopmentVice President Of Human Resources 09/05/24 documented as of this encounter
--- OUTSIDE RECORDS SUMMARY | 2024-12-19 15:02 | XMS_ITS | Encounter Summary ---
Author Organization [employer] Address 75 [facility] 7t [place] [address] Care Team Providers Care Supervisor Frame Assembly Name Role Phone Shalonda Phillips Primary Care Provider [phone] Sujit Cerrato Unavailable Unavailable Encounter Details Date Type Department Care Team ([facility] Contact Info) Description 02/24/2023 Orders Only [facility] CHC MED & PEDS [address] [place], [place] [phone] Rosa Vela LPN Social History Tobacco Use [...] Department Care Team ([facility] Contact Info) Description 12/25/2024 1:30 PM EDT Office Visit [facility] MEDICINE [address] [place] [address] Shalonda Phillips ANP [address] [place], [place] [phone] documented as of this encounter Visit Diagnoses Not on filedocumented in this encounter Care Teams Supervisor Frame Assembly Relationship Specialty Start Date End Date Shalonda Phillips ANP [address] [place] [address] PCP - General Family Medicine 10/07/20 Sujit Cerrato FNP [address] [place] [address] [place] [address] Nurse Practitioner Family Medicine 07/05/23 Naya Mirza Professional Golf Tournament PlayerCage Cashier 09/05/24 documented as of this encounter
--- OUTSIDE RECORDS SUMMARY | 2024-12-19 15:02 | XMS_ITS | Encounter Summary ---
Author Organization [employer] Address [address] [facility] [address] 7t [place] [address] Care Team Providers Care Customer Experience Retail Clerk Name Role Phone Shalonda Phillips Primary Care Provider [phone] Sujit Cerrato Unavailable Unavailable Reason for Visit * Reason Comments Med Refill Encounter Details Date Type Department Care Team ([facility] Contact Info) Description 08/25/2023 Refill [facility] CHC MED & PEDS [address] [place], [place] [phone] Shalonda Phillips ANP [address] [place] [address] Insomnia, unspecified type Social History Tobacco Use [...] Description 12/25/2024 1:30 PM EDT Office Visit [facility] MEDICINE 230 [place] [address] Shalonda Phillips ANP [address] [place] [address] documented as of this encounter Visit Diagnoses Diagnosis Insomnia, unspecified type documented in this encounter Additional Health Concerns Assessment Noted Time PHQ-9 Depression Total Score: 3 07/25/20 23 2:05 PM EST documented as of this encounter Care Teams Customer Experience Retail Clerk Relationship Specialty Start Date End Date Shalonda Phillips ANP [address] [place] [address] PCP - General Family Medicine 10/07/20 Sujit Cerrato FNP [address] [place] [address] Nurse Practitioner Family Medicine 07/05/23 Naya Mirza Sap AnalystMedical Professionals 09/05/24 documented as of this encounter
--- OUTSIDE RECORDS SUMMARY | 2024-12-19 15:02 | XMS_ITS | Encounter Summary ---
Author Organization [facility] [facility] Address 75 [facility] 7t [place] [address] Care Team Providers Care Denture Laboratory Technician Name Role Phone Shalonda Phillips Primary Care Provider [phone] Sujit Cerrato Unavailable Unavailable Encounter Details Date Type Department Care Team ([facility] Contact Info) Description 11/15/[address] [facility] MED[facility] [address] [place] [phone] Sapphire Almaguer LPN Social History Tobacco Use [...] Description 12/25/2024 1:30 PM EDT Office Visit [facility] MED[facility]INE 230 [place], [place] [phone] Shalonda Phillips ANP [address] [place], [place] [phone] documented as of this encounter Visit Diagnoses Not on filedocumented in this encounter Care Teams Denture Laboratory Technician Relationship Specialty Start Date End Date Shalonda Phillips ANP [address] [place] [address] PCP - General Family Medicine 10/07/20 Sujit Cerrato FNP [address] [place] [address] Nurse Practitioner Family Medicine 07/05/23 Naya Mirza Manager WillowResearch Subject 09/05/24 documented as of this encounter
--- OUTSIDE RECORDS SUMMARY | 2024-12-19 15:02 | XMS_ITS | Encounter Summary ---
Author Organization [employer] Address [address] [facility] 7t [place] [address] Care Team Providers Care Wafer Substrate Tester Name Role Phone Jacqueline Shalonda JIMENEZ Primary Care Provider [phone] Sujit Cerrato Unavailable Unavailable Reason for Visit * Reason Comments Med Refill Encounter Details Date Type Department Care Team ([facility] Contact Info) Description 06/07/2023 Refill [facility] CHC MED & PEDS [address] [place] [address] Monique Man FNP [address] [place] [address] [place] [address] Fibromyalgia Social History Tobacco Use Types Packs/Day [...] Description 12/25/2024 1:30 PM EDT Office Visit [facility] [address] [place] [address] Shalonda Phillips ANP [address] [place] [address] documented as of this encounter Visit Diagnoses Diagnosis Fibromyalgia Unspecified myalgia and myositis documented in this encounter Care Teams Wafer Substrate Tester Relationship Specialty Start Date End Date Shalonda Phillips ANP [address] [place] [address] PCP - General Family Medicine 10/07/20 Sujit Cerrato FNP [address] [place] [address] Nurse Practitioner Family Medicine 07/05/23 Naya Mirza Glass SetterElevator Serviceman 09/05/24 documented as of this encounter
--- OUTSIDE RECORDS SUMMARY | 2024-12-19 15:02 | XMS_ITS | Encounter Summary ---
Author Organization [employer] Address 75 [facility] 7t [place] [address] Care Team Providers Care Stereo Equipment Repairer Name Role Phone Shalonda Phillips Primary Care Provider [phone] Sujit Cerrato Unavailable Unavailable Encounter Details Date Type Department Care Team (Late Contact Info) Description 08/24/2022 Orders Only [facility] CHC MED & PEDS [address] [place] [address] Rosa Vela LPN Social History Tobacco Use [...] PM EDT Office Visit [facility] MEDICINE [address] [place] [address] Shalonda Phillips ANP [address] [place] [address] documented as of this encounter Visit Diagnoses Not on filedocumented in this encounter Care Teams Stereo Equipment Repairer Relationship Specialty Start Date End Date Shalonda Phillips ANP [address] [place] [address] PCP - General Family Medicine 10/07/20 Sujit Cerrato FNP [address] [place] [address] Nurse Practitioner Family Medicine 07/05/23 Naya Mirza Business Services CoordinatorCardiac Rehab Nurse 09/05/24 documented as of this encounter
--- OUTSIDE RECORDS SUMMARY | 2024-12-19 15:02 | XMS_ITS | Encounter Summary ---
Author Organization [employer] Address 75 [facility] 7t [place] [address] Care Team Providers Care Dipper And Drier Name Role Phone Shalonda Phillips Primary Care Provider [phone] Sujit Cerrato Unavailable Unavailable Reason for Visit * Reason Comments Med Refill Encounter Details Date Type Department Care Team ([facility] Contact Info) Description 10/11/2022 Refill [facility] CHC MED & PEDS [address] [place] [address] Shalonda Phillips ANP [address] [place] [address] Fibromyalgia Social History Tobacco Use Types Packs/Day [...] Upcoming Encounters Date Type Department Care Team ([facility] Contact Info) Description 12/25/2024 1:30 PM EDT Office Visit [facility] MEDICINE [address] [place] [address] Shalonda Phillips ANP 230 [place] [address] documented as of this encounter Visit Diagnoses Diagnosis Fibromyalgia Unspecified myalgia and myositis documented in this encounter Care Teams Dipper And Drier Relationship Specialty Start Date End Date Shalonda Phillips ANP [address] [place] [address] PCP - General Family Medicine 10/07/20 Sujit Cerrato FNP [address] [place] [address] Nurse Practitioner Family Medicine 07/05/23 Naya Mirza Cruise GuideCaptain Fishing Vessel 09/05/24 documented as of this encounter
--- OUTSIDE RECORDS SUMMARY | 2024-12-19 15:02 | XMS_ITS | Encounter Summary ---
Author Organization [employer] [facility] Address 75 [facility] 7t [place] [address] Care Team Providers Care Roll Contour Grinder Name Role Phone Shalonda Phillips Primary Care Provider [phone] Sujit Cerrato Unavailable Unavailable Encounter Details Date Type Department Care Team ([facility] Contact Info) Description 09/29/2022 Orders Only [facility] MEDICINE [address] [place], [place] [phone] Sapphire Almaguer LPN Social History Tobacco Use [...] Upcoming Encounters Date Type Department Care Team ([facility] Contact Info) Description 12/25/2024 1:30 PM EDT Office Visit [facility] MEDICINE [address] [place], [place] [phone] Shalonda Phillips ANP [address] [place], [place] [phone] documented as of this encounter Visit Diagnoses Not on filedocumented in this encounter Care Teams Roll Contour Grinder Relationship Specialty Start Date End Date Shalonda Phillips ANP [address] [place] [address] PCP - General Family Medicine 10/07/20 Sujit Cerrato FNP [address] [place] [address] Nurse Practitioner Family Medicine 07/05/23 Naya Mirza National Expansion RecruiterCotton Presser 09/05/24 documented as of this encounter
--- OUTSIDE RECORDS SUMMARY | 2024-12-19 15:02 | XMS_ITS | Encounter Summary ---
Author Organization [employer] Address 75 [facility] 7t [place] [address] Care Team Providers Care Warehouse Order Selector Name Role Phone Shalonda Phillips Primary Care Provider [phone] Sujit Cerrato Unavailable Unavailable Reason for Visit * Reason Comments Med Refill Encounter Details Date Type Department Care Team (Late Contact Info) Description 02/23/2023 Refill [facility] CHC MED & PEDS [address] [place], [place] [phone] Marco Kilgore MD [address] [place], [place] [phone] Insomnia, unspecified type Social History Tobacco Use [...] Upcoming Encounters Date Type Department Care Team ([facility] Contact Info) Description 12/25/2024 1:30 PM EDT Office Visit [facility] 230 [place], [place] [phone] Shalonda Phillips ANP 230 [place], [place] [phone] documented as of this encounter Visit Diagnoses Diagnosis Insomnia, unspecified type documented in this encounter Care Teams Warehouse Order Selector Relationship Specialty Start Date End Date Shalonda Phillips ANP [address] [place] [address] PCP - General Family Medicine 10/07/20 Sujit Cerrato FNP [address] [place] [address] Nurse Practitioner Family Medicine 07/05/23 Naya Mirza Rehab/Pre Vocational CounselorTechnical System Analyst 09/05/24 documented as of this encounter
--- OUTSIDE RECORDS SUMMARY | 2024-12-19 15:02 | XMS_ITS | Encounter Summary ---
Author Organization [employer] Address [address] [facility] [address] 7t [place] [address] Care Team Providers Care Form Tamping Machine Operator Name Role Phone Jacqueline Shalonda JIMENEZ Primary Care Provider [phone] Sujit Cerrato Unavailable Unavailable Encounter Details Date Type Department Care Team ([facility] Contact Info) Description 08/02/2023 Orders Only [facility] CHC MED & PEDS [address] [place], [place] [phone] Saphpire Almaguer LPN Social History Tobacco Use Types [...] Description 12/25/2024 1:30 PM EDT Office Visit [facility] MEDICINE 230 [place] [address] Shalonda Phillips ANP [address] [place] [address] documented as of this encounter Visit Diagnoses Not on filedocumented in this encounter Additional Health Concerns Assessment Noted Time PHQ-9 Depression Total Score: 3 07/25/20 23 2:05 PM EST documented as of this encounter Care Teams Form Tamping Machine Operator Relationship Specialty Start Date End Date Shalonda Phillips ANP [address] [place] [address] PCP - General Family Medicine 10/07/20 Sujit Cerrato FNP [address] [place] [address] Nurse Practitioner Family Medicine 07/05/23 Naya Mirza Training LeadGaming Cashier 09/05/24 documented as of this encounter
--- OUTSIDE RECORDS SUMMARY | 2024-12-19 15:02 | XMS_ITS | Encounter Summary ---
Author Organization [employer] Address [address] [facility] [address] 7t [place] [address] Care Team Providers Care Hospital Admissions Clerk Name Role Phone Shalonda Phillips Primary Care Provider [phone] Sujit Cerrato Unavailable Unavailable Reason for Visit * Reason Comments Med Refill Encounter Details Date Type Department Care Team ([facility] Contact Info) Description 08/29/2023 Refill [facility] CHC MED & PEDS [address] [place], [place] [phone] Shalonda Phillips ANP [address] [place] [address] Insomnia, unspecified type Social History Tobacco Use [...] 12/25/2024 1:30 PM EDT Office Visit [facility] MEDICINE [address] [place] [address] Shalonda Phillips ANP [address] [place] [address] documented as of this encounter Visit Diagnoses Diagnosis Insomnia, unspecified type documented in this encounter Additional Health Concerns Assessment Noted Time PHQ-9 Depression Total Score: 7 08/29/19 24 10:44 AM EST documented as of this encounter Care Teams Hospital Admissions Clerk Relationship Specialty Start Date End Date Shalonda Phillips ANP [address] [place] [address] PCP - General Family Medicine 10/07/20 Sujit Cerrato FNP [address] [place] [address] Nurse Practitioner Family Medicine 07/05/23 Naya Mirza Coding Quality CoordinatorThermodynamics Professor 09/05/24 documented as of this encounter
--- OUTSIDE RECORDS SUMMARY | 2024-12-19 15:02 | XMS_ITS | Encounter Summary ---
Author Organization [employer] Address 75 [facility] 7t [place] [address] Care Team Providers Care Helium Arc Welder Name Role Phone Shalonda Phillips Primary Care Provider [phone] Sujit Cerrato Unavailable Unavailable Encounter Details Date Type Department Care Team (Late st Contact Info) Description 10/14/2022 Orders Only [facility] CHC MED & PEDS [address] [place] [address] Rosa Vela LPN Social History Tobacco Use [...] Description 12/25/2024 1:30 PM EDT Office Visit [facility] MEDICINE [address] [place] [address] Shalonda Phillips ANP [address] [place] [address] documented as of this encounter Visit Diagnoses Not on filedocumented in this encounter Care Teams Helium Arc Welder Relationship Specialty Start Date End Date Shalonda Phillips ANP [address] [place] [address] PCP - General Family Medicine 10/07/20 Sujit Cerrato FNP [address] [place] [address] Nurse Practitioner Family Medicine 07/05/23 Naya Mirza Power Electronics Research EngineerEngine Dispatcher 09/05/24 documented as of this encounter
--- OUTSIDE RECORDS SUMMARY | 2024-12-19 15:03 | XMS_ITS | Encounter Summary ---
Author Organization [employer] [facility] Address [address] [facility] 7t [place] [address] Care Team Providers Care Protective Signal Operations Supervisor Name Role Phone Shalonda Phillips Primary Care Provider [phone] Sujit Cerrato Unavailable Unavailable Encounter Details Date Type Department Care Team ([facility] Contact Info) Description 10/18/2022 Orders Only [facility] MEDICINE [address] [place], [place] [phone] Sapphire Almaguer LPN Social History Tobacco Use Types Packs/Day Years Used Date Smoking Tobacco: Every Day Cigarettes 09 17 Comments Unknown Sex and Gender Information Value [...] Upcoming Encounters Date Type Department Care Team ([facility] Contact Info) Description 12/25/2024 1:30 PM EDT Office Visit [facility] MEDICINE [address] [place], [place] [phone] Shalonda Phillips ANP [address] [place], [place] [phone] documented as of this encounter Visit Diagnoses Not on filedocumented in this encounter Care Teams Protective Signal Operations Supervisor Relationship Specialty Start Date End Date Shalonda Phillips ANP [address] [place] [address] PCP - General Family Medicine 10/07/20 Sujit Cerrato FNP [address] [place] [address] Nurse Practitioner Family Medicine 07/05/23 Naya Mirza Mason TenderPile Driver Engineer 09/05/24 documented as of this encounter
== END 2024-12-19 14:25 | disposition home or self-care (01) ==
LOC: HO.HPS 13:48
PROVIDERS: PCP Nurse Practitioner Primary Care; Visit Provider Internal Medicine
DX: J44.1 Chronic obstructive pulmonary disease with (acute) exacerbation (principal); G47.34 Idiopathic sleep related nonobstructive alveolar hypoventilation
CPT/HCPCS: 99213

== ENCOUNTER → 2024-12-19 13:47 | Outpatient (BNVA) | payer MEDICAID, SELFPAY | PROVIDERS: PCP Nurse Practitioner Primary Care; Visit Provider Internal Medicine | DX: J44.1 Chronic obstructive pulmonary disease with (acute) exacerbation (principal); G47.34 Idiopathic sleep related nonobstructive alveolar hypoventilation; F17.210 Nicotine dependence, cigarettes, uncomplicated | CPT/HCPCS: 99212 ==

== ENCOUNTER 2025-05-22 14:30 | Outpatient (AMB) | payer MEDICAID, SELFPAY ==
[2025-05-22 14:35] VITALS: BP 102/60; BMI 36.3
--- NOTE | 2025-05-22 14:35 | A.OFFVIS_ITS ---
Vital Signs 05/22/25 14:35 Height 5 ft 6 in Weight 225 lb BMI 36.3 BP 102/60 Intake Visit Reasons: Annual/co testing Finish Opener Required: Yes Finish Opener Language: Visual Basic Programmer Services: Finish Opener Present (in person) Finish Opener Name: Jany DEL TORO Information Interpreted: non-clinical & clinical Sales Leader: Sales Leader Present (Jany DEL TORO) Accompanied by: Self / Same As Patient Allergies lisinopril (LISINOPRIL) Allergy (Unknown, Verified 05/22/25 14:38) UNKNOWN Post menopausal: Yes HPI Comments Details: Presenting for annual exam. No complaints. Last Pap/HPV was ascus-H in 11/12, colpo biopsy ECC was negative Last Mammogram was BI-RADS 1 in 01/12 No previous screening [facility] Medical History Pap smear with atypical squamous cells, cannot exclude high grade squamous intraepithelial lesion (ASC-H) COPD (chronic obstructive pulmonary disease) SOFIYA (obstructive sleep apnea) Nocturnal hypoxemia Hypertension Hyperlipidemia Diabetes Rheumatoid arthritis Nocturnal hypoxemia Morbid obesity Nicotine dependence, cigarettes, uncomplicated Allergic rhinitis Depression Cocaine abuse Opioid abuse Drug overdoses Surgical History History of tubal ligation History of colonoscopy History of hernia surgery Family History Father Dementia Mother Diabetes HTN (hypertension) Social History Household Members: Family Household Members Other:: daughter and two grandsons Housing: Apartment Do you presently have visiting nurse or other home services: No Alcohol intake: former Patient Tobacco Use Status: Current everyday Tobacco user Tobacco use type: Cigarette Cigarettes Per Day: 10 Years Smoked: 25 Second Hand Smoke Exposure: Yes Substance Use Type: Heroin and Marijuana service: No Current occupational status: disabled Sexual orientation: Straight/Heterosexual Gender identity: Female Female Reproductive History Menstrual control method: permanent sterilization Menopause type: natural Total pregnancies: 7 Full term: 6 Number of Living Children: 6 Ab spontaneous: 1 Date of last pap smear: 11/15/23 Date of Mammogram: 12/21/23 Review of Systems Const All systems reviewed & are unremarkable except as noted in HPI and below Card Reports as per HPI Resp Reports as per HPI GI Reports as per HPI and Reports no additional complaints Reports as per HPI Physical Exam Const General: cooperative, healthy appearing and comfortable Chest Chest palpation & inspection: normal inspection of the chest and normal palpation of entire chest wall Breast/axilla inspection: normal inspection of the breasts and normal inspection of the axillae Breast/axilla palpation: normal palpation of the breasts, normal palpation of the axillae and no axillary lymphadenopathy Resp Effort & Inspection: normal respiratory effort Auscultation: clear to auscultation bilaterally Percussion: percussion normal Cardio Palpation: normal PMI Rate: regular rate Rhythm: regular rhythm Heart sounds: no murmurs and no rubs Peripheral pulses: Peripheral pulses 2+ throughout GI Inspection: Yes normal to inspection Palpation (GI): Soft to palpation, nontender, no guarding, not rigid and No hepatosplenomegaly present Percussion: Yes normal to percussion Auscultation: normal bowel sounds Rectal Exam - Female: deferred General: Yes bladder normal to palpation External Female Exam: No lesion Speculum Exam - Vagina: normal appearance of the vagina, normal palpation, normal vaginal discharge and not erythematous Speculum Exam - Cervix: normal appearance of the cervix and normal palpation Bimanual exam- vagina & uterus: normal bimanual exam, normal palpation, uterine size normal, bladder normal to palpation, consistency normal and normal palpation Bimanual Exam- Adnexa, other: normal adnexae, no masses and no tenderness Assessment & Plan Assessment & Plan (1) Pap smear with atypical squamous cells, cannot exclude high grade squamous intraepithelial lesion (ASC-H): Comment: 11/12 ASC-H HPV E6/E7 positive, colpo biopsy ECC negative Code(s): R87.610 - Atypical squamous cells of undetermined significance on cytologic smear of cervix (ASC-US) Category: Medical Plan: Co testing done if negative repeat Co testing 24 hours of abnormal colposcopy (2) Well woman exam: Code(s): Z01.419 - Encounter for gynecological examination (general) (routine) without abnormal findings Category: Medical Plan: Cotesting done. Mammogram ordered. Counseled the patient about the recommended dietary allowance of 1000 mg of Calcium & 600 IU of vitamin D. GI referral for screening colonoscopy placed The patient was instructed to perform monthly self-breast exams and to schedule an annual exam in a year; All questions answered and the patient verbalized understanding. Instructed the patient to schedule annual exam in a year Orders: Orders MM tomosynthesis screening BI Today Z12.31 - Encounter for screening mammogram for malignant neoplasm of breast Referrals Gastroenterology Referral Z12.11 - Encounter for screening for malignant neoplasm of colon Coding Level of Care Code Est Pt Prev Care 40-64y(50218) Diagnoses Pap smear with atypical squamous cells, cannot exclude high grade squamous intraepithelial lesion (ASC-H) R87.610 Well woman exam Z01.419
--- OUTSIDE RECORDS SUMMARY | 2025-05-22 15:39 | XMS_ITS | Encounter Summary ---
Author Organization [employer] Address [address] [facility] 7t [place] [address] Care Team Providers Care Orthopedic Dentist Name Role Phone Shalonda Phillips Primary Care Provider [phone] Sujit Cerrato Unavailable Unavailable Reason for Visit * Reason Comments Med Refill Encounter Details Date Type Department Care Team ([facility] st Contact Info) Description 08/29/2023 Refill [facility] CHC MED & PEDS [address] [place], [place] [phone] Shalonda Phillips ANP [address] [place] [address] Insomnia, unspecified type Social History Tobacco Use [...] AM EDT documented as of this encounter Functional Status * Over the past 2 weeks, how often have you been bothered by any of the following problems? Question Answer Date of Assessment Author Patient Health Questionnaire -2 Score 2 08/29/2023 10:44 AM Daisy Brown MA * If you checked off any problems on this questionnaire so far, Question Answer Date of Assessment Author How difficult have these problems made it for you to do your work, take care of things at home, or get along with other people? Somewhat difficult 08/29/2023 10:44 AM Daisy Brown MA * Over the past 2 weeks, how often have you been bothered by any of the following problems? Question Answer Date of Assessment Author Little interest or pleasure in doing things Several days 08/29/2023 10:44 AM Daisy Brown MA Feeling down, depressed, or hopeless Several days 08/29/2023 10:44 AM Daisy Brown [place] Trouble falling or staying asleep, or sleeping too much Not at all 08/29/2023 10:44 AM Alaina Brown MA Feeling tired or having little energy Several days 08/29/2023 10:44 AM Daisy Brown MA Poor appetite or overeating Several days 08/29/2023 10 :44 AM Alaina Brown MA Feeling bad about yourself - or that you are a failure or have let yourself or your family down Several days 08/29/2023 10:44 AM Daisy Brown MA Trouble concentrating on things, such as reading the newspaper or watching television Several days 08/29/2023 10:44 AM Daisy Brown MA Moving or speaking so slowly that other people could have noticed? Or the opposite - being so fidgety or restless that you have been moving around a lot more than usual. Several days 08/29/2023 10:44 AM Daisy Brown MA Thoughts that you would be better off or hurting yourself in some way Not at all 08/29/2023 10:44 AM Tori Brown MA Patient Health Questionnaire-9 Score 7 08/29/2023 10:44 AM Rosa Elena Brown MA documented as of this encounter Plan of Treatment Upcoming Encounters Date Type Department Care Team (Late st Contact Info) Description 07/11/2025 2:45 PM EST Procedure Visit [facility] MEDICINE [address] [place] [address] Jasmin Greenfield CNM [address] [place] [address] documented as of this encounter Visit Diagnoses Diagnosis Insomnia, unspecified type documented in this encounter Additional Health Concerns Assessment Noted Time PHQ-9 Depression Total Score: 7 08/29/19 24 10:44 AM EST documented as of this encounter Care Teams Orthopedic Dentist Relationship Specialty Start Date End Date Shalonda Phillips ANP [address] [place] [address] PCP - General Family Medicine 10/07/20 Sujit Cerrato FNP [address] [place] [address] Nurse Practitioner Family Medicine 07/05/23 Naya Mirza Concrete Block LayerYard Jockey 09/05/24 documented as of this encounter
--- OUTSIDE RECORDS SUMMARY | 2025-05-22 15:39 | XMS_ITS | Encounter Summary ---
Author Organization [employer] Address 75 [facility] 7t [place] [address] Care Team Providers Care Door To Door Sales Representative Name Role Phone Shalonda Phillips Primary Care Provider [phone] Sujit Cerrato Unavailable Unavailable Encounter Details Date Type Department Care Team (Late st Contact Info) Description 08/06/2022 Orders [address] [facility] [address] [place] [address] Sapphire Almaguer LPN Social History Tobacco Use [...] Description 07/11/2025 2:45 PM EST Procedure Visit [facility] MEDICINE [address] [place] [address] Jasmin Greenfield CNM [address] [place] [address] documented as of this encounter Visit Diagnoses Not on filedocumented in this encounter Care Teams Door To Door Sales Representative Relationship Specialty Start Date End Date Shalonda Phillips ANP [address] [place] [address] PCP - General Family Medicine 10/07/20 Sujit Cerrato FNP [address] [place] [address] Nurse Practitioner Family Medicine 07/05/23 Naya Mirza Rodeo PerformerSociocultural Anthropology Professor 09/05/24 documented as of this encounter
--- OUTSIDE RECORDS SUMMARY | 2025-05-22 15:39 | XMS_ITS | Encounter Summary ---
Author Organization [employer] Address 75 [facility] 7t [place] [address] Care Team Providers Care Assault Amphibious Vehicle Crewman Name Role Phone Shalonda Phillips Primary Care Provider [phone] Sujit Cerrato Unavailable Unavailable Encounter Details Date Type Department Care Team (Late st Contact Info) Description 10/14/2022 Orders Only [facility] CHC MED & PEDS [address] [place] [address] Rosa Vela LPN Social History Tobacco Use [...] Description 07/11/2025 2:45 PM EST Procedure Visit [facility] MEDICINE [address] [place] [address] Jasmin Greenfield CNM [address] [place] [address] documented as of this encounter Visit Diagnoses Not on filedocumented in this encounter Care Teams Assault Amphibious Vehicle Crewman Relationship Specialty Start Date End Date Shalonda Phillips ANP [address] [place] [address] PCP - General Family Medicine 10/07/20 Sujit Cerrato FNP [address] [place] [address] Nurse Practitioner Family Medicine 07/05/23 Naya Mirza Frozen Food SelectorSide Door Man 09/05/24 documented as of this encounter
--- OUTSIDE RECORDS SUMMARY | 2025-05-22 15:39 | XMS_ITS | Encounter Summary ---
Author Organization [employer] Address 75 [facility] 7t [place] [address] Care Team Providers Care Soil Biology Teacher Name Role Phone Shalonda Phillips Primary Care Provider [phone] Sujit Cerrato Unavailable Unavailable Encounter Details Date Type Department Care Team ([facility] st Contact Info) Description 07/28/2023 Orders Only [facility] CHC MED & PEDS [address] [place] [address] Rosa Vela LPN Social History Tobacco Use [...] Description 07/11/2025 2:45 PM EST Procedure Visit [facility] MEDICINE [address] [place] [address] Jasmin Greenfield CNM [address] [place] [address] documented as of this encounter Visit Diagnoses Not on filedocumented in this encounter Additional Health Concerns Assessment Noted Time PHQ-9 Depression Total Score: 3 07/25/20 23 2:05 PM EST documented as of this encounter Care Teams Soil Biology Teacher Relationship Specialty Start Date End Date Shalonda Phillips ANP [address] [place] [address] PCP - General Family Medicine 10/07/20 Sujit Cerrato FNP [address] [place] [address] Nurse Practitioner Family Medicine 07/05/23 Naya Mirza Food Service Sales RepresentativesRoad Inspector 09/05/24 documented as of this encounter
--- OUTSIDE RECORDS SUMMARY | 2025-05-22 15:39 | XMS_ITS | Encounter Summary ---
Author Organization [employer] Address 75 [facility] 7t [place] [address] Care Team Providers Care Bridge Design Engineer Name Role Phone Shalonda Phillips Primary Care Provider [phone] Sujit Cerrato Unavailable Unavailable Encounter Details Date Type Department Care Team ([facility] st Contact Info) Description 08/02/2023 Orders Only [facility] CHC MED & PEDS [address] [place], [place] [phone] Sapphire Almaguer LPN Social History Tobacco Use [...] Description 07/11/2025 2:45 PM EST Procedure Visit [facility] MEDICINE [address] [place] [address] Jasmin Greenfield CNM [address] [place] [address] documented as of this encounter Visit Diagnoses Not on filedocumented in this encounter Additional Health Concerns Assessment Noted Time PHQ-9 Depression Total Score: 3 07/25/20 23 2:05 PM EST documented as of this encounter Care Teams Bridge Design Engineer Relationship Specialty Start Date End Date Shalonda Phillips ANP [address] [place] [address] PCP - General Family Medicine 10/07/20 Sujit Cerrato FNP [address] [place] [address] Nurse Practitioner Family Medicine 07/05/23 Naya Mirza Plant Production ManagerJr. Java Developer 09/05/24 documented as of this encounter
--- OUTSIDE RECORDS SUMMARY | 2025-05-22 15:39 | XMS_ITS | Encounter Summary ---
Author Organization [employer] Address 75 [facility] 7t [place] [address] Care Team Providers Care Flour Blender Helper Name Role Phone Shalonda Phillips Primary Care Provider [phone] Sujit Cerrato Unavailable Unavailable Reason for Visit * Reason Comments Med Refill Encounter Details Date Type Department Care Team (Late st Contact Info) Description 06/07/2023 Refill [facility] CHC MED & PEDS [address] [place] [address] Monique Man FNP Fibromyalgia Social History Tobacco Use Types Packs/Day [...] t he electric, gas, oil or water [employer] threatened to shut off services in your [...] Description 07/11/2025 2:45 PM EST Procedure Visit [facility] MEDICINE [address] [place] [address] Jasmin Greenfield CNM [address] [place] [address] documented as of this encounter Visit Diagnoses Diagnosis Fibromyalgia Unspecified myalgia and myositis documented in this encounter Care Teams Flour Blender Helper Relationship Specialty Start Date End Date Shalonda Phillips ANP [address] [place] [address] PCP - General Family Medicine 10/07/20 Sujit Cerrato FNP [address] [place] [address] Nurse Practitioner Family Medicine 07/05/23 Naya Mirza Cattle DipperSenior Front End Developer 09/05/24 documented as of this encounter
--- OUTSIDE RECORDS SUMMARY | 2025-05-22 15:39 | XMS_ITS | Encounter Summary ---
Author Organization [employer] Address 75 [facility] 7t [place] [address] Care Team Providers Care Strategic Sourcing Specialist Name Role Phone Shalonda Phillips Primary Care Provider [phone] Sujit Cerrato Unavailable Unavailable Encounter Details Date Type Department Care Team (Late st Contact Info) Description 10/18/2022 Orders Only [facility] MEDICINE [address] [place], [place] [phone] Sapphire Almaguer LPN Social History Tobacco Use [...] Description 07/11/2025 2:45 PM EST Procedure Visit [facility] MEDICINE [address] [place], [place] [phone] Jasmin Greenfield CNM [address] [place], [place] [phone] documented as of this encounter Visit Diagnoses Not on filedocumented in this encounter Care Teams Strategic Sourcing Specialist Relationship Specialty Start Date End Date Shalonda Phillips ANP [address] [place] [address] PCP - General Family Medicine 10/07/20 Sujit Cerrato FNP [address] [place] [address] Nurse Practitioner Family Medicine 07/05/23 Naya Mirza President And CeoMedical Assistant Float 09/05/24 documented as of this encounter
--- OUTSIDE RECORDS SUMMARY | 2025-05-22 15:39 | XMS_ITS | Encounter Summary ---
Author Organization [employer] Address 75 [facility] 7t [place] [address] Care Team Providers Care Mud Plant Operator Name Role Phone Jacqueline Shalonda JIMENEZ Primary Care Provider Sujit Cerrato Unavailable Unavailable Reason for Visit * Reason Comments Med Refill Encounter Details Date Type Department Care Team (Late st Contact Info) Description 02/23/2023 Refill [facility] CHC MED & PEDS [address] [place], [place] [phone] Marco Kilgore MD [address] [place], [place] [phone] Insomnia, unspecified type Social History Tobacco Use [...] Department Care Team (Late Contact Info) Description 07/11/2025 2:45 PM EST Procedure Visit [facility]IC[facility] [address] [place], [place] [phone] Jasmin Greenfield CNM [address] [place], [place] [phone] documented as of this encounter Visit Diagnoses Diagnosis Insomnia, unspecified type documented in this encounter Care Teams Mud Plant Operator Relationship Specialty Start Date End Date Shalonda Phillips ANP [address] [place] [address] PCP - General Family Medicine 10/07/20 Sujit Cerrato FNP [address] [place] [address] Nurse Practitioner Family Medicine 07/05/23 Naya Mirza Class C DriverField Crop Grower 09/05/24 documented as of this encounter
--- OUTSIDE RECORDS SUMMARY | 2025-05-22 15:39 | XMS_ITS | Encounter Summary ---
Author Organization [employer] Address 75 [facility] 7t [place] [address] Care Team Providers Care Core Winder Machine Operator Name Role Phone Shalonda Phillips Primary Care Provider [phone] Sujit Cerrato Unavailable Unavailable Encounter Details Date Type Department Care Team (Late st Contact Info) Description 09/29/[address] [facility] MEDICINE [address] [place], [place] [phone] Sapphire Almaguer LPN Social History Tobacco Use [...] Description 07/11/2025 2:45 PM EST Procedure [address] [facility] MEDICINE [address] [place], [place] [phone] Jasmin Greenfield CNM [address] [place], [place] [phone] documented as of this encounter Visit Diagnoses Not on filedocumented in this encounter Care Teams Core Winder Machine Operator Relationship Specialty Start Date End Date Shalonda Phillips ANP [address] [place] [address] PCP - General Family Medicine 10/07/20 Sujit Cerrato FNP [address] [place] [address] Nurse Practitioner Family Medicine 07/05/23 Naya Mirza Naval Surface Fire Support PlannerLinotype Machinist 09/05/24 documented as of this encounter
--- OUTSIDE RECORDS SUMMARY | 2025-05-22 15:39 | XMS_ITS | Encounter Summary ---
Author Organization [employer] Address [address] [facility] 7t [place] [address] Care Team Providers Care Rent Collector Name Role Phone Shalonda Phillips Primary Care Provider [phone] Sujit Cerrato Unavailable Unavailable Encounter Details Date Type Department Care Team (Late st Contact Info) Description 08/24/2022 Orders Only [facility] CHC MED & PEDS [address] [place] [address] Rosa Vela LPN Social History Tobacco Use [...] Description 07/11/2025 2:45 PM EST Procedure Visit [facility] MEDICINE [address] [place] [address] Jasmin Greenfield CNM [address] [place] [address] documented as of this encounter Visit Diagnoses Not on filedocumented in this encounter Care Teams Rent Collector Relationship Specialty Start Date End Date Shalonda Phillips ANP [address] [place] [address] PCP - General Family Medicine 10/07/20 Sujit Cerrato FNP [address] [place] [address] Nurse Practitioner Family Medicine 07/05/23 Naya Mirza Rent CollectorSenior Net Developer 09/05/24 documented as of this encounter
--- OUTSIDE RECORDS SUMMARY | 2025-05-22 15:39 | XMS_ITS | Encounter Summary ---
Author Organization [facility] Address 75 [facility] 7t [place] [address] Care Team Providers Care Floor Layer Apprentice Name Role Phone Shalonda Phillips Primary Care Provider Sujit Cerrato Unavailable Unavailable Encounter Details Date Type Department Care Team (Late st Contact Info) Description 09/14/2022 Orders Only [facility] [address] [place], [place] [phone] Sapphire Almaguer LPN Social History Tobacco Use [...] Description 07/11/2025 2:45 PM EST Procedure Visit [facility] [address] [place], [place] [phone] Jasmin Greenfield CNM [address] [place], [place] [phone] documented as of this encounter Visit Diagnoses Not on filedocumented in this encounter Care Teams Floor Layer Apprentice Relationship Specialty Start Date End Date Shalonda Phillips ANP [address] [place] [address] PCP - General Family Medicine 10/07/20 Sujit Cerrato FNP [address] [place] [address] Nurse Practitioner Family Medicine 07/05/23 Naya Mirza Economics LecturerAir Defence Officer 09/05/24 documented as of this encounter
--- OUTSIDE RECORDS SUMMARY | 2025-05-22 15:39 | XMS_ITS | Encounter Summary ---
Author Organization [employer] Address [address] [facility] [address] [place] [address] Care Team Providers Care Transfer Controller Name Role Phone Shalonda Phillips Primary Care Provider [phone] Sujit Cerrato Unavailable Unavailable Reason for Visit * Reason Comments Med Refill Encounter Details Date Type Department Care Team (Late st Contact Info) Description 10/11/2022 Refill [facility] CHC MED & PEDS [address] [place], [place] [phone] Shalonda Phillips ANP [address] [place] [address] Fibromyalgia Social History Tobacco Use Types Packs/Day [...] Description 07/11/2025 2:45 PM EST Procedure Visit [facility] MEDICINE [address] [place], [place] [phone] Jasmin Greenfield CNM [address] [place] [address] documented as of this encounter Visit Diagnoses Diagnosis Fibromyalgia Unspecified myalgia and myositis documented in this encounter Care Teams Transfer Controller Relationship Specialty Start Date End Date Shalonda Phillips ANP [address] [place] [address] PCP - General Family Medicine 10/07/20 Sujit Cerrato FNP [address] [place] [address] Nurse Practitioner Family Medicine 07/05/23 Naya Mirza Direct Of Real EstatePrecise Winder 09/05/24 documented as of this encounter
--- OUTSIDE RECORDS SUMMARY | 2025-05-22 15:39 | XMS_ITS | Encounter Summary ---
Author Organization [employer] Address 75 [facility] [address]t [place] [address] Care Team Providers Care China Painter Name Role Phone Shalonda Phillips Primary Care Provider [phone] Sujit Cerrato Unavailable Unavailable Encounter Details Date Type Department Care Team (Late st Contact Info) Description 08/04/2022 Orders Only [facility] CHC MED & PEDS [address] [place] [address] Rosa Vela LPN Social History Tobacco Use [...] Description 07/11/2025 2:45 PM EST Procedure Visit [facility] MEDICINE [address] [place] [address] Jasmin Greenfield CNM [address] [place] [address] documented as of this encounter Visit Diagnoses Not on filedocumented in this encounter Care Teams China Painter Relationship Specialty Start Date End Date Shalonda Phillips ANP [address] [place] [address] PCP - General Family Medicine 10/07/20 Sujit Cerrato FNP [address] [place] [address] Nurse Practitioner Family Medicine 07/05/23 Naya Mirza Full Decator OperatorMovie Machine Operator 09/05/24 documented as of this encounter
--- OUTSIDE RECORDS SUMMARY | 2025-05-22 15:39 | XMS_ITS | Clinical Summary ---
Author Organization [employer] Address [address] [facility] 7[address] [place] [address] Care Team Providers Care Manager Er Name Role Phone Jacqueline Shalonda JIMENEZ Primary Care Provider [phone] Sujit Cerrato Unavailable Unavailable Allergies Active Allergy [...] AT BEDTIME 023 Active UltiCare Mini Pen [place] 31G X 6 MM misc USE DAILY WITH TRESIBA 100 each 3 023 Active albuterol (2.5 MG/3ML) 0.083% nebulizer solutionIndicatio ns:Moderate persistent asthma without complication INHALE 1 AMPULE USING A NEBULIZER EVERY 4 TO 6 HOURS NEEDED FOR WHEEZING OR SHORTNESS OF BREATH 270 mL 023 Active Continuous Blood Gluc International Student Counselor (FreeStyle Mike 2 [place]) deviceIndications :Type 2 diabetes mellitus with hyperlipidemia (HCC) 1 each 5 (five) times a day. 1 each 023 Active Continuous Blood Gluc Sensor (FreeStyle Mike 2 Sensor) miscIndications:T ype 2 diabetes mellitus with hyperlipidemia (HCC) 1 each every 14 (fourteen) days. 6 each 3 023 Active Enbrel SureClick 50 MG/ML injection 023 Active Advair Diskus 250-50 MCG/ACT aerosol powderIndications :COPD with asthma (CMS/HCC) ([facility]) INHALE 1 PUFF TWICE DAILY. RINSE MOUTH AFTER USING. 60 each 3 024 Active naproxen (Naprosyn) 500 MG tablet TAKE 1 TABLET BY MOUTH TWICE DAILY IN THE MORNING AND IN THE EVENING WITH FOOD 60 tablet 1 024 Active Ascorbic Acid (vitamin C) 250 MG tabletIndications :Microcytic hypochromic anemia Take 1 tab every other day, with ferrous sulfate tablets. 45 tablet 3 025 Active Acetaminophen Extra Strength 500 MG tabletIndications :Pain TAKE 1 TABLET BY MOUTH FOUR TIMES DAILY WITH tramadol NEEDED FOR PAIN 100 tablet 5 025 Active amLODIPine (Norvasc) 10 MG tablet TAKE 1 TABLET BY MOUTH EVERY EVENING 90 tablet 3 025 Active atorvastatin (Lipitor) 40 MG tablet TAKE 1 TABLET BY MOUTH AT BEDTIME 90 tablet 025 Active metFORMIN (Glucophage) 1000 MG tablet TAKE 1 TABLET BY MOUTH TWICE DAILY IN THE MORNING AND IN THE EVENING WITH FOOD 180 tablet 025 Active omeprazole (PriLOSEC) [address] capsuleIndication s:Heartburn TAKE 1 CAPSULE BY MOUTH EVERY MORNING BEFORE BREAKFAST 90 capsule 025 Active D3 Super Strength 50 MCG (2000 UT) capsule TAKE 1 CAPSULE BY MOUTH EVERY EVENING WITH FOOD 90 capsule 025 Active FREESTYLE LITE test strip TEST BLOOD SUGAR TWICE DAILY 50 strip 025 Active Alcohol Swabs (Alcohol Prep) 70 % pads USE THREE TIMES DAILY 100 each 025 Active TRUEplus Lancets 33G misc TEST BLOOD SUGAR TWICE DAILY 100 each 025 Active naltrexone (Depade) 50 MG tabletIndications :Opioid dependence in remission (CMS/HCC) ([facility]) TAKE 1/2 TABLET BY MOUTH EVERY MORNING 15 tablet 025 Active BD Pen Needle Preethi U/F 32G X 4 MM miscIndications:T ype 2 diabetes mellitus with hyperlipidemia ([facility]) USE DIRECTED 100 each 3 025 Active ferrous sulfate 325 (65 Fe) MG EC tabletIndications :Microcytic hypochromic anemia TAKE 1 TABLET BY MOUTH EVERY OTHER DAY IN THE MORNING WITH VITAMINA C. DO NOT BREAK, CRUSH, DISSOLVE OR CHEW. 45 tablet 1 025 Active FLUoxetine (PROzac) 40 MG capsuleIndication s:Major depressive disorder, recurrent severe without psychotic features (CMS/HCC) ([facility]) TAKE 1 CAPSULE BY MOUTH EVERY MORNING 90 capsule 1 025 Active cyclobenzaprine (Flexeril) 10 MG tabletIndications :Fibromyalgia TAKE 1 TABLET BY MOUTH THREE TIMES DAILY NEEDED FOR MUSCLE SPASMS 90 tablet 3 025 Active losartan (Cozaar) 100 MG tablet TAKE 1 TABLET BY MOUTH EVERY MORNING 90 tablet 3 025 Active Incruse Ellipta 62.5 MCG/ACT aerosol powderIndications :Chronic obstructive pulmonary disease, unspecified COPD type (CMS/HCC) ([facility]) INHALE 1 PUFF BY MOUTH EVERY DAY AT THE SAME TIME RINSE MOUTH AFTER USING 30 each 5 025 Active primidone (Mysoline) 50 MG tabletIndications :Tremor TAKE 1/2 TABLET BY MOUTH AT BEDTIME 15 tablet 3 025 Active zolpidem (Ambien) 10 MG tabletIndications :Insomnia, unspecified type TAKE 1 TABLET BY MOUTH AT BEDTIME NEEDED 30 tablet 025 Active Aspirin Low Dose 81 MG EC tabletIndications :Hyperlipidemia due to type 2 diabetes mellitus ([facility]) TAKE 1 TABLET BY MOUTH AT BEDTIME 90 tablet 025 Active loratadine (Claritin) 10 MG tabletIndications :Non-seasonal allergic rhinitis due to other allergic trigger TAKE 1 TABLET BY MOUTH EVERY DAY 90 tablet 025 Active perphenazine 8 MG tabletIndications :Major depressive disorder, recurrent severe without psychotic features (CMS/HCC) ([facility]) TAKE 1 TABLET BY MOUTH TWICE DAILY IN THE MORNING AND IN THE EVENING 180 tablet 025 Active traZODone (Desyrel) 100 MG tabletIndications :Insomnia, unspecified type TAKE 1 TO 2 TABLETS BY MOUTH AT BEDTIME 180 tablet 025 Active Trulicity 3 MG/0.5ML solution auto-injectorIndi cations:Type 2 diabetes mellitus with other specified complication, unspecified whether long term care pharmacist insulin use ([facility]),Hyperlipide stone due to type 2 diabetes mellitus (HCC) INJECT ONE PEN (= 3MG) SUBCUTANEOUSLY ONCE A WEEK DIRECTED 2 mL 5 025 Active albuterol (Ventolin HFA) 108 (90 Base) MCG/ACT inhalerIndication s:Moderate persistent asthma without complication INHALE 2 PUFFS BY MOUTH EVERY 4 TO 6 HOURS NEEDED FOR WHEEZING OR SHORTNESS OF BREATH 18 g 1 025 Active Tresiba FlexTouch 100 UNIT/ML injectionIndicati ons:Type 2 diabetes mellitus with hyperlipidemia (HCC) INJECT 24 UNITS SUBCUTANEOUSLY EVERY DAY 15 mL 3 025 Active gabapentin (Neurontin) 800 MG tablet TAKE 1 TABLET BY MOUTH THREE TIMES DAILY IN THE MORNING, AT NOON, AND AT BEDTIME 90 tablet 5 025 Active albuterol (Ventolin HFA) 108 (90 Base) MCG/ACT inhalerIndication s:Moderate persistent asthma without complication INHALE 2 PUFFS BY MOUTH EVERY 4 TO 6 HOURS NEEDED 18 g 1 024 2024 Discontinued Tresiba FlexTouch 100 UNIT/ML injectionIndicati ons:Type 2 diabetes mellitus with hyperlipidemia (HCC) INJECT 24 UNITS SUBCUTANEOUSLY EVERY DAY DIRECTED 15 mL 3 024 2024 Discontinued gabapentin (Neurontin) 800 MG tablet TAKE 1 TABLET BY MOUTH THREE TIMES DAILY IN THE MORNING, AT NOON, AND AT BEDTIME 90 tablet 5 025 2024 Discontinued Active Problems Problem Noted Date Diagnosed Date ASCUS with positive high risk HPV cervical 01/19 Overview (01/20/2024): 11/14/23 pap here, referred to [facility] for colpo, scheduled 02/27/2024 Major depressive disorder, r ecurrent, severe with psychotic features (CMS/HCC) 07/05/2023 Overview (01/20/2024): Prozac 40mg daily Perphenazine [...] Hyperlipidemia due to type 2 diabetes mellitus 1 08/31/2021 Overview (01/20/2024): Lab Results Component Value Date [...] Essential hypertension 12/18/2015 Hyperlipidemia 12/18/2015 Rheumatoid arthritis ([facility]/HCC) 12/18/2015 Smoker 12/18/2015 Assessment & Plan (07/05/2023 10:58 AM EST): Consider Bupropion and/or Chantix, plus nicotine replacement. Deferred today. Vitamin D deficiency 12/18/2015 Obesity 12/18/2015 Type 2 diabetes mellitus 12/18/2015 Resolved Problems Problem Noted Date Diagnosed Date Resolved Date Severe recurrent major depre ssion without psychotic features ([facility]/HCC) 04/14/2018 07/05/2023 Encounters Date Type Department Care Team Description 05/13/2025 Telephone [facility] [address] [place] [address] Maggie Bonilla MA 05/08/2025 Refill [facility] [address] [place] [address] Shalonda Phillips ANP 05/05/2025 Refill [facility] [address] [place] [address] Shalonda Phillips ANP Type 2 diabetes mellitus with hyperlipidemia ([facility]) ([facility]) 04/22/2025 Refill [facility] [address] [place] [address] Shalonda Phillips ANP Moderate persistent asthma without complication 04/05/2025 Refill [facility] [address] [place] [address] Shalonda Phillips ANP Type 2 diabetes mellitus with other specified complication, unspecified whether long term care pharmacist insulin use ([facility]); Hyperlipidemia due to type 2 diabetes mellitus ([facility]) ([facility]) 04/03/2025 Refill [facility] [address] [place] [address] Shalonda Phillips ANP Hyperlipidemia due to type 2 diabetes mellitus ([facility]) ([facility]); Non-seasonal allergic rhinitis due to other allergic trigger; Major depressive disorder, recurrent severe without psychotic features ([facility]); Insomnia, unspecified type 03/15/2025 Refill [facility] [address] [place] [address] Shalonda Phillips ANP Insomnia, unspecified type 03/01/2025 Refill [facility] [address] [place] [address] Shalonda Phillips ANP Chronic obstructive pulmonary disease, unspecified COPD type ([facility]); Tremor 02/25/[address] [address] Shalonda Phillips ANP from Last 3 Months Immunizations Immunization Administration Dates Next Due Hep B, adult [...] 100 11/13/2024 3:08 PM EDT Temperature 36.4 C (97.6 F) 11/13/2024 3:08 PM EDT Respiratory Rate 20 11/13/2024 3:08 PM EDT [...] Description 07/11/2025 2:45 PM EST Procedure Visit [facility] [address] [place] [address] Aftab Scott CNM [address] [place] [address] Health Maintenance Due Date Last Done Comments CT Colonography 1965 FIT DNA/Cologuard 1965 FIT 1965 FOBT 1965 HIV Screening 1965 Sigmoidoscopy 1965 Disability Screening 1965 Alcohol/Substance Use Screening 1977 Lung Cancer Screening 2015 Zoster Vaccines (1 of 2) 2015 Lipid Panel 03/31/2022 03/31/2021 Colonoscopy 11/15/2023 Colorectal Cancer Screening 11/15/2023 Diabetes: Urine Protein Screening 12/04/2023 12/03/2022, 03/31/2021 Depression Monitoring 04/10/2024 10/11/2023, 024 SDOH Screening 08/29/2024 08/29/2023 Eye Exam 10/13/2024 10/13/2023, 09/23, 10/13/2023, Additional history exists Diabetes: Hemoglobin A1C 12/10/2024 025, 01/20/2024, 05/26/2023, Additional history exists Mammogram 12/20/2024 12/21/2023, 09/22, 10/02/2021 Influenza Vaccine (#1) 2025 , 05/26/2023, 05/03/2022, Additional history exists Cervical Cancer Screening 06/28/2025 [...] 05/03/1997 COVID-19 Vaccine Completed 09/11/2024, 05/2021, 03/11/2021 Hepatitis C Screening Completed 11/02/2024, 023 HIB [...] patient's age to complete this topic Meningococcal B Vaccine Aged Out No l onger eligible based on patient's age to complete [...] Procedure Name Priority Date/Time Associated Diagnosis Comments HEPATITIS PANEL, GENERAL Routine 11/02/2024 10:36 AM EDT POCT GLYCATED HEMOGLOBIN, TOTAL Routine 09/11/2024 1:40 PM EST Type 2 diabetes mellitus with other specified complication, unspecified whether long term care pharmacist insulin use ([facility]) BI MAMMOGRAM SCREENING TOMOSYNTHESIS BILATERAL Routine [...] Recently Relevant to Health Maintenance Results * Hepatitis Panel, General (11/02/2024 10:36 AM EDT) Hepatitis A IgM Nonreactive Nonreactive [facility] Comment:IgM antibodies to DUNCAN V not detected; does not exclude earlyacute or recovered HAV infection. ~Hepatitis B Surface Antibody NONREACTIVE Nonreactive [facility] Comment:Nonreactive: < 8.00 mIU/mL Hepatitis B Core Antibody Nonreactive Nonreactive [facility] Hepatitis C Antibody Nonreactive Nonreactive [facility] Comment:Antibodies to HCV no t detected; does not exclude early acuteHCV infection. Hepatitis B Surface Ag Negative Negative [facility] 11/02/2024 10:3 6 AM EDT 11/02/2024 10:36 AM EDT Generic External Data Provider LAB BLOOD ORDERAB LES Final Result [facility] [address] [place] [address] [phone] * (ABNORMAL) POCT HGB A1C (09/11/2024 1:40 PM EST) Hemoglobin A1C 6.2(A) 4.0 - 6.0 % QC Media Lot # [id number] Lot# Expiration Date Blood 09/11/2024 1:40 PM EST Shalonda [facility] POINT OF CARE TEST ENTER/EDIT OR DERABLES Final Result * BI Mammogram Screening Tomosynthesis Bilateral (12/21/2023 1:23 PM EDT) Anatomical Region Laterality Modality Breast Bilateral Mammography 12/21/2023 1:23 PM EDT Narrative 01/16/2024 12:00 PM EDT [address] [place] [address] Mammography Report Signed Patient: Efrem Linder MR#: [id number] : 1965 Acct:[id number] Age/Sex: 58 / F ADM Date: 12/21/23 Loc: HO.MAMMO Attending Dr: Aftab Scott CNM Ordering Physician: AFTAB SCOTT CNM Results: 1 Negative Date of Service: 12/21/23 Follow Up: 1 Year From Orig inal Mammogram Procedure(s): MM tomosynthesis screening BI Accession Number(s): [id number] cc: AFTAB SCOTT CNM EXAMINATION: MM SCREENING [...] in OV> 01/16/24 1156 DD/ 1323 TD/TT: Fusing Machine Operator: Procedure Note Donotuseinterpreter, Image - 01/16/2024 [facility] [address] [place] [address] Mammography Report Signed Patient: Efrem LinderMR#: [id number] : 1965Acct:[id number] Age/Sex: 58 / FADM Date: 12/21/23 Loc: BOB Attending Dr: Aftab Scott CNM Ordering Physician: AFTAB SCOTTesults: 1 Negative Date of Service: 12/21/23Follow Up: 1 Year From Orig ina Mammogram Procedure(s): MM tomosynthesis screening BI Accession Number(s): [id number] cc: AFTAB SCOTT CNM EXAMINATION: MM SCREENING DIGITAL BREAST TOMOSYNTHESIS, BILATERAL CLINICAL INFORMATION: Screening. Asymptomatic. COMPARISON: Mammography: This study is compared with prior exams dating back to 2015. TECHNIQUE: Digital breast tomosynthesis is performed in [...] in OV> 01/16/24 1156 DD/ 1323 TD/TT: Fusing Machine Operator: Aftab Scott CN IMG BI PROCEDURES Final R esult * (ABNORMAL) HPV mRNA E6/E7 w/Reflex to HPV Genotypes 16, 18/45 (11/14/2023 1:36 PM EDT) HPV nRNA E6/E7 Detected(A ) Not Detected [facility] Comment:Methodology: Transcr iption-Mediated AmplificationThis assay detects E6/E7 viral messenger RNA (mRNA) from 14high-risk HPV types (16,18,31,33,35,39,45,51,52,56,58,59,66,68).Cervical sources are required for HPV testing.If a vaginal source from a patient who has had atotal hysterectomy with removal of cervix wassubmitted, please contact the testing laboratoryfor alternative testing options.For additional information, please refer tohttp://education.K[employer]izen/faq/LUY740d7(This link if provided for information/educational purposes only.)THIS TEST WAS PERFORMED AT:[facility] [place] [phone] ROY MD HPV 16 RNA NOT DETECTED NOT DETECTED [facility] HPV 18/45 RNA NOT DETECTED NOT DETECTED [facility] Comment:Methodology: Transcr iption Mediated AmplificationCervical sources are required for HPV testing.If a vaginal source from a patient who has had atotal hysterectomy with removal of cervix wassubmitted, please contact the testing laboratoryfor alternative testing options.THIS TEST WAS PERFORMED AT:[facility] [place] [phone] ROY MD 11/14/2023 1:36 PM EDT 11/15/2023 11:50 AM EDT Aftab Scott CNM LAB CYTOLOGY ORDERABLES F inal Result [facility] [address] [place] [phone] * Pap Smear (11/14/2023 1:36 PM EDT) Swab Cervix uteri structure / Unknown 11/14/2023 1:36 PM EDT 11/15/2023 11:50 AM EDT Narrative [facility] - 11/28/2023 10:03 AM EDT ----- ------- Name: Efrem Linder Age/Sex: 58/F : 1965 Unit#: [id number] Attend Dr: AFTAB SCOTT CNM Re11/14/23 Status: DEP REF Location: HO.HHCLNP Disch: ----- ------- SPEC : [id number] RECD: 11/15/23-1150 STATUS: ROSCOE TOM NUM: [id number] ROSIE: 11/14/23-[address] [facility] [address]: AFTAB SCOTT CNM ENTERED: 11/15/23-1304 SP TYPE: Pap Smr OTHR DR: ORDERED: Pap Smear, PAP path review Interpretation General Category: Epithelial cell abnormality. Adequacy: Endocervical component present. Interpretation: Atypical squamous cells of undetermined significance, cannot exclude a high grade lesion (ASC-H). HPV mRNA E6/E7: DETECTED This assay detects E6/E7 viral messenger RNA (mRNA) from 14 high-risk HPV types (16, 18, 31, 33, 35, 39, 45, 51, 52, 56, 58, 59, 66, 68) HPV Type 16 RNA: Not Detected HPV Type 18/45 RNA: Not Detected HPV testing performed by [employer], [place], [place]. See reference laboratory portion of the EMR for entire report. Clinical Information LMP: Unknown date Previous PAP test: Unknown date/findings Material Received ThinPrep-Vaginal/Cervical ----- ------- Signed (signature on file) [place] 11/28/23 1003 ----- ------- END OF REPORT Aftab Scott CNM LAB CYTOLOGY ORDERABLES F inal Result [facility] [address] [place] [address] [phone] * Protein Creatinine Ratio, Urine (12/03/2022 10:28 AM EDT) Creatinine, Urine 161.85 mg/dL [facility] Protein, Total, Random Urine 10 <12 mg/dL [facility] Protein/Creati nine Ratio, Ur 0.06 <0.2 [facility] Comment:The spot urine prote in:creatinine ratio may increase to 0.3during normal . 12/03/2022 10:2 8 AM EDT 12/03/2022 11:28 AM EDT [facility] External Provider LAB URI NE ORDERABLES Final Result Performing Organization Address [facility] Co de Phone Number [facility] [address] [place] [address] [phone] * LIPID PANEL, STANDARD (03/31/2021 11:03 AM EDT) Chol/HDLC Ratio 1.9 <5.0 (calc) [facility] Cholesterol, Total 155 <200 mg/dL [facility] HDL Cholesterol 80 > OR = 50 mg/dL [facility] LDL Cholesterol 61 mg/dL (calc) [facility] Comment: Reference range: <100 Desirable range <100 mg/dL for primary prevention; <70 mg/dL for patients with CHD or diabetic patients with > or = 2 CHD risk factors. LDL-C is now calculated using the David-Edwina calculation, which is a validated novel method providing better accuracy than the Friedewald equation in the estimation of LDL-C. David SS et al. AVIVA. 2013;310(19): 0171-0616 (http://education.[employer].Slinky/faq/WSR526) Non-HDL Cholesterol 75 <130 mg/dL (calc) [facility] Comment: For patients with diabetes plus 1 major ASCVD risk factor, treating to a non-HDL-C goal of <100 mg/dL (LDL-C of <70 mg/dL) is considered a therapeutic option. Triglycerides 62 <150 mg/dL [facility] 03/31/2021 11:0 3 AM EDT us Zulma Urbano NP LAB BLOOD ORDERABLES Final Resul t [facility] [address] from Last 3 Months or Most Recently Relevant to Health Maintenance Insurance [employer] C[employer] Care Teams Manager Er Relationship Specialty Start Date End Date Shalonda Phillips ANP [address] [place] [address] PCP - General Family Medicine 10/07/20 Sujit Cerrato FNP [address] [place] [address] Nurse Practitioner Family Medicine 07/05/23 Naya Mirza Reinsurance Claims AnalystSenior Dynamics Crm Developer 09/05/24
--- OUTSIDE RECORDS SUMMARY | 2025-05-22 15:39 | XMS_ITS | Encounter Summary ---
Author Organization [email or web address] Address [address] [facility] 7t [place] [address] Care Team Providers Care Crisis Mental Health Therapist Name Role Phone Phillips Shalonda JIMENEZ Primary Care Provider [phone] Sujit Cerrato Unavailable Unavailable Encounter Details Date Type Department Care Team (Late st Contact Info) Description 11/15/2022 Orders Only [facility] [address] [place], [place] [phone] Sapphire Almaguer LPN Social History Tobacco Use [...] Description 07/11/2025 2:45 PM EST Procedure Visit [facility] [address] [place], [place] [phone] Jasmin [place]field CNM [address] [place], [place] [phone] documented as of this encounter Visit Diagnoses Not on filedocumented in this encounter Care Teams Crisis Mental Health Therapist Relationship Specialty Start Date End Date Shalonda Phillips ANP [address] [place] [address] PCP - General Family Medicine 10/07/20 Sujit Cerrato FNP [address] [place] [address] Nurse Practitioner Family Medicine 07/05/23 Naya Mirza School PsychometristCattle Dipper 09/05/24 documented as of this encounter
--- OUTSIDE RECORDS SUMMARY | 2025-05-22 15:39 | XMS_ITS | Encounter Summary ---
Author Organization [employer] Address [address] [facility] [address] [place] [address] Care Team Providers Care Draw Fire Operator Name Role Phone Shalonda Phillips Primary Care Provider [phone] Sujit Cerrato Unavailable Unavailable Reason for Visit * Reason Comments Med Refill Encounter Details Date Type Department Care Team ([facility] st Contact Info) Description 08/25/2023 Refill [facility] [address] [place], [place] [phone] Shalonda Phillips ANP [address] [place] [address] Insomnia, unspecified type Social History Tobacco Use [...] Description 07/11/2025 2:45 PM EST Procedure Visit [facility] [address] [place] [address] Jasmin [place]field CNM [address] [place] [address] documented as of this encounter Visit Diagnoses Diagnosis Insomnia, unspecified type documented in this encounter Additional Health Concerns Assessment Noted Time PHQ-9 Depression Total Score: 3 07/25/20 23 2:05 PM EST documented as of this encounter Care Teams Draw Fire Operator Relationship Specialty Start Date End Date Shalonda Phillips ANP [address] [place] [address] PCP - General Family Medicine 10/07/20 Sujit Cerrato FNP [address] [place] [phone] Nurse Practitioner Family Medicine 07/05/23 Naya Mirza Chinchilla FarmerDry Cleaner 09/05/24 documented as of this encounter
--- OUTSIDE RECORDS SUMMARY | 2025-05-22 15:39 | XMS_ITS | Encounter Summary ---
Author Organization [employer] Address [address] [facility] 7[address] [place] [address] Care Team Providers Care Superintendent Refuse Disposal Name Role Phone Shalonda Phillips Primary Care Provider [phone] Sujit Cerrato Unavailable Unavailable Encounter Details Date Type Department Care Team (Late Contact Info) Description 02/24/2023 Orders Only [facility] [address] [place], [place] [phone] Rosa Vela LPN Social History Tobacco Use [...] Description 07/11/2025 2:45 PM EST Procedure Visit [facility] [address] [place] [address] Jasmin [place] CNM [address] [place], [place] [phone] documented as of this encounter Visit Diagnoses Not on filedocumented in this encounter Care Teams Superintendent Refuse Disposal Relationship Specialty Start Date End Date Shalonda Phillips ANP [address] [place] [address] PCP - General Family Medicine 10/07/20 Sujit Cerrato FNP [address] [place], [place] [address] [address] Nurse Practitioner Family Medicine 07/05/23 Naya Mirza Rotary Screen Printing Machine OperatorAir Director 09/05/24 documented as of this encounter
== END 2025-05-22 15:03 | disposition home or self-care (01) ==
LOC: HO.HWS 14:30
PROVIDERS: PCP Nurse Practitioner Primary Care; Visit Provider Obstetrics & Gynecology
DX: Z01.419 Encounter for gynecological examination (general) (routine) without abnormal findings (principal); R87.610 Atypical squamous cells of undetermined significance on cytologic smear of cervix (ASC-US)
CPT/HCPCS: 99396; 99459

== ENCOUNTER 2025-05-22 14:30 | Outpatient (REF) | payer MEDICAID, SELFPAY | END 2025-05-22 14:31 | disposition home or self-care (01) | LOC: HO.LNP 14:30 | PROVIDERS: PCP Nurse Practitioner Primary Care; Visit Provider Obstetrics & Gynecology | DX: Z01.419 Encounter for gynecological examination (general) (routine) without abnormal findings (principal); Z11.51 Encounter for screening for human papillomavirus (HPV); R87.610 Atypical squamous cells of undetermined significance on cytologic smear of cervix (ASC-US); Z98.51 Tubal ligation status | CPT/HCPCS: 87626; 88175; 99396 ==

== ENCOUNTER 2025-06-17 12:32 | Outpatient (AMB) | payer MEDICAID, SELFPAY ==
[2025-06-17 13:12] VITALS: BP 102/68; PULSE 75; O2SAT 97; BMI 36.2
--- NOTE | 2025-06-17 13:12 | A.OFFVIS_ITS ---
Vital Signs 06/17/25 13:12 Height 5 ft 6 in Weight 224 lb BMI 36.2 BP 102/68 Blood Pressure Location Lt brachial Position Sitting Pulse 75 Pulse Source Pulse Oximeter Pulse Oximetry (%) 97 Oxygen Delivery Method Room Air Intake Visit Reasons: COPD Intake Note: pt is here for follow up and states she is feeling good Java Software Architect Required: Yes Java Software Architect Services: Java Software Architect Present Java Software Architect Name: Debby Carreno. OA Allergies lisinopril (LISINOPRIL) Allergy (Unknown, Verified 06/17/25 13:31) UNKNOWN Medication List - Last Reconciled 06/17/25 by Arpit Tripp MD acetaminophen 500 mg PO QID PRN albuterol sulfate 1 amp inhalation Q4H PRN albuterol sulfate 90 mcg/actuation (ProAir HFA) 2 puffs inhalation Q4-6H PRN amlodipine 10 mg PO QPM aspirin 81 mg PO BEDTIME atorvastatin 40 mg PO BEDTIME cholecalciferol (vitamin D3) 50 mcg PO QPM cyclobenzaprine 10 mg PO TID PRN docusate sodium (Colace) 200 mg (2 x 100 mg) PO BEDTIME dulaglutide (Trulicity) 1.5 mg subcut SA Enbrel SureClick (etanercept) 50 mg subcut QWEEK NS ferrous sulfate 325 mg PO Q OTHER DAY fluoxetine 40 mg PO QAM fluticasone propion-salmeterol 250-50 mcg/dose (Advair Diskus) 1 ea inhalation BID fluticasone propionate 50 mcg/actuation 2 sprays intranasal QAM PRN gabapentin 800 mg PO TID insulin degludec (Tresiba FlexTouch U-100 insulin) 24 units subcut BEDTIME lidocaine 5% 1 patch topical DAILY PRN loratadine 10 mg PO DAILY losartan 100 mg PO QAM metformin 1,000 mg PO BID naltrexone 25 mg PO DAILY naproxen 500 mg PO BID omeprazole 20 mg PO QAM perphenazine 8 mg PO DAILY polyethylene glycol 3350 (Miralax) 17 grams PO DAILY primidone 25 mg (1/2 x 50 mg) PO BEDTIME 30 days trazodone 100 mg PO BEDTIME umeclidinium 62.5 mcg/actuation (Incruse Ellipta) 1 inh inhalation DAILY zolpidem 10 mg PO BEDTIME PRN Do you need a note to return to daycare/school/sports/work: No HPI HPI COPD: Details: This 59 years old female, grossly obese but lately has lost some weight, Has past history of obstructive sleep apnea, with nocturnal hypoxemia. After she lost about 25 lb of weight she gave up on using the CPAP and also does not use oxygen at night. She say is she sleeps good. Still smokes 10 cigarettes a day. Denies any significant amount of cough dyspnea or wheezing . She is using her inhalers regularly. [facility] Medical History Pap smear with atypical squamous cells, cannot exclude high grade squamous intraepithelial lesion (ASC-H) COPD (chronic obstructive pulmonary disease) SOFIYA (obstructive sleep apnea) Nocturnal hypoxemia Hypertension Hyperlipidemia Diabetes Rheumatoid arthritis Nocturnal hypoxemia Morbid obesity Nicotine dependence, cigarettes, uncomplicated Allergic rhinitis Depression Cocaine abuse Opioid abuse Drug overdoses Surgical History History of tubal ligation History of colonoscopy History of hernia surgery Family History Father Dementia Mother Diabetes HTN (hypertension) Social History Household Members: Family Household Members Other:: daughter and two grandsons Housing: Apartment Do you presently have visiting nurse or other home services: No Alcohol intake: former Patient Tobacco Use Status: Current everyday Tobacco user Tobacco use type: Cigarette Cigarettes Per Day: 10 Years Smoked: 25 Second Hand Smoke Exposure: Yes Substance Use Type: Heroin and Marijuana service: No Current occupational status: disabled Sexual orientation: Straight/Heterosexual Gender identity: Female Review of Systems Const All systems reviewed & are unremarkable except as noted in HPI and below Eyes Reports no additional complaints ENT Reports nasal congestion (Mild at night) Card Denies chest pain, Denies leg edema, Denies lightheadedness and Denies orthopnea Resp Reports as per HPI GI Denies hematochezia, Denies change in stool character and Denies heartburn Reports no additional complaints Skin/Breast Reports system reviewed and no additional complaints, except as documented Neuro Reports no additional complaints Psych Reports no additional complaints Endo Reports no additional complaints Nawaf/Lymph Reports easy bruising and Reports other (anemia, mild ) Physical Exam Vital Signs: Last Vital Signs Pulse 75 06/17/25 13:12 BP 102/68 06/17/25 13:12 Pulse Ox 97 06/17/25 13:12 Oxygen Delivery Method Room Air 06/17/25 13:12 BMI result Body Mass Index 36.2 Const General: comfortable, no acute distress, alert and awake Orientation/consciousness: patient oriented x3 HEENT Head: Yes normal to inspection General nose exam: No nasal polyps present and No nasal discharge present Face and sinus: Yes sinuses nontender Mouth: oropharynx normal Throat: Yes posterior oropharynx normal Eyes General: appearance normal, both eyes and all related structures Neck Neck: Yes normal visual inspection, Yes no lymphadenopathy, Yes trachea midline and Yes no JVD Thyroid: Thyroid normal Chest Chest palpation & inspection: normal inspection of the chest, normal palpation of entire chest wall and no tenderness Resp Other: Percussion note resonant, breath sounds are slightly distant, She has a few scattered wheezes on both sides, anteriorly. Cardio Palpation: normal PMI Rate: regular rate Rhythm: regular rhythm Heart sounds: no gallops and no murmurs GI Palpation (GI): Soft to palpation, nontender, No hepatosplenomegaly present, no masses and Other GI palpation findings present (Abdomen is obese and slightly protuberant ) Auscultation: normal bowel sounds Back/Spine/Pelvis Thoracic/Lumbar Spine: thoracic and lumbar spine normal to inspection and thoraco-lumbar ROM limited Skin General skin exam: no rashes or lesions noted Neuro Other: Resting tremors of the right upper extremity General: patient oriented x3 and no focal motor deficits Cranial nerves: Yes CN's II-XII intact bilaterally Extrem General: Yes normal to inspection, Yes no clubbing, cyanosis or edema and Yes no calf tenderness Psych Appearance: grossly normal and well kempt Speech and movement: Normal speech and movement present Assessment & Plan Assessment & Plan (1) COPD (chronic obstructive pulmonary disease): Comment: PATIENT DOES HAVE RESTRICTIVE PULMONARY DISORDER WELL CHRONIC OBSTRUCTIVE PULMONARY DISORDER. THAT REMAINS WELL CONTROLLED WITH HER CURRENT MEDS. Code(s): J44.9 - Chronic obstructive pulmonary disease, unspecified Category: Medical Qualifiers: COPD type: COPD with acute exacerbation Qualified Code(s): J44.1 - Chronic obstructive pulmonary disease with (acute) exacerbation Plan: Continue to use Advair 250-51 inhalation b.i.d. Incruse Ellipta 1 inhalation daily. Albuterol sulfate solution in the nebulizer Q 6 hours p.r.n. when at home. Albuterol HFA 2 puffs Q 6 hours p.r.n. when outdoors (2) Nocturnal hypoxemia: Comment: PATIENT IS DOCUMENTED CASE OF NOCTURNAL HYPOXEMIA, ALONG WITH HER DIAGNOSIS OF OBSTRUCTIVE SLEEP APNEA. SHE HAS NOT BEEN ABLE TO USE THE CPAP SO SHE WAS ADVISED TO USE O2 2 L/MINUTE AT NIGHT. SINCE TWO VISITS AGO STOPPED USING THE OXYGEN REGULARLY AND SAYS THAT SHE USES IT ONLY P.R.N.. SHE CLAIMS THAT SHE SLEEPS GOOD AT NIGHT. SHE DOES HAVE STATIONARY CONCENTRATOR AT HOME. Code(s): G47.34 - Idiopathic sleep related nonobstructive alveolar hypoventilation Category: Medical Plan: ABOVE (3) SOFIYA (obstructive sleep apnea): Comment: Known case of obstructive sleep apnea on due to morbid obesity. .Also has nocturnal hypoxemia She was not able to use CPAP. She has been on O2 2 L/minute during the nighttime. And now she has stopped using the oxygen also. Code(s): G47.33 - Obstructive sleep apnea (adult) (pediatric) Category: Medical Plan: ABOVE (4) Nicotine dependence, cigarettes, uncomplicated: Comment: CONTINUES TO SMOKE 10 CIGARETTES A DAY. Code(s): F17.210 - Nicotine dependence, cigarettes, uncomplicated Category: Medical Plan: COUNSELED TO CUT DOWN ON SMOKING, WITH THE GOAL TO GOOD COMPLETELY. AT THIS TIME ADVISED TO CUT DOWN TO 5 CIGARETTES A DAY . Coding Level of Care Code Est Pt Level 3 (93998) Diagnoses COPD (chronic obstructive pulmonary disease) J44.1 COPD type: COPD with acute exacerbation Nocturnal hypoxemia G47.34 SOFIYA (obstructive sleep apnea) G47.33 Nicotine dependence, cigarettes, uncomplicated F17.210
--- OUTSIDE RECORDS SUMMARY | 2025-06-17 15:53 | XMS_ITS | Encounter Summary ---
Author Organization [employer] Address 75 [facility] 7t [place] [address] Care Team Providers Care Bulbs Farmworker Name Role Phone Shalonda Phillips Primary Care Provider [phone] Sujit Cerrato Unavailable Unavailable Encounter Details Date Type Department Care Team (Late st Contact Info) Description 08/24/2022 Orders Only [facility] [address] [place] [address] Rosa Vela LPN Social History Tobacco Use [...] 07/11/2025 2:45 PM EST Procedure Visit [facility] [address] [place] [address] Jasmin Greenfield CNM [address] [place] [address] documented as of this encounter Visit Diagnoses Not on filedocumented in this encounter Care Teams Bulbs Farmworker Relationship Specialty Start Date End Date Shalonda Phillips ANP [address] [place] [address] PCP - General Family Medicine 10/07/20 Sujit Cerrato FNP [address] [place] [address] Nurse Practitioner Family Medicine 07/05/23 Naya Mirza Trauma CoordinatorOrder Processing Specialist 09/05/24 documented as of this encounter
--- OUTSIDE RECORDS SUMMARY | 2025-06-17 15:53 | XMS_ITS | Encounter Summary ---
Author Organization [email or web address] Address [address] [facility] 7t [place] [address] Care Team Providers Care Power Plant Installer Name Role Phone Jacqueline Shalonda JIMENEZ Primary Care Provider [phone] Sujit Cerrato Unavailable Unavailable Reason for Visit * Reason Comments Med Refill Encounter Details Date Type Department Care Team (Late Contact Info) Description 02/23/2023 Refill [facility] [address] [place], [place] [phone] Marco Kilgore MD [address] [place], [place] [phone] Insomnia, unspecified type Social History Tobacco Use [...] Description 07/11/2025 2:45 PM EST Procedure Visit [facility] [address] [place], [place] [phone] Jasmin Greenfield CNM [address] [place], [place] [phone] documented as of this encounter Visit Diagnoses Diagnosis Insomnia, unspecified type documented in this encounter Care Teams Power Plant Installer Relationship Specialty Start Date End Date Shalonda Phillips ANP [address] [place] [address] PCP - General Family Medicine 10/07/20 Sujit Cerrato FNP [address] [place] [address] Nurse Practitioner Family Medicine 07/05/23 Naya Mirza Director Of Knowledge ManagementAcrylic Fabricator 09/05/24 documented as of this encounter
--- OUTSIDE RECORDS SUMMARY | 2025-06-17 15:53 | XMS_ITS | Encounter Summary ---
Author Organization [employer] Address [address] [facility] 7t [place] [address] Care Team Providers Care Payment Manager Name Role Phone Shalonda Phillips Primary Care Provider [phone] Sujit Cerrato Unavailable Unavailable Encounter Details Date Type Department Care Team ([facility] st Contact Info) Description 07/28/2023 Orders Only [facility] [address] [place] [address] Rosa Vela LPN Social History Tobacco Use [...] Description 07/11/2025 2:45 PM EST Procedure Visit [facility] [address] [place] [address] Jasmin Greenfield CNM [address] [place] [address] documented as of this encounter Visit Diagnoses Not on filedocumented in this encounter Additional Health Concerns Assessment Noted Time PHQ-9 Depression Total Score: 3 07/25/20 23 2:05 PM EST documented as of this encounter Care Teams Payment Manager Relationship Specialty Start Date End Date Shalonda Phillips ANP [address] [place] [address] PCP - General Family Medicine 10/07/20 Sujit Cerrato FNP [address] [place] [address] Nurse Practitioner Family Medicine 07/05/23 Naya Mirza Radio SportscasterFractionation Supervisor 09/05/24 documented as of this encounter
--- OUTSIDE RECORDS SUMMARY | 2025-06-17 15:53 | XMS_ITS | Encounter Summary ---
Author Organization [employer] Address 75 [facility] [address] [place] [address] Care Team Providers Care Solar Sales Manager Name Role Phone Shalonda Phillips Primary Care Provider [phone] Sujit Cerrato Unavailable Unavailable Encounter Details Date Type Department Care Team (Late Contact Info) Description 02/24/2023 Orders Only [facility] [address] [place], [place] [phone] Rosa Vela LPN Social History Tobacco Use [...] Description 07/11/2025 2:45 PM EST Procedure Visit [facility] [address] [place] [address] Jasmin Greenfield CNM [address] [place], [place] [phone] documented as of this encounter Visit Diagnoses Not on filedocumented in this encounter Care Teams Solar Sales Manager Relationship Specialty Start Date End Date Shalonda Phillips ANP [address] [place] [address] PCP - General Family Medicine 10/07/20 Sujit Cerrato FNP [address] [place], [place] [address]N[place] [address] Nurse Practitioner Family Medicine 07/05/23 Naya Mirza Stuffed Casing TierInternational Coordinator 09/05/24 documented as of this encounter
--- OUTSIDE RECORDS SUMMARY | 2025-06-17 15:53 | XMS_ITS | Encounter Summary ---
Author Organization [employer] Address 75 [facility] 7t [place] [address] Care Team Providers Care Associate Drafter Name Role Phone Jacqueline Shalonda JIMENEZ Primary Care Provider [phone] Sujit Cerrato Unavailable Unavailable Encounter Details Date Type Department Care Team (Late st Contact Info) Description 11/15/2022 Orders Only [facility] [address] [place], [place] [phone] Sapphire Almaguer LPN Social History Tobacco Use [...] Procedure Visit [facility] [address] [place], [place] [phone] Jasmin Greenfield CNM [address] [place], [place] [phone] documented as of this encounter Visit Diagnoses Not on filedocumented in this encounter Care Teams Associate Drafter Relationship Specialty Start Date End Date Shalonda Phillips ANP [address] [place] [address] PCP - General Family Medicine 10/07/20 Sujit Cerrato FNP [address] [place] [address] Nurse Practitioner Family Medicine 07/05/23 Naya Mirza Skein StraightenerStonemason Helper 09/05/24 documented as of this encounter
--- OUTSIDE RECORDS SUMMARY | 2025-06-17 15:53 | XMS_ITS | Encounter Summary ---
Author Organization [employer] Address 75 [facility] 7t [place] [address] Care Team Providers Care Marine Equipment Engineer Name Role Phone Shalonda Phillips Primary Care Provider [phone] Sujit Cerrato Unavailable Unavailable Reason for Visit * Reason Comments Med Refill Encounter Details Date Type Department Care Team (Late st Contact Info) Description 06/07/2023 Refill [facility] [address] [place] [address] Monique Man FNP Fibromyalgia Social History Tobacco [...] t he electric, gas, oil or water [employer] threatened to shut off services in your [...] 07/11/2025 2:45 PM EST Procedure Visit [facility] [address] [place] [address] Jasmin Greenfield CNM [address] [place] [address] documented as of this encounter Visit Diagnoses Diagnosis Fibromyalgia Unspecified myalgia and myositis documented in this encounter Care Teams Marine Equipment Engineer Relationship Specialty Start Date End Date Shalonda Phillips ANP [address] [place] [address] PCP - General Family Medicine 10/07/20 Sujit Cerrato FNP [address] [place] [address] Nurse Practitioner Family Medicine 07/05/23 Naya Mirza Hvac TechFur Dry Cleaner Hand 09/05/24 documented as of this encounter
--- OUTSIDE RECORDS SUMMARY | 2025-06-17 15:53 | XMS_ITS | Encounter Summary ---
Author Organization [employer] Address 75 [facility] 7t [place] [address] Care Team Providers Care Geologist Name Role Phone Shalonda Phillips Primary Care Provider [phone] Sujit Cerrato Unavailable Unavailable Reason for Visit * Reason Comments Med Refill Encounter Details Date Type Department Care Team (Late st Contact Info) Description 10/11/2022 Refill [facility] [address] [place], [place] [phone] Shalonda Phillips ANP [address] [place] [address] Fibromyalgia Social History Tobacco Use Types Packs/Day [...] Description 07/11/2025 2:45 PM EST Procedure Visit [facility] [address] [place], [place] [phone] Jasmin Greenfield CNM [address] [place] [address] documented as of this encounter Visit Diagnoses Diagnosis Fibromyalgia Unspecified myalgia and myositis documented in this encounter Care Teams Geologist Relationship Specialty Start Date End Date Shalonda Phillips ANP [address] [place] [address] PCP - General Family Medicine 10/07/20 Sujit Cerrato FNP [address] [place] [address] Nurse Practitioner Family Medicine 07/05/23 Naya Mirza Electronic Instrument Trades WorkerFeed Grinder 09/05/24 documented as of this encounter
--- OUTSIDE RECORDS SUMMARY | 2025-06-17 15:53 | XMS_ITS | Encounter Summary ---
Author Organization [employer] Address 75 [facility] 7t [place] [address] Care Team Providers Care Power Marketer Name Role Phone Shalonda Phillips Primary Care Provider [phone] Sujit Cerrato Unavailable Unavailable Encounter Details Date Type Department Care Team (Late st Contact Info) Description 09/29/2022 Orders Only [facility] [address] [place], [place] [phone] Sapphire Almaguer LPN Social History Tobacco Use [...] Description 07/11/2025 2:45 PM EST Procedure Visit [facility] [address] [place], [place] [phone] Jasmin Greenfield CNM [address] [place], [place] [phone] documented as of this encounter Visit Diagnoses Not on filedocumented in this encounter Care Teams Power Marketer Relationship Specialty Start Date End Date Shalonda Phillips ANP [address] [place] [address] PCP - General Family Medicine 10/07/20 Sujit Cerrato FNP [address] [place] [address] Nurse Practitioner Family Medicine 07/05/23 Naya Mirza Program SupervisorSurgeon Partner 09/05/24 documented as of this encounter
--- OUTSIDE RECORDS SUMMARY | 2025-06-17 15:53 | XMS_ITS | Encounter Summary ---
Author Organization [employer] Address [address] [facility] 7t [place] [address] Care Team Providers Care Game Design Instructor Name Role Phone Shalonda Phillips Primary Care Provider [phone] Sujit Cerrato Unavailable Unavailable Reason for Visit * Reason Comments Med Refill Encounter Details Date Type Department Care Team ([facility] st Contact Info) Description 08/25/2023 Refill [facility] [address] [place], [place] [phone] Shalonda Phillips ANP [address] [place] [address] Insomnia, unspecified type Social History Tobacco Use [...] Procedure Visit [facility] [address] [place] [address] Jasmin Greenfield CNM [address] [place] [address] documented as of this encounter Visit Diagnoses Diagnosis Insomnia, unspecified type documented in this encounter Additional Health Concerns Assessment Noted Time PHQ-9 Depression Total Score: 3 07/25/20 23 2:05 PM EST documented as of this encounter Care Teams Game Design Instructor Relationship Specialty Start Date End Date Shalonda Phillips ANP [address] [place] [address] PCP - General Family Medicine 10/07/20 Sujit Cerrato FNP [address] [place] [address] Nurse Practitioner Family Medicine 07/05/23 Naya Mirza Director Of Field SalesManager Of Training 09/05/24 documented as of this encounter
--- OUTSIDE RECORDS SUMMARY | 2025-06-17 15:53 | XMS_ITS | Encounter Summary ---
Author Organization [employer] Address [address] [facility] 7t [place] [address] Care Team Providers Care Corporate Job Titles Name Role Phone Shalonda Phillips Primary Care Provider [phone] Sujit Cerrato Unavailable Unavailable Encounter Details Date Type Department Care Team (Late st Contact Info) Description 08/06/2022 Orders Only [facility] [address] [place] [address] Sapphire Almaguer LPN Social History Tobacco Use [...] PM EST Procedure Visit [facility] [address] [place] [address] Jasmin Greenfield CNM [address] [place] [address] documented as of this encounter Visit Diagnoses Not on filedocumented in this encounter Care Teams Corporate Job Titles Relationship Specialty Start Date End Date Shalonda Phillips ANP [address] [place] [address] PCP - General Family Medicine 10/07/20 Sujit Cerrato FNP [address] [place] [address] Nurse Practitioner Family Medicine 07/05/23 Naya Mirza Cotton PickerGeomorphologist 09/05/24 documented as of this encounter
--- OUTSIDE RECORDS SUMMARY | 2025-06-17 15:53 | XMS_ITS | Encounter Summary ---
Author Organization [employer] Address [address] [facility] 7t [place] [address] Care Team Providers Care Controller Coal Or Ore Name Role Phone Shalonda Phillips Primary Care Provider [phone] Sujit Cerrato Unavailable Unavailable Encounter Details Date Type Department Care Team ([facility] st Contact Info) Description 08/02/2023 Orders Only [facility] P[facility] [address] [place], [place] [phone] Sapphire Almaguer LPN Social History Tobacco Use [...] Description 07/11/2025 2:45 PM EST Procedure Visit [facility] [address] [place] [address] Jasmin Greenfield CNM [address] [place] [address] documented as of this encounter Visit Diagnoses Not on filedocumented in this encounter Additional Health Concerns Assessment Noted Time PHQ-9 Depression Total Score: 3 07/25/20 23 2:05 PM EST documented as of this encounter Care Teams Controller Coal Or Ore Relationship Specialty Start Date End Date Shalonda Phillips ANP [address] [place] [address] PCP - General Family Medicine 10/07/20 Sujit Cerrato FNP [address] [place] [address] Nurse Practitioner Family Medicine 07/05/23 Naya Mirza Rubber Mill TenderFudge Candy Maker 09/05/24 documented as of this encounter
--- OUTSIDE RECORDS SUMMARY | 2025-06-17 15:53 | XMS_ITS | Encounter Summary ---
Author Organization [employer] Address [address] [facility] 7t [place] [address] Care Team Providers Care Development Consultant Name Role Phone Shalonda Phillips Primary Care Provider [phone] Sujit Cerrato Unavailable Unavailable Encounter Details Date Type Department Care Team (Late st Contact Info) Description 10/14/2022 Orders Only [facility] [address] [place] [address] Rosa Vela LPN Social History Tobacco Use [...] Description 07/11/2025 2:45 PM EST Procedure Visit [facility] [address] [place] [address] Jasmin Greenfield CNM [address] [place] [address] documented as of this encounter Visit Diagnoses Not on filedocumented in this encounter Care Teams Development Consultant Relationship Specialty Start Date End Date Shalonda Phillips ANP [address] [place] [address] PCP - General Family Medicine 10/07/20 Sujit Cerrato FNP [address] [place] [address] Nurse Practitioner Family Medicine 07/05/23 Naya Mirza Process CoordinatorFurniture Polisher 09/05/24 documented as of this encounter
--- OUTSIDE RECORDS SUMMARY | 2025-06-17 15:53 | XMS_ITS | Encounter Summary ---
Author Organization [employer] Address [address] [facility] 7t [place] [address] Care Team Providers Care Survey Statistician Name Role Phone Shalonda Phillips Primary Care Provider [phone] Sujit Cerrato Unavailable Unavailable Encounter Details Date Type Department Care Team (Late st Contact Info) Description 08/04/2022 Orders Only [facility] MED & PEDS [address] [place] [address] Rosa Vela LPN Social History Tobacco Use [...] 2:45 PM EST Procedure Visit [facility] MEDICINE [address] [place] [address] Jasmin Greenfield CNM [address] [place] [address] documented as of this encounter Visit Diagnoses Not on filedocumented in this encounter Care Teams Survey Statistician Relationship Specialty Start Date End Date Shalonda Phillips ANP [address] [place] [address] PCP - General Family Medicine 10/07/20 Sujit Cerrato FNP [address] [place] [address] Nurse Practitioner Family Medicine 07/05/23 Naya Mirza ReplacerRanch Hand 09/05/24 documented as of this encounter
--- OUTSIDE RECORDS SUMMARY | 2025-06-17 15:53 | XMS_ITS | Clinical Summary ---
Author Organization [employer] Address [address] [facility] 7t [place] [address] Care Team Providers Care Chief Operator Lock Tender Name Role Phone Awad Martín JIMENEZ Primary Care Provider [phone] Sujit Cerrato Unavailable Unavailable Allergies Active Allergy [...] AT BEDTIME 023 Active UltiCare Mini Pen [place] 31G X 6 MM misc USE DAILY WITH TRESIBA 100 each 3 023 Active albuterol (2.5 MG/3ML) 0.083% nebulizer solutionIndicatio ns:Moderate persistent asthma without complication INHALE 1 AMPULE USING A NEBULIZER EVERY 4 TO 6 HOURS NEEDED FOR WHEEZING OR SHORTNESS OF BREATH 270 mL 023 Active Continuous Blood Gluc Virtual Assistant For Advertisers (FreeStyle Mike 2 [place]) deviceIndications :Type 2 diabetes mellitus with hyperlipidemia (HCC) 1 each 5 (five) times a day. 1 each 023 Active Continuous Blood Gluc Sensor (FreeStyle Mike 2 Sensor) miscIndications:T ype 2 diabetes mellitus with hyperlipidemia (HCC) 1 each every 14 (fourteen) days. 6 each 3 023 Active Enbrel SureClick 50 MG/ML injection 023 Active Advair Diskus 250-50 MCG/ACT aerosol powderIndications :COPD with asthma (CMS/HCC) ([facility]) INHALE 1 PUFF TWICE DAILY. RINSE MOUTH AFTER USING. 60 each 024 Active naproxen (Naprosyn) 500 MG tablet [...] EVERY EVENING 90 tablet 3 025 Active FREESTYLE LITE test strip TEST BLOOD SUGAR TWICE DAILY 50 strip 025 Active Alcohol Swabs (Alcohol Prep) 70 % pads USE THREE TIMES DAILY 100 each 025 Active TRUEplus Lancets 33G misc TEST BLOOD SUGAR TWICE DAILY 100 each 025 Active naltrexone (Depade) 50 MG tabletIndications :Opioid dependence in remission (CMS/HCC) ([facility]) TAKE 1/2 TABLET BY MOUTH EVERY MORNING 15 tablet 025 Active BD Pen Needle Preethi U/F 32G X 4 MM miscIndications:T ype 2 diabetes mellitus with hyperlipidemia ([facility]) USE DIRECTED 100 each 3 025 Active ferrous sulfate 325 (65 Fe) MG EC tabletIndications :Microcytic hypochromic anemia TAKE 1 TABLET BY MOUTH EVERY OTHER DAY IN THE MORNING WITH VITAMINA C. DO NOT BREAK, CRUSH, DISSOLVE OR CHEW. 45 tablet 025 Active FLUoxetine (PROzac) 40 MG capsuleIndication s:Major depressive disorder, recurrent severe without psychotic features (CMS/HCC) ([facility]) TAKE 1 CAPSULE BY MOUTH EVERY MORNING 90 capsule 025 Active cyclobenzaprine (Flexeril) 10 MG tabletIndications :Fibromyalgia TAKE 1 TABLET BY MOUTH THREE TIMES DAILY NEEDED FOR MUSCLE SPASMS 90 tablet 3 025 Active losartan (Cozaar) 100 MG tablet TAKE 1 TABLET BY MOUTH EVERY MORNING 90 tablet 3 025 Active Incruse Ellipta 62.5 MCG/ACT aerosol powderIndications :Chronic obstructive pulmonary disease, unspecified COPD type (CMS/HCC) ([facility]) INHALE 1 PUFF BY MOUTH EVERY [...] :Hyperlipidemia due to type 2 diabetes mellitus ([facility]) TAKE 1 TABLET BY MOUTH AT BEDTIME 90 tablet 1 025 Active loratadine (Claritin) 10 MG tabletIndications :Non-seasonal allergic rhinitis due to other allergic trigger TAKE 1 TABLET BY MOUTH EVERY DAY 90 tablet 1 025 Active perphenazine 8 MG tabletIndications :Major depressive disorder, recurrent severe without psychotic features (CMS/HCC) ([facility]) TAKE 1 TABLET BY MOUTH TWICE DAILY IN THE MORNING AND IN THE EVENING 180 tablet 1 025 Active traZODone (Desyrel) 100 MG tabletIndications :Insomnia, unspecified type TAKE 1 TO 2 TABLETS BY MOUTH AT BEDTIME 180 tablet 1 025 Active Trulicity 3 MG/0.5ML solution auto-injectorIndi cations:Type 2 diabetes mellitus with other specified complication, unspecified whether care home insulin use ([facility]),Hyperlipide stone due to type 2 diabetes mellitus ([facility]) INJECT ONE PEN (= 3MG) SUBCUTANEOUSLY ONCE A WEEK DIRECTED 2 mL 5 025 Active albuterol (Ventolin HFA) 108 (90 Base) MCG/ACT inhalerIndication s:Moderate persistent asthma without complication INHALE 2 PUFFS BY MOUTH EVERY 4 TO 6 HOURS NEEDED FOR WHEEZING OR SHORTNESS OF BREATH 18 g 1 025 Active Tresiba FlexTouch 100 UNIT/ML injectionIndicati ons:Type 2 diabetes mellitus with hyperlipidemia ([facility]) INJECT 24 UNITS SUBCUTANEOUSLY EVERY DAY 15 mL 3 025 Active gabapentin (Neurontin) 800 MG tablet TAKE 1 TABLET BY MOUTH THREE TIMES DAILY IN THE MORNING, AT NOON, AND AT BEDTIME 90 tablet 5 025 Active atorvastatin (Lipitor) 40 MG tablet TAKE 1 TABLET BY MOUTH AT BEDTIME 90 tablet 1 025 Active metFORMIN (Glucophage) 1000 MG tablet TAKE 1 TABLET BY MOUTH TWICE DAILY IN THE MORNING AND IN THE EVENING WITH FOOD 180 tablet 1 Active omeprazole (PriLOSEC) [address] capsuleIndication s:Heartburn TAKE 1 CAPSULE BY MOUTH EVERY MORNING BEFORE BREAKFAST 90 capsule 1 025 Active D3 Super Strength 50 MCG (2000 UT) capsule TAKE 1 CAPSULE BY MOUTH EVERY EVENING WITH FOOD 90 capsule 1 025 Active atorvastatin (Lipitor) 40 MG tablet TAKE 1 TABLET BY MOUTH AT BEDTIME 90 tablet 1 025 2024 Discontinued metFORMIN (Glucophage) 1000 MG tablet TAKE 1 TABLET BY MOUTH TWICE DAILY IN THE MORNING AND IN THE EVENING WITH FOOD 180 tablet 1 025 2024 Discontinued omeprazole (PriLOSEC) [address] capsuleIndication s:Heartburn TAKE 1 CAPSULE BY MOUTH EVERY MORNING BEFORE BREAKFAST 90 capsule 1 025 2024 Discontinued D3 Super Strength 50 MCG (2000 UT) capsule TAKE 1 CAPSULE BY MOUTH EVERY EVENING WITH FOOD 90 capsule 1 025 2024 Discontinued Active Problems Problem Noted Date Diagnosed Date ASCUS with positive high risk HPV cervical 01/19 Overview (01/20/2024): 11/14/23 pap here, referred to [facility] for colpo, scheduled 02/27/2024 Major depressive disorder, [...] Essential hypertension 12/18/2015 Hyperlipidemia 12/18/2015 Rheumatoid arthritis ([facility]/HCC) 12/18/2015 Smoker 12/18/2015 Assessment & Plan (07/05/2023 10:58 AM EST): Consider Bupropion and/or Chantix, plus nicotine replacement. Deferred today. Vitamin D deficiency 12/18/2015 Obesity 12/18/2015 Type 2 diabetes mellitus 12/18/2015 Resolved Problems Problem Noted Date Diagnosed Date Resolved Date Severe recurrent major depre ssion without psychotic features ([facility]) 04/14/2018 07/05/2023 Encounters Date Type Department Care Team Description 06/06/2025 Refill [facility] MEDICINE [address] [place] [address] Martín Awad ANP Heartburn 05/22/2025 Orders Only GENERIC EXTERNAL DATA DEPARTMENT Provider, Generic External Data 05/13/2025 Telephone [facility] WALK[facility]IN [facility] [address] [place] [address] Maggie Bonilla [place] 05/08/2025 Refill [facility] MED & PEDS [address] [place] [address] Martín Awad ANP 05/05/2025 Refill [facility] MEDICINE [address] [place] [address] Martín Awad ANP Type 2 diabetes mellitus with hyperlipidemia ([facility]) ([facility]) 04/22/2025 Refill [facility] MED & PEDS [address] [place] [address] Martín Awad ANP Moderate persistent asthma without complication 04/05/2025 Refill [facility] MEDICINE [address] [place] [address] Martní Awad ANP Type 2 diabetes mellitus with other specified complication, unspecified whether intermediate teacher insulin use ([facility]); Hyperlipidemia due to type 2 diabetes mellitus ([facility]/HCC) ([facility]) 04/03/2025 Refill [facility] MEDICINE [address] [place] [address] Martín Awad ANP Hyperlipidemia due to type 2 diabetes mellitus ([facility]/HCC) ([facility]); Non-seasonal allergic rhinitis due to other allergic trigger; Major depressive disorder, recurrent severe without psychotic features ([facility]); Insomnia, unspecified type from Last 3 Months Immunizations Immunization Administration [...] 07/11/2025 2:45 PM EST Procedure Visit [facility] MEDICINE [address] [place], [place] [phone] Aftab Scott, KELVIN [address] [place] [address] Health Maintenance Due Date Last Done Comments [...] 2025 , 05/26/2023, 05/03/2022, Additional history exists Diabetes: Foot Exam 09/11/2025 09/11/2024, 09/11/2024, 09/11/2024, Additional history exists Tobacco Screening 11/13/2025 11/13/2024 Cervical Cancer Screening 05/22/2026 HPV/Cotest 05/22/2026 05/22/2025, 10/21, 05/05/2016 Pap Smear 05/22/2026 05/22/2025, 11/14/2023 DTaP/Tdap/Td Vaccines (3 - Td or Tdap) [...] Procedure Name Priority Date/Time Associated Diagnosis Comments PAP SMEAR Routine 05/22/2025 3:09 PM EDT HPV DNA, LOW/HIGH RISK Routine 3:09 PM EDT HEPATITIS PANEL, GENERAL Routine 11/02/2024 10:36 AM EDT POCT GLYCATED HEMOGLOBIN, TOTAL Routine 09/11/2024 1:40 PM EST Type 2 diabetes mellitus with other specified complication, unspecified whether intermediate teacher insulin use ([facility]) BI MAMMOGRAM SCREENING TOMOSYNTHESIS BILATERAL Routine 12/21/2023 1:23 PM EDT Breast cancer screening by mammogram PROTEIN CREATININE RATIO, URINE Routine 12/03/2022 10:28 AM EDT LIPID PANEL, STANDARD Routine 03/31/2021 11:03 AM EDT from Last 3 Months or Most Recently Relevant to Health Maintenance Results * (ABNORMAL) HPV DNA, Low/High Risk (05/22/2025 3:09 PM EDT) HPV High Risk Positive(A) Negative [facility] HPV Genotype 16 Negative Negative [facility] HPV Genotype 18 Negative Negative [facility] Comment:HPV testing performe d at [facility] (CLIA#[id number]), [address] [place] [address].Testing for HPV was performed using the [employer]0system. The presence of HPV in the female genital tract isassociated with a number of diseases, including cervicalcarcinoma. The HPV DNA high risk pool tests for HPV 31, 33,35, 39, 45, 51, 52, 56, 58, 59, 66 and 68. The testing forHPV 16 and 18 genotypes has also been performed. A positiveresult indicates detection of nucleic acid sequences fromone or more subtypes, whereas a negative result indicatessuch sequences were not detected. 05/22/2025 3:09 PM EDT 05/23/2025 7:25 AM EDT us Generic External Data Provider LAB BLOOD ORDERAB LES Final Result [facility] [address] [place] [phone] * Pap Smear (05/22/2025 3:09 PM EDT) 05/22/2025 3:09 PM EDT 05/23/2025 7:25 AM EDT Narrative [facility] - 05/28/2025 3:13 PM EDT ----- ------- Name: Efrem Linder Age/Sex: 59/F : 1965 Unit#: [id number] Attend Dr: To Torres MD Re05/22/25 Status: DEP REF Location: HO.LNP Disch: ----- ------- SPEC : [id number] RECD: 05/23/25 STATUS: ROSCOE TOM NUM: [id number] ROSIE: 05/22/[address] [facility] [address]: To Torres MD ENTERED: 05/23/25 SP TYPE: Pap Smr OTHR DR: MARTÍN AWAD NP ORDERED: Pap Smear, PAP path review Interpretation ABNORMAL PAP TEST. Satisfactory for evaluation, with atypical squamous cells of undetermined significance (ASC-US). HPV High Risk: Positive HPV Genotyping 16: Negative HPV Genotyping 18: Negative Clinical Information LMP: Unknown date Previous PAP test: 11/14/2023, ASCUS-H, HPV positive Other history: Atypical squamous cells cannot exclude high grade high grade squamous intraepithelial lesion (ASC-H) on Papanicolaou smear Material Received ThinPrep-Cervical PAP Disclaimer As of June 13, 2024, the technical services to include automated prescreening performed by the ThinPrep Imaging System, PAP screening and HPV testing will be performed at [facility] (CLIA #[id number]), [address] [place] [address]. Testing for HPV was performed using the [employer] system. The presence of HPV in the female genital tract is associated with a number of diseases, including cervical carcinoma. The HPV DNA high risk pool tests for HPV 31, 33, 35, 39, 45, 51, 52, 56, 58, 59, 66 and 68. The testing for HPV 16 and 18 genotypes has also been performed. A positive result indicates detection of nucleic acid sequences from one or more subtypes, whereas a negative result indicates such sequences were not detected. All professional services are performed by [facility] ([address] [place], [place] [id number]; ; CLIA #[id number]). The PAP Test is a screening procedure with the inherent possibility of both false negative and false positive results. Results should be interpreted in the context of historic and current clinical findings. Reliability of the PAP Test is enhanced by performing the test on a regular repetitive basis. CONTINUED ON NEXT PAGE ----- ------- Name: Efrem Linder Age/Sex: 59/F : 1965 Unit#: [id number] Attend Dr: To Torres MD Re05/22/25 Status: DEP REF Location: [facility] Disch: ----- ------- SPEC : [id number] RECD: 05/23/25 STATUS: ROSCOE VAISHALI NUM: [id number] ROSIE: 05/22/[address] [facility] [address]: To Torres MD ENTERED: 05/23/25 SP TYPE: Pap Smr OTHR DR: MARTÍN AWAD NP ORDERED: Pap Smear, PAP path review Copies To: MARTÍN AWAD NP [address] [phone] To Torres MD [facility] [address] [place] [address] [place] [phone] ----- ------- Signed (signature on file) Lashay Desai MD 05/28/25 1513 ----- ------- END OF REPORT Generic External Data Provider LAB CYTOLOGY ORDE RABLES Final Result Performing Organization Address City/[facility]/ZIP Co de Phone Number [facility] [address] [place] [address] [phone] * Hepatitis Panel, General (11/02/2024 10:36 AM EDT) Hepatitis A IgM Nonreactive Nonreactive [facility] Comment:IgM antibodies to DUNCAN V not detected; does not exclude earlyacute or recovered HAV infection. ~Hepatitis B Surface Antibody NONREACTIVE Nonreactive [facility] Comment:Nonreactive: < 8.00 mIU/mL Hepatitis B Core Antibody Nonreactive Nonreactive [facility] Hepatitis C Antibody Nonreactive Nonreactive [facility] Comment:Antibodies to HCV no t detected; does not exclude early acuteHCV infection. Hepatitis B Surface Ag Negative Negative [facility] 11/02/2024 10:3 6 AM EDT 11/02/2024 10:36 AM EDT [employer] External Data Provider LAB BLOOD ORDERAB LES Final Result Performing Organization Address [facility]/ZIP Co de Phone Number [facility] [address] [place] [phone] * (ABNORMAL) POCT HGB A1C (09/11/2024 1:40 PM EST) Hemoglobin A1C 6.2(A) 4.0 - 6.0 % QC Media Lot # [id number] Lot# Expiration Date Blood 09/11/2024 1:40 PM EST Martín Awad [facility] POINT OF CARE TEST ENTER/EDIT OR DERABLES Final Result * BI Mammogram Screening Tomosynthesis Bilateral (12/21/2023 1:23 PM EDT) Anatomical Region Laterality Modality Breast Bilateral Mammography 12/21/2023 1:23 PM EDT Narrative 01/16/2024 12:00 PM EDT [facility] [address] [place] [address] Mammography Report Signed Patient: Efrem Linder MR#: [id number] : 1965 Acct:[id number] Age/Sex: 58 / F ADM Date: 12/21/23 Loc: HO.MAMMO Attending Dr: Aftab Scott CNM Ordering Physician: AFTAB SCOTT CNM Results: 1 Negative Date of Service: 12/21/23 Follow Up: 1 Year From Orig ina Mammogram Procedure(s): MM tomosynthesis screening BI Accession Number(s): [id number] cc: AFTAB SCOTT CNM EXAMINATION: MM SCREENING [...] in OV> 01/16/24 1156 DD/ 1323 TD/TT: Grinder: Procedure Note Donotuseinterpreter, Image - 01/16/2024 [facility] [address] [place] [address] Mammography Report Signed Patient: Efrem LinderMR#: [id number] : 1965Acct:[id number] Age/Sex: 58 / FADM Date: 12/21/23 Loc: HO.MAMMO Attending Dr: Aftab Scott CNM Ordering Physician: AFTAB SCOTTesults: 1 Negative Date of Service: 12/21/23Follow Up: 1 Year From Orig inal Mammogram Procedure(s): MM tomosynthesis screening BI Accession Number(s): [id number] cc: AFTAB SCOTT CNM EXAMINATION: MM SCREENING [...] in OV> 01/16/24 1156 DD/ 1323 TD/TT: Grinder: us Aftab Scott CNM IMG BI PROCEDURES Final R esult * Protein Creatinine Ratio, Urine (12/03/2022 10:28 AM EDT) Creatinine, Urine 161.85 mg/dL [facility] Protein, Total, Random Urine 10 <12 mg/dL [facility] Protein/Creati nine Ratio, Ur 0.06 <0.2 [facility] Comment:The spot urine prote in:creatinine ratio may increase to 0.3during normal . 12/03/2022 10:2 8 AM EDT 12/03/2022 11:28 AM EDT [facility] External Provider LAB URI NE ORDERABLES Final Result Performing Organization Address [facility] Co de Phone Number [facility] [address] [place] [address] [phone] * LIPID PANEL, STANDARD (03/31/2021 11:03 AM EDT) Chol/HDLC Ratio 1.9 <5.0 (calc) [facility] Cholesterol, Total 155 <200 mg/dL [facility] HDL Cholesterol 80 > OR = 50 mg/dL [facility] LDL Cholesterol 61 mg/dL (calc) [facility] Comment: Reference range: <100 Desirable range <100 mg/dL for primary prevention; <70 mg/dL for patients with CHD or diabetic patients with > or = 2 CHD risk factors. LDL-C is now calculated using the David-Bland calculation, which is a validated novel method providing better accuracy than the Friedewald equation in the estimation of LDL-C. David SS et al. AVIVA. 2013;310(19): 8972-6666 (http://education.[employer].com/faq/ASP441) Non-HDL Cholesterol 75 <130 mg/dL (calc) [facility] Comment: For patients with diabetes plus 1 major ASCVD risk factor, treating to a non-HDL-C goal of <100 mg/dL (LDL-C of <70 mg/dL) is considered a therapeutic option. Triglycerides 62 <150 mg/dL [facility] 03/31/2021 11:0 3 AM EDT Zulma Urbano NP LAB BLOOD ORDERABLES Final Resul t [facility] [address] from Last 3 Months or Most Recently Relevant to Health Maintenance Insurance [facility] C3 Care Teams Chief Operator Lock Tender Relationship Specialty Start Date End Date Martín Awad ANP [address] [place] [address] PCP - General Family Medicine 10/07/20 Sujit Cerrato FNP [address] [place] [address] Nurse Practitioner Family Medicine 07/05/23 Naya Mirza Cigarette Making Machine Hopper FeederAcute Care Nurse 09/05/24
--- OUTSIDE RECORDS SUMMARY | 2025-06-17 15:53 | XMS_ITS | Encounter Summary ---
Author Organization [employer] Address [address] [facility] 7t [place] [address] Care Team Providers Care Cutter Down Name Role Phone Shalonda Phillips Primary Care Provider [phone] Sujit Cerrato Unavailable Unavailable Reason for Visit * Reason Comments Med Refill Encounter Details Date Type Department Care Team ([facility] st Contact Info) Description 08/29/2023 Refill [facility] MED & PEDS [address] [place], [place] [phone] Shalonda Phillips ANP [address] [place] [address] Insomnia, unspecified type Social History Tobacco Use [...] Description 07/11/2025 2:45 PM EST Procedure Visit [facility] MEDICINE [address] [place] [address] Jasmin Greenfield CNM [address] [place] [address] documented as of this encounter Visit Diagnoses Diagnosis Insomnia, unspecified type documented in this encounter Additional Health Concerns Assessment Noted Time PHQ-9 Depression Total Score: 7 08/29/19 24 10:44 AM EST documented as of this encounter Care Teams Cutter Down Relationship Specialty Start Date End Date Shalonda Phillips ANP [address] [place] [phone] PCP - General Family Medicine 10/07/20 Sujit Cerrato FNP [address] [place] [phone] Nurse Practitioner Family Medicine 07/05/23 Naya Mirza Photographic Developer And PrinterPainter And Decorator 09/05/24 documented as of this encounter
--- OUTSIDE RECORDS SUMMARY | 2025-06-17 15:53 | XMS_ITS | Encounter Summary ---
Author Organization [employer] [facility] Address [address] [facility] 7t [place] [address] Care Team Providers Care Lead Material Handler Name Role Phone Shalonda Phillips Primary Care Provider [phone] Sujit Cerrato Unavailable Unavailable Encounter Details Date Type Department Care Team (Late st Contact Info) Description 09/14/2022 Orders Only [facility] MEDICINE [address] [place], [place] [phone] Sapphire Almaguer LPN Social History Tobacco Use [...] Procedure Visit [facility] MEDICINE [address] [place], [place] [phone] Jasmin Greenfield CNM [address] [place], [place] [phone] documented as of this encounter Visit Diagnoses Not on filedocumented in this encounter Care Teams Lead Material Handler Relationship Specialty Start Date End Date Shalonda Phillips ANP [address] [place] [address] PCP - General Family Medicine 10/07/20 Sujit Cerrato FNP [address] [place] [address] Nurse Practitioner Family Medicine 07/05/23 Naya Mirza Algebra TutorDressmaker Or Tailor 09/05/24 documented as of this encounter
--- OUTSIDE RECORDS SUMMARY | 2025-06-17 15:53 | XMS_ITS | Encounter Summary ---
Author Organization [employer] Address [address] [facility] 7t [place] [address] Care Team Providers Care American Board Certified Orthotist Name Role Phone Shalonda Phillips Primary Care Provider [phone] Sujit Cerrato Unavailable Unavailable Encounter Details Date Type Department Care Team (Late st Contact Info) Description 10/18/2022 Orders Only [facility] MEDICINE [address] [place], [place] [phone] Sapphire Almaguer LPN Social History Tobacco Use [...] Description 07/11/2025 2:45 PM EST Procedure Visit [facility] MEDICINE [address] [place], [place] [phone] Jasmin Greenfield CNM [address] [place], [place] [phone] documented as of this encounter Visit Diagnoses Not on filedocumented in this encounter Care Teams American Board Certified Orthotist Relationship Specialty Start Date End Date Shalonda Phillips ANP [address] [place] [address] PCP - General Family Medicine 10/07/20 Sujit Cerrato FNP [address] [place] [address] Nurse Practitioner Family Medicine 07/05/23 Naya Mirza Envelope AdjusterCivil Service Clerk 09/05/24 documented as of this encounter
== END 2025-06-17 13:31 | disposition home or self-care (01) ==
LOC: HO.HPS 12:32
PROVIDERS: PCP Nurse Practitioner Primary Care; Visit Provider Internal Medicine
DX: J44.1 Chronic obstructive pulmonary disease with (acute) exacerbation (principal); G47.34 Idiopathic sleep related nonobstructive alveolar hypoventilation; G47.33 Obstructive sleep apnea (adult) (pediatric); F17.210 Nicotine dependence, cigarettes, uncomplicated
CPT/HCPCS: 99213

== ENCOUNTER → 2025-06-17 12:32 | Outpatient (BNVA) | payer MEDICAID, SELFPAY | PROVIDERS: PCP Nurse Practitioner Primary Care; Visit Provider Internal Medicine | DX: J44.1 Chronic obstructive pulmonary disease with (acute) exacerbation (principal); G47.34 Idiopathic sleep related nonobstructive alveolar hypoventilation; F17.210 Nicotine dependence, cigarettes, uncomplicated | CPT/HCPCS: 99212 ==

== ENCOUNTER 2025-07-05 11:57 | Outpatient (REF) | payer MEDICAID, SELFPAY ==
--- NOTE | ~2025-07-05 | MM_ITS ---
EXAMINATION: MM SCREENING DIGITAL BREAST TOMOSYNTHESIS, BILATERAL CLINICAL INFORMATION: Screening. Asymptomatic. COMPARISON: Mammography: Comparison is made with available priors TECHNIQUE: Digital breast mammography with tomosynthesis is performed in both the craniocaudal and mediolateral oblique views along with computer-aided detection (CAD). FINDINGS: The breasts are almost entirely fatty. There are no significant masses, abnormal calcifications, or other abnormalities. MM/MM tomosynthesis screening BI IMPRESSION: No mammographic evidence of malignancy. ASSESSMENT: BI-RADS Category 1: Negative RECOMMENDATION: Routine annual mammography screening. 1 year F/U This examination should not preclude the clinical evaluation of a suspicious palpable abnormality. This patient's information was entered into a reminder system with a target due date for their next mammogram. Electronically signed by: Lu Montanez DO 07/09/2025 09:38 AM [facility]
== END 2025-07-05 11:58 | disposition home or self-care (01) ==
LOC: HO.MAMMO 11:57
PROVIDERS: PCP Internal Medicine; Visit Provider Obstetrics & Gynecology
DX: Z12.31 Encounter for screening mammogram for malignant neoplasm of breast (principal)
CPT/HCPCS: 77063; 77067

== ENCOUNTER → 2025-07-05 12:45 | Outpatient (BNV) | payer MEDICAID, SELFPAY | PROVIDERS: PCP Internal Medicine; Visit Provider Internal Medicine | DX: Z12.31 Encounter for screening mammogram for malignant neoplasm of breast (principal) | CPT/HCPCS: 77063; 77067 ==